=== PATIENT | male | born 1950 | race African-American/Black ===

== ENCOUNTER 2016-08-07 12:14 | Inpatient (IN) | payer MEDICARE, MEDICAID ==
[~2016-08-07] VITALS: Ht 177.8 cm; Wt 64.2 kg
[~2016-08-07 12:14] MED LIST: ACET-2321 PO; ACET-2723 PO; BENZ9.352 PO; BISA10SU61 RECTALLY; BISM262O25 PO; CALC-1124 PO; DICY10CA13 PO; DIPH25CA6 PO; EPIN0.3P3 IM; GUAI100S35 PO; LOPE2TAB24 PO; LORA1TAB3 PO; MAGN-49 PO; NA P133E23 RECTALLY; POLY119P21 PO; PSEU60TA21 PO; SENN-156 PO; TOLN133A TOP; [UNRECOGNIZED DRUG - CODE] PO
--- OUTSIDE RECORDS SUMMARY | 2016-08-07 12:18 | XMS REPORT | Continuity of Care Document ---
Author Author [facility] Organization [facility] Address Unknown Phone Unavailable Allergies Active Description Code Type Severity Reaction Onset Reported/Identified Relationship to Patient Clinical Status Yes No Known Drug Allergies Drug Allergy 05/12/2012 Yes NSAIDs NKMA N/A [id number] 05/30/2014 Medications Problems Date Dx Coded Attending Type Code Diagnosis Diagnosed By 05/12/2012 Norma Mera MD Final 345.90 EPILEPSY NOS W/O INTRACT 05/12/2012 Norma Mera MD Admitting 557.9 VASC INSUFF INTEST NOS 05/12/2012 Norma Mera MD Final 564.00 CONSTIPATION NOS 05/12/2012 Norma Mera MD Final 569.89 INTESTINAL DISORDER NEC 05/12/2012 Norma Mera MD Final 787.3 FLATUL/ERUCT GAS PAIN 05/12/2012 Norma Mera MD Admitting 564.00 CONSTIPATION NOS Procedures Code [place] [address] DIAGNOSTIC COLONOSCOPY Norma Mera MD 05/12/2012 Results Encounters ACCT No. Visit Date/Time Discharge Status Pt. Type Provider Facility Loc./Unit Complaint [id number] 05/12/2012 09:08:00 2012 23:59:59 CLS Outpatient Norma Mera MD [facility]
--- OUTSIDE RECORDS SUMMARY | 2016-08-07 12:18 | XMS REPORT | Continuity of Care Document ---
Author Author [facility] Organization [facility] Address Unknown Phone Unavailable Care Team Providers Care Engineer Fishing Vessel Name Role Phone OTHER Primary Care Physician [phone] Insurance Providers Guarantor Vadim Johnson Address [address] [place] [address] [address] [place] [address] Email DENIED TO PT PORTAL Payer [facility] Policy Number [id number] Subscriber's Name Vadim Johnson Relationship 18 Self Effective Date 16 Expiration Date 16 Payer Medicare Policy Number [id number] Subscriber's Name Vadim Johnson Relationship 18 Self Effective Date 88 Advance Directives Directive Response Recorded Date/Time Advanced Directives Type None 04/30/16 6:00pm Chief Complaint and Reason for Visit Chief Complaint Hypertension Reason for Visit [id number] Headache Problems Active Problems Medical Problem Onset Date Status Mental retardation Unknown Past Problems Medical Problem Onset Date HTN (hypertension) Unknown Headache Unknown Medications Current Home Medications Medication Dose Units Route Directions Days Qty Instructions Start Date Acetaminophen (Tylenol) 325 Mg Tablet 650 Mg Oral Every 4 Hours as needed for Pain/Fever 04/30/16 Acetaminophen (Tylenol Extra Strength) 500 Mg Tablet 500-1000 Mg Oral Every 6 Hours as needed for Pain/Fever 04/30/16 Benzocaine (Oral Pain Relief) 9.35 Gm Gel..gram. 1 Applic Oral As Needed 04/30/16 Bisacodyl (Dulcolax) 10 Mg Supp.rect 10 Mg Rectally Daily as needed for Constipation 04/30/16 Bismuth Subsalicylate (Bismatrol) 262 Mg/15 Ml Oral.susp 1 Dose Oral As Needed 04/30/16 Calcium Carb/Magnesium Hydrox (Rolaids Chewable Tablet) 1 Each Tab.chew 1-2 Tab Oral Every Hour as needed for Heartburn 04/30/16 Diazepam 5 Mg Tablet 5 Mg Oral Twice A Day as needed for Prn Orders 07/15/11 Dicyclomine Hcl 10 Mg Capsule 10 Mg Oral Four Times Daily as needed for Irritable Bowel Symptoms 04/30/16 Diphenhydramine Hcl 25 Mg Capsule 25 Mg Oral Three Times A Day as needed for Allery Symptoms 04/30/16 Epinephrine (Epipen 2-Umberto) 0.3 Mg/0.3 Ml Auto.injct 0.3 Mg Intramusc As Needed 04/30/16 Guaifenesin (Robafen) 100 Mg/5 Ml Liquid 100 Mg Oral Every 4 Hours as needed for Cough 04/30/16 Loperamide Hcl (Loperamide) 2 Mg Tablet 2 Mg Oral Four Times Daily as needed for Diarrhea 04/30/16 Lorazepam 1 Mg Tablet 1 Mg Oral Twice A Day as needed for Anxiety 04/30/16 Magnesium Hydroxide (Milk Of Magnesia) 400 Mg/5 Ml Oral.susp 30 Ml Oral Daily as needed for Constipation 07/15/11 Na Phos,M-B/Na Phos,Di-Ba (Fleet Enema) 133 Ml Enema 1 Enema Rectally Onetime as needed for Constipation 04/30/16 Polyethylene Glycol 3350 (Glycolax) 119 Gm Powder 17 Gm Oral Daily 04/30/16 Pseudoephedrine Hcl (Sudogest) 60 Mg Tablet 60 Mg Oral Every 4 Hours as needed for Congestion 04/30/16 Sennosides (Senna) 8.6 Mg Tablet 8.6 Mg Oral Twice A Day 04/30/16 Tolnaftate (Tinactin) 133 Gm Aero.powd 1 Applic Topically Twice A Day as needed for Prn Orders 04/30/16 Social History Social History Problem Response Recorded Date/Time Onset Date Status Hx Alcohol Use No 04/30/2016 6:16pm Not Applicable Not Applicable Query Response Start Date Stop Date Smoking Status Never smoker Hospital Discharge Instructions No hospital discharge instructions. Plan of Care Discharge Date 04/30/16 7:30pm Disposition 01 DISCHARGED HOME, SELF-CARE Condition at Discharge Improved Instructions/Education Provided Tension Headache Prescriptions See Medication Section Referrals ANDER NEGRETE MD Order Date: 3 Days Address: [address] [place] [address] [phone] Note: Additional Instructions/Education You have had a headache. Elevated blood pressure is a common finding with pain. Drink plenty of fluids and follow up with your doctor. Care Plan and Goals Physician Care Plan Problem: Tension [place] Goal: Follow up with primary care provider Instructions: Take medications and follow care plan as discussed/written Functional Status No functional status results. Allergies, Adverse Reactions, Alerts Allergen Type Severity Reaction Status Last Updated No Known Drug Allergies Allergy Unknown Active 04/30/16 Immunizations Query Response on File Recorded Date/Time Hx Tetanus, Diptheria, Pertussis Yes 12/14/11 10:21pm Hx Tetanus, Diptheria, Pertussis Yes 12/14/11 10:21pm Vital Signs Acute Vital Signs Vital Response Date/Time Temperature (Fahrenheit) 98.3 deg F (96.8 - 99.1) 04/30/2016 7:30pm Temperature (Calculated Celsius) 36.07241 degrees C (36.0 - 37.3) 04/30/2016 7:30pm Pulse Rate (adult) 85 bpm (60 - 100) 04/30/2016 7:30pm Respiratory Rate 18 breaths/min (10 - 20) 04/30/2016 7:30pm O2 Sat by Pulse Oximetry 97 % (90 - 100) 04/30/2016 7:30pm Blood Pressure 137/84 mm Hg 04/30/2016 7:30pm Blood Pressure 137/84 mm Hg 04/30/2016 7:30pm Height (Feet) 5 feet 04/30/2016 6:00pm Height (Inches) 10.00 inches 04/30/2016 6:00pm Weight (Kilograms) 68.900 kg 04/30/2016 6:00pm Body Mass Index (BMI) 21.0 04/30/2016 6:00pm Results Laboratory Results Test Name Result Units Flags Reference Collection Date/Time Result Date/ Time Comments White Blood Count 10.1 T/MM3 4.5-11.0 04/30/2016 6:40pm 04/30/2016 6: 56pm Red Blood Count 4.57 M/MM3 4.50-5.90 04/30/2016 6:40pm 04/30/2016 6: 56pm Hemoglobin 13.8 GM/DL 13.5-17.5 04/30/2016 6:40pm 04/30/2016 6:56pm Hematocrit 41.0 % 41-53 04/30/2016 6:40pm 04/30/2016 6:56pm Mean Corpuscular Volume 89.7 UM3 80-100 04/30/2016 6:40pm 04/30/2016 6: 56pm Mean Corpuscular Hemoglobin 30.2 UUG 26-34 04/30/2016 6:40pm 2016 6:56pm Mean Corpuscular Hemoglobin Concent 33.7 GM/DL 31-37 04/30/2016 6:40pm 04/30/2016 6:56pm RDW Standard Deviation 44.3 FL 36.9-50.2 04/30/2016 6:40pm 04/30/2016 6 :56pm Platelet Count 173 T/MM3 130-400 04/30/2016 6:40pm 04/30/2016 6:56pm Mean Platelet Volume 10.2 UM3 9.4-12.4 04/30/2016 6:40pm 04/30/2016 6: 56pm Neutrophils % (Manual) 94.0 % H 33-66 04/30/2016 6:40pm 04/30/2016 7: 00pm Band Neutrophils % 3.0 % 0-6 04/30/2016 6:40pm 04/30/2016 7:00pm Lymphocytes % (Manual) 1.0 % L 23-45 04/30/2016 6:40pm 04/30/2016 7: 00pm Monocytes % (Manual) 2.0 % 0-9.0 04/30/2016 6:40pm 04/30/2016 7:00pm Band Neutrophils # 0.3 T/MM3 04/30/2016 6:40pm 04/30/2016 7:00pm Absolute Neutrophils (Manual) 9.5 T/MM3 H 1.8-7.7 04/30/2016 6:40pm 06/2016 7:00pm Lymphocytes # (Manual) 0.1 T/MM3 L 1-4.8 04/30/2016 6:40pm 04/30/2016 7: 00pm Monocytes # (Manual) 0.2 T/MM3 0-0.8 04/30/2016 6:40pm 04/30/2016 7: 00pm Red Cell Morphology Comment NORMAL 04/30/2016 6:40pm 04/30/2016 7: 00pm Icterus Index < 2 0-7 04/30/2016 6:40pm 04/30/2016 6:54pm Chemistry Specimen Hemolysis < 15 0-25 04/30/2016 6:40pm 04/30/2016 6 :54pm 0-25: Specimen Exhibited No Hemolysis. Turbidity < 20 0-20 04/30/2016 6:40pm 04/30/2016 6:54pm Sodium Level 140 MEQ/L 134-144 04/30/2016 6:40pm 04/30/2016 6:54pm Potassium Level 4.0 MEQ/L 3.6-5 04/30/2016 6:40pm 04/30/2016 6:55pm Chloride Level 99 MEQ/L 98-107 04/30/2016 6:40pm 04/30/2016 6:55pm Carbon Dioxide Level 30 MEQ/L 22-30 04/30/2016 6:40pm 04/30/2016 6: 55pm Anion Gap 11 MEQ/L 5-15 04/30/2016 6:40pm 04/30/2016 6:55pm Blood Urea Nitrogen 15.0 MG/DL 9-20 04/30/2016 6:40pm 04/30/2016 6: 55pm Creatinine 1.0 MG/DL 0.8-1.5 04/30/2016 6:40pm 04/30/2016 6:55pm BUN/Creatinine Ratio 15 RATIO 6-26 04/30/2016 6:40pm 04/30/2016 6:55pm Glomerular Filtration Rate Calc 75 04/30/2016 6:40pm 04/30/2016 6: 55pm Glucose Level 136 MG/DL H 75-110 04/30/2016 6:40pm 04/30/2016 6:55pm Calculated Osmolality 272 MOSM/KG 261-280 04/30/2016 6:40pm 04/30/2016 6:55pm Calcium Level 9.8 MG/DL 8.4-10.2 04/30/2016 6:40pm 04/30/2016 6:55pm Procedures No known history of procedures. Encounters Encounter Location Arrival/Admit Date Discharge/Depart Date Attending Provider Departed Emergency Room [facility] 04/30/16 5:56pm 04/30/16 7: 30pm AUGUST, RENARD Manuel DO Recent Diagnosis
--- OUTSIDE RECORDS SUMMARY | 2016-08-07 12:19 | XMS REPORT | Referral Summary ---
Author Author [facility] Organization [facility] Address Unknown Phone Unavailable Care Team Providers Care Payroll Manager Name Role Phone Pee Machuca Primary Care Physician [phone] Encounter VC Date(s): 06/24/16 - 06/24/16 [facility] [place] [place] [address] Discharge Diagnosis: Constipation (disorder) Discharge Diagnosis: Profound mental retardation Discharge Diagnosis: Epileptic seizures Discharge Disposition: 01-Home or Self Care Attending Physician: Devyn Machuca MD Admitting Physician: Devyn Machuca MD Vital Signs Most recent to 1 oldest [Reference Range]: Temperature Tympanic 36.0 degC [36.6-38.1 degC] *LOW* (06/24/16 11:44 AM) Peripheral Pulse 96 bpm Rate [60-100 bpm] (06/24/16 11:44 AM) Respiratory Rate 16 br/min [14-20 br/min] (06/24/16 11:44 AM) Blood Pressure 154/104 mmHg [90-140/60-90 mmHg] *HI* (06/24/16 11:44 AM) Problem List Condition Effective Dates Status Health Status Informant Anemia(Confirmed) 2000 Active Bronchitis Resolved (disorder)(Confirmed ) Constipation Active (disorder)(Confirmed ) Diarrhea Resolved (finding)(Confirmed) Disorders of 1996 Active perceptional & expression(Confirmed ) Epitaxis (Petite 199805/30/14 Resolved Mal)(Confirmed) Pigmenta change to 2000 Active (L) of face(Confirmed) Cerumenosis(Confirme 2000 Active d) (L) tear duct 1997 Active clogged(Confirmed) Epileptic 1952 Active seizures(Confirmed) Clavicle 2001 - 05/30/14 Resolved fracture(Confirmed) Elevated 1988 - 05/30/14 Resolved CPK(Confirmed) Osteopenia - hip and 2001 Active low bone mineral(Confirmed) Profound mental Active retardation(Confirme d) Allergies, Adverse Reactions, Alerts Substance Reaction Severity Status NSAIDs Colon ulcer... Active Medications acetaminophen 325 mg oral tablet 1 tabs, Oral, q4hr, as needed Start Date: 05/30/14 Status: Ordered acetaminophen 500 mg oral tablet 1-2 tabs, Oral, q6hr, not to exceed 3000 mg/day as needed for pain,fever or discomfort, # 50 tabs, 0 Refill(s), 1-2 tabs Oral q6hr,Instr:not to exceed 3000 mg/day; as needed for pain,fever or discomfort Start Date: 01/13/14 Status: Ordered Ativan 1 mg oral tablet 1 tabs, Give [address]'s appt and can repeat x 1 if needed, 0 Refill(s) Start Date: 05/30/14 Status: Ordered Benadryl 25 mg oral capsule 2 caps, Oral, every 4-6 hours as needed Start Date: 05/30/14 Status: Ordered bisacodyl 10 mg rectal suppository 1 supp, Rectal, Daily, as needed for constipation, prn constipation or abd distension, # 12 supp, 1 Refill(s), Pharmacy: [facility], 1 supp Rectal Daily,PRN:as needed for constipation,Instr:prn constipation or abd distension Start Date: 01/13/14 Status: Ordered dicyclomine 10 mg oral capsule 1 caps, Oral, QID, as needed for irritable bowel Start Date: 05/30/14 Status: Ordered EpiPen 2-Umberto 0.3 mg injectable kit IntraMuscular, Once, as needed for anaphylaxis, 0 Refill(s) Start Date: 12/20/15 Status: Ordered Imodium A-D 2 mg oral tablet 2 tabs, Oral, after 1st loose stool and 1 tablet after each next bowel movement ; do not exceed 15 mg in 24hrs Start Date: 05/30/14 Status: Ordered Milk of Magnesia 30 mL, Oral, Daily, as needed, followed by a full glass (8 oz) of liquid Start Date: 05/30/14 Status: Ordered MiraLax oral powder for reconstitution See Instructions, 17GM WITH 8OZ OF H2O AND TAKE BY MOUTH ONCE DAILY FOR CONSTIPATION., # 527 g, 2 Refill(s), Pharmacy: [facility] Start Date: 01/26/16 Status: Ordered Pepto-Bismol 262 mg/15 mL oral suspension Start Date: 05/30/14 Status: Ordered Rolaids 550 mg-110 mg oral tablet, chewable Oral, q1hr, Take 1-2 tabs as needed for heartburn/upset stomach Start Date: 05/30/14 Status: Ordered Senokot 8.6 mg oral tablet See Instructions, TAKE 1 TABLET BY MOUTH TWO TIMES A DAY FOR CONSTIPATION., # 56 tabs, 1 Refill(s), Pharmacy: [facility], TAKE 1 TABLET BY MOUTH TWO TIMES A DAY FOR CONSTIPATION. Start Date: 03/13/16 Status: Ordered Sudafed 1 tabs, Oral, q4hr, as needed Start Date: 05/30/14 Status: Ordered Tinactin 1% topical spray BID, Kaleva on feet twice daily as needed for athletes foot Start Date: 05/30/14 Status: Ordered Valium 5 mg oral tablet See Instructions, 1 tabs at HS before appt day, may take 1 morning of appt Start Date: 05/30/14 Status: Ordered Results No data available for this section Immunizations Given and Recorded Vaccine Date Status Refusal Reason tetanus/diphth/pertuss (Tdap) adult/adol 05/23/06 Recorded influenza virus vaccine, inactivated 02/22/14 Recorded influenza virus vaccine, live 01/08/13 Given influenza virus vaccine, live 02/06/12 Given pneumococcal 13-valent conjugate vaccine 04/05/15 Given pneumococcal 23-polyvalent vaccine 12/19/09 Recorded Procedures Procedure Date Related Diagnosis Body Site Colonoscopy 05/12/12 Colonoscopy1 07/15/11 Several teeth removed 2004 Evaluation of both calfs 1997 1colon ulcers, no NSAIDS, ischemic colitis. F/u if ongoing probs for further eval. Social History Social History Type Response Smoking Status Never smoker Assessment and Plan Extracted from: Title: Office Visit Note Author: Devyn Machuca MD Date: 06/24/16 Assessment/Plan 1.Profound mental retardation Chronic and unchanged. Continue routine follow-up every 6 months. Ordered: Office Visit Level 3 Est 63700 2.Epileptic seizures No obvious history of seizure activity. No change in current treatment. Ordered: Office Visit Level 3 Est 97609 3.Constipation (disorder) When necessary meds are ordered as needed continue those without change. Ordered: Office Visit Level 3 Est 40716 Laboratory studies reviewed from June of last year. CBC and chemistry are unremarkable. I've recommended lab work every 2 years. She has further problems or concerns will glad to see him back at some chest can see him every 6 months.
[2016-08-07 12:25] VITALS: BP 180/89; PULSE 105; RESP 18; TEMP 96.5; O2SAT 95
--- NOTE | 2016-08-07 12:25 | NUR ---
Admit Patient admitted to room 142. Patient has MR and is mute other then a few words. Caregiver at side. Abd distended, complains of abd pain.
[2016-08-07 12:33] VITALS: Ht 177.8 cm; Wt 64.2 kg
[2016-08-07] MEDS: NORMAL SALINE 1,000 ML IV SCH (13:00)
[2016-08-07 13:05] VITALS: PULSE 105
[2016-08-07] MEDS: LORAZEPAM 2 MG/ML INJECTION IV PRN ×2 (13:27→20:27)
[2016-08-07] MEDS: MORPHINE SULFATE 2 MG SYRINGE IV PRN ×4 (13:27→21:44)
[2016-08-07] MEDS: ONDANSETRON 4mg/2ml INJECTION IV PRN (13:27)
[2016-08-07 13:37] LABS: HCT - HEMATOCRIT 47.5 % (41-53); HGB - HEMOGLOBIN 15.7 GM/DL (13.5-17.5); MEAN CORPUSCULAR HGB 29.3 UUG (26-34); MEAN CORPUSCULAR HGB CONC(MCHC 33.1 GM/DL (31-37); MEAN CORPUSCULAR VOLUME 88.8 UM3 (80-100); MEAN PLATELET VOLUME 11.3 UM3 (9.4-12.4); RED BLOOD COUNT 5.35 M/MM3 (4.50-5.90); WBC - WHITE BLOOD COUNT 16.7 T/MM3 (4.5-11.0)
[2016-08-07 13:51] LABS: ALBUMIN 4.2 G/DL (3.5-5.0); ALKALINE PHOSPHATASE 71 U/L (38-126); ALT (SGPT) 39 U/L (21-72); ANION GAP 19 MEQ/L (5-15); AST (SGOT) 72 U/L (17-59); BUN/CREATININE RATIO 28 RATIO (6-26); CALCIUM 9.7 MG/DL (8.4-10.2); CHLORIDE 99 MEQ/L (98-107); CO2 - CARBON DIOXIDE 19 MEQ/L (22-30); CREATININE 1.1 MG/DL (0.8-1.5); GLOMERULAR FILTRATION RATE 67; GLUCOSE 149 MG/DL (75-110); MAGNESIUM 3.6 MG/DL (1.6-2.3); POTASSIUM 4.5 MEQ/L (3.6-5); SODIUM 137 MEQ/L (134-144); TOTAL PROTEIN 8.6 G/DL (6.3-8.2)
[2016-08-07 13:53] LABS: BAND NEUTROPHILS # 2.5 T/MM3; LYMPHOCYTES # (MANUAL) 0.8 T/MM3 (1-4.8); MONOCYTES # (MANUAL) 0.3 T/MM3 (0-0.8); TOTAL CELLS COUNTED 100 %
[2016-08-07 14:24] LABS: LIPASE 69 U/L (23-300)
[2016-08-07] MEDS ORDERED: NORMAL SALINE 500 ML IV SCH (14:30)
--- NOTE | 2016-08-07 14:30 | NUR ---
Restraints Patient pulled out NG. Caregiver at side. Tried to re-orient patient several times and explain the importance of not pulling out NG. NG replaced and Liss notified. Restraints placed for tube pulling.
--- NOTE | 2016-08-07 14:41 | HPPDOC ---
KEENAN HILLMAN V CNC MILL OPERATOR 08/07/16 1412: HPI - Adult Date DATE: 08/07/16 TIME: 13:46 General Chief Complaint: Abdominal distension History of Present Illness Vadim is a 65 year old man who currently resides at [facility]. He presents today to his primary care provider at [facility], Selin Tay's office for evaluation of abdominal distention. Abdominal KUB X-ray was completed that demonstrated distention of the colon with multiple air fluid levels in both large and small bowel related to adynamic ileus. Due to his clinical and diagnostic findings the hospitalist team was notified for direct admission as an inpatient for further evaluation and treatment... Shouldn't on initial examination. He has severe MR and is not able to communicate very well. [facility] staff member reports that yesterday the patient' s stomach began to swell and that he vomited twice. Vadim also pointed to his stomach yesterday. He also had a low grade fever. [facility] staff reports that his last bowel movement was Friday. He is seen initially on exam laying in bed with a [facility] staff member at his bedside. He does appear to be in distress. His abdomen is very distended. Discussed with [facility] staff his baseline mentation is mostly non-verbal with some aggressive behaviors. [facility] staff reports that he occasionally will point to something that he wants, but otherwise he speaks minimally. 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 Clavicle fracture Surgical History Patient's Surgical History: Colonoscopy x 2 (2011, 2012) Current Medications Home Meds Reported Medications Benzocaine (Oral Pain Relief) 9.35 Gm Gel..gram., 1 APPLIC PO PRN 04/30/16 Acetaminophen (Tylenol) 325 Mg Tablet, 650 MG PO Q4HR Y for PAIN/FEVER 04/30/16 Pseudoephedrine HCl (Sudogest) 60 Mg Tablet, 60 MG PO Q4HR Y for CONGESTION 04/30/16 Guaifenesin (Robafen) 100 Mg/5 Ml Liquid, 100 MG PO Q4HR Y for COUGH 04/30/16 Calcium Carb/Magnesium Hydrox (Rolaids Chewable Tablet) 1 Each Tab.chew, 1-2 TAB PO Q1H Y for HEARTBURN 04/30/16 Bismuth Subsalicylate (Bismatrol) 262 Mg/15 Ml Oral.susp, 1 DOSE PO PRN 04/30/16 Tolnaftate (Tinactin) 133 Gm Aero.powd, 1 APPLIC TOP BID Y for PRN ORDERS 04/30/16 Diphenhydramine HCl (Diphenhydramine HCl) 25 Mg Capsule, 25 MG PO TID Y for ALLERY SYMPTOMS 04/30/16 Lorazepam (Lorazepam) 1 Mg Tablet, 1 MG PO BID Y for ANXIETY 04/30/16 Loperamide HCl (Loperamide) 2 Mg Tablet, 2 MG PO QID Y for DIARRHEA 04/30/16 Dicyclomine HCl (Dicyclomine HCl) 10 Mg Capsule, 10 MG PO QID Y for IRRITABLE BOWEL SYMPTOMS 04/30/16 Na Phos,M-B/Na Phos,Di-Ba (Fleet Enema) 133 Ml Enema, 1 ENEMA RECTALLY O Y for CONSTIPATION 04/30/16 Bisacodyl (Dulcolax) 10 Mg Supp.rect, 10 MG RECTALLY DAILY Y for CONSTIPATION 04/30/16 Acetaminophen (Tylenol Extra Strength) 500 Mg Tablet, 500-1000 MG PO Q6H Y for PAIN/FEVER 04/30/16 Epinephrine (Epipen 2-Umberto) 0.3 Mg/0.3 Ml Auto.injct, 0.3 MG IM PRN 04/30/16 Sennosides (Senna) 8.6 Mg Tablet, 8.6 MG PO BID 04/30/16 Polyethylene Glycol 3350 (Glycolax) 119 Gm Powder, 17 GM PO DAILY 04/30/16 Magnesium Hydroxide (Milk Of Magnesia) 400 Mg/5 Ml Oral.susp, 30 ML PO DAILY Y for CONSTIPATION 07/15/11 Diazepam (Diazepam) 5 Mg Tablet, 5 MG PO BID Y for PRN ORDERS 07/15/11 Allergies: Coded Allergies: NSAIDS (Non-Steroidal Anti-Inflamma (Verified Allergy, Unknown, 08/07/16) History of ulcers Family History Family History: Unable to obtain from patient given chronic mentation Social History Smoking Status: Never smoker Substance Use Type: does not use Alcohol Intake: none Advance Directives: Yes DPOA for Healthcare Only (Winnie guardian) Review of Systems Unable to Obtain ROS Due to: other Comments Unable to obtain review of systems due to chronic cognitive deficits and profound MR Physical Exam General General Nourishment: well nourished General Body Habitus: well groomed Vital Signs Vital Signs Date Time Temp Pulse Resp B/P Pulse Ox O2 Delivery O2 Flow Rate FiO2 08/07/16 13:05 105 08/07/16 12:25 96.5 18 180/89 95 Room Air Height (Feet): 5 Height (Inches): 10.00 Eyes Brief: FOUND: EOMI ENMT Brief: FOUND: mucosa moist Respiratory Brief: FOUND: clear all negron Cardiovascular (brief) Cardiac Brief: FOUND: regular rate, regular rhythm Abdomen (brief) Abdominal Brief: FOUND: distended, other (hypoactive BS), NOT FOUND: BS normo active x4 (hypoactive), soft Abdomen Auscultation: FOUND: hypoactive Integumentary (brief) Integumentary Brief: FOUND: dry, warm Neurologic (brief) Neurological Brief: FOUND: cranial 2-12 intact Neurologic RN Documented GCS Eye Opening: Verbal: Motor: Total: Psychiatric (brief) FOUND: alert, normal affect Laboratory Laboratory Tests Test 08/07/16 13:28 White Blood Count 16.7T/MM3 Red Blood Count 5.35M/MM3 Hemoglobin 15.7GM/DL Hematocrit 47.5% Mean Corpuscular Volume 88.8UM3 Mean Corpuscular Hemoglobin 29.3UUG Mean Corpuscular Hemoglobin Concent 33.1GM/DL RDW Standard Deviation 45.0FL Platelet Count 181T/MM3 Mean Platelet Volume 11.3UM3 Immature Granulocyte % (Auto) % Neutrophils (%) (Auto) % Lymphocytes (%) (Auto) % Monocytes (%) (Auto) % Eosinophils (%) (Auto) % Basophils (%) (Auto) % Absolute Immature Granulocyte (auto T/MM3 Absolute Neutrophils (auto) T/MM3 Absolute Lymphocytes (auto) T/MM3 Absolute Monocytes (auto) T/MM3 Absolute Eosinophils (auto) T/MM3 Absolute Basophils (auto) T/MM3 Turbidity < 20 Icterus Index < 2 Chemistry Specimen Hemolysis 125 Sepsis Diagnostic Criteria Sepsis Confirmed/Suspected Infection: Yes SIRS Criteria: Temp<=96.8 or >=100.4, Pulse >= 90 beats/min, WBC >=12,000 or <= 4,000, BS >120 in non-diabetic Severe Sepsis Lactate >=2.0 mg/dL Assessment & Plan Problems: (1) Severe sepsis Status: Acute Assessment & Plan: Manifestations of sepsis include the following- 1. Leukocytosis at 16.7 with left shift. Bandemia 15%. 2. Tachycardia at 105 3. Acute abdominal distention/pain 4. Evidence of organ dysfunction including elevated bilirubin 2.0 and hyperglycemia in the absence of diabetes 5. Elevated Lactate of 3.0. (2) Abdominal distention Status: Acute (3) Epileptic seizure Status: Chronic (4) Anemia Status: Chronic (5) Constipation Status: Chronic (6) Mental retardation Status: Chronic (7) Osteopenia Status: Chronic Plan/Intensity of Service Admit to inpatient under the care of Dr. Arvizu for abdominal distention. Severe sepsis as evidence by: Acute abdominal pain, Tachycardia at 105, Leukocytosis at 16.7 with left shift, Bilirubin at 2.0, hyperglycemia and Lactate of 3.0. Obtain blood cultures x 2 on admission NS bolus of 500ml wide open, then decrease to 100ml/hr. Zosyn IV every 6 hours for empiric antimicrobial coverage. We will repeat a Lactate at 1830, following sepsis protocol We will consult Dr. Ariza for abdominal distention. Place NG tube to low intermittent suction to help decompress the stomach When necessary behavioral restraints as patient has already pulled out one NG tube on admission. We will keep Vadim NPO for now. Zofran 4mg IV PRN for nausea. Morphine sulfate 2mg IV every 2 hours PRN abdominal pain. Vital signs are: T- 96.5, HR of 105, BP of 180/89, 18 R and 95% RA. Will ask nursing to repeat BP. For DVT prophylaxis we will order SCDs as to not conflict with any surgical intervention that could be needed. We will contact his DPOA for a code status. Recheck CBC and BMP tomorrow morning to follow blood counts, renal function and electrolytes. At time of discharge medical care will return to his primary care provider at [facility] DVT Prophylaxis: SCD'S Code Status Full Code, unverified Hospital Course Summary Disclaimer The hospital course summary below is not to be considered part of the above Progress Note. ARLETTE ARVIZU MD 08/07/16 2686: Past Medical History Current Medications Home Meds Reported Medications Benzocaine (Oral Pain Relief) 9.35 Gm Gel..gram., 1 APPLIC PO PRN 04/30/16 Acetaminophen (Tylenol) 325 Mg Tablet, 650 MG PO Q4HR Y for PAIN/FEVER 04/30/16 Pseudoephedrine HCl (Sudogest) 60 Mg Tablet, 60 MG PO Q4HR Y for CONGESTION 04/30/16 Guaifenesin (Robafen) 100 Mg/5 Ml Liquid, 100 MG PO Q4HR Y for COUGH 04/30/16 Calcium Carb/Magnesium Hydrox (Rolaids Chewable Tablet) 1 Each Tab.chew, 1-2 TAB PO Q1H Y for HEARTBURN 04/30/16 Bismuth Subsalicylate (Bismatrol) 262 Mg/15 Ml Oral.susp, 1 DOSE PO PRN 04/30/16 Tolnaftate (Tinactin) 133 Gm Aero.powd, 1 APPLIC TOP BID Y for PRN ORDERS 04/30/16 Diphenhydramine HCl (Diphenhydramine HCl) 25 Mg Capsule, 25 MG PO TID Y for ALLERY SYMPTOMS 04/30/16 Lorazepam (Lorazepam) 1 Mg Tablet, 1 MG PO BID Y for ANXIETY 04/30/16 Loperamide HCl (Loperamide) 2 Mg Tablet, 2 MG PO QID Y for DIARRHEA 04/30/16 Dicyclomine HCl (Dicyclomine HCl) 10 Mg Capsule, 10 MG PO QID Y for IRRITABLE BOWEL SYMPTOMS 04/30/16 Na Phos,M-B/Na Phos,Di-Ba (Fleet Enema) 133 Ml Enema, 1 ENEMA RECTALLY O Y for CONSTIPATION 04/30/16 Bisacodyl (Dulcolax) 10 Mg Supp.rect, 10 MG RECTALLY DAILY Y for CONSTIPATION 04/30/16 Acetaminophen (Tylenol Extra Strength) 500 Mg Tablet, 500-1000 MG PO Q6H Y for PAIN/FEVER 04/30/16 Epinephrine (Epipen 2-Umberto) 0.3 Mg/0.3 Ml Auto.injct, 0.3 MG IM PRN 04/30/16 Sennosides (Senna) 8.6 Mg Tablet, 8.6 MG PO BID 04/30/16 Polyethylene Glycol 3350 (Glycolax) 119 Gm Powder, 17 GM PO DAILY 04/30/16 Magnesium Hydroxide (Milk Of Magnesia) 400 Mg/5 Ml Oral.susp, 30 ML PO DAILY Y for CONSTIPATION 07/15/11 Diazepam (Diazepam) 5 Mg Tablet, 5 MG PO BID Y for PRN ORDERS 07/15/11 Allergies: Coded Allergies: NSAIDS (Non-Steroidal Anti-Inflamma (Verified Allergy, Unknown, 08/07/16) History of ulcers Assessment & Plan Problems: (1) Severe sepsis Status: Acute Assessment & Plan: Manifestations of sepsis include the following- 1. Leukocytosis at 16.7 with left shift. Bandemia 15%. 2. Tachycardia at 105 3. Acute abdominal distention/pain 4. Evidence of organ dysfunction including elevated bilirubin 2.0 and hyperglycemia in the absence of diabetes 5. Elevated Lactate of 3.0. (2) Abdominal distention Status: Acute (3) Bowel obstruction Status: Acute Qualifiers: Intestinal obstruction type: unspecified Qualified Codes: K56.60 - Unspecified intestinal obstruction (4) Epileptic seizure Status: Chronic (5) Anemia Status: Chronic (6) Constipation Status: Chronic (7) Mental retardation Status: Chronic (8) Osteopenia Status: Chronic Plan/Intensity of Service Have independently interviewed and examined pt. Chart reviewed. Cased discussed with Selin from clinic and my CNC MILL OPERATOR. Care plan developed with my supervision; agree with above. Presents to clinic today for evaluation of increasing abdominal distention and vomiting/dry heaves. Not eating or drinking well for 2 days. Last stool 2 days ago. BP elevated and pt more agitated (his typical response when he becomes ill) . In clinic ab significantly distended. Pt with severe MR and no verbal. History obtained from caregivers. Lungs: clear CV: tachy, regular AB: distended, firm. BS not present GEN: pt looks uncomfortable, grimaces Plan: Inpatient admission-anticipate greater than 2 midnights of care needed. Start Zosyn for antimicrobial coverage of GI pathogens. NG to LIS to help bowel decompression-will consult with Dr Ariza for evaluation. Pt does have Hx of adynamic colon with prior persistent dilation of large and small bowel. IVF for hydration and volume support. SCD for DVT prevention. Soft restrains as pt likely to remove feeding tube if no restraints. Monitor lab. KEENAN HILLMAN V CNC MILL OPERATOR Aug 07, 2016 14:12 ARLETTE ARVIZU MD Aug 07, 2016 15:48
--- NOTE | 2016-08-07 14:55 | DI ---
Indication: ITS.REASON: verify NG tube placement Procedure: KUB: Encounter: Initial Comparison: 10/06/2012 Technique: A single supine AP abdominal radiograph was obtained. Findings: Evaluation limited by suboptimal positioning with rightward patient rotation. There is marked gaseous distention of multiple bowel loops potentially representing predominantly stomach and colon. An enteric tube is in place which appears to course below the diaphragm with distal side port near the expected region of the GE junction and tip likely in the proximal stomach. Basilar atelectasis noted within the visualized lower lungs. No acute osseous abnormality identified. Impression: Enteric tube in place with tip likely in the proximal stomach and distal side port near the GE junction. .
[2016-08-07 14:56] LABS: THYROID STIM HORMONE-TSH 1.06 MIU/L (0.47-4.68)
[2016-08-07 15:23] VITALS: BP 160/102; PULSE 111; RESP 18; TEMP 96.8; O2SAT 94
--- NOTE | 2016-08-07 15:37 | NUR ---
Comfort BP continues to be elevated. Patient is unable to communicate much with how severe his abd pain is. Morphine given.
--- NOTE | 2016-08-07 16:33 | NUR ---
NG Patient pulled NG out. Replaced with an 18 gauge. Patient now has 1 on 1 sitter.
--- NOTE | 2016-08-07 16:46 | CONSPD ---
Consultation Info Date DATE: 08/07/16 TIME: 16:44 Date of Consultation: Aug 07, 2016 Reason for Consultation: Ileus vs SBO HPI - Adult Date DATE: 08/07/16 TIME: 16:44 General Chief Complaint: Abdominal distension History of Present Illness Per Dr. 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 Clavicle fracture Surgical History Patient's Surgical History: 06-16-2011 Colonoscopy = ischemic colitis, Mi[facility] Current Medications Home Meds Reported Medications Benzocaine (Oral Pain Relief) 9.35 Gm Gel..gram., 1 APPLIC PO PRN 04/30/16 Acetaminophen (Tylenol) 325 Mg Tablet, 650 MG PO Q4HR Y for PAIN/FEVER 04/30/16 Pseudoephedrine HCl (Sudogest) 60 Mg Tablet, 60 MG PO Q4HR Y for CONGESTION 04/30/16 Guaifenesin (Robafen) 100 Mg/5 Ml Liquid, 100 MG PO Q4HR Y for COUGH 04/30/16 Calcium Carb/Magnesium Hydrox (Rolaids Chewable Tablet) 1 Each Tab.chew, 1-2 TAB PO Q1H Y for HEARTBURN 04/30/16 Bismuth Subsalicylate (Bismatrol) 262 Mg/15 Ml Oral.susp, 1 DOSE PO PRN 04/30/16 Tolnaftate (Tinactin) 133 Gm Aero.powd, 1 APPLIC TOP BID Y for PRN ORDERS 04/30/16 Diphenhydramine HCl (Diphenhydramine HCl) 25 Mg Capsule, 25 MG PO TID Y for ALLERY SYMPTOMS 04/30/16 Lorazepam (Lorazepam) 1 Mg Tablet, 1 MG PO BID Y for ANXIETY 04/30/16 Loperamide HCl (Loperamide) 2 Mg Tablet, 2 MG PO QID Y for DIARRHEA 04/30/16 Dicyclomine HCl (Dicyclomine HCl) 10 Mg Capsule, 10 MG PO QID Y for IRRITABLE BOWEL SYMPTOMS 04/30/16 Na Phos,M-B/Na Phos,Di-Ba (Fleet Enema) 133 Ml Enema, 1 ENEMA RECTALLY O Y for CONSTIPATION 04/30/16 Bisacodyl (Dulcolax) 10 Mg Supp.rect, 10 MG RECTALLY DAILY Y for CONSTIPATION 04/30/16 Acetaminophen (Tylenol Extra Strength) 500 Mg Tablet, 500-1000 MG PO Q6H Y for PAIN/FEVER 04/30/16 Epinephrine (Epipen 2-Umberto) 0.3 Mg/0.3 Ml Auto.injct, 0.3 MG IM PRN 04/30/16 Sennosides (Senna) 8.6 Mg Tablet, 8.6 MG PO BID 04/30/16 Polyethylene Glycol 3350 (Glycolax) 119 Gm Powder, 17 GM PO DAILY 04/30/16 Magnesium Hydroxide (Milk Of Magnesia) 400 Mg/5 Ml Oral.susp, 30 ML PO DAILY Y for CONSTIPATION 07/15/11 Diazepam (Diazepam) 5 Mg Tablet, 5 MG PO BID Y for PRN ORDERS 07/15/11 Allergies: Coded Allergies: NSAIDS (Non-Steroidal Anti-Inflamma (Verified Allergy, Unknown, 08/07/16) History of ulcers Family History Family History: Unable to obtain from patient given chronic mentation Social History Smoking Status: Never smoker Substance Use Type: does not use Alcohol Intake: none Advance Directives: Yes DPOA for Healthcare Only (Winnie guardian) GS Review of Systems 10-point Review of Systems 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
[2016-08-07] MEDS: PIPERACILLIN/TAZOBACTAM 3.375 G in NORMAL SALINE 100 ML IV SCH ×2 (16:54→20:31)
[2016-08-07 17:33] LABS: BLOOD, URINE 2+ (NEGATIVE); COLOR,URINE YELLOW (YELLOW); LEUKOCYTE ESTERASE ,URINE NEGATIVE (NEGATIVE); NITRITE,URINE NEGATIVE (NEGATIVE); UROBILINOGEN,URINE 0.2 EU/DL (NORMAL)
--- NOTE | 2016-08-07 17:42 | NUR ---
Status Patient has 1 on 1 supervision due to pulling out NG multiple times. NG continues with blood tinged drainage. Patient is mute for the most part.
[2016-08-07 17:49] LABS: BACTERIA,URINE 1+ (NEGATIVE); MUCUS,URINE PRESENT; RBC,URINE 0-1 /HPF (0-3); WBC,URINE 0-1 /HPF (0-5)
[2016-08-07 17:50] LABS: SQUAMOUS EPITHELIAL CELL,UR 0-5
--- NOTE | 2016-08-07 18:21 | CONSF ---
DATE OF CONSULTATION 08/07/2016 FINDINGS Mr. Johnson is a 65-year-old mentally handicapped gentleman whom I was asked to see this evening as a result of a possible small bowel obstruction. Mr. Johnson resides in a nearby care facility as a result of his profound MR. Staff at the care facility noted that his "belly was beginning to swell up." Apparently Mr. Johnson also had several episodes of emesis. As a result of an increasing abdominal distention and emesis he was brought in to see his primary care physician. Apparently through the clinic earlier today he did undergo some radiographic evaluation which revealed multiple dilated loops of bowel suggestive of bowel obstruction. The patient has been subsequently admitted to the hospital for further evaluation. The patient is essentially nonverbal and it is difficult to obtain information from the patient himself. PAST MEDICAL HISTORY, PAST SURGICAL HISTORY, MEDICATIONS, ALLERGIES, SOCIAL HISTORY, FAMILY HISTORY, REVIEW OF SYSTEMS Will be performed by my nurse practitioner, Rachid Aeljo APRN, to the best of her abilities given his nonverbal state. PHYSICAL EXAM VITAL SIGNS: Temperature 96.8, pulse 111, respirations 18, blood pressure 160/102, SAO2 94% on room air. HEENT: Normocephalic. Pupils are equally round and react to light and accommodation. NECK: Supple without lymphadenopathy. CHEST: Auscultation of the chest does reveal some diminished breath sounds on the right when compared to the left. A few rales are noted. No rhonchi appreciated although the patient does have some audible wheezing. HEART: Regular rate and rhythm. Normal S1, S2. ABDOMEN: Visualization of the abdomen does reveal it to be markedly distended in nature. Palpation of the abdomen did not elicit any evidence for guarding or rebound. I did not appreciate evidence for hepatomegaly or other abnormal masses. Palpation within the inguinal regions did not reveal any evidence for inguinal hernia/mass. EXTREMITIES: Without clubbing, cyanosis, or edema. NEURO: Cranial nerves II-XII grossly intact. Patient is without focal motor or sensory deficits. LABORATORY/RADIOGRAPHIC EVALUATION The patient did have a CBC upon admission and did have a component of leukocytosis with a left shift. Did have a white count of 16.7. Did have a component of bandemia at 15%. Did have 78% neutrophils. CMP was obtained and found to be essentially within normal limits. BUN was elevated at 31.0. Total bilirubin was slightly elevated at 2.0. The patient was found to have an elevated plasma lactate at 3.0. Procalcitonin was normal at 0.22. Lipase is normal at 69. I did not review his films obtained earlier today through the clinic. I did review the plain film that was obtained here at the hospital after placement of his NG tube. The patient has markedly dilated-appearing colon noted upon his plain film. One can see the NG tube coursing to below the level of the diaphragm and it does appear to be within the stomach. There does appear to be some opacity within the right lung field although this was not mentioned upon radiographic report. It does appear that there is elevation of his hemidiaphragm as a result of the marked gaseous distention noted within his colon. I did go back and review a prior admission from October 05, 2012. The patient at that time was found to have marked colonic distention which appeared similar to the plain film obtained today with marked dilatation of his colon being present at that time. I also reviewed prior colonoscopy report from July 16, 2011. The patient was found to have endoscopic evidence at that time for possible ischemic colitis with some associated ulcerations. ASSESSMENT 65-year-old mentally handicapped gentleman who presents with increasing abdominal distention, nausea, vomiting and marked distention noted of his colon and small bowel upon radiographic evaluation. PLAN Given his increased leukocytosis and bandemia, I agree with current management of initiating empiric antibiotics. Patient has been begun on Zosyn. IV fluids have also been initiated. At this point in time I do not believe the patient has an acute surgical abdomen. He does not have reji peritoneal signs upon physical examination. Tomorrow will go ahead and repeat his radiographic evaluation by obtaining a KUB and upright. Will follow the patient with serial abdominal examinations. Depending upon his radiographic results and physical findings, tomorrow we may obtain Gastrografin small bowel follow-through to rule out small-bowel obstruction. Will proceed as stated above initially with plain films and repeat examination in a.m. MTDD
[2016-08-07 20:25] VITALS: PULSE 121
[2016-08-07 21:09] VITALS: PULSE 90; RESP 16; O2SAT 98
[2016-08-08] VITALS (14 sets, daily range): BP systolic 153–176; BP diastolic 96–111; PULSE 99–135; RESP 20–32; TEMP 96.2–97.6; O2SAT 79–100
[2016-08-08] MEDS: MORPHINE SULFATE 2 MG SYRINGE IV PRN ×9 (00:16→20:40)
[2016-08-08] MEDS: NORMAL SALINE 1,000 ML IV SCH ×2 (01:22→12:49)
[2016-08-08] MEDS: LORAZEPAM 2 MG/ML INJECTION IV PRN ×3 (01:23→14:51)
--- NOTE | 2016-08-08 03:00 | NUR ---
ZIMMERMAN CATHETER INSERTED, PT TOLERATED WELL, 300 MLS KJ URINE OUT. 16 SERBIAN
[2016-08-08] MEDS: PIPERACILLIN/TAZOBACTAM 3.375 G in NORMAL SALINE 100 ML IV SCH ×4 (03:13→21:02)
--- NOTE | 2016-08-08 05:29 | NUR ---
SUMMARY PT HAS NG TUBE ON INTERMITTENT SUCTION, DRAINING GREENISH/YELLOW WITH SOME BITS OF BLOOD. PT IS UTILIZING SOFT LIMB RESTRAINTS ON THE UPPER EXTREMITIES. PT IS ALMOST NON VERBAL, CAN SAY SIMPLE WORDS (YEAH, PEE, PAIN). PT HAS BEEN RESTLESS ATTEMPTING TO TURN OVER IN BED, PT HAS BEEN UP NUMEROUS TIMES TO THE BEDSIDE COMMODE, ATTEMPTING BUT STRUGGLING TO URINATE, PT ONLY HAD 100 MLS PHYSICIAN NOTIFIED, ORDERED ZIMMERMAN. IV LOCATED IN THE LEFT UPPER ARM RUNNING NS AT 100 MLS/HR. PT IS UNABLE TO VERBALIZE A PAIN RATING PAIN IS ASSESSED BY VISUAL CUES FROM PT.
[2016-08-08 05:34] LABS: EOSINOPHILS % (AUTO) 0.3 % (0-4); HCT - HEMATOCRIT 47.8 % (41-53); HGB - HEMOGLOBIN 16.2 GM/DL (13.5-17.5); IMMATURE GRANULOCYTE # (AUTO) 0.01 T/MM3 (0.00-0.03); IMMATURE GRANULOCYTE % (AUTO) 0.1 % (0.0-0.5); LYMPHOCYTES # (AUTO) 0.5 T/MM3 (1-4.8); LYMPHOCYTES % (AUTO) 5.7 % (23-45); MEAN CORPUSCULAR HGB 29.5 UUG (26-34); MEAN CORPUSCULAR HGB CONC(MCHC 33.9 GM/DL (31-37); MEAN CORPUSCULAR VOLUME 86.9 UM3 (80-100); MEAN PLATELET VOLUME 11.8 UM3 (9.4-12.4); MONOCYTES # (AUTO) 0.8 T/MM3 (0-0.8); MONOCYTES % (AUTO) 9.1 % (0-9.0); NEUTROPHILS #(AUTO)-ABSOLUTE 7.4 T/MM3 (1.8-7.7); NEUTROPHILS % (AUTO) 84.8 % (33-66); WBC - WHITE BLOOD COUNT 8.8 T/MM3 (4.5-11.0)
[2016-08-08 05:39] LABS: ALBUMIN 4.1 G/DL (3.5-5.0); ALBUMIN/GLOBULIN RATIO 1.1 RATIO (1.1-2.2); ALKALINE PHOSPHATASE 59 U/L (38-126); ALT (SGPT) 37 U/L (21-72); ANION GAP 14 MEQ/L (5-15); AST (SGOT) 72 U/L (17-59); BUN/CREATININE RATIO 27 RATIO (6-26); CALCIUM 8.9 MG/DL (8.4-10.2); CHLORIDE 103 MEQ/L (98-107); CO2 - CARBON DIOXIDE 24 MEQ/L (22-30); CREATININE 1.1 MG/DL (0.8-1.5); GLOMERULAR FILTRATION RATE 67; GLUCOSE 120 MG/DL (75-110); POTASSIUM 5.1 MEQ/L (3.6-5); SODIUM 141 MEQ/L (134-144)
--- NOTE | 2016-08-08 08:38 | DI ---
Indication: ITS.REASON: possible bowel obstruction PROCEDURE: KUB W/UPRIGHT: Encounter: Initial Comparison: June 07, 2011 Findings: Nasogastric tube in place with the tip and side port projecting over the expected region of the stomach. Markedly dilated gas-filled colon measuring up to 12.6 cm in the hepatic flexure area with loops of dilated small bowel present as well measuring up to 7 cm in the right lower abdomen. The overall appearance is slightly more dilated than the comparison study although there was significant small and large bowel distention seen on the comparison study also. Surgical clips in the central abdomen. Scattered air-fluid levels on the upright view. Impression: Markedly dilated small and large bowel could represent a chronic ileus or pseudoobstruction. Distal colonic obstruction cannot be entirely excluded. Small bowel series may be helpful for further evaluation. There is a preliminary report by virtual radiologic. .
[2016-08-08] MEDS ORDERED: DIATRIZOATE MEGLUMINE/SOD. (66%/10%) 120ml SOLN ONE (08:40)
[2016-08-08] MEDS ORDERED: METOPROLOL 5mg/5ml INJECTION IV ONE ×3 (08:45→17:15)
--- NOTE | 2016-08-08 08:48 | DI ---
Indication: ITS.REASON: F/U COLONIC DILATATION PROCEDURE: KUB W/UPRIGHT: Encounter: Initial Comparison: August 07, 2016 Findings: Nasogastric tube in stable position with marked colonic distention and elevation of the left hemidiaphragm. No gross free intraperitoneal air identified. There are some dilated small bowel loops in the right abdomen measuring up to 4.5 cm in diameter. Gas is seen distally to the level of the rectum. Impression: Diffusely dilated small and large bowel with disproportional colonic distention is most suggestive of a chronic process such as pseudoobstruction. Small bowel follow-through may be helpful to exclude any site of obstruction. .
[2016-08-08] MEDS: BISACODYL 10 MG SUPPOSITORY RECTALLY SCH ×2 (09:58→20:40)
--- NOTE | 2016-08-08 10:00 | NUR ---
RESTRAINTS DISCONTINUED SO FAR THIS MORNING PATIENT HAS ONLY REACHED FOR NG TUBE ONCE. OTHERWISE, PT APPEARS VERY CALM AND STILL. 1:1 SITTER PRESENT. WILL MONITOR. IF NEEDED, WILL OBTAIN NEW RESTRAINT ORDER.
--- NOTE | 2016-08-08 10:13 | NUR ---
CM CM VISITED PT. CM LEFT CONTACT AT BEDSIDE. PT DOES NOT COMMUNICATE OFTEN PER STEPHANIE THE GUARDIAN. STEPHANIE IS AWARE TO CONTACT CM IF NEEDS ARISE. JUANI SPOKE WITH SUZANNE REFRIGERATION OPERATOR FROM [facility] AND THEY WILL TRANSP[place] PT AT TIME OF [place] [facility] [place]. SUZANNE STATES THAT IF PT NEEDED HOME HEALTH THAT THEY WERE OKAY TO USE [facility] SUZANNE IS AWARE TO CONTACT CM IF NEEDS ARISE.
--- NOTE | 2016-08-08 10:42 | NUR ---
RESTRAINTS APPLIED PATIENT BEGAN TO PULL AT NG TUBE AGAIN, EVEN WITH 1:1 SUPERVISION UNABLE TO STOP PT.
[2016-08-08] MEDS ORDERED: NORMAL SALINE 500 ML IV ONE (10:45)
--- NOTE | 2016-08-08 10:45 | PNPDOC ---
KEENAN HILLMAN V FACILITY DESIGNER 08/08/16 1039: Subjective Date DATE: 08/08/16 TIME: 10:36 Subjective Vadim is seen this morning following a call from nurses regarding tachycardia and hypertension. Patient placed on cardiac telemetry and found to be sinus tachycardia. He is sleeping and does not appear to be in any acute distress. NG tube is in place to low intermittent suction. Blood pressure 176/106. Soft restraints in place. Given patient has pulled out his NG tube 5 times since admission. Sitter at the bedside. Objective Vital Signs Vital signs Vital Signs Date Time Temp Pulse Resp B/P Pulse Ox O2 Delivery O2 Flow Rate FiO2 08/08/16 10:25 112 173/111 08/08/16 09:32 22 08/08/16 07:54 97.6 93 Room Air Height (Feet): 5 Height (Inches): 10.00 Weight (Kilograms): 73.100 General General Appearance: Alert, Confused, Cooperative, No Acute Distress Eyes (Brief) Eyes: FOUND: EOMI ENMT (Brief) ENMT: FOUND: mucosa moist, normal dentition, NOT FOUND: pharnyx erythema Neck (Brief) Neck: FOUND: midline, NOT FOUND: adenopathy, carotid bruits, tracheal deviation Respiratory (Brief) Respiratory: FOUND: clear all negron, equal bilaterally, NOT FOUND: wheezes Cardiovascular (Brief) Cardiac: FOUND: regular rate, regular rhythm, NOT FOUND: murmur, pedal edema Capillary Refill: <2 sec Abdomen (Brief) Abdominal: FOUND: distended, NOT FOUND: BS normo active x4, tender Lymphatic (Brief) Lymphatic: NOT FOUND: adenopathy Musculoskeletal (Brief) Musculoskeletal: NOT FOUND: tenderness Integumentary (Brief) Integumentary: FOUND: dry, pink, warm Neurologic (Brief) Neurological: FOUND: cranial 2-12 intact Psychiatric (Brief) Psychiatric: FOUND: alert, attentive, normal affect, oriented Laboratory Laboratory Laboratory Tests 08/07/16 13:28 08/08/16 04:55 Laboratory Tests 08/07/16 13:28 08/08/16 04:55 Microbiology Microbiology Microbiology Date/Time Source Procedure Growth Status 08/07/16 16:52 Cath/Port/Line/Picc Blood Culture - Preliminary CULTURE INITIATED - RESULTS PENDING Resulted 08/07/16 14:55 Cath/Port/Line/Picc Blood Culture - Preliminary CULTURE INITIATED - RESULTS PENDING Resulted Sepsis Diagnostic Criteria Sepsis Confirmed/Suspected Infection: Yes SIRS Criteria: Temp<=96.8 or >=100.4, Pulse >= 90 beats/min, WBC >=12,000 or <= 4,000, BS >120 in non-diabetic Severe Sepsis Lactate >=2.0 mg/dL Assessment & Plan Problems: (1) Severe sepsis Status: Acute Assessment & Plan: Manifestations of sepsis include the following- 1. Leukocytosis at 16.7 with left shift. Bandemia 15%. 2. Tachycardia at 105 3. Acute abdominal distention/pain 4. Evidence of organ dysfunction including elevated bilirubin 2.0 and hyperglycemia in the absence of diabetes 5. Elevated Lactate of 3.0. (2) Abdominal distention Status: Acute (3) Bowel obstruction Status: Acute Qualifiers: Intestinal obstruction type: unspecified Qualified Codes: K56.60 - Unspecified intestinal obstruction (4) Epileptic seizure Status: Chronic (5) Anemia Status: Chronic (6) Constipation Status: Chronic (7) Mental retardation Status: Chronic (8) Osteopenia Status: Chronic Plan/Intensity of Service 08/08/16 Continue with NG for decompression to low intermittent suction. Initiate surgical consultation by Dr. Ariza Planning on small bowel series , place patient on cardiac telemetry. Noted to be sinus tachycardia. Will give a one-time dose of IV Lopressor 5 milligrams and continue to monitor. Did review home medications normally on any antihypertensives. Encourage nursing staff to monitor for evidence of pain and treat with when necessary medications. Leukocytosis resolved today down to 8.8. Potassium is found to be elevated at 5.1, however, this is likely secondary to specimen hemolysis. Continue with behavioral restraints for patient safety given that he has pulled his NG tube out 5 times since admission. Will discuss further with attending, Dr. Arvizu Code Status Full Code, unverified Hospital Course Summary Disclaimer The hospital course summary below is not to be considered part of the above Progress Note. Hospital Course Summary 08/08/16 Continue with NG for decompression to low intermittent suction. Initiate surgical consultation by Dr. Ariza Planning on small bowel series , place patient on cardiac telemetry. Noted to be sinus tachycardia. Will give a one-time dose of IV Lopressor 5 milligrams and continue to monitor. Did review home medications normally on any antihypertensives. Encourage nursing staff to monitor for evidence of pain and treat with when necessary medications. Leukocytosis resolved today down to 8.8. Potassium is found to be elevated at 5.1, however, this is likely secondary to specimen hemolysis. Continue with behavioral restraints for patient safety given that he has pulled his NG tube out 5 times since admission. Will discuss further with attending, Dr. Arvizu 08/08/16 Continue with NG for decompression to low intermittent suction. Initiate surgical consultation by Dr. Ariza Planning on small bowel series , place patient on cardiac telemetry. Noted to be sinus tachycardia. Will give a one-time dose of IV Lopressor 5 milligrams and continue to monitor. Did review home medications normally on any antihypertensives. Encourage nursing staff to monitor for evidence of pain and treat with when necessary medications. Leukocytosis resolved today down to 8.8. Potassium is found to be elevated at 5.1, however, this is likely secondary to specimen hemolysis. Continue with behavioral restraints for patient safety given that he has pulled his NG tube out 5 times since admission. Will discuss further with attending, ARLETTE Nguyen MD 08/08/161950: Assessment & Plan Plan/Intensity of Service Have independently interviewed and examined pt. Chart reviewed. Case discussed with nursing and my FACILITY DESIGNER. Care plan developed with my supervision; agree with above. Resting in bed this evening. SBFT results not back. IVF boluses and metoprolol given for HR. Little NG output. O2 needs increased - hypoventilating due to ab distention. Lungs: decreased, shallow. CV: tachy, regular AB: distended, tympanitic, BS not present Plan: Continue NG and bowel rest. Continue IVF for support. Continue Zosyn. Monitor lab. KEENAN HILLMAN APRN Aug 08, 2016 10:39 ARLETTE ARVIZU MD Aug 08, 2016 19:51
[2016-08-08] MEDS ORDERED: PNEUMOCOCCAL 23 VACCINE 0.5 ML INJECTION IM ONE (13:15)
[2016-08-08] MEDS ORDERED: PNEUMOCOCCAL VAC. ADMIN. CHARGE INJ ONE (14:00)
--- NOTE | 2016-08-08 14:39 | NUR ---
NG Pt pulled out NG. New NG placed, 12F, still clamped at this time.
[2016-08-08] MEDS ORDERED: NS 50ML IV ONE ×2 (15:30)
--- NOTE | 2016-08-08 18:06 | NUR ---
NG NG PULLED OUT FOR THE SECOND TIME TODAY. 12F NG TUBE REINSERTED. NG REMAINS CLAMPED DUE TO CONTINUING IMAGES NEED FOR SBFT.
--- NOTE | 2016-08-08 18:14 | NUR ---
SHIFT SUMMARY HR 100-110 AT THIS TIME AFTER IV LOPRESSOR GIVEN. PATIENT REMAINS TACHYPNEIC IN THE UPPER 20S-LOW 30S. PATIENT REMAINS ON 10L HFNC, O2 SATURATION UPPER 90S. PATIENT UNABLE TO VERBALIZE NEEDS WELL. MORPHINE AND ATIVAN GIVEN FOR COMFORT. ABDOMEN REMAINS VERY DISTENDED AND FIRM. NO BM AND NO FLATUS PASSED THAT STAFF HAS NOTICED. NG CONTINUES TO BE CLAMPED UNTIL FINAL IMAGE OF SBFT CAN BE OBTAINED. THEN NG WILL BE PUT BACK ON LIS. PATIENT REMAINS NPO. PATIENT CONTINUES TO REQUIRE SOFT WRIST RESTRAINTS AND 1:1 SITTER. PATIENT HAS BEEN UP OUT OF BED ONCE TODAY TO WALK AROUND IN ROOM. DUE TO POOR VITAL SIGNS AND STABILITY THIS AFTERNOON, PATIENT HAS REMAINED IN BED. FREQUENT TURNING AND REPOSITIONING WELL ORAL CARE PERFORMED. THREE DOSES OF IV LOPRESSOR TOTAL GIVEN THIS SHIFT, SEE EMAR. TWO SMALL NS FLUID BOLUSES GIVEN WELL FOR TACHYCARDIA, SEE EMAR. BED ALARM IN USE AND THREE BED RAILS UP.
--- NOTE | 2016-08-08 19:00 | NUR ---
NG RN FOUND CURRENT NG TUBE TO BE COILED IN BACK OF PT'S MOUTH. THIS NG TUBE WAS REMOVED AND UNABLE TO BE RE-INSERTED DUE TO CONTINUED COILING UPON INSERTION, PT UNABLE TO FOLLOW SWALLOWING COMMANDS WELL. 16F NG TUBE WAS THEN INSERTED BY ANOTHER RN. STOMACH CONTENTS WAS VISUALIZED IN TUBE UPON INSERTION. SBFT IMAGES DONE FOR THE DAY, NG HOOKED UP TO LIS NOW.
--- NOTE | 2016-08-08 20:45 | NUR ---
PRN PT WAS GIVEN PRN MORPHINE FOR GRIMACING AND MOANING. PT SAID HE WAS IN PAIN. IV MORPHINE WAS GIVEN PER THE ORDER. SITTER AT BEDSIDE. BILATERAL SOFT WRIST RESTRAINS IN PLACE. PT WAS REPOSITIONED BY [address] DRAINING GREEN BLOWN LIQUID. PT ABD DISTENDED. WILL CONTINUE TO MONITOR.
--- NOTE | 2016-08-08 23:04 | PNF ---
DATE 08/08/2016 FINDINGS Mr. Johnson was lying in bed this afternoon. Staff was present observing the patient so that he did not attempt to pull out his IV or NG. The patient did not appear to be in acute distress. As stated previously, the patient is nonverbal and is severely mentally handicapped. EXAM Vitals: Afebrile. The patient has had a component of some tachycardia. Current pulse is 99, previously was 125. Blood pressure 156/96, SAO2 93% on room air, respiratory rate 16. CHEST: Clear to auscultation bilaterally. HEART: Regular rate and rhythm. Normal S1 and S2 without gallops, murmurs or clicks. ABDOMEN: Visualization of the abdomen does reveal it to be quite distended in its overall appearance. Palpation of the abdomen does reveal it to be fairly taut as a result of this marked distention. Palpation of his abdomen did not appear to result in severe pain. Patient did not grimace upon palpation. He did have a slight component of some voluntary guarding. LABORATORY/RADIOGRAPHIC EVALUATION Plain films were obtained this morning and he was found to have continued marked distention of both the small bowel and colon. I did speak with the radiologist earlier today about his radiographic findings. As stated previously, I did go back and review some prior films from several years ago and he was found to have significant colonic distention at that time. From a laboratory standpoint, today CBC was obtained. His white count has gone from 16,000 down to 8.8. Yesterday he had a left shift with 15% bands and 78% neutrophils. There is no recorded bandemia today. CMP was obtained and found to be overall within normal limits. BUN remains elevated at 30.0. Potassium slightly elevated at 5.1. Total bilirubin was elevated at 1.7. ASSESSMENT 65-year-old mentally handicapped gentleman with marked small bowel distention and colonic distention noted on radiograph evaluation. Patient without acute surgical abdomen upon physical examination. Patient is severely mentally handicapped. PLAN To rule out that the patient does not have a small bowel obstruction pattern in conjunction with adynamic colon, it was my thought that we go ahead and attempt to do a Gastrografin small bowel follow-through. This perhaps could be both diagnostic and therapeutic. I am concerned in regards to his marked distention, radiographic appearance and the fact that he does have a component of some tachycardia. I am encouraged, however, that his white count has gone from 16,000 down to 8000. I am encouraged he does not have a surgical abdomen upon physical examination. Will continue to follow closely, await his small bowel series and proceed accordingly. JEFFERY
[2016-08-09] VITALS (48 sets, daily range): BP systolic 109–148; BP diastolic 64–99; PULSE 104–130; RESP 15–28; TEMP 97–98.4; O2SAT 90–100
[2016-08-09] MEDS: NORMAL SALINE 1,000 ML IV SCH (00:40)
[2016-08-09] MEDS: MORPHINE SULFATE 2 MG SYRINGE IV PRN ×5 (02:00→11:56)
[2016-08-09] MEDS: PIPERACILLIN/TAZOBACTAM 3.375 G in NORMAL SALINE 100 ML IV SCH ×4 (03:27→22:10)
[2016-08-09 05:08] LABS: BASOPHILS % (AUTO) 0.1 % (0-2); HGB - HEMOGLOBIN 15.6 GM/DL (13.5-17.5); IMMATURE GRANULOCYTE # (AUTO) 0.02 T/MM3 (0.00-0.03); IMMATURE GRANULOCYTE % (AUTO) 0.2 % (0.0-0.5); LYMPHOCYTES # (AUTO) 0.5 T/MM3 (1-4.8); LYMPHOCYTES % (AUTO) 6.1 % (23-45); MEAN CORPUSCULAR HGB 28.6 UUG (26-34); MEAN CORPUSCULAR HGB CONC(MCHC 32.5 GM/DL (31-37); MEAN CORPUSCULAR VOLUME 88.1 UM3 (80-100); MEAN PLATELET VOLUME 11.2 UM3 (9.4-12.4); MONOCYTES # (AUTO) 0.9 T/MM3 (0-0.8); MONOCYTES % (AUTO) 9.9 % (0-9.0); NEUTROPHILS #(AUTO)-ABSOLUTE 7.3 T/MM3 (1.8-7.7); NEUTROPHILS % (AUTO) 83.7 % (33-66); RED BLOOD COUNT 5.45 M/MM3 (4.50-5.90); WBC - WHITE BLOOD COUNT 8.7 T/MM3 (4.5-11.0)
[2016-08-09 05:21] LABS: ALBUMIN 3.7 G/DL (3.5-5.0); ALKALINE PHOSPHATASE 62 U/L (38-126); ALT (SGPT) 47 U/L (21-72); ANION GAP 17 MEQ/L (5-15); AST (SGOT) 70 U/L (17-59); BUN/CREATININE RATIO 27 RATIO (6-26); CALCIUM 9.1 MG/DL (8.4-10.2); CHLORIDE 108 MEQ/L (98-107); CO2 - CARBON DIOXIDE 24 MEQ/L (22-30); CREATININE 2.2 MG/DL (0.8-1.5); GLOMERULAR FILTRATION RATE 30; GLUCOSE 139 MG/DL (75-110); POTASSIUM 4.1 MEQ/L (3.6-5); SODIUM 149 MEQ/L (134-144); TOTAL PROTEIN 7.3 G/DL (6.3-8.2)
--- NOTE | 2016-08-09 06:07 | NUR ---
LABS PT BUN AND SODIUM NOTED TO BE ELEVATED THIS MORNING. URINE OUTPUT WITHIN RANGE. TELE HOSPITALIST WAS CALLED. HE SAID HE WILL PUT NEW ORDERS FOR FLUIDS AND LABS. PT SLEPT ON AND OFF. BILATERAL SOFT WRIST RESTRAINS IN PLACE EVIDENCE BY PULLING OF VITAL TUBES. SITTER AT BEDSIDE. NG ON WALL SUCTION WITH GREEN FLUID IN IT. PT WAS GIVEN PAIN MEDICATION TWICE THIS SHIFT. PT ONLY VOICES FEW SIMPLE WORDS. ON OXYGEN 10 L/NC. OXYGEN SATS RANGES FROM 92-100% ABDOMEN DISTENDED WITH TYMPANIC BOWEL SOUNDS. NO BM THIS SHIFT. SUPPOSITORY WAS GIVEN HS.
[2016-08-09] MEDS ORDERED: 1/2 NS 1,000 ML IV SCH (06:15)
--- NOTE | 2016-08-09 08:24 | DI ---
Indication: ITS.REASON: f/u SBFT PROCEDURE: KUB W/UPRIGHT: Encounter: Initial Comparison: KUB and small bowel follow-through dated August 08, 2016 Findings: Contrast remains within dilated loops of small bowel. There is no definite contrast within the gas-filled colon. The nasogastric tube is now coiled upon itself twice within the stomach without obvious area of kinking. Recommend clinical correlation for function. The degree of colonic and small bowel distention is not significantly changed. Small bowel loops are seen measuring up to 5 cm in diameter. Impression: No evidence of contrast progression into the colon consistent with a distal small bowel obstruction. .
--- NOTE | 2016-08-09 08:26 | DI ---
Indication: ITS.REASON: rule out SBO PROCEDURE: SMALL BOWEL SERIES: Encounter: Initial Comparison: KUB from the same date Findings: Water-soluble contrast was administered via the patient's nasogastric tube and followed with serial abdominal radiographs. There is slow progression of contrast through dilated small bowel loops centrally within the pelvis over the course of 9 1/2 hours without evidence of contrast traversing into the dilated colon. Diffuse small and large bowel distention is similar to the prior exams. Impression: No contrast seen within the colon after 9.5 hours consistent with a distal small bowel obstruction. .
--- NOTE | 2016-08-09 09:00 | NUR ---
Status Patient restless, moans. Continues in restraints and Sitter 1 on 1 due to pulling out tubes. NG on LIS, green drainage. Oxygen weaned, will leave on 2 l/nc due to being tachypneic. Morphine given for pain as needed.
[2016-08-09] MEDS: BISACODYL 10 MG SUPPOSITORY RECTALLY SCH (09:10)
--- NOTE | 2016-08-09 09:35 | DI ---
Indication: ITS.REASON: oxygen demand PROCEDURE: CHEST 1 VIEW: Encounter: Initial Comparison: June 07, 2011 Findings: Severely hypoinflated lungs with markedly elevated left hemidiaphragm. Severe colonic distention is again noted in the visualized upper abdomen. The nasogastric tube is coiled upon itself twice within the stomach. A portion of it may double back into the lower thoracic esophagus. Bibasilar atelectasis and probable small pleural effusions. No pneumothorax. Heart size is grossly stable. Pulmonary vascularity and mediastinal contours are not well evaluated given the hypoinflation. Impression: 1. Severe hypoinflation with basilar atelectasis. 2. Nasogastric tube is coiled twice. Recommend consideration of repositioning and correlation with function. .
[2016-08-09] MEDS ORDERED: DIATRIZOATE MEGLUMINE/SOD. (66%/10%) 120ml SOLN ONE (10:26)
[2016-08-09] MEDS: LORAZEPAM 2 MG/ML INJECTION IV PRN (10:39)
--- NOTE | 2016-08-09 10:39 | NUR ---
Comfort Patient moaning, tossing and turning in bed. Morphine given. Patient also given ativan to help relax for CT procedure.
--- NOTE | 2016-08-09 11:30 | DI ---
Indication: ITS.REASON: bowel/colonic obstruction PROCEDURE: CT ABD/PELVIS W/O CONTRAST: Encounter: Initial Comparison: Small bowel series from yesterday and KUB from today Technique: Axial CT images were performed through the abdomen and pelvis without intravenous contrast. Coronal and sagittal two-dimensional reformats. Rectal contrast was also administered. Automated Exposure Control and Iterative Reconstruction dose reducing techniques were utilized. Findings: The nasogastric tube is coiled back upon itself in the lower thoracic esophagus. Recommend repositioning or removal. Small left pleural effusion with bilateral lower lobe atelectasis. Patchy airspace infiltrates in the right lower lobe could be due to pneumonia or aspiration. No free intraperitoneal air identified. The unenhanced contours of the liver are grossly normal. The stomach is decompressed. The unenhanced spleen, pancreas and kidneys are grossly normal. Abdominal contents are distorted by the massively distended colon. There is some dilute contrast present within the cecum and right colon from yesterday's small bowel follow-through. Small bowel loops are distended up to 5 cm in diameter as seen on prior studies. There is no abrupt transition point or cut off seen in the small bowel however. There are multiple surgical clips in the retroperitoneum. Marked distention of the colon up to 11.3 cm in diameter at the splenic flexure. The bladder is decompressed with a Ruiz catheter. Moderate sized fluid containing right inguinal hernia. Rectal contrast was administered. This shows good distention of the rectum and distal sigmoid colon with an an abrupt cut off or "beaked" appearance seen on coronal images 30 through 34. Just superior to this is an additional area of high-grade colonic narrowing seen involving the distal transverse colon at the splenic flexure. This shows an abrupt caliber change to a 5 cm long narrowed gas-filled segment in this same area of mesenteric swirling best seen on the coronal plane images 29 through 35. The more proximal colon is markedly dilated. Bone windows show degenerative changes in the spine. Impression: 1. Acute high-grade or complete colonic obstruction in the area of the proximal sigmoid. There is a second area of high-grade obstruction involving the distal transverse colon also in this same area of mesenteric swirling. This could be due to internal hernia, atypical sigmoid volvulus or adhesions. 2. Bilateral lower lobe airspace disease with small pleural effusions raising concern for pneumonia or aspiration. 3. Coiled nasogastric tube coiling back into the lower thoracic esophagus. Recommend removal or repositioning. 4. No definite small bowel transition point or findings to confirm a small bowel obstruction. .
--- NOTE | 2016-08-09 12:00 | NUR ---
Consent Consent obtained from guardian Winnie Paige. Christel Trujillo RN and Michaela German RN obtained consent.
[2016-08-09 12:09] LABS: ALBUMIN 3.7 G/DL (3.5-5.0); ANION GAP 14 MEQ/L (5-15); BUN/CREATININE RATIO 32 RATIO (6-26); CALCIUM 8.7 MG/DL (8.4-10.2); CHLORIDE 109 MEQ/L (98-107); CO2 - CARBON DIOXIDE 26 MEQ/L (22-30); CREATININE 1.9 MG/DL (0.8-1.5); GLOMERULAR FILTRATION RATE 36; GLUCOSE 140 MG/DL (75-110); MAGNESIUM 3.9 MG/DL (1.6-2.3); PHOSPHORUS 4.6 MG/DL (2.5-4.5); POTASSIUM 4.1 MEQ/L (3.6-5); SODIUM 149 MEQ/L (134-144)
--- NOTE | 2016-08-09 12:19 | PNPDOC ---
KEENAN HILLMAN V MANAGER HEMATOLOGY 08/09/16 1210: Subjective Date DATE: 08/09/16 TIME: 12:07 Subjective Vadim is seen today laying in bed. Nursing is getting him ready for surgery. He appears to be in pain, he is non-communicative due to his severe mental handicap. He is currently in soft restraints due to him continuing to pull out his NG tube, nursing staff is also present at bedside. He remains tachycardic in the 120's. Objective Vital Signs Vital signs Vital Signs Date Time Temp Pulse Resp B/P Pulse Ox O2 Delivery O2 Flow Rate FiO2 08/09/16 11:24 123 20 132/91 93 Nasal Cannula 2.00 08/09/16 07:06 97.0 Telemetry Rhythm: Sinus Tachycardia Height (Feet): 5 Height (Inches): 10.00 Weight (Kilograms): 66.800 General General Appearance: Alert, Mild Distress Eyes (Brief) Eyes: FOUND: EOMI, PERRL Respiratory (Brief) Respiratory: FOUND: clear all negron, equal bilaterally Cardiovascular (Brief) Cardiac: FOUND: regular rhythm, NOT FOUND: regular rate (Tachycardia- 120's) Abdomen (Brief) Abdominal: FOUND: BS normo active x4, distended, tender, NOT FOUND: soft Integumentary (Brief) Integumentary: FOUND: dry, pink, warm Neurologic (Brief) Neurological: FOUND: cranial 2-12 intact Psychiatric (Brief) Psychiatric: FOUND: alert Laboratory Laboratory Laboratory Tests 08/07/16 13:28 08/08/16 04:55 08/09/16 04:17 Laboratory Tests 08/07/16 13:28 08/08/16 04:55 08/09/16 04:17 Microbiology Microbiology Microbiology Date/Time Source Procedure Growth Status 08/07/16 16:52 Cath/Port/Line/Picc Blood Culture - Preliminary NO GROWTH AFTER 24 HOURS Resulted 08/07/16 14:55 Cath/Port/Line/Picc Blood Culture - Preliminary NO GROWTH AFTER 24 HOURS Resulted Sepsis Diagnostic Criteria Sepsis Confirmed/Suspected Infection: Yes SIRS Criteria: Temp<=96.8 or >=100.4, Pulse >= 90 beats/min, WBC >=12,000 or <= 4,000, BS >120 in non-diabetic Severe Sepsis Lactate >=2.0 mg/dL Assessment & Plan Problems: (1) Severe sepsis Status: Acute Assessment & Plan: Manifestations of sepsis include the following- 1. Leukocytosis at 16.7 with left shift. Bandemia 15%. 2. Tachycardia at 105 3. Acute abdominal distention/pain 4. Evidence of organ dysfunction including elevated bilirubin 2.0 and hyperglycemia in the absence of diabetes 5. Elevated Lactate of 3.0. (2) Abdominal distention Status: Acute (3) Bowel obstruction Status: Acute Qualifiers: Intestinal obstruction type: unspecified Qualified Codes: K56.60 - Unspecified intestinal obstruction (4) Epileptic seizure Status: Chronic (5) Anemia Status: Chronic (6) Constipation Status: Chronic (7) Mental retardation Status: Chronic (8) Osteopenia Status: Chronic Plan/Intensity of Service 08/09/16 Continue with Zosyn for antimicrobial coverage. Ct abd is obtained this morning revealing high-grade or complete obstruction along with bilateral lower pleural effusions. He is scheduled for Exploratory Lap today at [address] Ariza. Normal saline at 125ml/hr for ongoing hydrations Oxygen needs increased overnight to 10 liters however he is currently down to 2 liters. Chest xray was obtained this morning for further cardiopulmonary eval. Creatine is elevated today, suspect could be due to dehydration or acute obstruction. Repeat BMP pending. Continue Morphine and Zofran for pain control and nausea. SCDs for DVT prophylaxis. Will recheck CBC and BMP to follow blood counts, renal function and electrolytes. Family notified by nursing staff of change in treatment plan Code Status Full Code, unverified Hospital Course Summary Disclaimer The hospital course summary below is not to be considered part of the above Progress Note. Hospital Course Summary 08/08/16 Continue with NG for decompression to low intermittent suction. Initiate surgical consultation by Dr. Ariza Planning on small bowel series , place patient on cardiac telemetry. Noted to be sinus tachycardia. Will give a one-time dose of IV Lopressor 5 milligrams and continue to monitor. Did review home medications normally on any antihypertensives. Encourage nursing staff to monitor for evidence of pain and treat with when necessary medications. Leukocytosis resolved today down to 8.8. Potassium is found to be elevated at 5.1, however, this is likely secondary to specimen hemolysis. Continue with behavioral restraints for patient safety given that he has pulled his NG tube out 5 times since admission. Will discuss further with attending, Dr. Arvizu 08/08/16 Continue with NG for decompression to low intermittent suction. Initiate surgical consultation by Dr. Ariza Planning on small bowel series , place patient on cardiac telemetry. Noted to be sinus tachycardia. Will give a one-time dose of IV Lopressor 5 milligrams and continue to monitor. Did review home medications normally on any antihypertensives. Encourage nursing staff to monitor for evidence of pain and treat with when necessary medications. Leukocytosis resolved today down to 8.8. Potassium is found to be elevated at 5.1, however, this is likely secondary to specimen hemolysis. Continue with behavioral restraints for patient safety given that he has pulled his NG tube out 5 times since admission. Will discuss further with attending, Dr. Arvizu 08/09/16 Continue with Zosyn for antimicrobial coverage. Ct abd is obtained this morning revealing high-grade or complete obstruction along with bilateral lower pleural effusions. He is scheduled for Exploratory Lap today at [address] Ariza. Normal saline at 125ml/hr for ongoing hydrations Oxygen needs increased overnight to 10 liters however he is currently down to 2 liters. Chest xray was obtained this morning for further cardiopulmonary eval. Creatine is elevated today, suspect could be due to dehydration or acute obstruction. Repeat BMP pending. Continue Morphine and Zofran for pain control and nausea. SCDs for DVT prophylaxis. Will recheck CBC and BMP to follow blood counts, renal function and electrolytes. Family notified by nursing staff of change in treatment plan ARLETTE ARVIZU MD 08/09/161921: Assessment & Plan Plan/Intensity of Service Have independently interviewed and examined pt. Chart reviewed. Case discussed with Dr Ariza and my MANAGER HEMATOLOGY. Care plan developed with my supervision; agree with above. Resting in bed this evening. Moves spontaneously, but not verbal. Dr Ariza did decompressive colonoscopy today - found sigmoid volvulus with area or colon looking necrotic - not bleeding with Bx. Taken for resection of necrotic colon. Tolerated well. Recovering in CCU. Lungs: decreased CV: tachy, regular AB: much less distended. BS not present Assessment as above with: Sigmoid volvulus with necrotic colon, Acute kidney injury. Plan: IVF for volume support - TPN started as anticipate need several days of NPO for bowel recovery. Continue Zosyn for antimicrobial coverage of GI pathogens. Continue NG for bowel decompression until bowel function returns. Ruiz to monitor urine output. Monitor lab. DVT Prophylaxis: SCD'S KEENAN HILLMAN APRN Aug 09, 2016 12:10 ARLETTE ARVIZU MD Aug 09, 2016 19:22
--- NOTE | 2016-08-09 12:24 | NUR ---
NG NG coiled. Per Rachid Grant, leave the NG as it is and they can fix in surgery if needed.
--- NOTE | 2016-08-09 12:46 | NUR ---
Surgery Patient transferred to surgery.
[2016-08-09] MEDS ORDERED: NORMAL SALINE 1,000 ML IV ONE ×2 (12:48→17:04)
--- NOTE | 2016-08-09 12:50 | NUR ---
STATUS PATIENT TO PREOP ROOM 5. NG RECONNECTED TO LOW INTERMITTENT SUCTION. O2 PLACED AT 3L/NC TO MAINTAIN SATS OF 91-93%. RESTRAINTS IN PLACE TO BILAT ARMS FROM FLOOR. PATIENT GRUNTS AND MOANS BUT IS OTHERWISE NONVERBAL. ZIMMERMAN CATHETER IN PLACE AND PATENT. WILL CONTINUE TO MONITOR.
--- NOTE | 2016-08-09 13:35 | ANESPREOP ---
Anesthesia Record Date and Time DATE: 08/09/16 TIME: 13:30 Pre-Op Diagnosis Acute abdomen Proposed Surgical Procedure colonoscopy; possible exploratory laparotomy Allergies: Coded Allergies: NSAIDS (Non-Steroidal Anti-Inflamma (Verified Allergy, Unknown, 08/07/16) History of ulcers Ht/Wt/BMI Height: 5 ' 10.00 " Weight: 66.800 kg BMI: 20.7 kg/m2 Vital Signs Date Time Temp Pulse Resp B/P Pulse Ox O2 Delivery O2 Flow Rate FiO2 08/09/16 12:53 98.3 126 16 134/88 91 Nasal Cannula 3.00 Medications Inpatient Medications Current Medications Medications (Trade) Dose Ordered Sig/Saurav Start Time Stop Time Status Last Admin Dose Admin Sodium Chloride (Normal Saline IV) 1,000 ml @ 100 mls/hr Q10H 08/07/16 12:30 08/09/16 06:15 DC 08/09/16 00:40 100 MLS/HR Ondansetron HCl (Zofran) 4 mg Q6H PRN 08/07/16 12:30 08/07/16 13:27 4 MG Lorazepam (Ativan) 0.5 mg Q4H PRN 08/07/16 13:30 08/09/16 10:39 0.5 MG Morphine Sulfate 2 mg 2 mg Q2H PRN 08/07/16 13:30 08/09/16 08:53 DC 08/09/16 08:05 2 MG Piperacillin Sod/ Tazobactam Sod 3.375 g/Sodium Chloride 100 ml @ 200 mls/hr Q6HR 08/07/16 15:00 08/09/16 08:27 200 MLS/HR Sodium Chloride (NS) 500 ml @ 0 mls/hr Q0M 08/07/16 14:30 08/07/16 15:14 500 MLS/HR Bisacodyl 10 mg 10 mg BID 08/08/16 09:00 08/09/16 09:10 10 MG Sodium Chloride (0.45% NS) 1,000 ml @ 100 mls/hr Q10H 08/09/16 06:15 08/09/16 06:19 100 MLS/HR Morphine Sulfate (Morphine) 2 mg Q1H PRN 08/09/16 09:00 08/09/16 11:56 2 MG Acetaminophen (Tylenol Extra Strength) 500 Mg Tablet, 500-1,000 MG PO Q6H PRN for PAIN/FEVER, (Reported) Last Taken: on 08/07/16 0800 Acetaminophen (Tylenol) 325 Mg Tablet, 650 MG PO Q4HR PRN for PAIN/FEVER, (Reported) Last Taken: on Unknown Date & Time Benzocaine (Oral Pain Relief) 9.35 Gm Gel..gram., 1 APPLIC PO PRN, (Reported) Last Taken: on Unknown Date & Time Bisacodyl (Dulcolax) 10 Mg Supp.rect, 10 MG RECTALLY DAILY PRN for CONSTIPATION, (Reported) Last Taken: on 08/06/16 2100 Bismuth Subsalicylate (Bismatrol) 262 Mg/15 Ml Oral.susp, 1 DOSE PO PRN, (Reported) Last Taken: on Unknown Date & Time Calcium Carb/Magnesium Hydrox (Rolaids Chewable Tablet) 1 Each Tab.chew, 1-2 TAB PO Q1H PRN for HEARTBURN, (Reported) Last Taken: on Unknown Date & Time Diazepam (Diazepam) 5 Mg Tablet, 5 MG PO BID PRN for PRN ORDERS, (Reported) Last Taken: on Unknown Date & Time Dicyclomine HCl (Dicyclomine HCl) 10 Mg Capsule, 10 MG PO QID PRN for IRRITABLE BOWEL SYMPTOMS, (Reported) Last Taken: on Unknown Date & Time Diphenhydramine HCl (Diphenhydramine HCl ) 25 Mg Capsule, 25 MG PO TID PRN for ALLERY SYMPTOMS, (Reported) Last Taken: on Unknown Date & Time Epinephrine (Epipen 2-Umberto) 0.3 Mg/0.3 Ml Auto.injct, 0.3 MG IM PRN, (Reported) Last Taken: on Unknown Date & Time Guaifenesin (Robafen) 100 Mg/5 Ml Liquid , 100 MG PO Q4HR PRN for COUGH, (Reported) Last Taken: on Unknown Date & Time Loperamide HCl (Loperamide) 2 Mg Tablet , 2 MG PO QID PRN for DIARRHEA, (Reported) Last Taken: on Unknown Date & Time Lorazepam (Lorazepam) 1 Mg Tablet, 1 MG PO BID PRN for ANXIETY, (Reported) Last Taken: on Unknown Date & Time Magnesium Hydroxide (Milk Of Magnesia) 400 Mg/5 Ml Oral.susp, 30 ML PO DAILY PRN for CONSTIPATION, (Reported) Last Taken: on 4/11/17 0800 Na Phos,M-B/Na Phos,Di-Ba (Fleet Enema) 133 Ml Enema, 1 ENEMA RECTALLY O PRN for CONSTIPATION, (Reported) Last Taken: on Unknown Date & Time Polyethylene Glycol 3350 (Glycolax) 119 Gm Powder, 17 GM PO DAILY, (Reported) Last Taken: on 08/07/16 0800 Pseudoephedrine HCl (Sudogest) 60 Mg Tablet, 60 MG PO Q4HR PRN for CONGESTION, (Reported) Last Taken: on Unknown Date & Time Sennosides (Senna) 8.6 Mg Tablet, 8.6 MG PO BID, (Reported) Last Taken: on 08/07/16 0800 Tolnaftate (Tinactin) 133 Gm Aero.powd, 1 APPLIC TOP BID PRN for PRN ORDERS, (Reported) Last Taken: on Unknown Date & Time Currently on Beta Jose: Yes Beta Jose Last Taken: IV LOPRESSOR GIVEN 08/08/16 AT 1719 Medical/Surgical History Unable to Obtain Due To: Clinical Condition, Other (severe MR) Anesthesia PMH: Reports: Bowel Obstruction (Possible acute bowel obstruction; NGT in place), Seizures (PAST-POSS SEIZURE 2010), Denies: *Hypertension, *NH, Asthma, CHF, COPD, CVA/Stroke/TIA, Cancer, Sleep Apnea Smoking Status: Never smoker Substance Use Type: does not use Past Surgical History Orthopedic Surgeries: No Abdominal Surgeries: Yes - staff not sure what type he has had Genitourinary Surgeries: No Cardiac Surgeries: No Endocrine Surgeries: No Reproductive Surgeries: No Neurological Surgeries: No Ear Surgeries: No Nose Surgeries: No Throat Surgeries: No Other Surgeries: Yes - TEETH EXTRACTION Pertinent Findings Laboratory Tests 08/09/16 04:17 08/09/16 11:44 EKG Rhythm: Sinus Tachycardia Physical Exam Respiratory: Bilat breath sounds equal Cardiovascular: FOUND Regular rate, rhythm Airway Assessment Overall Assessment Unable to evaluate airway due to pt condition ASA: 3, E Plan Anesthesia Plan: GETA Discussion Discussed risks/options/alternatives of anesthesia and questions answered. Patient consents. Nursing pain assessment noted. Attestation Statement Prior to the delivery of any anesthetic medication, I examined the patient, developed the plan, obtained the patient's consent and discussed the risk and benefits of the procedure with the patient/guardian. CHRISTIANO SHABAZZ CRNA Aug 09, 2016 13:33
[2016-08-09] MEDS ORDERED: FENTANYL 100mcg/2ml INJECTION ONE ×2 (13:43→14:20)
[2016-08-09] MEDS ORDERED: PROPOFOL 200mg 20 ML IV ONE (13:43)
[2016-08-09] MEDS ORDERED: LIDOCAINE (2%) 100 MG/5 ML PF SYRINGE IV ONE (13:46)
[2016-08-09] MEDS ORDERED: SALINE FLUSH 10ml SYRINGE ONE ×5 (13:49→15:45)
[2016-08-09] MEDS ORDERED: ESMOLOL 100mg/10ml INJECTION IV ONE (13:51)
[2016-08-09] MEDS ORDERED: PHENYLEPHRINE 10mg/ml INJECTION ONE (13:57)
--- NOTE | 2016-08-09 14:06 | PNF ---
DATE 08/09/2016 FINDINGS Staff was in with Mr. Johnson this morning observing him so he would not pull his NG out. Staff stated they did spring production supervisor the NG last evening and were able to get about 2000 ml out. The patient did not appear to be in acute distress. The patient is mentally handicapped and nonverbal as stated previously. VITALS: Patient has remained afebrile but does remain tachycardic with a pulse of 122, respiratory rate of 28, SaO2 95% on 2 liters per nasal cannula.. CHEST: Clear to auscultation bilaterally. HEART: Regular rate and rhythm. Normal S1 and S2 without gallops, murmurs or clicks. ABDOMEN: Visualization of the abdomen does reveal a well-healed surgical incision extending from the umbilicus down to the suprapubic region. His abdomen does perhaps appear slightly less distended today but is still quite distended and taut/firm on palpation. It is difficult to assess the patient given his mental status. He did not appear to be wincing in pain upon palpation. There did appear to be a component, however, of guarding. LABORATORY/RADIOGRAPH EVALUATION Small bowel series was obtained that did not reveal any contrast to progress into the colon. The majority of it continues to be within the pelvis. He continues, however, to have a significant amount of colonic distention in conjunction with this small bowel distention and failure of the contrast to progress. A CBC was obtained today and his white count remains stable at 8.7. Hemoglobin stable at 15.6. BMP was obtained today and his BUN is elevated at 59.0. Creatinine is now elevated at 2.2. ASSESSMENT 65-year-old gentleman with bowel obstructive pattern versus ileus. PLAN The radiographic picture does not "quite add up." If the patient was to have a complete small bowel obstruction one would not think that he would have significant dilatation of his colon. I am concerned, however, that this contrast has not progressed through his small bowel and into his colon as one would expect over the last 18 hours. Will go ahead today and place some contrast rectally and obtain an enema. Will use contrast that is compatible with CT scan. Pending his contrast study enema, will likely then proceed with CT scan of his abdomen and pelvis for further evaluation. Will try to determine whether or not there is a transition point noted within his small bowel were he has significantly dilated more proximal small bowel and normal-appearing distal small bowel. If the Gastrografin enema does not reveal any evidence for colonic mass or stricture, ultimately the patient may require surgical intervention/laparotomy. We will await these radiographic results and proceed accordingly later today. JEFFERY
[2016-08-09] MEDS ORDERED: ROCURONIUM 50mg/5ml INJECTION IV ONE (14:28)
[2016-08-09] MEDS ORDERED: VECURONIUM 10mg/10ml INJECTION IV ONE (14:29)
[2016-08-09] MEDS ORDERED: FENTANYL 250mcg/5ml INJECTION ONE (14:42)
[2016-08-09] MEDS ORDERED: NEOMYCIN/POLYM/BACITR OINT PACKET TOP ONE (16:56)
[2016-08-09] MEDS ORDERED: GLYCOPYRROLATE 0.4mg/2ml INJECTION ONE (16:57)
[2016-08-09] MEDS ORDERED: NEOSTIGMINE 10mg/10ml INJECTION ONE (16:57)
[2016-08-09] MEDS ORDERED: FUROSEMIDE 40 MG/4 ML INJECTION ONE (17:04)
--- NOTE | 2016-08-09 17:33 | GSPOSTPN ---
Procedure Procedure Date: Aug 09, 2016 Surgeon: To Assisting Surgeon: Rachid Alejo Anesthesia: GETA ASA: 3, E Procedure Decompression colonoscopy followed by exploratory laparotomy with low anterior resection and mobilization of splenic flexure GS Diagnosis Postop Diagnosis sigmoid volvulus with necrosis of colon Complications Complications Estimated Blood Loss See Anesthesia Record. Vital Signs See Anesthesia and PACU record. LAXMI ALEJO ROLL EXAMINER Aug 09, 2016 17:33
--- NOTE | 2016-08-09 17:52 | NUR ---
Recovery Dick Milan CRNA notified at this time. Verbal telephone order that recovery time may end at this time, alrete score not met. Pt is at baseline. Report given to Ron Dalton RN at this time.
[2016-08-09] MEDS: HYDROMORPHONE PCA 30 MG/30 ML VIAL IV PRN (17:53)
--- NOTE | 2016-08-09 18:00 | NUR ---
Transfer: report is accepted from recovery staff at 1800. He is sleeping post-op. VS are stable. See graphics. The vertical, midline abdominal dressing is dry and intact. MANAGER SOCIAL MEDIA dilaudid is started per orders. Settings are checked per Pilar CARTAGENA. The residential monitor shows ST with rate 100-116. BP >120 systolic.
--- NOTE | 2016-08-09 20:59 | ANESPO ---
Post-Op Note Date 08/09/16 Time: 20:58 Status Pt Participated in Evaluation: Other (Pt does not verbally communicate) Vital Signs Date Time Temp Pulse Resp B/P Pulse Ox O2 Delivery O2 Flow Rate FiO2 08/09/16 20:45 126 20 114/67 96 Nasal Cannula 1.00 08/09/16 20:00 97.2 Respiratory Function: Airway patent, Regular respirations Cardiovascular Function: Regular pulse Telemetry Pattern: ST Pain Level Intensity: 0 Hydration: IV infusing Complications during Recovery None apparent Follow-Up Instructions Instructions Per Surgeon CHRISTIANO SHABAZZ CRNA Aug 09, 2016 20:59
--- NOTE | 2016-08-09 21:34 | OPNOTEF ---
DATE OF SERVICE 08/09/2016 SURGEON Cristhian Ariza MD RAMP BOSS Rachid Alejo APRN PREOPERATIVE DIAGNOSIS Colonic obstruction. 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 PROCEDURE Decompressive colonoscopy, exploratory laparotomy, sigmoid resection/low anterior with mobilization of a splenic flexure and coloproctostomy. ANESTHESIA General endotracheal. ESTIMATED BLOOD LOSS Please see chart. BRIEF HISTORY/INDICATIONS Mr. Johnson is a 65-year-old mentally handicapped gentleman who I was asked to see recently as a result of his history for nausea, vomiting, and increasing abdominal distention. Patient is mentally handicapped and is nonverbal. It was therefore difficult to obtain a clinical history and did make the process of physical examination slightly more difficult. Patient did have a history in the past of having significant colonic distention. I did review some prior records when he was admitted in our facility back in 2012 with significant colonic distention and small bowel distention. At that time, a small bowel series was performed and did progress through his GI tract. He was subsequently discharged from our facility back to 2012. Patient upon admission did have a slight component of some leukocytosis. Empiric antibiotics were initiated. He did not have an acute surgical abdomen from an examination standpoint. The day following his admission, we did proceed with a Gastrografin small bowel followthrough, which did progress into the pelvis but did not progress into the colon. He continued to have significant colonic distention. Therefore, I elected today to proceed with a CT scan with rectal contrast. CT scan did reveal an abrupt high-grade or complete colonic obstruction involving the proximal sigmoid colon. As a result of this abnormal CT scan, the patient was brought to the operative suite after discussion was undertaken with his durable power of plugger man. It is my thought the patient had a sigmoid volvulus which hopefully would be able to be dealt with from an endoscopic standpoint. If upon endoscopy the volvulus was unable to be dealt with or if he was found to have an obstructing colonic lesion, it was my recommendation that at the same setting we then proceed with exploratory laparotomy. FINDINGS Upon endoscopy the patient was found to have endoscopic evidence for a sigmoid volvulus which was able to be reduced. There was no evidence for angiodysplastic lesions, diverticulum, or reji malignancies. At the site of the apparent volvulus, however, the mucosa appeared necrotic. We therefore proceeded with exploratory laparotomy. Upon laparotomy the patient was indeed found to have an area of necrosis involving the sigmoid colon. The small bowel was run from the ligament of Treitz to the terminal ileum without noted abnormalities with the exception of being significantly dilated. Colon was palpated throughout and was without palpable abnormalities with the exception of the area of necrosis. Liver edge was smooth without nodularities. A standard sigmoid/low anterior resection was performed with subsequent coloproctostomy being performed. DESCRIPTION OF PROCEDURE After informed consent was obtained, patient was brought to the endoscopy suite and placed on the table initially upon the left lateral decubitus position. A formal time-out was then completed. Next, a digital examination was performed. Normal sphincter tone. No rectal masses were appreciated. Olympus colonoscope was inserted through the anus and advanced to the lumen of the colon under direct visualization at all times. At about 40 to 50 cm from the anal verge one could see what appeared to be that of a volvulus. The colonic lumen became somewhat occluded but there was no mucosal-based neoplastic-appearing lesion. The mucosa at this area, however, did appear somewhat ashen connolly. Colonoscope was able to be advanced past this location and continued to be advanced under direct visualization until the ascending colon was ascertained. There was a fair amount of stool and visualization was somewhat limited. Colonoscope was then slowly withdrawn, and the colon was decompressed as the scope was being withdrawn. One could see that there was massive dilatation of the colon just beyond this apparent volvulus. Once the scope was withdrawn back to the area of apparent volvulus, I elected to go ahead and proceed with a few biopsies of this area that was somewhat "ashen connolly." Upon biopsying this area, there was no evidence for mucosal bleeding and it did appear that the mucosa was necrotic at this location. It was not frankly black or necrotic but did appear nonviable in nature. Colonoscope was then continued to be withdrawn until it was removed from the patient's anal verge. Given the endoscopic appearance of probable necrosis of the sigmoid colon, I elected at this time to proceed with laparotomy. The patient was placed in the supine/lithotomy position. Abdomen was then prepped and draped in a sterile fashion. A standard midline incision was then made from just above the pubic symphysis up to and into the epigastric region. Underlying subcutaneous tissues, fascia, and peritoneum was then opened to the extent of the incision. Abdominal cavity was explored. As stated above, the small bowel was found to be massively dilated. Small bowel contents were advanced back towards the stomach and the small bowel was decompressed. Small bowel was without visible or palpable abnormalities. Next, the colon was also found to be massively dilated. Involving the mid sigmoid colon region, there was an area of reji necrosis. One, in fact, could see a small perforation with some air escaping through the colonic lumen. This likely corresponded with the area that was biopsied previously. A suction tip catheter was then placed within this small perforation and the colon was actually suctioned and decompressed as well. [id number] suture was then placed at the small area of perforation resulting in closure of the colon. Liver which was visualized was smooth. Peritoneal surfaces were smooth as well with no evidence for peritoneal studding. Attention was then focused towards performing sigmoid colon. It did appear the patient had a prior surgery at this location and there was a fair amount of adhesions. The cecum was actually adherent to the sigmoid colon. Cecum was then dissected away from the sigmoid colon and retracted in a cephalad fashion. Bookwalter retractor was placed to provide adequate exposure. Next, the white line of Toldt was then incised along the left pericolic gutter and the sigmoid colon was then began to be reflected medially. Iliac vessels were identified and one could then see the left ureter as it coursed up and over the iliac vessels. Left ureter was kept under direct visualization during the process of resection and was preserved in its entirety. Next, the mesentery was then sequentially divided between right angle clamps to the sigmoid colon region. In the midportion of the sigmoid colon where there was a component of necrosis, the mesenteric vessels did appear to be thrombosed which resulted, of course, in a segment of the sigmoid colon being necrotic. The mesentery was then continued to be sequentially divided between right angle clamps to below the pelvic inlet. Dissection was carried down below the rectosigmoid junction and the peritoneum was incised anterior to the rectum and along the lateral aspect of the rectum and the rectum was carefully immobilized. Next, the remaining mesentery to the sigmoid colon and descending colon was then sequentially divided between right angle clamps and ligated with 0 Vicryl ties. Splenic flexure was also immobilized. Gastrocolic ligament was divided, and the splenorenal ligament was also a divided resulting in complete mobilization of the splenic flexure. Next a BETITO 75 stapler was placed across a segment of colon about 8 to 10 cm proximal to the area of necrosis and fired. I did try to resect slightly more colon than typical to get back to a point where the colon was not so significantly dilated and thinned out. Next, a contour stapler was then placed across the proximal rectum and fired. The upper portion of the rectum and the sigmoid colon as well as a portion of the remaining descending colon was then passed off the table as a surgical specimen. The left ureter was again identified and preserved. Prior vessels that were ligated were hemostatic in nature. Next, attention was directed towards performing anastomosis. The staple line where the proximal and descending colon had been divided was of a larger diameter than typical given the colonic dilatation. Therefore, I elected to proceed with an end-to-side anastomosis. A portion of the staple line upon the remaining descending colon was opened and a 29-mm stapler was brought forth in the operative field. The spiked portion was then attached to the anvil portion of the stapler. The anvil portion of the stapler was then placed through the colotomy and advanced proximally and the spiked portion was then allowed to exit along the antimesenteric portion of the colon proximal to the previous staple line. A pursestring suture was then placed around the exit site of the anvil portion of the stapler. Next, a BETITO 75 stapler was then reloaded and placed across the portion of the staple line that had been opened to facilitate placement of the anvil. BETITO 75 stapler was then once again fired resulting in complete closure of the colon. The remaining descending colon could easily be brought forth into the pelvis without undue tension. There was no evidence for vascular compromise. Next, I had my home based assistant then perform a [id number] finger anal dilatation. A 29-mm stapler was then placed through the anal verge, and the trocar portion of the stapler was then allowed to exit just anterior to the previous staple line upon the proximal rectum. Next, the anvil portion of the stapler was then attached to the trocar portion of the stapler that had been brought forth out through the rectum and fired. EEA stapler was then tightened to the appropriate tension and fired. A few single interrupted sutures were then placed along the edges of the staple line. EEA stapler was then loosened and withdrawn out through the anal verge. Next, I placed my hand proximal to the anastomosis and saline was then placed in the pelvis. I had my home based assistant then place a rigid proctoscope within the anus, and the rectum and the anastomosis was then inflated until fairly taut via the rigid proctoscope. At no point in time could one see any extravasation of bubbles coming forth through the staple line. The rigid proctoscope was then removed. A few additional Lembert sutures were placed overlying the staple line for reinforcement purposes. Anastomosis did not appear to be on any tension. There was no evidence for vascular compromise of the anastomosis. Attention was directed towards closure. The abdomen was irrigated and then lap sponge, needle count, and instrument count was performed and found to be correct. The abdomen was then reprepped and draped once again in a sterile fashion. New gowns, gloves, and instruments were then obtained. Attention was directed towards closure. The fascia was closed in a running fashion with #1 PDS. Skin was then closed with reji. Patient is in the process of awakening from his anesthetic and will be sent back to recovery room once deemed in stable condition. Additionally, it should be noted that Rachid Alejo APRN, was present throughout the entire case and played a pivotal role in providing assistance and exposure during the course of the procedure. JEFFERY
[2016-08-09] MEDS: MULTI TRACE ELEMENTS IV SCH ×3 (22:28)
[2016-08-09] MEDS: [UNRECOGNIZED DRUG - OTHER] IV SCH ×3 (22:28)
[2016-08-09] MEDS: MULTI VIT INF IV SCH ×3 (22:28)
[2016-08-09] MEDS ORDERED: NORMAL SALINE 500 ML IV ONE (23:15)
[2016-08-10] VITALS (84 sets, daily range): BP systolic 88–155; BP diastolic 59–88; PULSE 109–133; RESP 15–28; TEMP 97.2–98.8; O2SAT 86–100
--- NOTE | 2016-08-10 01:00 | NUR ---
Low Output 500 NS Bolus was give per protocol for low output. Output has improved and will continue to monitor closely.
[2016-08-10] MEDS ORDERED: NORMAL SALINE 500 ML IV ONE (01:30)
[2016-08-10] MEDS: PIPERACILLIN/TAZOBACTAM 3.375 G in NORMAL SALINE 100 ML IV SCH ×4 (03:02→21:45)
[2016-08-10 04:43] LABS: HCT - HEMATOCRIT 49.2 % (41-53); HGB - HEMOGLOBIN 16.3 GM/DL (13.5-17.5); MEAN CORPUSCULAR HGB 29.2 UUG (26-34); MEAN CORPUSCULAR HGB CONC(MCHC 33.1 GM/DL (31-37); MEAN CORPUSCULAR VOLUME 88.2 UM3 (80-100); MEAN PLATELET VOLUME 11.3 UM3 (9.4-12.4); RED BLOOD COUNT 5.58 M/MM3 (4.50-5.90); WBC - WHITE BLOOD COUNT 7.2 T/MM3 (4.5-11.0)
[2016-08-10 05:15] LABS: ANION GAP 11 MEQ/L (5-15); BUN/CREATININE RATIO 35 RATIO (6-26); CALCIUM 7.3 MG/DL (8.4-10.2); CHLORIDE 115 MEQ/L (98-107); CO2 - CARBON DIOXIDE 21 MEQ/L (22-30); GLOMERULAR FILTRATION RATE 34; GLUCOSE 188 MG/DL (75-110); POTASSIUM 4.6 MEQ/L (3.6-5); SODIUM 147 MEQ/L (134-144)
--- NOTE | 2016-08-10 05:27 | NUR ---
Shift Report Patient has slept well during the night. Patient does grimace at times, but doesn't answer yes to pain, nausea, or SOA. Morphine was given during the night to help with pain and comfort. BP has been in the 110s/60-70s, Resp 17-20, O2 97-99% on 1L NC. HR has been 120-130s sinus rhythm during the night. NG has had moderate brown/coffee ground output totaling 280mL. Urine output has improved greatly after 500 NS bolus. Stomach doesn't appear to be distended and is firm. Dressing is intact with no drainage noted. Bowel sounds are hypoactive.
[2016-08-10 05:45] LABS: BAND NEUTROPHILS # 0.9 T/MM3; NEUTROPHILS #(MANUAL)-ABSOLUTE 5.3 T/MM3 (1.8-7.7); TOTAL CELLS COUNTED 100 %
--- NOTE | 2016-08-10 06:35 | NUR ---
IJ removed IJ infiltrated with PPN being administered. Dr. Riddle was notified and ordered a PICC to be inserted. IJ was removed without incident. PPN will be administered through secondary Peripheral until PICC is inserted.
--- NOTE | 2016-08-10 07:34 | NUR ---
NG Pulled Patient was able to pull NG tube. Will page to see if another one needs to be inserted
--- NOTE | 2016-08-10 08:22 | NUR ---
NG inserted 16 Fr NG inserted in left lori. Placement was confirmed by auscultation. NG output was green.
[2016-08-10] MEDS: PANTOPRAZOLE 40mg INJECTION IV SCH (09:36)
[2016-08-10] MEDS: ENOXAPARIN 40 MG/0.4 ML INJECTION SQ SCH (09:37)
[2016-08-10] MEDS ORDERED: NORMAL SALINE 1,000 ML IV SCH (11:30)
--- NOTE | 2016-08-10 11:30 | NUR ---
RESP/ACTIVITY UNABLE TO MUSIC AUTOGRAPHER PATIENT IN COUGHING, TAKES A FEW DEEP BREATHES WITH MUCH COACHING. DANGLED AT SIDE OF BED WITH SPONTANEOUS LOOSE, NONPRODUCTIVE COUGH NOTED. STOOD AT BEDSIDE ABOUT 3 MIN, DELON HOFF.
--- NOTE | 2016-08-10 12:00 | NUR ---
FLUID BOLUS NS AT 250 CC PER HR X 1 L HUNG FOR ELEVATED BUN AND CREAT AND LOW URINES.
[2016-08-10] MEDS ORDERED: FLEET PHOSPHO-SODA 133 ML ENEMA RECTALLY ONE (15:00)
--- NOTE | 2016-08-10 15:49 | PNPDOC ---
Subjective Date DATE: 08/10/16 TIME: 15:18 Subjective Mr. Johnson mumbled a few responses that can't be made out. Caregiver from his facility is at the bedside indicating that he typically only speaks a few words at baseline. Nursing reports of heart rate has been elevated overnight and that PICC line was placed this morning after the IJ line infiltrated and had to be removed. Patient is on peripheral nutrition. Nursing also questioned lung expansion therapy as patient is not able to comprehend instructions to use the incentive spirometer. Objective Vital Signs Vital signs Vital Signs Date Time Temp Pulse Resp B/P Pulse Ox O2 Delivery O2 Flow Rate FiO2 08/10/16 14:45 113 15 129/75 100 Room Air 08/10/16 13:45 08/10/16 10:00 98.6 I/O 5792/2132 weight up 2.2 kg from yesterday EXAM General-resting without acute distress, diaphoretic facial skin. Patient moans intermittently. 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 Microbiology Microbiology Microbiology Date/Time Source Procedure Growth Status 08/07/16 16:52 Cath/Port/Line/Picc Blood Culture - Preliminary NO GROWTH AFTER 48 HOURS Resulted Second blood culture drawn 1455 on 08/07 negative after 48 hours Radiology X-ray yesterday prior to surgery with severe hyperinflation of lungs and elevated left hemidiaphragm Sepsis Diagnostic Criteria Sepsis Confirmed/Suspected Infection: Yes SIRS Criteria: Temp<=96.8 or >=100.4, Pulse >= 90 beats/min, WBC >=12,000 or <= 4,000, BS >120 in non-diabetic Severe Sepsis Lactate >=2.0 mg/dL Assessment & Plan Problems: (1) Sigmoid volvulus Status: Resolved Assessment & Plan: Low anterior sigmoid resection with mobilization of the splenic flexure and coloproctostomy 08/09/16 (2) Ischemic colitis Status: Acute Assessment & Plan: Due to volvulus/bowel obstruction (3) Severe sepsis Status: Acute Assessment & Plan: Manifestations of sepsis include the following- 1. Leukocytosis at 16.7 with left shift. Bandemia 15%. 2. Tachycardia at 105 3. Acute abdominal distention/pain 4. Evidence of organ dysfunction including elevated bilirubin 2.0 and hyperglycemia in the absence of diabetes 5. Elevated Lactate of 3.0. (4) Bowel obstruction Status: Acute Qualifiers: Intestinal obstruction type: unspecified Qualified Codes: K56.60 - Unspecified intestinal obstruction (5) Hypernatremia Status: Acute (6) Hyperglycemia Status: Acute (7) Acute kidney injury Status: Acute Assessment & Plan: Admission creatinine 1.1 increasing to 2.2 on 08/09 (8) Abdominal distention Status: Resolved (9) Mental retardation Status: Chronic (10) Epileptic seizure Status: Chronic (11) Constipation Status: Chronic (12) Osteopenia Status: Chronic Assessment Mr. Johnson underwent attempted decompressive colonoscopy and subsequent laparotomy with sigmoidectomy yesterday. Necrotic bowel was identified due to obstruction/volvulus. There has been persistent tachycardia overnight with need for supplemental oxygen. Creatinine remains elevated 2.0 with increasing BUN. His sister/legal guardian confirms full CODE STATUS. PICC line placed, peripheral nutrition to be changed to TPN. Additional fluids to be given today due to tachycardia and renal impairment. Continue Zosyn for abdominal coverage. CLIENT SERVICE AND CONSULTING MANAGER narcotics available in addition to nursing controlled doses morphine and Ativan. Chest x-ray to be obtained in the morning in addition to laboratory data. May require IPPB for lung expansion. Up in chair if possible without risking patient removal of NG. Monitor blood sugars every 6 hours, insulin added for hyperglycemia. Lovenox and IV Protonix for prophylaxis. Plan/Intensity of Service Critically ill. Time in 11O2, time out 1131; Time in 1519 time out 1547. Discussed with sister, nursing, Pharm.D. DVT Prophylaxis: Lovenox Code Status Full Code Hospital Course Summary Disclaimer The hospital course summary below is not to be considered part of the above Progress Note. Hospital Course Summary 08/08/16 Continue with NG for decompression to low intermittent suction. Initiate surgical consultation by Dr. Ariza Planning on small bowel series , place patient on cardiac telemetry. Noted to be sinus tachycardia. Will give a one-time dose of IV Lopressor 5 milligrams and continue to monitor. Did review home medications normally on any antihypertensives. Encourage nursing staff to monitor for evidence of pain and treat with when necessary medications. Leukocytosis resolved today down to 8.8. Potassium is found to be elevated at 5.1, however, this is likely secondary to specimen hemolysis. Continue with behavioral restraints for patient safety given that he has pulled his NG tube out 5 times since admission. Will discuss further with attending, Dr. Arvizu 08/08/16 Continue with NG for decompression to low intermittent suction. Initiate surgical consultation by Dr. Ariza Planning on small bowel series , place patient on cardiac telemetry. Noted to be sinus tachycardia. Will give a one-time dose of IV Lopressor 5 milligrams and continue to monitor. Did review home medications normally on any antihypertensives. Encourage nursing staff to monitor for evidence of pain and treat with when necessary medications. Leukocytosis resolved today down to 8.8. Potassium is found to be elevated at 5.1, however, this is likely secondary to specimen hemolysis. Continue with behavioral restraints for patient safety given that he has pulled his NG tube out 5 times since admission. Will discuss further with attending, Dr. Arvizu 08/09/16 Continue with Zosyn for antimicrobial coverage. Ct abd is obtained this morning revealing high-grade or complete obstruction along with bilateral lower pleural effusions. He is scheduled for Exploratory Lap today at [address] Ariza. Normal saline at 125ml/hr for ongoing hydrations Oxygen needs increased overnight to 10 liters however he is currently down to 2 liters. Chest xray was obtained this morning for further cardiopulmonary eval. Creatine is elevated today, suspect could be due to dehydration or acute obstruction. Repeat BMP pending. Continue Morphine and Zofran for pain control and nausea. SCDs for DVT prophylaxis. Will recheck CBC and BMP to follow blood counts, renal function and electrolytes. Family notified by nursing staff of change in treatment plan 08/10/16 Mr. Johnson underwent attempted decompressive colonoscopy and subsequent laparotomy with sigmoidectomy yesterday. Necrotic bowel was identified due to obstruction/volvulus. There has been persistent tachycardia overnight with need for supplemental oxygen. Creatinine remains elevated 2.0 with increasing BUN. His sister/legal guardian confirms full CODE STATUS. PICC line placed, peripheral nutrition to be changed to TPN. Additional fluids to be given today due to tachycardia and renal impairment. Continue Zosyn for abdominal coverage. CLIENT SERVICE AND CONSULTING MANAGER narcotics available in addition to nursing controlled doses morphine and Ativan. Chest x-ray to be obtained in the morning in addition to laboratory data. May require IPPB for lung expansion. Up in chair if possible without risking patient removal of NG. Lovenox and IV Protonix for prophylaxis. TREVOR NATION MD Aug 10, 2016 15:21
[2016-08-10] MEDS ORDERED: FAT EMULSION 20% 500 ML IV SCH (16:00)
[2016-08-10 16:22] LABS: ANION GAP 8 MEQ/L (5-15); BUN/CREATININE RATIO 38 RATIO (6-26); CALCIUM 7.3 MG/DL (8.4-10.2); CHLORIDE 119 MEQ/L (98-107); CO2 - CARBON DIOXIDE 23 MEQ/L (22-30); CREATININE 1.5 MG/DL (0.8-1.5); GLOMERULAR FILTRATION RATE 47; GLUCOSE 167 MG/DL (75-110); POTASSIUM 4.4 MEQ/L (3.6-5); SODIUM 150 MEQ/L (134-144)
--- NOTE | 2016-08-10 16:25 | PNF ---
DATE 08/10/2016 POSTOP DAY #1 HISTORY This patient is in the Intensive Care Unit at this time. The patient did pull out his nasogastric tube two times this morning and had it put back in two times this morning. The patient did have an IV at the neck which infiltrated and it was removed. The patient did have a PICC line placed today. INTAKE AND OUTPUT The urine output is good. The patient did have 587 mL of urine output during the last eight-hour shift. The patient has had 400 mL of nasogastric tube output during the last eight- hour shift. PHYSICAL EXAMINATION VITAL SIGNS: Pulse is 113. Respiratory rate is 15. Blood pressure is 129/75. Oxygen saturation is 100% on room air. ABDOMEN: There is still some abdominal distention. The abdomen is soft. Dressings are left in place over the abdominal incision. LABORATORY DATA White blood cell count is 7200 with 12 bands today. Hemoglobin is 16.3. Hematocrit is 49.2. Serum sodium is 147. Serum potassium is 4.6. Serum creatinine is 2. IMPRESSION Doing well overall following exploratory laparotomy, mobilization of splenic flexure, low anterior colon resection with primary coloproctostomy anastomosis on 08/09/2016. PLAN Continue current postoperative care in the Intensive Care Unit. JEFFERY
[2016-08-10] MEDS: 1/2 NS 1,000 ML IV SCH (16:57)
[2016-08-10] MEDS: MULTI TRACE ELEMENTS IV SCH ×3 (16:58)
[2016-08-10] MEDS: MULTI VIT INF IV SCH ×3 (16:58)
[2016-08-10] MEDS: [UNRECOGNIZED DRUG - OTHER] IV SCH ×3 (16:58)
--- NOTE | 2016-08-10 18:00 | NUR ---
STATUS AMB IN LEVIN 40 FEET, DELON WELL. NURSE UTILIZING BIOINFORMATICS RESEARCH TECHNICIAN. SIGNS OF DISCOMFORT NOTED.
--- NOTE | 2016-08-10 19:00 | NUR ---
ELIM FLEETS ENEMA GIVEN PRIOR TO AMB, NO RESULTS NOTED AT THIS TIME. ABD REMAINS FIRM, NO BOWEL SOUNDS NOTED, BUT MUCH LESS FIRM AND DISTENDED THAN PRIOR TO OR.
--- NOTE | 2016-08-10 19:00 | NUR ---
NG TUBE REMOVED BY PATIENT DESPITE BILAT WRIST RESTRAINTS IN PLACE.
[2016-08-10] MEDS: INSULIN ASPART 100 UNIT/ML SQ PRN (20:13)
--- NOTE | 2016-08-10 21:17 | DI ---
Indication: ITS.REASON: NG placement PROCEDURE: KUB: Encounter: Initial Comparison: KUB dated August 09, 2016 Findings: Nasogastric tube tip and side port projecting over the body of the stomach. There is partially contrast opacified dilated small bowel and significantly distended colon in the left upper abdomen. The transverse colon appears less distended than the comparison study. Right PICC line is noted projecting in appropriate position. Impression: Nasogastric tube appears appropriately positioned. There is a preliminary report by virtual radi[facility]. .
[2016-08-11] VITALS (41 sets, daily range): BP systolic 135–211; BP diastolic 75–112; PULSE 93–116; RESP 14–30; TEMP 98.2–99.6; O2SAT 92–100
[2016-08-11] MEDS: PIPERACILLIN/TAZOBACTAM 3.375 G in NORMAL SALINE 100 ML IV SCH ×4 (02:59→21:36)
[2016-08-11 04:27] LABS: BASOPHILS % (AUTO) 0.1 % (0-2); EOSINOPHILS # (AUTO) 0.1 T/MM3 (0-0.5); EOSINOPHILS % (AUTO) 1.2 % (0-4); HCT - HEMATOCRIT 38.3 % (41-53); HGB - HEMOGLOBIN 12.8 GM/DL (13.5-17.5); IMMATURE GRANULOCYTE # (AUTO) 0.08 T/MM3 (0.00-0.03); LYMPHOCYTES # (AUTO) 0.7 T/MM3 (1-4.8); LYMPHOCYTES % (AUTO) 8.5 % (23-45); MEAN CORPUSCULAR HGB 29.8 UUG (26-34); MEAN CORPUSCULAR HGB CONC(MCHC 33.4 GM/DL (31-37); MEAN CORPUSCULAR VOLUME 89.1 UM3 (80-100); MEAN PLATELET VOLUME 10.6 UM3 (9.4-12.4); MONOCYTES # (AUTO) 0.8 T/MM3 (0-0.8); MONOCYTES % (AUTO) 9.7 % (0-9.0); NEUTROPHILS #(AUTO)-ABSOLUTE 6.7 T/MM3 (1.8-7.7); NEUTROPHILS % (AUTO) 79.5 % (33-66); WBC - WHITE BLOOD COUNT 8.4 T/MM3 (4.5-11.0)
[2016-08-11] MEDS: 1/2 NS 1,000 ML IV SCH ×2 (04:48→20:39)
[2016-08-11 05:08] LABS: ANION GAP 10 MEQ/L (5-15); BUN/CREATININE RATIO 34 RATIO (6-26); CALCIUM 7.5 MG/DL (8.4-10.2); CHLORIDE 117 MEQ/L (98-107); CO2 - CARBON DIOXIDE 24 MEQ/L (22-30); CREATININE 1.2 MG/DL (0.8-1.5); GLOMERULAR FILTRATION RATE 61; GLUCOSE 132 MG/DL (75-110); MAGNESIUM 3.4 MG/DL (1.6-2.3); POTASSIUM 3.9 MEQ/L (3.6-5); SODIUM 151 MEQ/L (134-144)
--- NOTE | 2016-08-11 05:45 | NUR ---
Shift Summary Patient has rested well during the night, but did not sleep as much as previous night. Patient pain appeared to be controlled and patient didn't answer yes to pain, nausea, or difficulty breathing. HR has improved from previous night and has been 100-110s. BP has been trending up and is currently in the 150s/80s. O2 is 100% on RA with normal respiration rate. No high temp during the night. NG tube was left out after discussing with Dr. Riddle about patients low NG output and patient constantly pulling it out. Abdomen appears to be slightly more distended the previous night. Bowel sounds were heard during 0400 assessment. No BM during the night, even after fleet enema during the previous shift was given. Urine output has been excellent.
[2016-08-11 05:58] LABS: PHOSPHORUS 3.1 MG/DL (2.5-4.5)
[2016-08-11] MEDS: PANTOPRAZOLE 40mg INJECTION IV SCH (08:29)
[2016-08-11] MEDS: ENOXAPARIN 40 MG/0.4 ML INJECTION SQ SCH (08:30)
--- NOTE | 2016-08-11 08:54 | NUR ---
TPN CONSULT: Mr Johnson had a PICC line placed yesterday. We will switch from a PPN to a TPN formula. Today's Labs: NA 151 CL 117 BUN 41 K 3.9 CO2 24 CR 1.2 GLU 132 OSM 302, CA 7.5, PHOS 3.1, MAG 3.4 Will begin today a custom TPN formula that will contain no sodium, chloride or magnesium for now. Will continue to monitor electrolytes and adjust formula accordingly. Thank you.
--- NOTE | 2016-08-11 14:16 | PNF ---
DATE 08/11/16 POSTOP DAY #2 HISTORY The patient remains in the intensive care unit. The patient kept fulling his nasogastric tube out yesterday multiple times despite being in restraints. The nasogastric tube was therefore just left out. The patient did have a large formed bowel movement this morning. The nurses did remove the restraints and allow the patient to ambulate in the intensive care unit this morning and he did well with this. INTAKE AND OUTPUT The patient does have a good urine output. PHYSICAL EXAMINATION VITAL SIGNS: Pulse is 98. Respiratory rate is 15. Blood pressure is 162/89. Oxygen saturation is 100% on room air. ABDOMEN: The dressings are left in place at the abdominal incision. The abdomen is soft today. LABORATORY DATA White blood cell count is 8.400 with no bands. Hemoglobin is 12.8. Hematocrit is 38.3. Serum creatinine is improved at 1.2. Serum sodium is 151. Serum chloride is 117. Serum potassium is 3.90. IMPRESSION Doing well overall following exploratory laparotomy, mobilization of splenic flexure and, low anterior colon resection with primary coloproctostomy anastomosis on 08/09/16. PLAN Continue current postoperative care in the intensive care unit. JEFFERY
[2016-08-11] MEDS: POTASSIUM PHOSPHATE IV SCH ×7 (14:25)
[2016-08-11] MEDS: MULTI VIT INF IV SCH ×7 (14:25)
[2016-08-11] MEDS: CALCIUM GLUCONATE IV SCH ×7 (14:25)
[2016-08-11] MEDS: [UNRECOGNIZED DRUG - OTHER] IV SCH ×7 (14:25)
[2016-08-11] MEDS: FAT EMULSION 20% 100 ML IV SCH (14:32)
--- NOTE | 2016-08-11 16:52 | DI ---
Indication: ITS.REASON: hypoxia, postop PROCEDURE: CHEST 1 VIEW: Encounter: Initial Comparison: June 11, 2016 Findings: Prior nasogastric tube is been removed. New free intraperitoneal air beneath both hemidiaphragms presumably related to the recent surgery. Right PICC line is now present with the tip projecting over the expected cavoatrial junction. Lungs remain hypoinflated with an elevated left hemidiaphragm although better aerated than the prior study. Bibasilar atelectasis. No pneumothorax. Heart size and mediastinal contours are stable. Impression: 1. Slightly improved atelectasis of the lungs. No new focal pneumonia. 2. Presumably postoperative free intraperitoneal air. .
[2016-08-11] MEDS ORDERED: LABETALOL 100mg/20ml INJECTION IV ONE (18:15)
[2016-08-11] MEDS: INSULIN ASPART 100 UNIT/ML SQ PRN (18:39)
--- NOTE | 2016-08-11 19:00 | NUR ---
STATUS HAS BEEN AWAKE, AND ALERT. AT TIMES, INDICATES DISCOMFORT. STAFF IMPLEMENTATION OF CRYSTAL EVALUATOR. ABD REMAINS FIRM AND SOMEWHAT DISTENDED. INC. BMS X 2. ACTIVE BOWEL SOUNDS LEFT SIDE > RIGHT. SPO2 STABLE AT ROOM AIR. DIFFICULT TO GET PATIENT TO COUGH. COUGH IS LOOSE BUT NON PRODUCTIVE. SPO2 STABLE ON ROOM AIR. AMD IN LEVIN X 2, DELON WELL, UP TO CHAIR X 3. LABETALOL 10 MG IV FOR ELEVATED BP AND HR GIVEN AT 1838. BP NOW 160/94. HR 100.
[2016-08-11] MEDS ORDERED: METOPROLOL 5mg/5ml INJECTION IV PRN (19:45)
[2016-08-11] MEDS: METOPROLOL 5mg/5ml INJECTION IV SCH (19:49)
[2016-08-11] MEDS ORDERED: METOPROLOL 5mg/5ml INJECTION IV SCH (21:00)
[2016-08-11] MEDS ORDERED: FUROSEMIDE 20 MG/2 ML INJECTION IV ONE (21:00)
--- NOTE | 2016-08-11 21:04 | PNPDOC ---
Subjective Date DATE: 08/11/16 TIME: 20:50 Subjective Vadim was resting comfortably when seen this morning. Speech was mumbled but he denied lightheadedness or dyspnea. Nursing reported that he was able to ambulate in the unit earlier in the morning and has had loose stools twice today. Blood pressures have been elevated. Family was not present at the bedside today. Objective Vital Signs Vital signs Vital Signs Date Time Temp Pulse Resp B/P Pulse Ox O2 Delivery O2 Flow Rate FiO2 08/11/16 20:00 95 24 08/11/16 19:25 99.6 08/11/16 19:01 160/94 93 Room Air 08/10/16 13:45 I/O 5300/2827 EXAM General-resting comfortably, drowsy, mumbled speech HEENT-oropharynx clear, eyes closed tightly-sclera/conjunctiva not visualized today Lungs-respirations nonlabored, good airflow, breath sounds clear anteriorly/ laterally Cardiac-regular rhythm, S1-S2, low-grade tachycardia Abd-soft, nontender to light palpation, no bowel sounds appreciated; midline dressing clean and dry Ext-without edema Neuro-moving all extremities well Psych-confused/dull Telemetry Rhythm: Sinus Tachycardia Height (Feet): 5 Height (Inches): 10.00 Weight (Kilograms): 70.300 Laboratory Laboratory Laboratory Tests 08/10/16 04:04 08/10/16 16:03 08/11/16 04:09 Calcium 7.5, phosphorus 3.1, magnesium 3.4 Laboratory Tests 08/10/16 04:04 08/11/16 04:09 Accu-Cheks today [id number] Microbiology Microbiology Blood cultures 2 negative after 4 days Radiology Portable chest x-ray today reviewed by myself demonstrating free air under the diaphragms (postoperative), elevated left hemidiaphragm, no focal infiltrate, mild increased vascular markings Sepsis Diagnostic Criteria Sepsis Confirmed/Suspected Infection: Yes SIRS Criteria: Temp<=96.8 or >=100.4, Pulse >= 90 beats/min, WBC >=12,000 or <= 4,000, BS >120 in non-diabetic Severe Sepsis Lactate >=2.0 mg/dL Assessment & Plan Problems: (1) Sigmoid volvulus Status: Resolved Assessment & Plan: Low anterior sigmoid resection with mobilization of the splenic flexure and coloproctostomy 08/09/16 (2) Ischemic colitis Status: Acute Assessment & Plan: Due to volvulus/bowel obstruction (3) Severe sepsis Status: Acute Assessment & Plan: Manifestations of sepsis include the following- 1. Leukocytosis at 16.7 with left shift. Bandemia 15%. 2. Tachycardia at 105 3. Acute abdominal distention/pain 4. Evidence of organ dysfunction including elevated bilirubin 2.0 and hyperglycemia in the absence of diabetes 5. Elevated Lactate of 3.0. (4) Bowel obstruction Status: Resolved Qualifiers: Intestinal obstruction type: unspecified Qualified Codes: K56.60 - Unspecified intestinal obstruction (5) Hypernatremia Status: Acute (6) Hyperglycemia Status: Acute (7) Acute kidney injury Status: Acute Assessment & Plan: Admission creatinine 1.1 increasing to 2.2 on 08/09 (8) Abdominal distention Status: Resolved (9) Mental retardation Status: Chronic (10) Epileptic seizure Status: Chronic (11) Constipation Status: Chronic (12) Osteopenia Status: Chronic (13) Hypermagnesemia Status: Acute (14) Hypertension Status: Acute Assessment Mr. Johnson underwent attempted decompressive colonoscopy and subsequent laparotomy with sigmoidectomy 08/09 for ischemic bowel due to obstruction/ volvulus. Patient removed NG yesterday evening, no nausea or vomiting. Bowel movements 2 today. Check abdominal films in a.m. Patient is hemodynamically stable with elevated blood pressures up to approximately 200/110, scheduled IV metoprolol initiated this evening. Volume status positive, diuresis initiated. Persistent hypernatremia-discussed with pharmacy, no sodium chloride or magnesium in TPN. 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 Continue Zosyn for abdominal coverage. Blood sugars stable with TPN thus far. Corrective scale insulin available. Lovenox and IV Protonix for prophylaxis. Plan/Intensity of Service Chest x-ray reviewed, laboratory data reviewed, discussed with Dr. Riddle and nursing. Code Status Full Code Hospital Course Summary Disclaimer The hospital course summary below is not to be considered part of the above Progress Note. Hospital Course Summary 08/08/16 Continue with NG for decompression to low intermittent suction. Initiate surgical consultation by Dr. Ariza Planning on small bowel series , place patient on cardiac telemetry. Noted to be sinus tachycardia. Will give a one-time dose of IV Lopressor 5 milligrams and continue to monitor. Did review home medications normally on any antihypertensives. Encourage nursing staff to monitor for evidence of pain and treat with when necessary medications. Leukocytosis resolved today down to 8.8. Potassium is found to be elevated at 5.1, however, this is likely secondary to specimen hemolysis. Continue with behavioral restraints for patient safety given that he has pulled his NG tube out 5 times since admission. Will discuss further with attending, Dr. Arvizu 08/08/16 Continue with NG for decompression to low intermittent suction. Initiate surgical consultation by Dr. Ariza Planning on small bowel series , place patient on cardiac telemetry. Noted to be sinus tachycardia. Will give a one-time dose of IV Lopressor 5 milligrams and continue to monitor. Did review home medications normally on any antihypertensives. Encourage nursing staff to monitor for evidence of pain and treat with when necessary medications. Leukocytosis resolved today down to 8.8. Potassium is found to be elevated at 5.1, however, this is likely secondary to specimen hemolysis. Continue with behavioral restraints for patient safety given that he has pulled his NG tube out 5 times since admission. Will discuss further with attending, Dr. Arvizu 08/09/16 Continue with Zosyn for antimicrobial coverage. Ct abd is obtained this morning revealing high-grade or complete obstruction along with bilateral lower pleural effusions. He is scheduled for Exploratory Lap today at [address] Ariza. Normal saline at 125ml/hr for ongoing hydrations Oxygen needs increased overnight to 10 liters however he is currently down to 2 liters. Chest xray was obtained this morning for further cardiopulmonary eval. Creatine is elevated today, suspect could be due to dehydration or acute obstruction. Repeat BMP pending. Continue Morphine and Zofran for pain control and nausea. SCDs for DVT prophylaxis. Will recheck CBC and BMP to follow blood counts, renal function and electrolytes. Family notified by nursing staff of change in treatment plan 08/10/16 Mr. Johnson underwent attempted decompressive colonoscopy and subsequent laparotomy with sigmoidectomy yesterday. Necrotic bowel was identified due to obstruction/volvulus. There has been persistent tachycardia overnight with need for supplemental oxygen. Creatinine remains elevated 2.0 with increasing BUN. His sister/legal guardian confirms full CODE STATUS. PICC line placed, peripheral nutrition to be changed to TPN. Additional fluids to be given today due to tachycardia and renal impairment. Continue Zosyn for abdominal coverage. INSURANCE LICENSING SUPERVISOR narcotics available in addition to nursing controlled doses morphine and Ativan. Chest x-ray to be obtained in the morning in addition to laboratory data. May require IPPB for lung expansion. Up in chair if possible without risking patient removal of NG. Lovenox and IV Protonix for prophylaxis. 08/11/16 Mr. Johnson underwent attempted decompressive colonoscopy and subsequent laparotomy with sigmoidectomy 08/09 for ischemic bowel due to obstruction/ volvulus. Patient removed NG yesterday evening, no nausea or vomiting. Bowel movements 2 today. Check abdominal films in a.m. Patient is hemodynamically stable with elevated blood pressures up to approximately 200/110, scheduled IV metoprolol initiated this evening. Volume status positive, diuresis initiated. Persistent hypernatremia-discussed with pharmacy, no sodium chloride or magnesium in TPN. 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 Continue Zosyn for abdominal coverage. Blood sugars stable with TPN thus far. Corrective scale insulin available. Lovenox and IV Protonix for prophylaxis. TREVOR NATION MD Aug 11, 2016 20:54
[2016-08-11] MEDS: LORAZEPAM 2 MG/ML INJECTION IV PRN (21:30)
[2016-08-12] VITALS (53 sets, daily range): BP systolic 130–199; BP diastolic 81–112; PULSE 84–115; RESP 14–25; TEMP 97.2–98.8; O2SAT 93–99
--- NOTE | 2016-08-12 00:05 | NUR ---
SURGICAL RM 112 ARRIVED TO SURGICAL FLOOR. PT ASSISTED NURSING STAFF WITH TRANSFER TO BED FROM CCU TRANSPORT BED. Addendum: 08/13/16 at 0030 by MARLI MOLINA RN ERROR WITH TIME OF TRANSFER. CORRECT DATE AND TIME SHOULD READ 08/12/16 @ 2004
[2016-08-12] MEDS: INSULIN ASPART 100 UNIT/ML SQ PRN ×2 (00:27→05:31)
[2016-08-12] MEDS: LORAZEPAM 2 MG/ML INJECTION IV PRN (02:08)
[2016-08-12] MEDS: PIPERACILLIN/TAZOBACTAM 3.375 G in NORMAL SALINE 100 ML IV SCH ×4 (03:13→21:57)
[2016-08-12] MEDS: METOPROLOL 5mg/5ml INJECTION IV SCH ×4 (03:14→21:57)
[2016-08-12 04:38] LABS: BASOPHILS % (AUTO) 0.2 % (0-2); EOSINOPHILS # (AUTO) 0.4 T/MM3 (0-0.5); EOSINOPHILS % (AUTO) 4.4 % (0-4); HCT - HEMATOCRIT 38.6 % (41-53); HGB - HEMOGLOBIN 12.9 GM/DL (13.5-17.5); IMMATURE GRANULOCYTE # (AUTO) 0.03 T/MM3 (0.00-0.03); IMMATURE GRANULOCYTE % (AUTO) 0.3 % (0.0-0.5); LYMPHOCYTES # (AUTO) 0.6 T/MM3 (1-4.8); MEAN CORPUSCULAR HGB 29.1 UUG (26-34); MEAN CORPUSCULAR HGB CONC(MCHC 33.4 GM/DL (31-37); MEAN CORPUSCULAR VOLUME 87.1 UM3 (80-100); MEAN PLATELET VOLUME 10.2 UM3 (9.4-12.4); MONOCYTES % (AUTO) 11.7 % (0-9.0); NEUTROPHILS #(AUTO)-ABSOLUTE 6.6 T/MM3 (1.8-7.7); NEUTROPHILS % (AUTO) 76.4 % (33-66); RED BLOOD COUNT 4.43 M/MM3 (4.50-5.90); WBC - WHITE BLOOD COUNT 8.6 T/MM3 (4.5-11.0)
[2016-08-12 04:49] LABS: ALBUMIN 2.5 G/DL (3.5-5.0); MAGNESIUM 2.5 MG/DL (1.6-2.3); PHOSPHORUS 3.6 MG/DL (2.5-4.5)
[2016-08-12 04:50] LABS: ANION GAP 9 MEQ/L (5-15); BUN/CREATININE RATIO 24 RATIO (6-26); CALCIUM 8.2 MG/DL (8.4-10.2); CHLORIDE 111 MEQ/L (98-107); CO2 - CARBON DIOXIDE 28 MEQ/L (22-30); CREATININE 1.1 MG/DL (0.8-1.5); GLOMERULAR FILTRATION RATE 67; GLUCOSE 159 MG/DL (75-110); POTASSIUM 3.8 MEQ/L (3.6-5); SODIUM 148 MEQ/L (134-144)
--- NOTE | 2016-08-12 06:28 | NUR ---
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
--- NOTE | 2016-08-12 07:57 | DI ---
EXAM: KUB W/UPRIGHT DICTATION LOCATION: [facility] INDICATION: ITS.REASON: postop, volvulus COMPARISON STUDY: Compared to August 09, 2016 FINDINGS: Abdomen: Several gas-distended small bowel loops are again noted measuring upwards of 5.6 cm. There is no free intraperitoneal air demonstrated. Oral contrast overlies the lower abdomen and pelvic region. Several surgical clips overlie the mid to lower abdomen and surgical reji are demonstrated on the midline. Skeletal Structures: The visualized skeletal structures are within normal limits for the patient's age. IMPRESSION: 1. Several moderately distended gas containing small bowel loops throughout the abdomen though appears slightly less distended than the prior study dated three days earlier. At least a partial small bowel obstruction remains the leading consideration and continued follow-up is recommended. No obvious free intraperitoneal air. .
[2016-08-12] MEDS: PANTOPRAZOLE 40mg INJECTION IV SCH (09:17)
[2016-08-12] MEDS: ENOXAPARIN 40 MG/0.4 ML INJECTION SQ SCH (09:18)
--- NOTE | 2016-08-12 10:46 | PNPDOC ---
Subjective Date DATE: 08/12/16 TIME: 10:32 Subjective F/U: Sigmoid volvulus with colonic necrosis Resting in bed, responds to verbal stimuli. Pain controlled-not pushing FOLDING MACHINE FEEDER often (does have basal rate). Not reporting nausea. Pt has been passing lose stool. NG out; Dr Ariza advancing to clear liquids. Breathing well. Has been ambulating in room with nursing. Objective Vital Signs Vital signs Vital Signs Date Time Temp Pulse Resp B/P Pulse Ox O2 Delivery O2 Flow Rate FiO2 08/12/16 10:00 18 08/12/16 08:00 105 08/12/16 06:00 152/89 08/12/16 05:30 95 Room Air 08/12/16 03:31 97.2 08/10/16 13:45 Telemetry Rhythm: Sinus Tachycardia Height (Feet): 5 Height (Inches): 10.00 Weight (Kilograms): 63.600 General General Appearance: Alert, Well Nourished, Well Developed, Looks Stated Age Eyes (Brief) Eyes: FOUND: EOMI, PERRL, NOT FOUND: scleral icterus ENMT (Brief) ENMT: FOUND: hearing intact, mucosa moist Neck (Brief) Neck: FOUND: midline, NOT FOUND: nuchal rigidity, spasm Respiratory (Brief) Respiratory: FOUND: clear all negron, equal bilaterally, other (No distress on RA ), NOT FOUND: rales, wheezes Cardiovascular (Brief) Cardiac: FOUND: regular rate, regular rhythm, NOT FOUND: pedal edema Abdomen (Brief) Abdominal: FOUND: BS normo active x4, distended Extremities (Brief) Extremity : Side: Bilateral Extremity: leg Extremity Finding: NOT FOUND: edema Musculoskeletal (Brief) Musculoskeletal: FOUND: extremities move equally, NOT FOUND: deformity, spasm Integumentary (Brief) Integumentary: FOUND: dry, other (Abdominal incision without bleeding or drainage-reji intact. ), warm Neurologic (Brief) Neurological: FOUND: cranial 2-12 intact, motor (Intact ) Psychiatric (Brief) Psychiatric: FOUND: alert, normal affect Laboratory Laboratory Laboratory Tests 08/10/16 16:03 08/11/16 04:09 08/12/16 04:23 Laboratory Tests 08/11/16 04:09 08/12/16 04:23 Sepsis Diagnostic Criteria Sepsis Confirmed/Suspected Infection: Yes SIRS Criteria: Temp<=96.8 or >=100.4, Pulse >= 90 beats/min, WBC >=12,000 or <= 4,000, BS >120 in non-diabetic Severe Sepsis Lactate >=2.0 mg/dL Assessment & Plan Problems: (1) Sigmoid volvulus Status: Resolved Assessment & Plan: Low anterior sigmoid resection with mobilization of the splenic flexure and coloproctostomy 08/09/16 (2) Ischemic colitis Status: Acute Assessment & Plan: Due to volvulus/bowel obstruction (3) Severe sepsis Status: Resolved Assessment & Plan: Manifestations of sepsis include the following- 1. Leukocytosis at 16.7 with left shift. Bandemia 15%. 2. Tachycardia at 105 3. Acute abdominal distention/pain 4. Evidence of organ dysfunction including elevated bilirubin 2.0 and hyperglycemia in the absence of diabetes 5. Elevated Lactate of 3.0. (4) Bowel obstruction Status: Resolved Qualifiers: Intestinal obstruction type: unspecified Qualified Codes: K56.60 - Unspecified intestinal obstruction (5) Hypernatremia Status: Acute (6) Hyperglycemia Status: Acute (7) Acute kidney injury Status: Acute Assessment & Plan: Admission creatinine 1.1 increasing to 2.2 on 08/09 (8) Abdominal distention Status: Resolved (9) Mental retardation Status: Chronic (10) Epileptic seizure Status: Chronic (11) Constipation Status: Chronic (12) Osteopenia Status: Chronic (13) Hypermagnesemia Status: Acute (14) Hypertension Status: Acute Plan/Intensity of Service Continue TPN for nutrition due to decreased oral intake post op. Diet advanced to clear liquids - monitor intake. Will start home Miralax and senna to help bowel motivation. Encourage activities and deep breathing. Continue Zosyn for abdominal coverage. Continue CCU care for close monitoring and support - possible transfer to floor in near future. Monitor lab. Case discussed with nursing. DVT Prophylaxis: SCD'S, Lovenox Code Status Full Code Hospital Course Summary Disclaimer The hospital course summary below is not to be considered part of the above Progress Note. Hospital Course Summary 08/07 Admit to inpatient under the care of Dr. Arvizu for abdominal distention. Severe sepsis as evidence by: Acute abdominal pain, Tachycardia at 105, Leukocytosis at 16.7 with left shift, Bilirubin at 2.0, hyperglycemia and Lactate of 3.0. Obtain blood cultures x 2 on admission NS bolus of 500ml wide open, then decrease to 100ml/hr. Zosyn IV every 6 hours for empiric antimicrobial coverage. We will repeat a Lactate at 1830, following sepsis protocol We will consult Dr. Ariza for abdominal distention. Place NG tube to low intermittent suction to help decompress the stomach When necessary behavioral restraints as patient has already pulled out one NG tube on admission. We will keep Vadim NPO for now. Zofran 4mg IV PRN for nausea. Morphine sulfate 2mg IV every 2 hours PRN abdominal pain. Vital signs are: T- 96.5, HR of 105, BP of 180/89, 18 R and 95% RA. Will ask nursing to repeat BP. For DVT prophylaxis we will order SCDs as to not conflict with any surgical intervention that could be needed. We will contact his DPOA for a code status. Recheck CBC and BMP tomorrow morning to follow blood counts, renal function and electrolytes. At time of discharge medical care will return to his primary care provider at [facility] 08/08/16 Continue with NG for decompression to low intermittent suction. Initiate surgical consultation by Dr. Ariza Planning on small bowel series , place patient on cardiac telemetry. Noted to be sinus tachycardia. Will give a one-time dose of IV Lopressor 5 milligrams and continue to monitor. Did review home medications normally on any antihypertensives. Encourage nursing staff to monitor for evidence of pain and treat with when necessary medications. Leukocytosis resolved today down to 8.8. Potassium is found to be elevated at 5.1, however, this is likely secondary to specimen hemolysis. Continue with behavioral restraints for patient safety given that he has pulled his NG tube out 5 times since admission. Will discuss further with attending, Dr. Arvizu 08/09/16 Continue with Zosyn for antimicrobial coverage. Ct abd is obtained this morning revealing high-grade or complete obstruction along with bilateral lower pleural effusions. He is scheduled for Exploratory Lap today at [address] Ariza. Normal saline at 125ml/hr for ongoing hydrations Oxygen needs increased overnight to 10 liters however he is currently down to 2 liters. Chest xray was obtained this morning for further cardiopulmonary eval. Creatine is elevated today, suspect could be due to dehydration or acute obstruction. Repeat BMP pending. Continue Morphine and Zofran for pain control and nausea. SCDs for DVT prophylaxis. Will recheck CBC and BMP to follow blood counts, renal function and electrolytes. Family notified by nursing staff of change in treatment plan 08/10/16 Mr. Johnson underwent attempted decompressive colonoscopy and subsequent laparotomy with sigmoidectomy yesterday. Necrotic bowel was identified due to obstruction/volvulus. There has been persistent tachycardia overnight with need for supplemental oxygen. Creatinine remains elevated 2.0 with increasing BUN. His sister/legal guardian confirms full CODE STATUS. PICC line placed, peripheral nutrition to be changed to TPN. Additional fluids to be given today due to tachycardia and renal impairment. Continue Zosyn for abdominal coverage. FOLDING MACHINE FEEDER narcotics available in addition to nursing controlled doses morphine and Ativan. Chest x-ray to be obtained in the morning in addition to laboratory data. May require IPPB for lung expansion. Up in chair if possible without risking patient removal of NG. Lovenox and IV Protonix for prophylaxis. 08/11/16 Mr. Johnson underwent attempted decompressive colonoscopy and subsequent laparotomy with sigmoidectomy 08/09 for ischemic bowel due to obstruction/ volvulus. Patient removed NG yesterday evening, no nausea or vomiting. Bowel movements 2 today. Check abdominal films in a.m. Patient is hemodynamically stable with elevated blood pressures up to approximately 200/110, scheduled IV metoprolol initiated this evening. Volume status positive, diuresis initiated. Persistent hypernatremia-discussed with pharmacy, no sodium chloride or magnesium in TPN. 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 Continue Zosyn for abdominal coverage. Blood sugars stable with TPN thus far. Corrective scale insulin available. Lovenox and IV Protonix for prophylaxis. 08/12 Resting in bed, responds to verbal stimuli. Pain controlled-not pushing FOLDING MACHINE FEEDER often (does have basal rate). Not reporting nausea. Pt has been passing lose stool. NG out; Dr Ariza advancing to clear liquids. Breathing well. Has been ambulating in room with nursing. Continue TPN for nutrition due to decreased oral intake post op. Diet advanced to clear liquids - monitor intake. Will start home Miralax and senna to help bowel motivation. Encourage activities and deep breathing. Continue Zosyn for abdominal coverage. Continue CCU care for close monitoring and support - possible transfer to floor in near future. Monitor lab. ARLETTE ARVIZU MD Aug 12, 2016 10:35
--- NOTE | 2016-08-12 11:14 | PNF ---
DATE 08/12/2016 FINDINGS Mr. Johnson was more responsive today. He did answer appropriately when questioned in one-word replies. OBJECTIVE VITALS: Afebrile. Normotensive. Last recorded vitals include temperature 97.2, pulse 105, respirations 18, blood pressure 152/89 SAO2 95% on room air. CHEST: Clear to auscultation bilaterally. HEART: Regular rate and rhythm. Normal S1, S2, without gallops, murmurs or clicks. ABDOMEN: Palpation of the abdomen reveals it to be significantly less distended than noted preoperatively. Palpation of his abdomen did not seem to elicit much in the way of discomfort to the patient. LABORATORY/RADIOGRAPHIC EVALUATION KUB was obtained this morning. There was some small bowel dilatation noted. It appears that he still has some colonic distention as well. From a laboratory standpoint, the patient's white count is 8.6. Hemoglobin stable at 12.9. BMP obtained and his sodium is elevated at 148. Chloride is elevated at 111. BUN is 26.0. Creatinine 1.1. 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 Patient doing well. PLAN The patient is requesting some liquids. Will go ahead and give the patient some clear liquids today despite having a slight component of some distention of his small bowel. Will continue to follow the patient closely. Will review current IV fluids given his hypernatremia, hyperchloremia. MTDD
[2016-08-12] MEDS: POTASSIUM PHOSPHATE IV SCH ×7 (14:23)
[2016-08-12] MEDS: MULTI VIT INF IV SCH ×7 (14:23)
[2016-08-12] MEDS: [UNRECOGNIZED DRUG - OTHER] IV SCH ×7 (14:23)
[2016-08-12] MEDS: CALCIUM GLUCONATE IV SCH ×7 (14:23)
--- NOTE | 2016-08-12 16:40 | NUR ---
High Risk Screen R/T to NPO or clear liquid >3 days and poor appetite > 3 days Diet: Clear Liquid Diet Clear liquid diet has been initiated. Patient is receiving TPN @ 100ml/hr + fat emulsions RD available @ 1406 Addendum: 08/12/16 at [address] Student charting reviewed by Licensed Weigher.
[2016-08-12] MEDS: FAT EMULSION 20% 100 ML IV SCH (16:45)
--- NOTE | 2016-08-12 17:27 | NUR ---
TPN CONSULT: 65 year old Male post-op bowel resection. Receiving Custom TPN @100 ml/hr Today's Labs: 148-111-26/ 159 3.8-28-1.1\ Osm= 292 ; Ca= 8.2, PO4= 3.6, Mg= 2.5 Current TPN formula contains no Sodium, Chloride or Magnesium. Sodium, Chloride, Magnesium and Osmolality are all high out of normal range but are trending down. Will continue current formula and rate. Pharmacy will continue to monitor and adjust. TPN- Custom formula Amino Acid 8.5% 1000 ml Dextrose 50% 1000 ml Potassium phosphate 40 meq Calcium gluconate 9.3 meq Multi-vit 10 ml multi-trace 1 ml potassium acetate 100 meq sterile water for inj 250 ml
--- NOTE | 2016-08-12 18:22 | NUR ---
SHIFT PT HAS BEEN PLEASANTLY CONFUSED ALL SHIFT. PT SHIFTS SELF IN BED, RESTRAINTS IN PLACE DUE TO LINE PULLING. PT IS MR. PT DENIES PAIN EXCEPT ONE TIME THIS SHIFT. DILAUDID DIRECTOR SHOPPER MARKETING BUTTON PUSHED. PT DID TAKE IN SOME CLEAR LIQUIDS THIS SHIFT, JELLO AND JUICE. PT SHOWS NO S/S OF SOA, N/V AND PT IS ON ROOM AIR. INCISION TO ANTERIOR ABDOMEN HAS CHUYITA, CLEAN, DRY AND INTACT. PT HAS BEEN [id number] AND HAS HAD BREAKS FROM RESTRAINTS WITH ROM. PT HAS RESTED IN BED MOST OF SHIFT. NO OTHER CHANGES SINCE PREVIOUS SHIFT. ALARMS IN USE AND CALL LIGHT WITH IN REACH.
[2016-08-12] MEDS: ONDANSETRON 4mg/2ml INJECTION IV PRN (19:48)
--- NOTE | 2016-08-12 20:00 | NUR ---
Status Patient is complaining of nausea and pain, point to his stomach. Zofran was given and FORKLIFT TECHNICIAN was pushed multiple times to help. Stomach does appear to be distended and firm with hyperactive bowel sounds. Patient is having liquid bowel movements. BP was in the 170s prior to transfer and PRN Lopressor was given at 1730. HR is 100s, sinus rhythm. Urine output is adequate. Patient is much more alert than this weekend and able to answer questions with yes and no fairly well.
--- NOTE | 2016-08-12 20:05 | NUR ---
Transfer to Patient was transferred to room 112 at this time. Report was given to Edwardo Avendano RN prior to arrival. Patient was transferred from bed to bed without incident.
[2016-08-12] MEDS: 1/2 NS 1,000 ML IV SCH (21:59)
[2016-08-13] VITALS (15 sets, daily range): BP systolic 146–170; BP diastolic 93–110; PULSE 102–117; RESP 16–20; TEMP 97.4–99; O2SAT 94–98
[2016-08-13] MEDS: INSULIN ASPART 100 UNIT/ML SQ PRN ×2 (00:03→05:46)
[2016-08-13] MEDS: METOPROLOL 5mg/5ml INJECTION IV SCH ×2 (03:28→09:55)
[2016-08-13] MEDS: PIPERACILLIN/TAZOBACTAM 3.375 G in NORMAL SALINE 100 ML IV SCH (03:35)
[2016-08-13 05:12] LABS: BASOPHILS % (AUTO) 0.3 % (0-2); EOSINOPHILS # (AUTO) 0.6 T/MM3 (0-0.5); EOSINOPHILS % (AUTO) 7.8 % (0-4); HCT - HEMATOCRIT 38.8 % (41-53); IMMATURE GRANULOCYTE # (AUTO) 0.04 T/MM3 (0.00-0.03); IMMATURE GRANULOCYTE % (AUTO) 0.5 % (0.0-0.5); LYMPHOCYTES # (AUTO) 0.8 T/MM3 (1-4.8); LYMPHOCYTES % (AUTO) 9.9 % (23-45); MEAN CORPUSCULAR HGB 29.5 UUG (26-34); MEAN CORPUSCULAR HGB CONC(MCHC 33.5 GM/DL (31-37); MEAN CORPUSCULAR VOLUME 88.2 UM3 (80-100); MEAN PLATELET VOLUME 10.9 UM3 (9.4-12.4); MONOCYTES # (AUTO) 0.7 T/MM3 (0-0.8); MONOCYTES % (AUTO) 8.8 % (0-9.0); NEUTROPHILS #(AUTO)-ABSOLUTE 5.8 T/MM3 (1.8-7.7); NEUTROPHILS % (AUTO) 72.7 % (33-66)
[2016-08-13 05:25] LABS: ALBUMIN 2.5 G/DL (3.5-5.0); ALBUMIN/GLOBULIN RATIO 0.9 RATIO (1.1-2.2); ALKALINE PHOSPHATASE 71 U/L (38-126); ALT (SGPT) 65 U/L (21-72); ANION GAP 10 MEQ/L (5-15); AST (SGOT) 77 U/L (17-59); BUN/CREATININE RATIO 20 RATIO (6-26); CALCIUM 8.3 MG/DL (8.4-10.2); CHLORIDE 108 MEQ/L (98-107); CO2 - CARBON DIOXIDE 26 MEQ/L (22-30); CREATININE 1.1 MG/DL (0.8-1.5); GLOMERULAR FILTRATION RATE 67; GLUCOSE 153 MG/DL (75-110); MAGNESIUM 2.1 MG/DL (1.6-2.3); PHOSPHORUS 3.2 MG/DL (2.5-4.5); POTASSIUM 4.1 MEQ/L (3.6-5); SODIUM 144 MEQ/L (134-144); TOTAL PROTEIN 5.4 G/DL (6.3-8.2)
--- NOTE | 2016-08-13 06:00 | NUR ---
GI COLLECTED AND SENT STOOL SPECIMEN TO LAB PER STAFF INITIATED ORDER AFTER FREQUENT LOOSE BM'S
[2016-08-13 06:59] LABS: C. DIFFICILE TOXIN B POSITIVE (NEGATIVE)
--- NOTE | 2016-08-13 08:00 | NUR ---
RECEIVED REPORT PATIENT IS ALERT. CONTINUES TO BE OFF RESTRAINTS SINCE 0300HRS THIS MORNING. PATIENT IS NOW ON CONTACT FOR FOR C.DIFF PRECAUTION. INDWELLING ZIMMERMAN CATHETER TO DD BAG. THE PATIENT IS ON TPN PER RIGHT UPPER ARM DOUBLE LUMEN. PATIENT ONLY ANSWERS TO YES NO QUESTIONS.
--- NOTE | 2016-08-13 08:16 | PNSURG ---
Subjective DATE: 08/13/16 TIME: 07:53 Interval History Having copious stools, C-diff came back positive, talked with Karen in pharmacy and referred to [facility], agreed to start Vanco 500 PO Q6h and Flagyl 500 IV Q6h. Will continue to monitor and consider Vanco enema if no improvement. Pharmacy adjusting TPN based on lytes. He walked in the room, will encourage ambulation. Objective Vital Signs Date Time Temp Pulse Resp B/P Pulse Ox O2 Delivery O2 Flow Rate FiO2 08/13/16 05:58 18 08/13/16 03:28 97.4 114 170/110 94 Room Air 08/10/16 13:45 Height (Feet): 5 Height (Inches): 10.00 Weight (Kilograms): 63.600 BMI 20.7 General Appearance: Alert (awake and pleasant and cooperative this am) Respiratory: FOUND: clear bilaterally Cardiac: FOUND: regular rate, regular rhythm Abdominal Brief: FOUND: BS normo active x4 (hyperactive) Incision: FOUND: reji present Wound Drainage: FOUND: serosanguinous (quarter size on gown reported by weight shifter, none currently even with attempt to coax drainage from area of reported drainage.) Laboratory Item Value Date Time Stool C. difficile Toxin B Gene PCR Positive *A 08/13/16 0600 Laboratory Tests 08/10/16 16:03 08/11/16 04:09 08/12/16 04:23 08/13/16 04:06 Laboratory Tests 08/11/16 04:09 08/12/16 04:23 08/13/16 04:06 Procedure Procedure Date: Aug 09, 2016 Surgeon: To Procedure Decompression colonoscopy followed by exploratory laparotomy with low anterior resection and mobilization of splenic flexure GS Assessment & Plan Assessment Having copious stools, C-diff came back positive, talked with Karen in pharmacy and referred to [facility], agreed to start Vanco 500 PO Q6h and Flagyl 500 IV Q6h. Will continue to monitor and consider Vanco enema if no improvement. Stop Zosyn. Pharmacy adjusting TPN based on lytes. Continue clear liquids. Start PT/OT He walked in the room, will encourage ambulation. DVT Prophylaxis: SCD'S, Lovenox GI Prophylaxis: Protonix Code Status Full Code Hospital Course Summary Disclaimer The visit summary below is not to be considered part of the above Progress Note. Hospital Course Summary 08/07 Admit to inpatient under the care of Dr. Arvizu for abdominal distention. Severe sepsis as evidence by: Acute abdominal pain, Tachycardia at 105, Leukocytosis at 16.7 with left shift, Bilirubin at 2.0, hyperglycemia and Lactate of 3.0. Obtain blood cultures x 2 on admission NS bolus of 500ml wide open, then decrease to 100ml/hr. Zosyn IV every 6 hours for empiric antimicrobial coverage. We will repeat a Lactate at 1830, following sepsis protocol We will consult Dr. Ariza for abdominal distention. Place NG tube to low intermittent suction to help decompress the stomach When necessary behavioral restraints as patient has already pulled out one NG tube on admission. We will keep Vadim NPO for now. Zofran 4mg IV PRN for nausea. Morphine sulfate 2mg IV every 2 hours PRN abdominal pain. Vital signs are: T- 96.5, HR of 105, BP of 180/89, 18 R and 95% RA. Will ask nursing to repeat BP. For DVT prophylaxis we will order SCDs as to not conflict with any surgical intervention that could be needed. We will contact his DPOA for a code status. Recheck CBC and BMP tomorrow morning to follow blood counts, renal function and electrolytes. At time of discharge medical care will return to his primary care provider at [facility] 08/08/16 Continue with NG for decompression to low intermittent suction. Initiate surgical consultation by Dr. Ariza Planning on small bowel series , place patient on cardiac telemetry. Noted to be sinus tachycardia. Will give a one-time dose of IV Lopressor 5 milligrams and continue to monitor. Did review home medications normally on any antihypertensives. Encourage nursing staff to monitor for evidence of pain and treat with when necessary medications. Leukocytosis resolved today down to 8.8. Potassium is found to be elevated at 5.1, however, this is likely secondary to specimen hemolysis. Continue with behavioral restraints for patient safety given that he has pulled his NG tube out 5 times since admission. Will discuss further with attending, Dr. Arvizu 08/09/16 Continue with Zosyn for antimicrobial coverage. Ct abd is obtained this morning revealing high-grade or complete obstruction along with bilateral lower pleural effusions. He is scheduled for Exploratory Lap today at [address] Ariza. Normal saline at 125ml/hr for ongoing hydrations Oxygen needs increased overnight to 10 liters however he is currently down to 2 liters. Chest xray was obtained this morning for further cardiopulmonary eval. Creatine is elevated today, suspect could be due to dehydration or acute obstruction. Repeat BMP pending. Continue Morphine and Zofran for pain control and nausea. SCDs for DVT prophylaxis. Will recheck CBC and BMP to follow blood counts, renal function and electrolytes. Family notified by nursing staff of change in treatment plan 08/10/16 Mr. Johnson underwent attempted decompressive colonoscopy and subsequent laparotomy with sigmoidectomy yesterday. Necrotic bowel was identified due to obstruction/volvulus. There has been persistent tachycardia overnight with need for supplemental oxygen. Creatinine remains elevated 2.0 with increasing BUN. His sister/legal guardian confirms full CODE STATUS. PICC line placed, peripheral nutrition to be changed to TPN. Additional fluids to be given today due to tachycardia and renal impairment. Continue Zosyn for abdominal coverage. FERMENTING CELLARS RECEIVER narcotics available in addition to nursing controlled doses morphine and Ativan. Chest x-ray to be obtained in the morning in addition to laboratory data. May require IPPB for lung expansion. Up in chair if possible without risking patient removal of NG. Lovenox and IV Protonix for prophylaxis. 08/11/16 Mr. Johnson underwent attempted decompressive colonoscopy and subsequent laparotomy with sigmoidectomy 08/09 for ischemic bowel due to obstruction/ volvulus. Patient removed NG yesterday evening, no nausea or vomiting. Bowel movements 2 today. Check abdominal films in a.m. Patient is hemodynamically stable with elevated blood pressures up to approximately 200/110, scheduled IV metoprolol initiated this evening. Volume status positive, diuresis initiated. Persistent hypernatremia-discussed with pharmacy, no sodium chloride or magnesium in TPN. FERMENTING CELLARS RECEIVER for pain, Ativan for anxiety as needed. Continue Zosyn for abdominal coverage. Blood sugars stable with TPN thus far. Corrective scale insulin available. Lovenox and IV Protonix for prophylaxis. 08/12 Resting in bed, responds to verbal stimuli. Pain controlled-not pushing FERMENTING CELLARS RECEIVER often (does have basal rate). Not reporting nausea. Pt has been passing lose stool. NG out; Dr Ariza advancing to clear liquids. Breathing well. Has been ambulating in room with nursing. Continue TPN for nutrition due to decreased oral intake post op. Diet advanced to clear liquids - monitor intake. Will start home Miralax and senna to help bowel motivation. Encourage activities and deep breathing. Continue Zosyn for abdominal coverage. Continue CCU care for close monitoring and support - possible transfer to floor in near future. Monitor lab. 4-18 Having copious stools, C-diff came back positive, talked with Karen in pharmacy and referred to [facility], agreed to start Vanco 500 PO Q6h and Flagyl 500 IV Q6h. Will continue to monitor and consider Vanco enema if no improvement. Stop Zosyn. Pharmacy adjusting TPN based on lytes. Continue clear liquids. Start PT/OT He walked in the room, will encourage ambulation. LAXMI GUEVARA APRN Aug 13, 2016 07:58
[2016-08-13] MEDS: METRONIDAZOLE IVPB 500 MG in NORMAL SALINE 100 ML IV SCH ×3 (08:26→19:59)
[2016-08-13] MEDS: ENOXAPARIN 40 MG/0.4 ML INJECTION SQ SCH (09:51)
[2016-08-13] MEDS: PANTOPRAZOLE 40mg INJECTION IV SCH (09:54)
--- NOTE | 2016-08-13 13:29 | NUR ---
TPN CONSULT: 65 year old Male receiving Custom TPN @100 ml/hr Today's Labs: 144-108-22/ 153 4.1-26-1.1\ Osm= 283 ; Ca= 8.3, PO4= 3.2, Mg= 2.1 Current TPN formula contains no Sodium or Chloride. Magnesium Sulfate 8 meq added to formula. Pharmacy will continue to monitor and adjust. Thank you, Karen Orourke, [facility] TPN- Custom formula Amino Acid 8.5% 1000 ml Dextrose 50% 1000 ml potassium acetate 100 meq Potassium phosphate 40 meq Calcium gluconate 9.3 meq Mag. Sulfate 8 meq Multi-vit 10 ml multi-trace 1 ml sterile water for inj 250 ml
--- NOTE | 2016-08-13 14:10 | PNF ---
DATE 08/13/2016 FINDINGS Mr. Johnson this morning apparently has had several loose stools. Apparently he is refusing oral intake. VITALS: Afebrile. Normotensive. The patient remains slightly tachycardic. Current vitals include temperature 98.3, pulse 102, respirations 16, blood pressure 165/96, SaO2 97% on room air. ABDOMEN: Soft. No guarding present. LABORATORY/RADIOGRAPH EVALUATION Given his increased stool frequency, C diff toxin was obtained and found be positive this morning. A CBC was obtained. His white count remains stable at 8.0. Hemoglobin is stable at 13.0. CMP was obtained and his sodium has improved. Chloride is still minimally elevated at 108. Creatinine stable at 1.1. Blood sugar is stable. ASSESSMENT 65-year-old gentleman status post exploratory laparotomy with sigmoid resection/low anterior resection with mobilization of splenic flexure secondary to a sigmoid volvulus with associated necrosis. Patient with development of postoperative C diff. PLAN Broad-spectrum antibiotics/Zosyn has been discontinued at this time. Patient was placed on vancomycin accordingly as a result of his positive C diff. I am concerned with this development of C diff postoperatively. This could be a "major setback." Will continue with the above order changes and continue with hyperalimentation at this time. Yesterday, radiographically, he did have a component of ileus pattern and I am not surprised that he is having some difficulty with oral intake. Will continue to follow along closely. JEFFERY
--- NOTE | 2016-08-13 14:25 | PNPDOC ---
Subjective Date DATE: 08/13/16 TIME: 14:15 Subjective F/U: Sigmoid volvulus with colonic necrosis Resting in bed. Oral drive decreased-not taking much by mouth. Increased loose stools - C diff positive; Zosyn stopped and stared on Oral Vanco and IV metronidazole. Verbal responses limited. Does report discomfort-hard to tell if it is abdominal in nature or just generalized diffuse pain. Objective Vital Signs Vital signs Vital Signs Date Time Temp Pulse Resp B/P Pulse Ox O2 Delivery O2 Flow Rate FiO2 08/13/16 12:20 16 08/13/16 12:17 98.3 102 165/96 97 Room Air 08/10/16 13:45 Telemetry Rhythm: Sinus Tachycardia Height (Feet): 5 Height (Inches): 10.00 Weight (Kilograms): 63.600 General General Appearance: Alert, Well Nourished, Well Developed, Mild Distress, Looks Stated Age Eyes (Brief) Eyes: FOUND: EOMI, PERRL, NOT FOUND: scleral icterus ENMT (Brief) ENMT: FOUND: hearing intact, mucosa moist Neck (Brief) Neck: FOUND: midline, NOT FOUND: nuchal rigidity, spasm Respiratory (Brief) Respiratory: FOUND: clear all negron, equal bilaterally, wheezes, NOT FOUND: rales Cardiovascular (Brief) Cardiac: FOUND: regular rhythm, NOT FOUND: regular rate (Tachy ) Abdomen (Brief) Abdominal: FOUND: distended, soft, NOT FOUND: BS normo active x4 (Decreased ), tender Extremities (Brief) Extremity : Side: Bilateral Extremity: leg Extremity Finding: FOUND: edema (Trace) Musculoskeletal (Brief) Musculoskeletal: NOT FOUND: deformity, spasm Integumentary (Brief) Integumentary: FOUND: dry, warm Neurologic (Brief) Neurological: FOUND: cranial 2-12 intact, motor (Intact ) Psychiatric (Brief) Psychiatric: FOUND: alert Laboratory Laboratory Laboratory Tests 08/12/16 04:23 08/13/16 04:06 Laboratory Tests 08/12/16 04:23 08/13/16 04:06 Sepsis Diagnostic Criteria Sepsis Confirmed/Suspected Infection: Yes SIRS Criteria: Temp<=96.8 or >=100.4, Pulse >= 90 beats/min, WBC >=12,000 or <= 4,000, BS >120 in non-diabetic Severe Sepsis Lactate >=2.0 mg/dL Assessment & Plan Problems: (1) Sigmoid volvulus Status: Resolved Assessment & Plan: Low anterior sigmoid resection with mobilization of the splenic flexure and coloproctostomy 08/09/16 (2) Ischemic colitis Status: Acute Assessment & Plan: Due to volvulus/bowel obstruction (3) C. difficile colitis Status: Acute Assessment & Plan: Not POA (4) Severe sepsis Status: Resolved Assessment & Plan: Manifestations of sepsis include the following- 1. Leukocytosis at 16.7 with left shift. Bandemia 15%. 2. Tachycardia at 105 3. Acute abdominal distention/pain 4. Evidence of organ dysfunction including elevated bilirubin 2.0 and hyperglycemia in the absence of diabetes 5. Elevated Lactate of 3.0. (5) Bowel obstruction Status: Resolved Qualifiers: Intestinal obstruction type: unspecified Qualified Codes: K56.60 - Unspecified intestinal obstruction (6) Hypernatremia Status: Acute Assessment & Plan: Not POA (7) Hyperglycemia Status: Acute (8) Acute kidney injury Status: Resolved Assessment & Plan: Admission creatinine 1.1 increasing to 2.2 on 08/09 (9) Abdominal distention Status: Resolved (10) Mental retardation Status: Chronic (11) Epileptic seizure Status: Chronic (12) Constipation Status: Chronic (13) Osteopenia Status: Chronic (14) Hypermagnesemia Status: Acute (15) Hypertension Status: Acute Qualifiers: Hypertension type: essential hypertension Qualified Codes: I10 - Essential (primary) hypertension Plan/Intensity of Service Continue TPN for nutrition due to decreased oral intake post op. Start Norvasc for BP control. Will change IV metoprolol to Toprol XL 25mg daily. Speech to check swallow function. PT/OT consulted to help increase functional status. Monitor lab. Case discussed with nursing and CM. DVT Prophylaxis: SCD'S, Lovenox Code Status Full Code Hospital Course Summary Disclaimer The hospital course summary below is not to be considered part of the above Progress Note. Hospital Course Summary 08/07 Admit to inpatient under the care of Dr. Arvizu for abdominal distention. Severe sepsis as evidence by: Acute abdominal pain, Tachycardia at 105, Leukocytosis at 16.7 with left shift, Bilirubin at 2.0, hyperglycemia and Lactate of 3.0. Obtain blood cultures x 2 on admission NS bolus of 500ml wide open, then decrease to 100ml/hr. Zosyn IV every 6 hours for empiric antimicrobial coverage. We will repeat a Lactate at 1830, following sepsis protocol We will consult Dr. Ariza for abdominal distention. Place NG tube to low intermittent suction to help decompress the stomach When necessary behavioral restraints as patient has already pulled out one NG tube on admission. We will keep Vadim NPO for now. Zofran 4mg IV PRN for nausea. Morphine sulfate 2mg IV every 2 hours PRN abdominal pain. Vital signs are: T- 96.5, HR of 105, BP of 180/89, 18 R and 95% RA. Will ask nursing to repeat BP. For DVT prophylaxis we will order SCDs as to not conflict with any surgical intervention that could be needed. We will contact his DPOA for a code status. Recheck CBC and BMP tomorrow morning to follow blood counts, renal function and electrolytes. At time of discharge medical care will return to his primary care provider at [facility] 08/08/16 Continue with NG for decompression to low intermittent suction. Initiate surgical consultation by Dr. Ariza Planning on small bowel series , place patient on cardiac telemetry. Noted to be sinus tachycardia. Will give a one-time dose of IV Lopressor 5 milligrams and continue to monitor. Did review home medications normally on any antihypertensives. Encourage nursing staff to monitor for evidence of pain and treat with when necessary medications. Leukocytosis resolved today down to 8.8. Potassium is found to be elevated at 5.1, however, this is likely secondary to specimen hemolysis. Continue with behavioral restraints for patient safety given that he has pulled his NG tube out 5 times since admission. Will discuss further with attending, Dr. Arvizu 08/09/16 Continue with Zosyn for antimicrobial coverage. Ct abd is obtained this morning revealing high-grade or complete obstruction along with bilateral lower pleural effusions. He is scheduled for Exploratory Lap today at [address] Ariza. Normal saline at 125ml/hr for ongoing hydrations Oxygen needs increased overnight to 10 liters however he is currently down to 2 liters. Chest xray was obtained this morning for further cardiopulmonary eval. Creatine is elevated today, suspect could be due to dehydration or acute obstruction. Repeat BMP pending. Continue Morphine and Zofran for pain control and nausea. SCDs for DVT prophylaxis. Will recheck CBC and BMP to follow blood counts, renal function and electrolytes. Family notified by nursing staff of change in treatment plan 08/10/16 Mr. Johnson underwent attempted decompressive colonoscopy and subsequent laparotomy with sigmoidectomy yesterday. Necrotic bowel was identified due to obstruction/volvulus. There has been persistent tachycardia overnight with need for supplemental oxygen. Creatinine remains elevated 2.0 with increasing BUN. His sister/legal guardian confirms full CODE STATUS. PICC line placed, peripheral nutrition to be changed to TPN. Additional fluids to be given today due to tachycardia and renal impairment. Continue Zosyn for abdominal coverage. BLASTING CLAY MINER narcotics available in addition to nursing controlled doses morphine and Ativan. Chest x-ray to be obtained in the morning in addition to laboratory data. May require IPPB for lung expansion. Up in chair if possible without risking patient removal of NG. Lovenox and IV Protonix for prophylaxis. 08/11/16 Mr. Johnson underwent attempted decompressive colonoscopy and subsequent laparotomy with sigmoidectomy 08/09 for ischemic bowel due to obstruction/ volvulus. Patient removed NG yesterday evening, no nausea or vomiting. Bowel movements 2 today. Check abdominal films in a.m. Patient is hemodynamically stable with elevated blood pressures up to approximately 200/110, scheduled IV metoprolol initiated this evening. Volume status positive, diuresis initiated. Persistent hypernatremia-discussed with pharmacy, no sodium chloride or magnesium in TPN. BLASTING CLAY MINER for pain, Ativan for anxiety as needed. Continue Zosyn for abdominal coverage. Blood sugars stable with TPN thus far. Corrective scale insulin available. Lovenox and IV Protonix for prophylaxis. 08/12 Resting in bed, responds to verbal stimuli. Pain controlled-not pushing BLASTING CLAY MINER often (does have basal rate). Not reporting nausea. Pt has been passing lose stool. NG out; Dr Ariza advancing to clear liquids. Breathing well. Has been ambulating in room with nursing. Continue TPN for nutrition due to decreased oral intake post op. Diet advanced to clear liquids - monitor intake. Will start home Miralax and senna to help bowel motivation. Encourage activities and deep breathing. Continue Zosyn for abdominal coverage. Continue CCU care for close monitoring and support - possible transfer to floor in near future. Monitor lab. Transfer to Sx floor this evening for continuation of care. 4-[address] Oral drive decreased-not taking much by mouth. Increased loose stools - C diff positive; Zosyn stopped and stared on Oral Vanco and IV metronidazole. Verbal responses limited. Does report discomfort-hard to tell if it is abdominal in nature or just generalized diffuse pain. Continue TPN for nutrition due to decreased oral intake post op. Start Norvasc for BP control. Will change IV metoprolol to Toprol XL 25mg daily. Speech to check swallow function. PT/OT consulted to help increase functional status. Monitor lab. Sx: Having copious stools, C-diff came back positive, talked with Karen in pharmacy and referred to [facility], agreed to start Vanco 500 PO Q6h and Flagyl 500 IV Q6h. Will continue to monitor and consider Vanco enema if no improvement. Stop Zosyn. Pharmacy adjusting TPN based on lytes. Continue clear liquids. Start PT/OT He walked in the room, will encourage ambulation. ARLETTE ARVIZU MD Aug 13, 2016 14:19
[2016-08-13] MEDS: POTASSIUM PHOSPHATE IV SCH ×8 (14:38)
[2016-08-13] MEDS: POTASSIUM ACETATE IV SCH ×8 (14:38)
[2016-08-13] MEDS: [UNRECOGNIZED DRUG - OTHER] IV SCH ×8 (14:38)
[2016-08-13] MEDS: CALCIUM GLUCONATE IV SCH ×8 (14:38)
[2016-08-13] MEDS: AMLODIPINE 5 MG TABLET PO SCH (14:40)
--- NOTE | 2016-08-13 15:55 | NUR ---
PICC OUT STAFF WALKS IN ROOM AND NOTICES A PICC SITTING ON PATIENTS LAP. PATIENT HAS BEEN RESTING QUIETLY WITH IV LINES DIVERTED TO HIS BACK. THERE WAS NO SIGN OF THE PATIENT ATTEMPTING TO REACH ON TO THE LINE. COBAN WAS APPLIED TO THE PICC DRESSING AREA FOR MORE LINE SECUREMENT THIS MORNING BUT THIS DID NOT HELP. PATIENT HAS DENIED PAIN ALL DAY. PATIENT HAS NOT ATTEMPTED TO EAT ALL DAY BUT SWALLOWS HHIS MEDICATION WITHOUT ANY TROUBLE. NO DISTRESS NOTED ALL DAY. DR. CASON AND GUARDIAN, STEPHANIE BECKMAN ARE NOTIFIED OF PICC LINE DISLODGEMENT. NEW PICC LINE INSERTION ORDER IS OBTAINED AND CONSENT IS OBTAINED FROM GUARDIAN.
--- NOTE | 2016-08-13 16:17 | STEVAL ---
Eval Subjective and History Date/Time of Eval DATE: 08/13/16 TIME: 15:56 Medical Diagnosis SMALL BOWEL OBSTRUCTION, SIGMOID VOLVULUS, ISCHEMIC COLITIS, C-DIFF. Treatment Order: Assessment, Dev./Imp. tx plan Orientations: Alert, Cooperative Primary Complaint: R/O DYSPHAGIA Pain: No (NOT EXPRESSED) Date of Onset of Primary Com: 08/07/16 Prior History of This Problem: Yes (ABDOMINAL OBSTRUCTION ) Patient's Goals: NOT EXPRESSED Significant Past Medical Hx: PT ADMITTED 08/07/16 WITH SESPIS, SMALL BOWL OBSTRUCTION. PMH: ABDOMINAL OBSTRUCTION, ANEMIA, CONSTIPATION, OSTEOPENIA, EPILIPETIC SEIZURES, GASTRIC ULCER, MECHANICAL INJURY@, SEVERE MR, CLAVICLE FX. Medical History Form Reviewed: Yes Residence Type: retirement ([place]) Lives With: Caregiver Status: Yes Prior Functional Status: PREVIOUS DIET UNKNOWN Current Functional Status: CLEAR LIQUIDS Education Subject: Diet, Swallowing Strategies Person(s) Educated: Patient Instruction Understanding Demo: Education unsuccessful Education Comment PT DID NOT DEMONSTRATE UNDERSTANDING OF EDUCATION ON DIET, SWALLOW STRATEGIES. Subjective and History Comment: PT WAS ALERT AND COOPERATIVE WITH REPOSITIONING. HE ANSWERED YES/NO QUESTIONS INCONSISTENTLY AND WAS UNABLE TO IMITATE ORAL MOTOR EX. Dysphagia Evaluation Evaluation Location: Bed Evaluation Angle: 80 Oral Peripheral Exam-facial: Facial Symmetry: No Impairment (WFL) Tongue Extension Midline: No Impairment (WFL) Labial Approximation: No Impairment (WFL) Larynx Elevation During Swallo: Mild Impairment Saliva Control: No Impairment (WFL) Oral Peripheral Exam Comment: NO FACIAL DROOP NOTED. LABIAL CLOSURE WAS INTACT. PT COULD SIP LIQUIDS FROM A CUP AND SPOON. UNABLE TO IMITATE ORAL MOTOR MOVEMENTS. Lip Seal: Adequate-liquid Lingual Manipulation: Adequate-liquid Oral cavity clear post swallow: Adequate-liquid Swallow initiated w/o delay: Inadequate-liquid (MINIMAL) Multiple swallows not needed: Adequate-liquid No cough/throat clear: Adequate-liquid Assessment/Plan of Care Speech Therapy Impressions: PT WAS NOT ABLE TO IMITATE ORAL MOTOR MOVEMENTS. LIP CLOSURE WAS INTACT. PT TOOK THIN LIQUIDS FROM SPOON AND STRAW. NECTAR THICK LIQUIDS TOLERATED WELL. PT TOOK ONE BITE OF JELLO AND SPIT IT OUT. AT END OF THERAPEUTIC SNACK PT POINTED TO INDICATE WHAT HE WANTED MORE OF AND WHAT HE WAS DONE WITH. VERBALIZATIONS LIMITED TO YES/NO. PT CURRENTLY ON CLEAR LIQUID DIET DUE TO SMALL BOWEL OBSTRUCTION/POST SURGERY. DIET WILL BE UPGRADED TO PUREED WHEN APPROVED BY PHYSICIAN. Consumer Safety Officer Goal: Pt will maintain nutrition and hydration of the least restrictive diet while demonstrating no s/s of aspiration for 3 consecutive trials. Short Term Goal: Pt will consume a pureed diet with thin liquids without outward signs of aspiration at bedside in 3/3 trials. Pt will produce swallow within 6 seconds on thin, honey and pudding consistencies. Pt will implement compensatory feeding strategies: small bites and slow rate in 3/3 feeding trials/meals with moderate cueing. ST Treatment Plan: Swallow Retraining ST Treatment Plan Frequency: three times per week Treatment Plan Duration: one week Plan of Care Comment SWALLOW RETRAINING Recommended Diet: CLEAR LIQUID DIET (REGULAR LIQUIDS) TO BE UPGRADED TO PUREED WITH PHYSICIAN APPROVAL. Date of Visit 08/13/16 Time Visit Began: 15:15 Time Visit Ended: 15:40 ST Assess/Plan of Care: ST Treatment Charge: Swallow Eval Minutes of Individual Therapy: 25 ELAN MITCHELL MS CCC-CHECKER PRODUCT DESIGN Aug 13, 2016 15:59
[2016-08-13] MEDS ORDERED: NEOMYCIN/POLYM/BACITR OINT PACKET TOP ONE (16:30)
--- NOTE | 2016-08-13 17:42 | NUR ---
PICC LINE PLACEMENT IS IN PROGRESS.
--- NOTE | 2016-08-13 17:52 | NUR ---
PICC replacement Double lumen picc to R basilic vein with sl difficulty. Advised RN that pt has no other obvious sites available to future picc placement should this one get pulled out.
--- NOTE | 2016-08-13 18:20 | NUR ---
RESTRAINTS PICC LINE IS PLACED. RESTRAINTS ARE RESTARTED AT THIS TIME. TPN AND CLERICAL SPECIALIST ARE RECONNECTED.
[2016-08-13] MEDS: FAT EMULSION 20% 100 ML IV SCH (18:32)
[2016-08-13] MEDS: LACTOBACILLUS (15B cfu) CAPSULE PO SCH (18:35)
[2016-08-13] MEDS: METOPROLOL XL 25 MG TABLET PO SCH (18:35)
[2016-08-13] MEDS: 1/2 NS 1,000 ML IV SCH (21:52)
[2016-08-14] VITALS (9 sets, daily range): BP systolic 143–160; BP diastolic 95–104; PULSE 62–114; RESP 18–22; TEMP 97.2–99.1; O2SAT 95–98
--- NOTE | 2016-08-14 00:18 | NUR ---
Shift Note Pt. continue in restraints to protect PICC line from accidental removal. Pt. forgetful. Pt. has picked off abd incision dressing twice this evening; dressing replaced. No drainage noted at abd. incision. Incont of stool; carla-care given. C-diff precautions continue.
--- NOTE | 2016-08-14 01:51 | NUR ---
Chart Check 24 hour chart check completed
[2016-08-14] MEDS: METRONIDAZOLE IVPB 500 MG in NORMAL SALINE 100 ML IV SCH ×4 (02:33→21:09)
[2016-08-14 05:27] LABS: HCT - HEMATOCRIT 39.6 % (41-53); HGB - HEMOGLOBIN 13.3 GM/DL (13.5-17.5); MEAN CORPUSCULAR HGB CONC(MCHC 33.6 GM/DL (31-37); MEAN CORPUSCULAR VOLUME 86.5 UM3 (80-100); MEAN PLATELET VOLUME 11.4 UM3 (9.4-12.4); RED BLOOD COUNT 4.58 M/MM3 (4.50-5.90); WBC - WHITE BLOOD COUNT 10.7 T/MM3 (4.5-11.0)
[2016-08-14 05:48] LABS: ANION GAP 9 MEQ/L (5-15); BUN/CREATININE RATIO 23 RATIO (6-26); CALCIUM 8.6 MG/DL (8.4-10.2); CHLORIDE 105 MEQ/L (98-107); CO2 - CARBON DIOXIDE 24 MEQ/L (22-30); CREATININE 0.9 MG/DL (0.8-1.5); GLOMERULAR FILTRATION RATE 84; GLUCOSE 160 MG/DL (75-110); POTASSIUM 4.1 MEQ/L (3.6-5); SODIUM 138 MEQ/L (134-144)
[2016-08-14] MEDS: INSULIN ASPART 100 UNIT/ML SQ PRN ×2 (06:11→11:53)
--- NOTE | 2016-08-14 06:17 | NUR ---
Shift Note Liquid stools slowed overnight. Pt. without stool upon turning at this time. Abd remains swollen and tight. Dilaudid ASSISTANT CONSTRUCTION SUPERINTENDENT continues for pain control. AM BGM 174; 2 units Novolog given.
[2016-08-14 06:35] LABS: BAND NEUTROPHILS # 0.2 T/MM3; EOSINOPHILS # (MANUAL) 0.4 T/MM3 (0-0.5); MONOCYTES # (MANUAL) 1.3 T/MM3 (0-0.8); NEUTROPHILS #(MANUAL)-ABSOLUTE 7.8 T/MM3 (1.8-7.7); TOTAL CELLS COUNTED 100 %
--- NOTE | 2016-08-14 07:50 | PNSURG ---
Subjective DATE: 08/14/16 TIME: 07:44 Interval History Stool frequency and volume has slowed down since starting PO Vanco and IV Flagyl for C-Diff. He is awake and alert this morning. I am unsure of his response when questioned about pain, but he does not seem to wince or have any indication of pain with abd palpation. He did point to his cup and took a sip of water when offered. He then pointed to the door, I asked if wanted to get up and walk and he seemed to nod his head yes. Objective Vital Signs Date Time Temp Pulse Resp B/P Pulse Ox O2 Delivery O2 Flow Rate FiO2 08/14/16 07:25 108 08/14/16 07:23 97.2 20 160/102 97 Room Air 08/10/16 13:45 Height (Feet): 5 Height (Inches): 10.00 Weight (Kilograms): 68.700 BMI 20.7 General Appearance: Alert, Awake Comments nonlabored Abdominal Brief: FOUND: BS normo active x4, soft, NOT FOUND: distended, tender Incision: FOUND: Clean, Dry, Intact, open to air, reji present, NOT FOUND: erythema Laboratory Laboratory Tests 08/12/16 04:23 08/13/16 04:06 08/14/16 04:27 Laboratory Tests 08/12/16 04:23 08/13/16 04:06 08/14/16 04:27 Procedure Procedure Date: Aug 09, 2016 Surgeon: To Collado Decompression colonoscopy followed by exploratory laparotomy with low anterior resection and mobilization of splenic flexure GS Assessment & Plan Assessment Stool frequency and volume has decreased since starting Vanco and Flagyl for c- diff. Pharmacy adjusting TPN based on lytes. Continue clear liquids. Start PT/OT He walked in the room, will encourage ambulation. DVT Prophylaxis: SCD'S, Lovenox GI Prophylaxis: Protonix Code Status Full Code Hospital Course Summary Disclaimer The visit summary below is not to be considered part of the above Progress Note. Hospital Course Summary 08/07 Admit to inpatient under the care of Dr. Arvizu for abdominal distention. Severe sepsis as evidence by: Acute abdominal pain, Tachycardia at 105, Leukocytosis at 16.7 with left shift, Bilirubin at 2.0, hyperglycemia and Lactate of 3.0. Obtain blood cultures x 2 on admission NS bolus of 500ml wide open, then decrease to 100ml/hr. Zosyn IV every 6 hours for empiric antimicrobial coverage. We will repeat a Lactate at 1830, following sepsis protocol We will consult Dr. Ariza for abdominal distention. Place NG tube to low intermittent suction to help decompress the stomach When necessary behavioral restraints as patient has already pulled out one NG tube on admission. We will keep Vadim NPO for now. Zofran 4mg IV PRN for nausea. Morphine sulfate 2mg IV every 2 hours PRN abdominal pain. Vital signs are: T- 96.5, HR of 105, BP of 180/89, 18 R and 95% RA. Will ask nursing to repeat BP. For DVT prophylaxis we will order SCDs as to not conflict with any surgical intervention that could be needed. We will contact his DPOA for a code status. Recheck CBC and BMP tomorrow morning to follow blood counts, renal function and electrolytes. At time of discharge medical care will return to his primary care provider at [facility] 08/08/16 Continue with NG for decompression to low intermittent suction. Initiate surgical consultation by Dr. Ariza Planning on small bowel series , place patient on cardiac telemetry. Noted to be sinus tachycardia. Will give a one-time dose of IV Lopressor 5 milligrams and continue to monitor. Did review home medications normally on any antihypertensives. Encourage nursing staff to monitor for evidence of pain and treat with when necessary medications. Leukocytosis resolved today down to 8.8. Potassium is found to be elevated at 5.1, however, this is likely secondary to specimen hemolysis. Continue with behavioral restraints for patient safety given that he has pulled his NG tube out 5 times since admission. Will discuss further with attending, Dr. Arvizu 08/09/16 Continue with Zosyn for antimicrobial coverage. Ct abd is obtained this morning revealing high-grade or complete obstruction along with bilateral lower pleural effusions. He is scheduled for Exploratory Lap today at [address] Ariza. Normal saline at 125ml/hr for ongoing hydrations Oxygen needs increased overnight to 10 liters however he is currently down to 2 liters. Chest xray was obtained this morning for further cardiopulmonary eval. Creatine is elevated today, suspect could be due to dehydration or acute obstruction. Repeat BMP pending. Continue Morphine and Zofran for pain control and nausea. SCDs for DVT prophylaxis. Will recheck CBC and BMP to follow blood counts, renal function and electrolytes. Family notified by nursing staff of change in treatment plan 08/10/16 Mr. Johnson underwent attempted decompressive colonoscopy and subsequent laparotomy with sigmoidectomy yesterday. Necrotic bowel was identified due to obstruction/volvulus. There has been persistent tachycardia overnight with need for supplemental oxygen. Creatinine remains elevated 2.0 with increasing BUN. His sister/legal guardian confirms full CODE STATUS. PICC line placed, peripheral nutrition to be changed to TPN. Additional fluids to be given today due to tachycardia and renal impairment. Continue Zosyn for abdominal coverage. FOOD SERVICE SUPERVISOR narcotics available in addition to nursing controlled doses morphine and Ativan. Chest x-ray to be obtained in the morning in addition to laboratory data. May require IPPB for lung expansion. Up in chair if possible without risking patient removal of NG. Lovenox and IV Protonix for prophylaxis. 08/11/16 Mr. Johnson underwent attempted decompressive colonoscopy and subsequent laparotomy with sigmoidectomy 08/09 for ischemic bowel due to obstruction/ volvulus. Patient removed NG yesterday evening, no nausea or vomiting. Bowel movements 2 today. Check abdominal films in a.m. Patient is hemodynamically stable with elevated blood pressures up to approximately 200/110, scheduled IV metoprolol initiated this evening. Volume status positive, diuresis initiated. Persistent hypernatremia-discussed with pharmacy, no sodium chloride or magnesium in TPN. FOOD SERVICE SUPERVISOR for pain, Ativan for anxiety as needed. Continue Zosyn for abdominal coverage. Blood sugars stable with TPN thus far. Corrective scale insulin available. Lovenox and IV Protonix for prophylaxis. 08/12 Resting in bed, responds to verbal stimuli. Pain controlled-not pushing FOOD SERVICE SUPERVISOR often (does have basal rate). Not reporting nausea. Pt has been passing lose stool. NG out; Dr Ariza advancing to clear liquids. Breathing well. Has been ambulating in room with nursing. Continue TPN for nutrition due to decreased oral intake post op. Diet advanced to clear liquids - monitor intake. Will start home Miralax and senna to help bowel motivation. Encourage activities and deep breathing. Continue Zosyn for abdominal coverage. Continue CCU care for close monitoring and support - possible transfer to floor in near future. Monitor lab. Transfer to Sx floor this evening for continuation of care. 4-[address] Oral drive decreased-not taking much by mouth. Increased loose stools - C diff positive; Zosyn stopped and stared on Oral Vanco and IV metronidazole. Verbal responses limited. Does report discomfort-hard to tell if it is abdominal in nature or just generalized diffuse pain. Continue TPN for nutrition due to decreased oral intake post op. Start Norvasc for BP control. Will change IV metoprolol to Toprol XL 25mg daily. Speech to check swallow function. PT/OT consulted to help increase functional status. Monitor lab. Sx: Having copious stools, C-diff came back positive, talked with Karen in pharmacy and referred to [facility], agreed to start Vanco 500 PO Q6h and Flagyl 500 IV Q6h. Will continue to monitor and consider Vanco enema if no improvement. Stop Zosyn. Pharmacy adjusting TPN based on lytes. Continue clear liquids. Start PT/OT He walked in the room, will encourage ambulation. LAXMI GUEVARA APRN Aug 14, 2016 07:48
[2016-08-14] MEDS: LACTOBACILLUS (15B cfu) CAPSULE PO SCH ×2 (08:52→11:30)
[2016-08-14] MEDS: METOPROLOL XL 25 MG TABLET PO SCH (08:52)
[2016-08-14] MEDS: ENOXAPARIN 40 MG/0.4 ML INJECTION SQ SCH (08:53)
[2016-08-14] MEDS: AMLODIPINE 5 MG TABLET PO SCH (08:53)
[2016-08-14] MEDS: PANTOPRAZOLE 40mg INJECTION IV SCH (08:55)
--- NOTE | 2016-08-14 09:04 | STDAILYN ---
ST Daily Note Date/Time DATE: 08/14/16 TIME: 08:54 Subjective Comment Pt alert and cooperative. Combination of vocalizing and pointing used to communicate needs. Chief Complaint: small bowel obstruction, dysphagia (R13.19) *Speech Therapy Impressions Pt was repositioned in bed for breakfast. He was in restraints this morning. Clear liquid diet provided for breakfast. Pt tooks sips of Breeze and apple juice then declined additional intake. Abdomen was distended. Pt indicated that he needed to use the bathroom. Nursing changed pt and he was repositioned. Swallow intake for sips of thin liquid. Continue clear diet with sips throughout the day. ST Treatment Plan: Swallow Retraining ST Treatment Plan Frequency: three times per week Treatment Plan Duration: one week Plan of Care Comment: Continue POC Start Treatment 1: 08:20 Stop Treatment 1: 08:45 Treatment Duration : ST Treatment Charge: Swallow Treatment Minutes of Individual Therapy: 45 ELAN MITCHELL MS CCC-SHOE CLEANER Aug 14, 2016 09:04
--- NOTE | 2016-08-14 10:10 | NUR ---
JUANI GLORIA SPOKE WITH SUZANNE BARRER AND TACKER FROM [facility] AND GAVE UPDATE ON PT STATUS. SUZANNE WILL FIND OUT PLAN IF PT D/C OVER THE WEEKEND AND CALL JUANI.
[2016-08-14] MEDS: CALCIUM GLUCONATE IV SCH ×16 (11:09→11:30)
[2016-08-14] MEDS: POTASSIUM PHOSPHATE IV SCH ×16 (11:09→11:30)
[2016-08-14] MEDS: [UNRECOGNIZED DRUG - OTHER] IV SCH ×16 (11:09→11:30)
[2016-08-14] MEDS: POTASSIUM ACETATE IV SCH ×16 (11:09→11:30)
[2016-08-14] MEDS ORDERED: MINERAL OIL 133 ML ENEMA RECTALLY ONE (11:45)
--- NOTE | 2016-08-14 13:15 | PNF ---
DATE 08/14/2016 FINDINGS Mr. Johnson today was awake and alert. He did answer at times with one-word replies such as "yes" or "no". OBJECTIVE VITALS: Temperature 97.2, slightly tachycardic this morning with pulse 108, respirations 20, blood pressure 160/102, SaO2 97% on room air. ABDOMEN: Visualization of the abdomen does reveal it to be somewhat distended although not nearly as distended as it was preoperatively. His incision is clean, dry and intact. Palpation of the abdomen did not elicit any tenderness. The patient denied abdominal tenderness upon questioning. LABORATORY/RADIOGRAPHIC EVALUATION The patient had a CBC and his white count was 10.7. Hemoglobin is stable at 13.3. He did have a slight left shift with 73% neutrophils and 2% bands. BMP obtained and found to be essentially within normal limits. 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 Patient with development of postoperative Clostridium difficile colitis. PLAN Will continue with oral vancomycin. Continue to follow the patient closely. Will continue with hyperalimentation. I do believe the patient likely has a component of ongoing ileus from surgery and his Clostridium difficile. His diarrhea has improved. Will continue to follow closely. JEFFERY
[2016-08-14] MEDS: FAT EMULSION 20% 100 ML IV SCH (16:04)
--- NOTE | 2016-08-14 16:56 | PNPDOC ---
KEENAN HILLMAN V DOWELER 08/14/16 1649: Subjective Date DATE: 08/14/16 TIME: 16:35 Subjective Vadim is seen this afternoon while resting in bed. Nursing staff reports that abdomen is more distended and he is not interested in drinking and will push away juice. He only drink 25% of breakfast liquids and refused lunch. He continues to require behavior restraints to avoid pulling on tubes/lines. Decreased stool output today. Fasting BGM this morning 160. Objective Vital Signs Vital signs Vital Signs Date Time Temp Pulse Resp B/P Pulse Ox O2 Delivery O2 Flow Rate FiO2 08/14/16 16:21 18 08/14/16 07:25 108 08/14/16 07:23 97.2 160/102 97 Room Air 08/10/16 13:45 Telemetry Rhythm: Sinus Tachycardia Height (Feet): 5 Height (Inches): 10.00 Weight (Kilograms): 68.700 General General Appearance: Alert Respiratory (Brief) Respiratory: FOUND: clear all negron, equal bilaterally Cardiovascular (Brief) Cardiac: FOUND: regular rate, regular rhythm (tachycardic) Abdomen (Brief) Abdominal: FOUND: distended, NOT FOUND: BS normo active x4 (hypoactive) Integumentary (Brief) Integumentary: FOUND: dry, pink, warm Neurologic (Brief) Neurological: FOUND: cranial 2-12 intact Psychiatric (Brief) Psychiatric: FOUND: alert Laboratory Laboratory Laboratory Tests 08/13/16 04:06 08/14/16 04:27 Laboratory Tests 08/13/16 04:06 08/14/16 04:27 Sepsis Diagnostic Criteria Sepsis Confirmed/Suspected Infection: Yes SIRS Criteria: Temp<=96.8 or >=100.4, Pulse >= 90 beats/min, WBC >=12,000 or <= 4,000, BS >120 in non-diabetic Severe Sepsis Lactate >=2.0 mg/dL Assessment & Plan Problems: (1) Sigmoid volvulus Status: Resolved Assessment & Plan: Low anterior sigmoid resection with mobilization of the splenic flexure and coloproctostomy 08/09/16 (2) Ischemic colitis Status: Acute Assessment & Plan: Due to volvulus/bowel obstruction (3) C. difficile colitis Status: Acute Assessment & Plan: Not POA (4) Severe sepsis Status: Resolved Assessment & Plan: Manifestations of sepsis include the following- 1. Leukocytosis at 16.7 with left shift. Bandemia 15%. 2. Tachycardia at 105 3. Acute abdominal distention/pain 4. Evidence of organ dysfunction including elevated bilirubin 2.0 and hyperglycemia in the absence of diabetes 5. Elevated Lactate of 3.0. (5) Bowel obstruction Status: Resolved Qualifiers: Intestinal obstruction type: unspecified Qualified Codes: K56.60 - Unspecified intestinal obstruction (6) Hypernatremia Status: Acute Assessment & Plan: Not POA (7) Hyperglycemia Status: Acute (8) Acute kidney injury Status: Resolved Assessment & Plan: Admission creatinine 1.1 increasing to 2.2 on 08/09 (9) Abdominal distention Status: Resolved (10) Mental retardation Status: Chronic (11) Epileptic seizure Status: Chronic (12) Constipation Status: Chronic (13) Osteopenia Status: Chronic (14) Hypermagnesemia Status: Acute (15) Hypertension Status: Acute Qualifiers: Hypertension type: essential hypertension Qualified Codes: I10 - Essential (primary) hypertension Plan/Intensity of Service 08/14/16 Continue TPN for nutrition due to decreased oral intake post op. Increased abdominal distention concerning for possible post-op ileus. Will add scheduled Reglan 10 mg IV every 6 hours May need to consider placing NG tube. Monitor blood pressure and tachycardia. Continues to be tachy at 110. Continue to monitor blood sugars PT/OT consulted to help increase functional status. Will discuss further with Dr Arvizu Code Status Full Code Hospital Course Summary Disclaimer The hospital course summary below is not to be considered part of the above Progress Note. Hospital Course Summary 08/07 Admit to inpatient under the care of Dr. Arvizu for abdominal distention. Severe sepsis as evidence by: Acute abdominal pain, Tachycardia at 105, Leukocytosis at 16.7 with left shift, Bilirubin at 2.0, hyperglycemia and Lactate of 3.0. Obtain blood cultures x 2 on admission NS bolus of 500ml wide open, then decrease to 100ml/hr. Zosyn IV every 6 hours for empiric antimicrobial coverage. We will repeat a Lactate at 1830, following sepsis protocol We will consult Dr. Ariza for abdominal distention. Place NG tube to low intermittent suction to help decompress the stomach When necessary behavioral restraints as patient has already pulled out one NG tube on admission. We will keep Vadim NPO for now. Zofran 4mg IV PRN for nausea. Morphine sulfate 2mg IV every 2 hours PRN abdominal pain. Vital signs are: T- 96.5, HR of 105, BP of 180/89, 18 R and 95% RA. Will ask nursing to repeat BP. For DVT prophylaxis we will order SCDs as to not conflict with any surgical intervention that could be needed. We will contact his DPOA for a code status. Recheck CBC and BMP tomorrow morning to follow blood counts, renal function and electrolytes. At time of discharge medical care will return to his primary care provider at [facility] 08/08/16 Continue with NG for decompression to low intermittent suction. Initiate surgical consultation by Dr. Ariza Planning on small bowel series , place patient on cardiac telemetry. Noted to be sinus tachycardia. Will give a one-time dose of IV Lopressor 5 milligrams and continue to monitor. Did review home medications normally on any antihypertensives. Encourage nursing staff to monitor for evidence of pain and treat with when necessary medications. Leukocytosis resolved today down to 8.8. Potassium is found to be elevated at 5.1, however, this is likely secondary to specimen hemolysis. Continue with behavioral restraints for patient safety given that he has pulled his NG tube out 5 times since admission. Will discuss further with attending, Dr. Arvizu 08/09/16 Continue with Zosyn for antimicrobial coverage. Ct abd is obtained this morning revealing high-grade or complete obstruction along with bilateral lower pleural effusions. He is scheduled for Exploratory Lap today at [address] Ariza. Normal saline at 125ml/hr for ongoing hydrations Oxygen needs increased overnight to 10 liters however he is currently down to 2 liters. Chest xray was obtained this morning for further cardiopulmonary eval. Creatine is elevated today, suspect could be due to dehydration or acute obstruction. Repeat BMP pending. Continue Morphine and Zofran for pain control and nausea. SCDs for DVT prophylaxis. Will recheck CBC and BMP to follow blood counts, renal function and electrolytes. Family notified by nursing staff of change in treatment plan 08/10/16 Mr. Johnson underwent attempted decompressive colonoscopy and subsequent laparotomy with sigmoidectomy yesterday. Necrotic bowel was identified due to obstruction/volvulus. There has been persistent tachycardia overnight with need for supplemental oxygen. Creatinine remains elevated 2.0 with increasing BUN. His sister/legal guardian confirms full CODE STATUS. PICC line placed, peripheral nutrition to be changed to TPN. Additional fluids to be given today due to tachycardia and renal impairment. Continue Zosyn for abdominal coverage. ACCOUNTING ADMINISTRATIVE ASSISTANT narcotics available in addition to nursing controlled doses morphine and Ativan. Chest x-ray to be obtained in the morning in addition to laboratory data. May require IPPB for lung expansion. Up in chair if possible without risking patient removal of NG. Lovenox and IV Protonix for prophylaxis. 08/11/16 Mr. Johnson underwent attempted decompressive colonoscopy and subsequent laparotomy with sigmoidectomy 08/09 for ischemic bowel due to obstruction/ volvulus. Patient removed NG yesterday evening, no nausea or vomiting. Bowel movements 2 today. Check abdominal films in a.m. Patient is hemodynamically stable with elevated blood pressures up to approximately 200/110, scheduled IV metoprolol initiated this evening. Volume status positive, diuresis initiated. Persistent hypernatremia-discussed with pharmacy, no sodium chloride or magnesium in TPN. ACCOUNTING ADMINISTRATIVE ASSISTANT for pain, Ativan for anxiety as needed. Continue Zosyn for abdominal coverage. Blood sugars stable with TPN thus far. Corrective scale insulin available. Lovenox and IV Protonix for prophylaxis. 08/12 Resting in bed, responds to verbal stimuli. Pain controlled-not pushing ACCOUNTING ADMINISTRATIVE ASSISTANT often (does have basal rate). Not reporting nausea. Pt has been passing lose stool. NG out; Dr Ariza advancing to clear liquids. Breathing well. Has been ambulating in room with nursing. Continue TPN for nutrition due to decreased oral intake post op. Diet advanced to clear liquids - monitor intake. Will start home Miralax and senna to help bowel motivation. Encourage activities and deep breathing. Continue Zosyn for abdominal coverage. Continue CCU care for close monitoring and support - possible transfer to floor in near future. Monitor lab. Transfer to Sx floor this evening for continuation of care. -18 Resting in bed. Oral drive decreased-not taking much by mouth. Increased loose stools - C diff positive; Zosyn stopped and stared on Oral Vanco and IV metronidazole. Verbal responses limited. Does report discomfort-hard to tell if it is abdominal in nature or just generalized diffuse pain. Continue TPN for nutrition due to decreased oral intake post op. Start Norvasc for BP control. Will change IV metoprolol to Toprol XL 25mg daily. Speech to check swallow function. PT/OT consulted to help increase functional status. Monitor lab. Sx: Having copious stools, C-diff came back positive, talked with Karen in pharmacy and referred to [facility], agreed to start Vanco 500 PO Q6h and Flagyl 500 IV Q6h. Will continue to monitor and consider Vanco enema if no improvement. Stop Zosyn. Pharmacy adjusting TPN based on lytes. Continue clear liquids. Start PT/OT He walked in the room, will encourage ambulation. 08/14/16 Continue TPN for nutrition due to decreased oral intake post op. Increased abdominal distention concerning for possible post-op ileus. Will add scheduled Reglan 10 mg IV every 6 hours May need to consider placing NG tube. Monitor blood pressure and tachycardia. Continues to be tachy at 110. Continue to monitor blood sugars PT/OT consulted to help increase functional status. Will discuss further with ARLETTE Mendez MD 08/14/16 1950: Assessment & Plan Plan/Intensity of Service Have independently interviewed and examined pt. Chart reviewed. Case discussed with my DOWELER. Care plan developed with my supervision; agree with above. Resting in bed this evening. Oral drive . Ab with distention. Some pain to abdomen. Lungs: clear CV: regular AB: distended, mild tenderness. BS decreased MSE: awake alert, non verbal Plan: Start Reglan to help bowel stimulation. Did ask nursing to try fleets to see if this would stimulate colonic function. Will restart Miralax. Worry about colonic dysmotility. Continue metronidazole and oral vanco for c diff coverage. Continue TPN for nutritional support as oral intake so diminished. Monitor lab. KEENAN HILLMAN APRN Aug 14, 2016 16:49 ARLETTE ARVIZU MD Aug 14, 2016 19:50
[2016-08-14] MEDS: METOCLOPRAMIDE 10mg/2ml INJECTION IV SCH ×2 (17:18→21:04)
--- NOTE | 2016-08-14 18:18 | NUR ---
END OF SHIFT REPORT PATIENT A/O TO SELF AND PLACE. PT CANNOT ANSWER QUESTIONS/UNDERSTAND TOPICS. PT IS ABLE TO SAY YES/NO. ROOM AIR. VITAL SIGNS STABLE. PT HAS BEEN TACHY SINCE ADMISSION. PT UP WITH ASSIST X2 TO [facility] [place]. INCONTINENT OF STOOL. LIQUID STOOLS DURING THE SHIFT. ZIMMERMAN HAS HAD ADEQUATE OUTPUT. RESTRAINTS STILL IN EFFECT DUE TO PATIENT TAKING OFF TELE PATCHES AND D/C OWN PICC AT 1800. XAVIER BYERS, RN CURRENTLY ATTEMPTING ANOTHER PICC INSERTION. PT HAS REFUSED TO EAT/DRINK FOR THIS RN DURING THE DAY. PT MOVES HEAD WHEN DRINKS COME TO HIS MOUTH OR TRIES TO PUSH THEM AWAY. TURNS Q2H. CONTINUOUS INFUSION OF FILER AND SANDER PUMP. NO PRNS GIVEN. ABDOMEN TAUT/LARGE. WILL CONTINUE TO MONITOR.
--- NOTE | 2016-08-14 18:30 | NUR ---
PICC PICC EXCHANGE PERFORMED WITH 5F CATHETER. SHERLOCK 3CG CONFIRMED APPROPRIATELY PLACEMENT.
[2016-08-14] MEDS: HYDROMORPHONE PCA 30 MG/30 ML VIAL IV PRN (18:51)
[2016-08-15] VITALS (13 sets, daily range): BP systolic 125–140; BP diastolic 86–91; PULSE 98–115; RESP 16–20; TEMP 96.7–99.1; O2SAT 96–98
[2016-08-15] MEDS: 1/2 NS 1,000 ML IV SCH ×2 (00:36→22:05)
[2016-08-15] MEDS: INSULIN ASPART 100 UNIT/ML SQ PRN ×4 (00:57→18:11)
[2016-08-15] MEDS: METRONIDAZOLE IVPB 500 MG in NORMAL SALINE 100 ML IV SCH ×4 (03:01→20:19)
[2016-08-15] MEDS: METOCLOPRAMIDE 10mg/2ml INJECTION IV SCH ×4 (04:09→20:18)
[2016-08-15 05:03] LABS: HCT - HEMATOCRIT 39.3 % (41-53); HGB - HEMOGLOBIN 13.5 GM/DL (13.5-17.5); MEAN CORPUSCULAR HGB 29.3 UUG (26-34); MEAN CORPUSCULAR HGB CONC(MCHC 34.4 GM/DL (31-37); MEAN CORPUSCULAR VOLUME 85.4 UM3 (80-100); MEAN PLATELET VOLUME 12.1 UM3 (9.4-12.4); WBC - WHITE BLOOD COUNT 12.8 T/MM3 (4.5-11.0)
[2016-08-15 05:28] LABS: ALBUMIN 2.6 G/DL (3.5-5.0); ALBUMIN/GLOBULIN RATIO 0.8 RATIO (1.1-2.2); ALKALINE PHOSPHATASE 68 U/L (38-126); ALT (SGPT) 78 U/L (21-72); ANION GAP 9 MEQ/L (5-15); AST (SGOT) 105 U/L (17-59); BUN/CREATININE RATIO 23 RATIO (6-26); CALCIUM 8.5 MG/DL (8.4-10.2); CHLORIDE 104 MEQ/L (98-107); CO2 - CARBON DIOXIDE 23 MEQ/L (22-30); CREATININE 0.9 MG/DL (0.8-1.5); GLOMERULAR FILTRATION RATE 84; GLUCOSE 146 MG/DL (75-110); MAGNESIUM 2.1 MG/DL (1.6-2.3); PHOSPHORUS 3.5 MG/DL (2.5-4.5); POTASSIUM 4.7 MEQ/L (3.6-5); SODIUM 136 MEQ/L (134-144); TOTAL PROTEIN 5.8 G/DL (6.3-8.2)
--- NOTE | 2016-08-15 05:48 | NUR ---
SHIFT SUMMARY PATIENT IS ALERT, BUT DOES NOT ANSWER ORIENTATION QUESTIONS. VITAL SIGNS HAVE BEEN STABLE THIS SHIFT. PATIENT CONTINUES TO BE IN RESTRAINTS DUE TO PULLING AT LINES THIS SHIFT. PATIENT AMBULATES WELL WITH X2 ASSIST AND WALKED TO MAIN STREET AND BACK THIS SHIFT. C-DIFF PRECAUTIONS HAVE BEEN USED THIS SHIFT. URINE OUTPUT HAS BEEN ADEQUATE THIS SHIFT, BUT PATIENT CONTINUES TO REFUSE TO EAT OR DRINK. PATIENT HAD ONE INCONTINENT STOOL AND ONE STOOL ON THE BEDSIDE COMMODE. BOTH STOOLS WERE STILL RUNNY. PATIENT IS RESTING QUIETLY AT THIS TIME. WILL CONTINUE TO MONITOR.
[2016-08-15 05:49] LABS: BAND NEUTROPHILS # 0.4 T/MM3; EOSINOPHILS # (MANUAL) 0.3 T/MM3 (0-0.5); LYMPHOCYTES # (MANUAL) 1.2 T/MM3 (1-4.8); MONOCYTES # (MANUAL) 0.5 T/MM3 (0-0.8); NEUTROPHILS #(MANUAL)-ABSOLUTE 10.5 T/MM3 (1.8-7.7); TOTAL CELLS COUNTED 100 %
[2016-08-15] MEDS: METOPROLOL XL 25 MG TABLET PO SCH (08:25)
[2016-08-15] MEDS: AMLODIPINE 5 MG TABLET PO SCH (08:25)
[2016-08-15] MEDS: ENOXAPARIN 40 MG/0.4 ML INJECTION SQ SCH (08:32)
[2016-08-15] MEDS: PANTOPRAZOLE 40mg INJECTION IV SCH (08:33)
[2016-08-15] MEDS: POLYETHYL.GLYCOL 3350 PACKET 17gm PO SCH (08:34)
--- NOTE | 2016-08-15 09:11 | PNSURG ---
Subjective DATE: 08/15/16 TIME: 09:05 Interval History He is in bed, alert, points to the door and chair, seems to indicate he wants to get up. When asked if he wants to sit in the chair,he nods yes. Palpation does not elicit any indication of pain. Abd is still soft. He had 4-5 measurable liquid BMs yesterday and one so far this morning. Ambulating with staff in the halls, staff reports he tends to try to wander into other patient rooms and has to be redirected to stay with the staff escort. Objective Vital Signs Date Time Temp Pulse Resp B/P Pulse Ox O2 Delivery O2 Flow Rate FiO2 08/15/16 08:13 111 17 08/15/16 07:12 97.8 130/86 96 Room Air Height (Feet): 5 Height (Inches): 10.00 Weight (Kilograms): 69.900 BMI 20.7 General Appearance: Alert, Awake Respiratory: FOUND: clear bilaterally Cardiac: FOUND: regular rate, regular rhythm Abdominal Brief: FOUND: BS normo active x4, soft, NOT FOUND: distended Incision: FOUND: Clean, Dry, Intact, open to air, reji present, NOT FOUND: erythema Laboratory Laboratory Tests 08/13/16 04:06 08/14/16 04:27 08/15/16 04:20 Laboratory Tests 08/13/16 04:06 08/14/16 04:27 08/15/16 04:20 Procedure Procedure Date: Aug 09, 2016 Surgeon: To [facility] Decompression colonoscopy followed by exploratory laparotomy with low anterior resection and mobilization of splenic flexure GS Assessment & Plan Assessment Stool frequency and volume has decreased since starting Vanco and Flagyl for c- diff. Pharmacy adjusting TPN based on lytes. He is not eating much even clears, continue TPN. He walked in the room and down the luther on custodian manager. DVT Prophylaxis: SCD'S, Lovenox GI Prophylaxis: Protonix Code Status Full Code Hospital Course Summary Disclaimer The visit summary below is not to be considered part of the above Progress Note. Hospital Course Summary 08/07 Admit to inpatient under the care of Dr. Arvizu for abdominal distention. Severe sepsis as evidence by: Acute abdominal pain, Tachycardia at 105, Leukocytosis at 16.7 with left shift, Bilirubin at 2.0, hyperglycemia and Lactate of 3.0. Obtain blood cultures x 2 on admission NS bolus of 500ml wide open, then decrease to 100ml/hr. Zosyn IV every 6 hours for empiric antimicrobial coverage. We will repeat a Lactate at 1830, following sepsis protocol We will consult Dr. Ariza for abdominal distention. Place NG tube to low intermittent suction to help decompress the stomach When necessary behavioral restraints as patient has already pulled out one NG tube on admission. We will keep Vadim NPO for now. Zofran 4mg IV PRN for nausea. Morphine sulfate 2mg IV every 2 hours PRN abdominal pain. Vital signs are: T- 96.5, HR of 105, BP of 180/89, 18 R and 95% RA. Will ask nursing to repeat BP. For DVT prophylaxis we will order SCDs as to not conflict with any surgical intervention that could be needed. We will contact his DPOA for a code status. Recheck CBC and BMP tomorrow morning to follow blood counts, renal function and electrolytes. At time of discharge medical care will return to his primary care provider at [facility] 08/08/16 Continue with NG for decompression to low intermittent suction. Initiate surgical consultation by Dr. Ariza Planning on small bowel series , place patient on cardiac telemetry. Noted to be sinus tachycardia. Will give a one-time dose of IV Lopressor 5 milligrams and continue to monitor. Did review home medications normally on any antihypertensives. Encourage nursing staff to monitor for evidence of pain and treat with when necessary medications. Leukocytosis resolved today down to 8.8. Potassium is found to be elevated at 5.1, however, this is likely secondary to specimen hemolysis. Continue with behavioral restraints for patient safety given that he has pulled his NG tube out 5 times since admission. Will discuss further with attending, Dr. Arvizu 08/09/16 Continue with Zosyn for antimicrobial coverage. Ct abd is obtained this morning revealing high-grade or complete obstruction along with bilateral lower pleural effusions. He is scheduled for Exploratory Lap today at [address] Ariza. Normal saline at 125ml/hr for ongoing hydrations Oxygen needs increased overnight to 10 liters however he is currently down to 2 liters. Chest xray was obtained this morning for further cardiopulmonary eval. Creatine is elevated today, suspect could be due to dehydration or acute obstruction. Repeat BMP pending. Continue Morphine and Zofran for pain control and nausea. SCDs for DVT prophylaxis. Will recheck CBC and BMP to follow blood counts, renal function and electrolytes. Family notified by nursing staff of change in treatment plan 08/10/16 Mr. Johnson underwent attempted decompressive colonoscopy and subsequent laparotomy with sigmoidectomy yesterday. Necrotic bowel was identified due to obstruction/volvulus. There has been persistent tachycardia overnight with need for supplemental oxygen. Creatinine remains elevated 2.0 with increasing BUN. His sister/legal guardian confirms full CODE STATUS. PICC line placed, peripheral nutrition to be changed to TPN. Additional fluids to be given today due to tachycardia and renal impairment. Continue Zosyn for abdominal coverage. GRINDING WHEEL FACER narcotics available in addition to nursing controlled doses morphine and Ativan. Chest x-ray to be obtained in the morning in addition to laboratory data. May require IPPB for lung expansion. Up in chair if possible without risking patient removal of NG. Lovenox and IV Protonix for prophylaxis. 08/11/16 Mr. Johnson underwent attempted decompressive colonoscopy and subsequent laparotomy with sigmoidectomy 08/09 for ischemic bowel due to obstruction/ volvulus. Patient removed NG yesterday evening, no nausea or vomiting. Bowel movements 2 today. Check abdominal films in a.m. Patient is hemodynamically stable with elevated blood pressures up to approximately 200/110, scheduled IV metoprolol initiated this evening. Volume status positive, diuresis initiated. Persistent hypernatremia-discussed with pharmacy, no sodium chloride or magnesium in TPN. GRINDING WHEEL FACER for pain, Ativan for anxiety as needed. Continue Zosyn for abdominal coverage. Blood sugars stable with TPN thus far. Corrective scale insulin available. Lovenox and IV Protonix for prophylaxis. 08/12 Resting in bed, responds to verbal stimuli. Pain controlled-not pushing GRINDING WHEEL FACER often (does have basal rate). Not reporting nausea. Pt has been passing lose stool. NG out; Dr Ariza advancing to clear liquids. Breathing well. Has been ambulating in room with nursing. Continue TPN for nutrition due to decreased oral intake post op. Diet advanced to clear liquids - monitor intake. Will start home Miralax and senna to help bowel motivation. Encourage activities and deep breathing. Continue Zosyn for abdominal coverage. Continue CCU care for close monitoring and support - possible transfer to floor in near future. Monitor lab. Transfer to Sx floor this evening for continuation of care. 4-[address] in bed. Oral drive decreased-not taking much by mouth. Increased loose stools - C diff positive; Zosyn stopped and stared on Oral Vanco and IV metronidazole. Verbal responses limited. Does report discomfort-hard to tell if it is abdominal in nature or just generalized diffuse pain. Continue TPN for nutrition due to decreased oral intake post op. Start Norvasc for BP control. Will change IV metoprolol to Toprol XL 25mg daily. Speech to check swallow function. PT/OT consulted to help increase functional status. Monitor lab. Sx: Having copious stools, C-diff came back positive, talked with Karen in pharmacy and referred to [facility], agreed to start Vanco 500 PO Q6h and Flagyl 500 IV Q6h. Will continue to monitor and consider Vanco enema if no improvement. Stop Zosyn. Pharmacy adjusting TPN based on lytes. Continue clear liquids. Start PT/OT He walked in the room, will encourage ambulation. 08/14/16 Continue TPN for nutrition due to decreased oral intake post op. Increased abdominal distention concerning for possible post-op ileus. Will add scheduled Reglan 10 mg IV every 6 hours May need to consider placing NG tube. Monitor blood pressure and tachycardia. Continues to be tachy at 110. Continue to monitor blood sugars PT/OT consulted to help increase functional status. Will discuss further with LAXMI Pepper APRN Aug 15, 2016 09:08
[2016-08-15] MEDS: [UNRECOGNIZED DRUG - OTHER] IV SCH ×8 (10:15)
[2016-08-15] MEDS: POTASSIUM ACETATE IV SCH ×16 (10:15→10:24)
[2016-08-15] MEDS: POTASSIUM PHOSPHATE IV SCH ×16 (10:15→10:24)
[2016-08-15] MEDS: CALCIUM GLUCONATE IV SCH ×16 (10:15→10:24)
[2016-08-15] MEDS: [UNRECOGNIZED DRUG - OTHER] IV SCH ×8 (10:24)
[2016-08-15] MEDS: NORMAL SALINE 500 ML IV ONE ×2 (11:13→11:18)
--- NOTE | 2016-08-15 15:44 | PNPDOC ---
KEENAN HILLMAN V SITE LEADER 08/15/16 1544: Subjective Date DATE: 08/15/16 TIME: 15:29 Subjective Vadim is seen this morning while resting in bed. He is alert and does answer yes/no questions today during examination. Overall, his abdomen appears to be a little less firm and distended. When asked if he is in pain. He states "no". Her port he has been up and ambulating. He did have a moderate bowel movement this morning. Nursing does report decreased oral intake. He is noted to be tachycardic in the 110-120s. Objective Vital Signs Vital signs Vital Signs Date Time Temp Pulse Resp B/P Pulse Ox O2 Delivery O2 Flow Rate FiO2 08/15/16 12:52 109 18 08/15/16 11:22 97.4 125/86 96 Room Air Telemetry Rhythm: Sinus Tachycardia Height (Feet): 5 Height (Inches): 10.00 Weight (Kilograms): 69.900 General General Appearance: Alert, Orientated x 2, Cooperative, No Acute Distress Eyes (Brief) Eyes: FOUND: EOMI ENMT (Brief) ENMT: FOUND: mucosa moist, normal dentition, NOT FOUND: pharnyx erythema Neck (Brief) Neck: FOUND: midline, NOT FOUND: adenopathy, carotid bruits, tracheal deviation Respiratory (Brief) Respiratory: FOUND: clear all negron, equal bilaterally, NOT FOUND: wheezes Cardiovascular (Brief) Cardiac: FOUND: regular rate, regular rhythm, NOT FOUND: murmur, pedal edema Capillary Refill: <2 sec Abdomen (Brief) Abdominal: FOUND: distended, soft, NOT FOUND: BS normo active x4 (hypoactive), tender Lymphatic (Brief) Lymphatic: NOT FOUND: adenopathy Musculoskeletal (Brief) Musculoskeletal: NOT FOUND: tenderness Integumentary (Brief) Integumentary: FOUND: dry, pink, warm Neurologic (Brief) Neurological: FOUND: cranial 2-12 intact Psychiatric (Brief) Psychiatric: FOUND: alert, attentive, normal affect, oriented Laboratory Laboratory Laboratory Tests 08/14/16 04:27 08/15/16 04:20 Laboratory Tests 08/14/16 04:27 08/15/16 04:20 Sepsis Diagnostic Criteria Sepsis Confirmed/Suspected Infection: Yes SIRS Criteria: Temp<=96.8 or >=100.4, Pulse >= 90 beats/min, WBC >=12,000 or <= 4,000, BS >120 in non-diabetic Severe Sepsis Lactate >=2.0 mg/dL Assessment & Plan Problems: (1) Sigmoid volvulus Status: Resolved Assessment & Plan: Low anterior sigmoid resection with mobilization of the splenic flexure and coloproctostomy 08/09/16 (2) Ischemic colitis Status: Acute Assessment & Plan: Due to volvulus/bowel obstruction (3) C. difficile colitis Status: Acute Assessment & Plan: Not POA (4) Severe sepsis Status: Resolved Assessment & Plan: Manifestations of sepsis include the following- 1. Leukocytosis at 16.7 with left shift. Bandemia 15%. 2. Tachycardia at 105 3. Acute abdominal distention/pain 4. Evidence of organ dysfunction including elevated bilirubin 2.0 and hyperglycemia in the absence of diabetes 5. Elevated Lactate of 3.0. (5) Bowel obstruction Status: Resolved Qualifiers: Intestinal obstruction type: unspecified Qualified Codes: K56.60 - Unspecified intestinal obstruction (6) Hypernatremia Status: Acute Assessment & Plan: Not POA (7) Hyperglycemia Status: Acute (8) Acute kidney injury Status: Resolved Assessment & Plan: Admission creatinine 1.1 increasing to 2.2 on 08/09 (9) Abdominal distention Status: Resolved (10) Mental retardation Status: Chronic (11) Epileptic seizure Status: Chronic (12) Constipation Status: Chronic (13) Osteopenia Status: Chronic (14) Hypermagnesemia Status: Acute (15) Hypertension Status: Acute Qualifiers: Hypertension type: essential hypertension Qualified Codes: I10 - Essential (primary) hypertension Plan/Intensity of Service 08/15/16 Will given a 500 ML IV fluid bolus of NS due to decreased oral drive. Heart rate this afternoon continues consistanely over 100. Will increase Toprol XL to 50 milligrams daily Continue with scheduled Reglan gastric emptying. Continue Miralax for bowel motivation Continue with TPN for nutrition, monitor electrolytes and blood sugars carefully Continue with vancomycin and Flagyl for treatment of C. difficile Lovenox subcutaneous daily for DVT prophylaxis Check CBC and BMP tomorrow morning to follow blood counts, renal function and electrolytes Code Status Full Code Hospital Course Summary Disclaimer The hospital course summary below is not to be considered part of the above Progress Note. Hospital Course Summary 08/07 Admit to inpatient under the care of Dr. Arvizu for abdominal distention. Severe sepsis as evidence by: Acute abdominal pain, Tachycardia at 105, Leukocytosis at 16.7 with left shift, Bilirubin at 2.0, hyperglycemia and Lactate of 3.0. Obtain blood cultures x 2 on admission NS bolus of 500ml wide open, then decrease to 100ml/hr. Zosyn IV every 6 hours for empiric antimicrobial coverage. We will repeat a Lactate at 1830, following sepsis protocol We will consult Dr. Ariza for abdominal distention. Place NG tube to low intermittent suction to help decompress the stomach When necessary behavioral restraints as patient has already pulled out one NG tube on admission. We will keep Vadim NPO for now. Zofran 4mg IV PRN for nausea. Morphine sulfate 2mg IV every 2 hours PRN abdominal pain. Vital signs are: T- 96.5, HR of 105, BP of 180/89, 18 R and 95% RA. Will ask nursing to repeat BP. For DVT prophylaxis we will order SCDs as to not conflict with any surgical intervention that could be needed. We will contact his DPOA for a code status. Recheck CBC and BMP tomorrow morning to follow blood counts, renal function and electrolytes. At time of discharge medical care will return to his primary care provider at [facility] 08/08/16 Continue with NG for decompression to low intermittent suction. Initiate surgical consultation by Dr. Ariza Planning on small bowel series , place patient on cardiac telemetry. Noted to be sinus tachycardia. Will give a one-time dose of IV Lopressor 5 milligrams and continue to monitor. Did review home medications normally on any antihypertensives. Encourage nursing staff to monitor for evidence of pain and treat with when necessary medications. Leukocytosis resolved today down to 8.8. Potassium is found to be elevated at 5.1, however, this is likely secondary to specimen hemolysis. Continue with behavioral restraints for patient safety given that he has pulled his NG tube out 5 times since admission. Will discuss further with attending, Dr. Arvizu 08/09/16 Continue with Zosyn for antimicrobial coverage. Ct abd is obtained this morning revealing high-grade or complete obstruction along with bilateral lower pleural effusions. He is scheduled for Exploratory Lap today at [address] Ariza. Normal saline at 125ml/hr for ongoing hydrations Oxygen needs increased overnight to 10 liters however he is currently down to 2 liters. Chest xray was obtained this morning for further cardiopulmonary eval. Creatine is elevated today, suspect could be due to dehydration or acute obstruction. Repeat BMP pending. Continue Morphine and Zofran for pain control and nausea. SCDs for DVT prophylaxis. Will recheck CBC and BMP to follow blood counts, renal function and electrolytes. Family notified by nursing staff of change in treatment plan 08/10/16 Mr. Johnson underwent attempted decompressive colonoscopy and subsequent laparotomy with sigmoidectomy yesterday. Necrotic bowel was identified due to obstruction/volvulus. There has been persistent tachycardia overnight with need for supplemental oxygen. Creatinine remains elevated 2.0 with increasing BUN. His sister/legal guardian confirms full CODE STATUS. PICC line placed, peripheral nutrition to be changed to TPN. Additional fluids to be given today due to tachycardia and renal impairment. Continue Zosyn for abdominal coverage. PROTECTIVE SIGNAL OPERATOR narcotics available in addition to nursing controlled doses morphine and Ativan. Chest x-ray to be obtained in the morning in addition to laboratory data. May require IPPB for lung expansion. Up in chair if possible without risking patient removal of NG. Lovenox and IV Protonix for prophylaxis. 08/11/16 Mr. Johnson underwent attempted decompressive colonoscopy and subsequent laparotomy with sigmoidectomy 08/09 for ischemic bowel due to obstruction/ volvulus. Patient removed NG yesterday evening, no nausea or vomiting. Bowel movements 2 today. Check abdominal films in a.m. Patient is hemodynamically stable with elevated blood pressures up to approximately 200/110, scheduled IV metoprolol initiated this evening. Volume status positive, diuresis initiated. Persistent hypernatremia-discussed with pharmacy, no sodium chloride or magnesium in TPN. PROTECTIVE SIGNAL OPERATOR for pain, Ativan for anxiety as needed. Continue Zosyn for abdominal coverage. Blood sugars stable with TPN thus far. Corrective scale insulin available. Lovenox and IV Protonix for prophylaxis. 08/12 Resting in bed, responds to verbal stimuli. Pain controlled-not pushing PROTECTIVE SIGNAL OPERATOR often (does have basal rate). Not reporting nausea. Pt has been passing lose stool. NG out; Dr Ariza advancing to clear liquids. Breathing well. Has been ambulating in room with nursing. Continue TPN for nutrition due to decreased oral intake post op. Diet advanced to clear liquids - monitor intake. Will start home Miralax and senna to help bowel motivation. Encourage activities and deep breathing. Continue Zosyn for abdominal coverage. Continue CCU care for close monitoring and support - possible transfer to floor in near future. Monitor lab. Transfer to Sx floor this evening for continuation of care. 4-[address] Oral drive decreased-not taking much by mouth. Increased loose stools - C diff positive; Zosyn stopped and stared on Oral Vanco and IV metronidazole. Verbal responses limited. Does report discomfort-hard to tell if it is abdominal in nature or just generalized diffuse pain. Continue TPN for nutrition due to decreased oral intake post op. Start Norvasc for BP control. Will change IV metoprolol to Toprol XL 25mg daily. Speech to check swallow function. PT/OT consulted to help increase functional status. Monitor lab. Sx: Having copious stools, C-diff came back positive, talked with Karen in pharmacy and referred to [facility], agreed to start Vanco 500 PO Q6h and Flagyl 500 IV Q6h. Will continue to monitor and consider Vanco enema if no improvement. Stop Zosyn. Pharmacy adjusting TPN based on lytes. Continue clear liquids. Start PT/OT He walked in the room, will encourage ambulation. 08/14/16 Continue TPN for nutrition due to decreased oral intake post op. Increased abdominal distention concerning for possible post-op ileus. Will add scheduled Reglan 10 mg IV every 6 hours May need to consider placing NG tube. Monitor blood pressure and tachycardia. Continues to be tachy at 110. Continue to monitor blood sugars PT/OT consulted to help increase functional status. Will discuss further with Dr Arvizu 08/15/16 Will given a 500 ML IV fluid bolus of NS due to decreased oral drive. Heart rate this afternoon continues consistanely over 100. Will increase Toprol XL to 50 milligrams daily Continue with scheduled Reglan gastric emptying. Continue Miralax for bowel motivation Continue with TPN for nutrition, monitor electrolytes and blood sugars carefully Continue with vancomycin and Flagyl for treatment of C. difficile Lovenox subcutaneous daily for DVT prophylaxis Check CBC and BMP tomorrow morning to follow blood counts, renal function and electrolytes ARLETTE ARVIZU MD 08/15/16 6500: Assessment & Plan Plan/Intensity of Service Have independently interviewed and examined pt. Chart reviewed. Case discussed with my SITE LEADER. Care plan developed with my supervision; agree with above. Resting in bed. Easily awakened. Non-verbal. Lungs: clear, no distress CV: regular AB; soft, distended, BS decreased. EXT: no edema, SCD in place. Plan: Continue TPN-oral drive very diminished. Continue Vanco and metronidazole. Reglan to help bowel motility. Additional IVF bolus given due to tachycardia. Monitor lab. KEENAN HILLMAN APRN Aug 15, 2016 15:44 ARLETTE ARVIZU MD Aug 15, 2016 16:54
--- NOTE | 2016-08-15 15:47 | NUR ---
SPEECH NOTE: PT WAS NOT SEEN FOR THERAPEUTIC FEEDING TODAY. NURSING REPORTED HE WAS SPITTING OUT ATTEMPTS AT FEEDING.
[2016-08-15] MEDS: FAT EMULSION 20% 100 ML IV SCH (15:50)
[2016-08-15] MEDS: NORMAL SALINE IV SCH ×2 (15:55→22:04)
[2016-08-15] MEDS: ERYTHROMYCIN IV SCH ×2 (15:55→22:04)
--- NOTE | 2016-08-15 16:18 | NUR ---
PT NOTE: Pt seen today but unable to stay awake for more than ankle pumps. Pt roused several times and able to verbalize, but unable to perform ther ex or transfer d/t fatigue. Will cont per POC. Call [phone] with questions.
--- NOTE | 2016-08-15 16:38 | PNF ---
DATE OF SERVICE 08/15/2016 FINDINGS Mr. Johnson denied pain upon questioning. Nurse states that he has been up walking today. Nurse also states that he has not been eating well but has not had any element nausea or vomiting. EXAM VITAL SIGNS: Afebrile, normotensive. Current vitals include temperature 97.4. The patient remains tachycardic with pulse 109, respirations 18, blood pressure 125/86, SAO2 96% on room air. ABDOMEN: Visualization of the abdomen still reveals it to be somewhat distended. Palpation of the abdomen reveals it to be soft without any evidence for guarding or rebound. No evidence for erythema. LABORATORY/RADIOGRAPHIC EVALUATION The patient had a CBC today and his white count is 12.8 - increased left shift with 82% neutrophils. CMP obtained and found to be essentially within normal limits. Blood sugars have been stable. ASSESSMENT 65-year-old gentleman status post exploratory laparotomy, low anterior resection with mobilization of splenic flexure and coloproctostomy secondary to probable sigmoid volvulus with resultant development of vascular compromise and necrosis to sigmoid colon. The patient with development of C. diff postoperatively. PLAN Will continue with ongoing treatment for his Clostridium difficile colitis. Continue with hyperalimentation. Will ahead and repeat some radiographic films tomorrow. One may wish to begin some IV erythromycin from a motility standpoint if indeed he is found to have evidence for ongoing ileus. Overall, the patient remains stable but is not progressing as quickly as I had hoped. JEFFERY
--- NOTE | 2016-08-15 18:15 | NUR ---
Summary VS stable on RA. Pt has been up in the recliner for meals. Pt has refused meals today, encouraged by myself and nursing staff to eat and drink, Pt did however cooperate and take PO Vancomycin. Pt has denied nausea and pain. ANIMAL CARE SUPERVISOR pump in place. PICC line to the right upper arm flushes and aspirates well. Pt ambulated in the hallway with therapy this afternoon and tolerated well. Ruiz catheter in place with adequate output. Midline incision of the abdomen has reji intact with no drainage noted. Contact precautions being implemented. Call light w/in reach at this time.
--- NOTE | 2016-08-15 23:42 | NUR ---
Chart Check 24 hour chart check completed
[2016-08-16] VITALS (20 sets, daily range): BP systolic 119–133; BP diastolic 70–86; PULSE 104–115; RESP 16–24; TEMP 97–99.9; O2SAT 91–99
[2016-08-16] MEDS: INSULIN ASPART 100 UNIT/ML SQ PRN ×4 (00:29→18:19)
[2016-08-16] MEDS: METRONIDAZOLE IVPB 500 MG in NORMAL SALINE 100 ML IV SCH ×4 (02:04→21:32)
[2016-08-16] MEDS: METOCLOPRAMIDE 10mg/2ml INJECTION IV SCH ×4 (02:05→21:33)
[2016-08-16] MEDS: ERYTHROMYCIN IV SCH ×4 (03:22→21:30)
[2016-08-16] MEDS: NORMAL SALINE IV SCH ×4 (03:22→21:30)
[2016-08-16] MEDS: [UNRECOGNIZED DRUG - OTHER] IV SCH ×16 (04:47→07:54)
[2016-08-16] MEDS: POTASSIUM ACETATE IV SCH ×16 (04:47→07:54)
[2016-08-16] MEDS: CALCIUM GLUCONATE IV SCH ×16 (04:47→07:54)
[2016-08-16] MEDS: POTASSIUM PHOSPHATE IV SCH ×16 (04:47→07:54)
--- NOTE | 2016-08-16 05:09 | NUR ---
shift summary Pt has slept minimally during the night. vss, on ra. pt encouraged to eat and drink, but refuses. Although pt will take oral vancomycin. denies n/v/soa. dilaudid civil preparedness coordinator in use. Picc line to right upper arm flushes and aspirates. glass catheter with adequate output. no bm this shift. midline incision potato inspector with reji intact, no drainage. contact precautions in use due to pt being positive for c-diff. pt has removed continuous oximetry probe on finger a few times. clear liquid diet. pt does answer yes and no questions. bed locked and low, bed alarm on. call light within reach. will continue to monitor.
[2016-08-16] MEDS: ENOXAPARIN 40 MG/0.4 ML INJECTION SQ SCH (07:52)
[2016-08-16] MEDS: PANTOPRAZOLE 40mg INJECTION IV SCH (07:53)
[2016-08-16] MEDS: AMLODIPINE 5 MG TABLET PO SCH (07:54)
[2016-08-16] MEDS: POLYETHYL.GLYCOL 3350 PACKET 17gm PO SCH (07:54)
[2016-08-16 08:02] LABS: HCT - HEMATOCRIT 39.3 % (41-53); MEAN CORPUSCULAR HGB 28.9 UUG (26-34); MEAN CORPUSCULAR HGB CONC(MCHC 33.1 GM/DL (31-37); MEAN CORPUSCULAR VOLUME 87.3 UM3 (80-100); MEAN PLATELET VOLUME 11.7 UM3 (9.4-12.4)
[2016-08-16 08:13] LABS: ANION GAP 9 MEQ/L (5-15); BUN/CREATININE RATIO 22 RATIO (6-26); CALCIUM 8.3 MG/DL (8.4-10.2); CHLORIDE 105 MEQ/L (98-107); CO2 - CARBON DIOXIDE 22 MEQ/L (22-30); CREATININE 0.9 MG/DL (0.8-1.5); GLOMERULAR FILTRATION RATE 84; GLUCOSE 115 MG/DL (75-110); POTASSIUM 4.9 MEQ/L (3.6-5); SODIUM 136 MEQ/L (134-144)
[2016-08-16 08:19] LABS: BAND NEUTROPHILS # 0.3 T/MM3; EOSINOPHILS # (MANUAL) 0.8 T/MM3 (0-0.5); MONOCYTES # (MANUAL) 1.1 T/MM3 (0-0.8); NEUTROPHILS #(MANUAL)-ABSOLUTE 10.8 T/MM3 (1.8-7.7); TOTAL CELLS COUNTED 100 %
--- NOTE | 2016-08-16 08:28 | DI ---
Indication: ITS.REASON: ileus PROCEDURE: KUB W/UPRIGHT: Encounter: Initial Comparison: August 12, 2016 Findings: Right PICC line in place. Hypoinflated lungs. Free intraperitoneal air remains with Rigler's sign present. Significant colonic distention remains but is improved from the patient's older exams. Small bowel dilatation has improved. Surgical staple line projecting over the central abdomen. Impression: Decreasing small bowel distention consistent with improving ileus. Residual free intraperitoneal air. .
--- NOTE | 2016-08-16 09:04 | NUR ---
TPN CONSULT: Today's Labs: NA 136 CL 105 BUN 20 K 4.9 CO2 22 CR 0.9 GLU 115 OSM 266, CA 8.3 POTASSIUM TRENDING UP, REST OF LYTES OK WILL DECREASE POTASSIUM IN FORMULA BY 40MEQ, CURRENT RATE OF TPN IS 100 MLS/HR Thank you.
[2016-08-16] MEDS: METOPROLOL XL 50 MG TABLET PO SCH (09:06)
--- NOTE | 2016-08-16 10:49 | NUR ---
JUANI GLORIA VISITED WITH DR CASON REGARDING PT STATUS. ANTICIPATES PT WILL BE AT [facility] [place] THROUGH THE WEEKEND. JUANI SPOKE WITH SUZANNE GLORIA FOR [facility] AND SHE IS AWARE OF PT STATUS AND WILL F/U WITH JUANI NEXT WEEK.
--- NOTE | 2016-08-16 11:08 | STDAILYN ---
ST Daily Note Date/Time DATE: 08/16/16 TIME: 10:56 Subjective Comment Pt was sitting up in the chair watching TV. When it was offered, he willingly took trials of water. P.o. trials during this tx session were limited because the pt declined (waved/pushed away) any other food/liquid that ST attempted to present. Only clear liquids trialed due to medical status and physician orders. Orientations: Alert Chief Complaint: small bowel obstruction s/p exploratory laparotomy Was Patient Education Provided: Yes Person(s) Educated: Patient Education Subject: Diet, Treatment Plan Instruction Understanding Demo: Education unsuccessful (unable to determine pt' s comprehension) *Speech Therapy Impressions Pt took single and consecutive swallows of thin liquids by straw. Hyolaryngeal movement was noted with each swallow. There were no clinical s/s aspiration with single or consecutive swallows. ST attempted to present juice, but the pt pushed away the container and declined to try it. Additional trials of thin water were presented with a similar result as stated previously. Based on this tx session, the following recommendations are made: 1. continue clear liquid diet per medical team order 2. advance to pureed diet once medical team determines it is appropriate 3. fully upright for all intake 4. ST will continue to follow per plan of care. ST Treatment Plan: Swallow Retraining ST Treatment Plan Frequency: three times per week Treatment Plan Duration: one week Plan of Care Comment: ST will continue to follow per plan of care. Start Treatment 1: 10:20 Stop Treatment 1: 10:28 Treatment Duration : ST Treatment Charge: Swallow Treatment Minutes of Individual Therapy: 8 EDUARDO HUNTLEY MS CCC-SUPERVISOR ADVERTISING DISPATCH CLERKS Aug 16, 2016 10:59
--- NOTE | 2016-08-16 15:07 | PNPDOC ---
Subjective Date DATE: 08/16/16 TIME: 15:00 Subjective F/U: Sigmoid volvulus with colonic necrosis, c diff Resting in bed. Nursing report he was up in chair and ambulated earlier. Oral drive decreased-will take about one bite, and then refuse further intake. Say no when asked if short of air. Not reporting ab pain. Objective Vital Signs Vital signs Vital Signs Date Time Temp Pulse Resp B/P Pulse Ox O2 Delivery O2 Flow Rate FiO2 08/16/16 14:54 18 08/16/16 12:31 98.3 106 119/77 91 Room Air Telemetry Rhythm: Sinus Tachycardia Height (Feet): 5 Height (Inches): 10.00 Weight (Kilograms): 68.200 General General Appearance: Alert, Well Nourished, Malnourished, Looks Stated Age Eyes (Brief) Eyes: FOUND: EOMI, PERRL, NOT FOUND: scleral icterus ENMT (Brief) ENMT: FOUND: hearing intact, mucosa moist Neck (Brief) Neck: FOUND: midline, NOT FOUND: nuchal rigidity, spasm Respiratory (Brief) Respiratory: FOUND: clear all negron, equal bilaterally, NOT FOUND: rales, wheezes Cardiovascular (Brief) Cardiac: FOUND: regular rate, regular rhythm, NOT FOUND: pedal edema Abdomen (Brief) Abdominal: FOUND: distended, soft, NOT FOUND: BS normo active x4 (Decreased, high pitched notes ) (Brief) Male: FOUND: other (Ruiz ) Extremities (Brief) Extremity : Side: Bilateral Extremity: leg Extremity Finding: NOT FOUND: edema Musculoskeletal (Brief) Musculoskeletal: FOUND: extremities move equally, NOT FOUND: deformity, spasm Integumentary (Brief) Integumentary: FOUND: dry, warm Neurologic (Brief) Neurological: FOUND: cranial 2-12 intact, motor (Intact ) Psychiatric (Brief) Psychiatric: FOUND: alert Laboratory Laboratory Laboratory Tests 08/15/16 04:20 08/16/16 07:52 Laboratory Tests 08/15/16 04:20 08/16/16 07:52 Sepsis Diagnostic Criteria Sepsis Confirmed/Suspected Infection: Yes SIRS Criteria: Temp<=96.8 or >=100.4, Pulse >= 90 beats/min, WBC >=12,000 or <= 4,000, BS >120 in non-diabetic Severe Sepsis Lactate >=2.0 mg/dL Assessment & Plan Problems: (1) Sigmoid volvulus Status: Resolved Assessment & Plan: Low anterior sigmoid resection with mobilization of the splenic flexure and coloproctostomy 08/09/16 (2) Ischemic colitis Status: Acute Assessment & Plan: Due to volvulus/bowel obstruction (3) C. difficile colitis Status: Acute Assessment & Plan: Not POA (4) Severe sepsis Status: Resolved Assessment & Plan: Manifestations of sepsis include the following- 1. Leukocytosis at 16.7 with left shift. Bandemia 15%. 2. Tachycardia at 105 3. Acute abdominal distention/pain 4. Evidence of organ dysfunction including elevated bilirubin 2.0 and hyperglycemia in the absence of diabetes 5. Elevated Lactate of 3.0. (5) Bowel obstruction Status: Resolved Qualifiers: Intestinal obstruction type: unspecified Qualified Codes: K56.60 - Unspecified intestinal obstruction (6) Hypernatremia Status: Resolved Assessment & Plan: Not POA (7) Hyperglycemia Status: Acute (8) Acute kidney injury Status: Resolved Assessment & Plan: Admission creatinine 1.1 increasing to 2.2 on 08/09 (9) Abdominal distention Status: Resolved (10) Mental retardation Status: Chronic (11) Epileptic seizure Status: Chronic (12) Constipation Status: Chronic (13) Osteopenia Status: Chronic (14) Hypermagnesemia Status: Acute (15) Hypertension Status: Acute Qualifiers: Hypertension type: essential hypertension Qualified Codes: I10 - Essential (primary) hypertension Plan/Intensity of Service Continue TPN for nutritional support as oral drive very diminished. Continue Vanco and metronidazole. Reglan to help bowel motility. Encourage ambulation to help strength and promote bowel function. Recheck BMP in am due to TPN. Recheck CBC in am due to c diff and leukocytosis. DVT Prophylaxis: SCD'S, Lovenox Code Status Full Code Hospital Course Summary Disclaimer The hospital course summary below is not to be considered part of the above Progress Note. Hospital Course Summary 08/07 Admit to inpatient under the care of Dr. Arvizu for abdominal distention. Severe sepsis as evidence by: Acute abdominal pain, Tachycardia at 105, Leukocytosis at 16.7 with left shift, Bilirubin at 2.0, hyperglycemia and Lactate of 3.0. Obtain blood cultures x 2 on admission NS bolus of 500ml wide open, then decrease to 100ml/hr. Zosyn IV every 6 hours for empiric antimicrobial coverage. We will repeat a Lactate at 1830, following sepsis protocol We will consult Dr. Ariza for abdominal distention. Place NG tube to low intermittent suction to help decompress the stomach When necessary behavioral restraints as patient has already pulled out one NG tube on admission. We will keep Vaidm NPO for now. Zofran 4mg IV PRN for nausea. Morphine sulfate 2mg IV every 2 hours PRN abdominal pain. Vital signs are: T- 96.5, HR of 105, BP of 180/89, 18 R and 95% RA. Will ask nursing to repeat BP. For DVT prophylaxis we will order SCDs as to not conflict with any surgical intervention that could be needed. We will contact his DPOA for a code status. Recheck CBC and BMP tomorrow morning to follow blood counts, renal function and electrolytes. At time of discharge medical care will return to his primary care provider at [facility] 08/08/16 Continue with NG for decompression to low intermittent suction. Initiate surgical consultation by Dr. Ariza Planning on small bowel series , place patient on cardiac telemetry. Noted to be sinus tachycardia. Will give a one-time dose of IV Lopressor 5 milligrams and continue to monitor. Did review home medications normally on any antihypertensives. Encourage nursing staff to monitor for evidence of pain and treat with when necessary medications. Leukocytosis resolved today down to 8.8. Potassium is found to be elevated at 5.1, however, this is likely secondary to specimen hemolysis. Continue with behavioral restraints for patient safety given that he has pulled his NG tube out 5 times since admission. Will discuss further with attending, Dr. Arvizu 08/09/16 Continue with Zosyn for antimicrobial coverage. Ct abd is obtained this morning revealing high-grade or complete obstruction along with bilateral lower pleural effusions. He is scheduled for Exploratory Lap today at [address] Ariza. Normal saline at 125ml/hr for ongoing hydrations Oxygen needs increased overnight to 10 liters however he is currently down to 2 liters. Chest xray was obtained this morning for further cardiopulmonary eval. Creatine is elevated today, suspect could be due to dehydration or acute obstruction. Repeat BMP pending. Continue Morphine and Zofran for pain control and nausea. SCDs for DVT prophylaxis. Will recheck CBC and BMP to follow blood counts, renal function and electrolytes. Family notified by nursing staff of change in treatment plan 08/10/16 Mr. Johnson underwent attempted decompressive colonoscopy and subsequent laparotomy with sigmoidectomy yesterday. Necrotic bowel was identified due to obstruction/volvulus. There has been persistent tachycardia overnight with need for supplemental oxygen. Creatinine remains elevated 2.0 with increasing BUN. His sister/legal guardian confirms full CODE STATUS. PICC line placed, peripheral nutrition to be changed to TPN. Additional fluids to be given today due to tachycardia and renal impairment. Continue Zosyn for abdominal coverage. MANGA ARTIST narcotics available in addition to nursing controlled doses morphine and Ativan. Chest x-ray to be obtained in the morning in addition to laboratory data. May require IPPB for lung expansion. Up in chair if possible without risking patient removal of NG. Lovenox and IV Protonix for prophylaxis. 08/11/16 Mr. Johnson underwent attempted decompressive colonoscopy and subsequent laparotomy with sigmoidectomy 08/09 for ischemic bowel due to obstruction/ volvulus. Patient removed NG yesterday evening, no nausea or vomiting. Bowel movements 2 today. Check abdominal films in a.m. Patient is hemodynamically stable with elevated blood pressures up to approximately 200/110, scheduled IV metoprolol initiated this evening. Volume status positive, diuresis initiated. Persistent hypernatremia-discussed with pharmacy, no sodium chloride or magnesium in TPN. MANGA ARTIST for pain, Ativan for anxiety as needed. Continue Zosyn for abdominal coverage. Blood sugars stable with TPN thus far. Corrective scale insulin available. Lovenox and IV Protonix for prophylaxis. 08/12 Resting in bed, responds to verbal stimuli. Pain controlled-not pushing MANGA ARTIST often (does have basal rate). Not reporting nausea. Pt has been passing lose stool. NG out; Dr Ariza advancing to clear liquids. Breathing well. Has been ambulating in room with nursing. Continue TPN for nutrition due to decreased oral intake post op. Diet advanced to clear liquids - monitor intake. Will start home Miralax and senna to help bowel motivation. Encourage activities and deep breathing. Continue Zosyn for abdominal coverage. Continue CCU care for close monitoring and support - possible transfer to floor in near future. Monitor lab. Transfer to Sx floor this evening for continuation of care. 4-[address] Oral drive decreased-not taking much by mouth. Increased loose stools - C diff positive; Zosyn stopped and stared on Oral Vanco and IV metronidazole. Verbal responses limited. Does report discomfort-hard to tell if it is abdominal in nature or just generalized diffuse pain. Continue TPN for nutrition due to decreased oral intake post op. Start Norvasc for BP control. Will change IV metoprolol to Toprol XL 25mg daily. Speech to check swallow function. PT/OT consulted to help increase functional status. Monitor lab. Sx: Having copious stools, C-diff came back positive, talked with Karen in pharmacy and referred to [facility], agreed to start Vanco 500 PO Q6h and Flagyl 500 IV Q6h. Will continue to monitor and consider Vanco enema if no improvement. Stop Zosyn. Pharmacy adjusting TPN based on lytes. Continue clear liquids. Start PT/OT He walked in the room, will encourage ambulation. 08/14/16 Continue TPN for nutrition due to decreased oral intake post op. Increased abdominal distention concerning for possible post-op ileus. Will add scheduled Reglan 10 mg IV every 6 hours May need to consider placing NG tube. Monitor blood pressure and tachycardia. Continues to be tachy at 110. Continue to monitor blood sugars PT/OT consulted to help increase functional status. Will discuss further with Dr Arivzu 08/15/16 Will given a 500 ML IV fluid bolus of NS due to decreased oral drive. Heart rate this afternoon continues consistanely over 100. Will increase Toprol XL to 50 milligrams daily Continue with scheduled Reglan gastric emptying. Continue Miralax for bowel motivation Continue with TPN for nutrition, monitor electrolytes and blood sugars carefully Continue with vancomycin and Flagyl for treatment of C. difficile Lovenox subcutaneous daily for DVT prophylaxis Check CBC and BMP tomorrow morning to follow blood counts, renal function and electrolytes 08/16 Resting in bed. Nursing report he was up in chair and ambulated earlier. Oral drive decreased-will take about one bite, and then refuse further intake. Say no when asked if short of air. Not reporting ab pain. Continue TPN for nutritional support as oral drive very diminished. Continue Vancomycin and metronidazole. Reglan to help bowel motility. Encourage ambulation to help strength and promote bowel function. Recheck BMP in am due to TPN. Recheck CBC in am due to C diff and leukocytosis. ARLETTE ARVIZU MD Aug 16, 2016 15:03
[2016-08-16] MEDS: FAT EMULSION 20% 100 ML IV SCH (15:59)
--- NOTE | 2016-08-16 18:36 | PNF ---
DATE OF SERVICE 08/16/2016 FINDINGS Mr. Johnson was lying in bed upon entering the room. Nurse informs me that he has eaten very little today. Nurse states that he did have one bowel movement earlier today. EXAM VITAL SIGNS: Afebrile, normotensive. The patient remains tachycardic with a pulse of 109. Please refer to EMR. ABDOMEN: Visualization of abdomen still reveals it to be slightly distended. His incision is clean, dry and intact. Palpation of the abdomen does not seem to elicit any discomfort to the patient. LABORATORY/RADIOGRAPHIC EVALUATION The patient's white count continues on an upward trend and today was 14.0. Still is without significant bandemia. BMP was obtained and found to be essentially within normal limits. ASSESSMENT 65-year-old gentleman status post sigmoid resection/low anterior resection with coloproctostomy secondary to probable sigmoid volvulus with associated necrosis. Patient with development of postoperative Clostridium difficile colitis. Patient with ongoing prolonged ileus pattern. PLAN I did obtain some plain films earlier today. I did review the x-rays and he continues to have significant colonic distention but is improved from the patient's prior examinations. Small bowel does appear slightly less distended. There is still some small residual free air. Overall, the patient is making very slow progress. He does not appear to be developing any signs of pelvic sepsis to suggest anastomotic leak. I am concerned, however, with his increasing leukocytosis and the fact that radiographically today he was found have a small amount of intraperitoneal air. From a physical examination standpoint, however, the patient's abdomen is completely soft and nontender and he does not have any peritoneal signs or guarding. Will continue to follow the patient closely at this time. JEFFERY
--- NOTE | 2016-08-16 18:51 | NUR ---
END OF SHIFT REPORT PATIENT A/O TO PERSON AND PLACE. VITAL SIGNS STABLE. PT TACHYCARDIC AT 110. THIS IS NOT NEW FOR THE PATIENT. AFEBRILE. ROOM AIR. PT UP WITH ASSIST X2. PT AMBULATED IN HALLS TODAY. DENIES N/V, CHEST PAIN, AND SOA. PT COMMUNICATES BY SAYING YES/NO. PT NOT TOLERATING CLEAR LIQUIDS WELL. PT WILL TAKE ONE SIP OF LIQUID AND THEN MOVE THIS RN'S HAND WHEN SHE TRIES TO GIVE HIM MORE. ZIMMERMAN IN PLACE WITH ADEQUATE OUTPUT. ONE LIQUID BM DURING THE SHIFT. WILL CONTINUE TO MONITOR.
[2016-08-16] MEDS: 1/2 NS 1,000 ML IV SCH (21:32)
[2016-08-17] VITALS (14 sets, daily range): BP systolic 119–133; BP diastolic 68–82; PULSE 102–114; RESP 16–22; TEMP 97.3–100.2; O2SAT 93–98
[2016-08-17] MEDS: INSULIN ASPART 100 UNIT/ML SQ PRN ×3 (00:02→18:37)
[2016-08-17] MEDS: METRONIDAZOLE IVPB 500 MG in NORMAL SALINE 100 ML IV SCH ×4 (02:01→20:41)
[2016-08-17] MEDS: ERYTHROMYCIN IV SCH ×4 (04:00→23:11)
[2016-08-17] MEDS: NORMAL SALINE IV SCH ×4 (04:00→23:11)
[2016-08-17] MEDS: [UNRECOGNIZED DRUG - OTHER] IV SCH ×8 (04:01)
[2016-08-17] MEDS: POTASSIUM ACETATE IV SCH ×8 (04:01)
[2016-08-17] MEDS: CALCIUM GLUCONATE IV SCH ×8 (04:01)
[2016-08-17] MEDS: POTASSIUM PHOSPHATE IV SCH ×8 (04:01)
[2016-08-17] MEDS: METOCLOPRAMIDE 10mg/2ml INJECTION IV SCH ×4 (04:12→20:45)
--- NOTE | 2016-08-17 07:44 | NUR ---
PT did well overnight. He pulled his o2 monitor off frequently. RN changed to his toe after asking him if he wanted another on his hand or his foot. HR is ST, other VSS. PT abdomen is distended
[2016-08-17] MEDS: POLYETHYL.GLYCOL 3350 PACKET 17gm PO SCH ×2 (09:00→09:56)
[2016-08-17] MEDS: METOPROLOL XL 50 MG TABLET PO SCH (09:57)
[2016-08-17] MEDS: AMLODIPINE 5 MG TABLET PO SCH (09:57)
[2016-08-17] MEDS: PANTOPRAZOLE 40mg INJECTION IV SCH (09:58)
[2016-08-17] MEDS: ENOXAPARIN 40 MG/0.4 ML INJECTION SQ SCH (09:58)
--- NOTE | 2016-08-17 14:29 | PNPDOC ---
KEENAN HILLMAN V WIRE COATING MACHINE OPERATOR 08/17/16 1418: Subjective Date DATE: 08/17/16 TIME: 14:12 Subjective Vadim is seen this afternoon while resting in bed watching TV. He is alert during exam and does not appear to be in any acute distress. Abdomen is soft and does not appear to be tender on examinations. He continue to be mildly distended and nursing reports small bowel movement today. Blood sugars overall seem to be well controlled. Continues on TPN for nutrition. Tachycardia has been better controlled in the low 100's. Objective Vital Signs Vital signs Vital Signs Date Time Temp Pulse Resp B/P Pulse Ox O2 Delivery O2 Flow Rate FiO2 08/17/16 13:11 18 08/17/16 11:58 97.3 105 133/79 93 Room Air Telemetry Rhythm: Sinus Tachycardia Height (Feet): 5 Height (Inches): 10.00 Weight (Kilograms): 68.400 General General Appearance: Alert, Orientated x 2, Cooperative, No Acute Distress Eyes (Brief) Eyes: FOUND: EOMI ENMT (Brief) ENMT: FOUND: mucosa moist, normal dentition, NOT FOUND: pharnyx erythema Neck (Brief) Neck: FOUND: midline, NOT FOUND: adenopathy, carotid bruits, tracheal deviation Respiratory (Brief) Respiratory: FOUND: clear all negron, equal bilaterally, NOT FOUND: wheezes Cardiovascular (Brief) Cardiac: FOUND: regular rate, regular rhythm, NOT FOUND: murmur, pedal edema Capillary Refill: <2 sec Abdomen (Brief) Abdominal: FOUND: distended, soft, NOT FOUND: BS normo active x4 (hypoactive), tender Lymphatic (Brief) Lymphatic: NOT FOUND: adenopathy Musculoskeletal (Brief) Musculoskeletal: NOT FOUND: tenderness Integumentary (Brief) Integumentary: FOUND: dry, pink, warm Neurologic (Brief) Neurological: FOUND: cranial 2-12 intact Psychiatric (Brief) Psychiatric: FOUND: alert, attentive, normal affect Laboratory Laboratory Laboratory Tests 08/16/16 07:52 Laboratory Tests 08/16/16 07:52 Sepsis Diagnostic Criteria Sepsis Confirmed/Suspected Infection: Yes SIRS Criteria: Temp<=96.8 or >=100.4, Pulse >= 90 beats/min, WBC >=12,000 or <= 4,000, BS >120 in non-diabetic Severe Sepsis Lactate >=2.0 mg/dL Assessment & Plan Problems: (1) Sigmoid volvulus Status: Resolved Assessment & Plan: Low anterior sigmoid resection with mobilization of the splenic flexure and coloproctostomy 08/09/16 (2) Ischemic colitis Status: Acute Assessment & Plan: Due to volvulus/bowel obstruction (3) C. difficile colitis Status: Acute Assessment & Plan: Not POA (4) Severe sepsis Status: Resolved Assessment & Plan: Manifestations of sepsis include the following- 1. Leukocytosis at 16.7 with left shift. Bandemia 15%. 2. Tachycardia at 105 3. Acute abdominal distention/pain 4. Evidence of organ dysfunction including elevated bilirubin 2.0 and hyperglycemia in the absence of diabetes 5. Elevated Lactate of 3.0. (5) Bowel obstruction Status: Resolved Qualifiers: Intestinal obstruction type: unspecified Qualified Codes: K56.60 - Unspecified intestinal obstruction (6) Hypernatremia Status: Resolved Assessment & Plan: Not POA (7) Hyperglycemia Status: Acute (8) Acute kidney injury Status: Resolved Assessment & Plan: Admission creatinine 1.1 increasing to 2.2 on 08/09 (9) Abdominal distention Status: Resolved (10) Mental retardation Status: Chronic (11) Epileptic seizure Status: Chronic (12) Constipation Status: Chronic (13) Osteopenia Status: Chronic (14) Hypermagnesemia Status: Acute (15) Hypertension Status: Acute Qualifiers: Hypertension type: essential hypertension Qualified Codes: I10 - Essential (primary) hypertension Plan/Intensity of Service 08/17/16 Abdominal distension continues slow to improve. Abdomen is soft and appears to be non tender. Continue with Vanco and Flagyl for treatment of C-Diff Continue TPN for nutritional support as oral drive very diminished. Scheduled Reglan to assist with GI motility. Norvasc daily for blood pressure control. Overall, tachycardia has improved. Continue to monitor. Lopressor IV available as needed. Lovenox subcutaneous daily for DVT prophylaxis Patient ongoing recommendations by Dr. Ariza Code Status Full Code Hospital Course Summary Disclaimer The hospital course summary below is not to be considered part of the above Progress Note. Hospital Course Summary 08/07 Admit to inpatient under the care of Dr. Arvizu for abdominal distention. Severe sepsis as evidence by: Acute abdominal pain, Tachycardia at 105, Leukocytosis at 16.7 with left shift, Bilirubin at 2.0, hyperglycemia and Lactate of 3.0. Obtain blood cultures x 2 on admission NS bolus of 500ml wide open, then decrease to 100ml/hr. Zosyn IV every 6 hours for empiric antimicrobial coverage. We will repeat a Lactate at 1830, following sepsis protocol We will consult Dr. Ariza for abdominal distention. Place NG tube to low intermittent suction to help decompress the stomach When necessary behavioral restraints as patient has already pulled out one NG tube on admission. We will keep Vadim NPO for now. Zofran 4mg IV PRN for nausea. Morphine sulfate 2mg IV every 2 hours PRN abdominal pain. Vital signs are: T- 96.5, HR of 105, BP of 180/89, 18 R and 95% RA. Will ask nursing to repeat BP. For DVT prophylaxis we will order SCDs as to not conflict with any surgical intervention that could be needed. We will contact his DPOA for a code status. Recheck CBC and BMP tomorrow morning to follow blood counts, renal function and electrolytes. At time of discharge medical care will return to his primary care provider at [facility] 08/08/16 Continue with NG for decompression to low intermittent suction. Initiate surgical consultation by Dr. Ariza Planning on small bowel series , place patient on cardiac telemetry. Noted to be sinus tachycardia. Will give a one-time dose of IV Lopressor 5 milligrams and continue to monitor. Did review home medications normally on any antihypertensives. Encourage nursing staff to monitor for evidence of pain and treat with when necessary medications. Leukocytosis resolved today down to 8.8. Potassium is found to be elevated at 5.1, however, this is likely secondary to specimen hemolysis. Continue with behavioral restraints for patient safety given that he has pulled his NG tube out 5 times since admission. Will discuss further with attending, Dr. Arvizu 08/09/16 Continue with Zosyn for antimicrobial coverage. Ct abd is obtained this morning revealing high-grade or complete obstruction along with bilateral lower pleural effusions. He is scheduled for Exploratory Lap today at [address] Ariza. Normal saline at 125ml/hr for ongoing hydrations Oxygen needs increased overnight to 10 liters however he is currently down to 2 liters. Chest xray was obtained this morning for further cardiopulmonary eval. Creatine is elevated today, suspect could be due to dehydration or acute obstruction. Repeat BMP pending. Continue Morphine and Zofran for pain control and nausea. SCDs for DVT prophylaxis. Will recheck CBC and BMP to follow blood counts, renal function and electrolytes. Family notified by nursing staff of change in treatment plan 08/10/16 Mr. Johnson underwent attempted decompressive colonoscopy and subsequent laparotomy with sigmoidectomy yesterday. Necrotic bowel was identified due to obstruction/volvulus. There has been persistent tachycardia overnight with need for supplemental oxygen. Creatinine remains elevated 2.0 with increasing BUN. His sister/legal guardian confirms full CODE STATUS. PICC line placed, peripheral nutrition to be changed to TPN. Additional fluids to be given today due to tachycardia and renal impairment. Continue Zosyn for abdominal coverage. SHOW OPERATIONS SUPERVISOR narcotics available in addition to nursing controlled doses morphine and Ativan. Chest x-ray to be obtained in the morning in addition to laboratory data. May require IPPB for lung expansion. Up in chair if possible without risking patient removal of NG. Lovenox and IV Protonix for prophylaxis. 08/11/16 Mr. Johnson underwent attempted decompressive colonoscopy and subsequent laparotomy with sigmoidectomy 08/09 for ischemic bowel due to obstruction/ volvulus. Patient removed NG yesterday evening, no nausea or vomiting. Bowel movements 2 today. Check abdominal films in a.m. Patient is hemodynamically stable with elevated blood pressures up to approximately 200/110, scheduled IV metoprolol initiated this evening. Volume status positive, diuresis initiated. Persistent hypernatremia-discussed with pharmacy, no sodium chloride or magnesium in TPN. SHOW OPERATIONS SUPERVISOR for pain, Ativan for anxiety as needed. Continue Zosyn for abdominal coverage. Blood sugars stable with TPN thus far. Corrective scale insulin available. Lovenox and IV Protonix for prophylaxis. 08/12 Resting in bed, responds to verbal stimuli. Pain controlled-not pushing SHOW OPERATIONS SUPERVISOR often (does have basal rate). Not reporting nausea. Pt has been passing lose stool. NG out; Dr Ariza advancing to clear liquids. Breathing well. Has been ambulating in room with nursing. Continue TPN for nutrition due to decreased oral intake post op. Diet advanced to clear liquids - monitor intake. Will start home Miralax and senna to help bowel motivation. Encourage activities and deep breathing. Continue Zosyn for abdominal coverage. Continue CCU care for close monitoring and support - possible transfer to floor in near future. Monitor lab. Transfer to Sx floor this evening for continuation of care. 4-[address] in [address]. Oral drive decreased-not taking much by mouth. Increased loose stools - C diff positive; Zosyn stopped and stared on Oral Vanco and IV metronidazole. Verbal responses limited. Does report discomfort-hard to tell if it is abdominal in nature or just generalized diffuse pain. Continue TPN for nutrition due to decreased oral intake post op. Start Norvasc for BP control. Will change IV metoprolol to Toprol XL 25mg daily. Speech to check swallow function. PT/OT consulted to help increase functional status. Monitor lab. Sx: Having copious stools, C-diff came back positive, talked with Karen in pharmacy and referred to [facility], agreed to start Vanco 500 PO Q6h and Flagyl 500 IV Q6h. Will continue to monitor and consider Vanco enema if no improvement. Stop Zosyn. Pharmacy adjusting TPN based on lytes. Continue clear liquids. Start PT/OT He walked in the room, will encourage ambulation. 08/14/16 Continue TPN for nutrition due to decreased oral intake post op. Increased abdominal distention concerning for possible post-op ileus. Will add scheduled Reglan 10 mg IV every 6 hours May need to consider placing NG tube. Monitor blood pressure and tachycardia. Continues to be tachy at 110. Continue to monitor blood sugars PT/OT consulted to help increase functional status. Will discuss further with Dr Arvizu 08/15/16 Will given a 500 ML IV fluid bolus of NS due to decreased oral drive. Heart rate this afternoon continues consistanely over 100. Will increase Toprol XL to 50 milligrams daily Continue with scheduled Reglan gastric emptying. Continue Miralax for bowel motivation Continue with TPN for nutrition, monitor electrolytes and blood sugars carefully Continue with vancomycin and Flagyl for treatment of C. difficile Lovenox subcutaneous daily for DVT prophylaxis Check CBC and BMP tomorrow morning to follow blood counts, renal function and electrolytes 08/16 Resting in bed. Nursing report he was up in chair and ambulated earlier. Oral drive decreased-will take about one bite, and then refuse further intake. Say no when asked if short of air. Not reporting ab pain. Continue TPN for nutritional support as oral drive very diminished. Continue Vancomycin and metronidazole. Reglan to help bowel motility. Encourage ambulation to help strength and promote bowel function. Recheck BMP in am due to TPN. Recheck CBC in am due to C diff and leukocytosis. 08/17/16 Abdominal distension continues slow to improve. Abdomen is soft and appears to be non tender. Continue with Vanco and Flagyl for treatment of C-Diff Continue TPN for nutritional support as oral drive very diminished. Scheduled Reglan to assist with GI motility. Norvasc daily for blood pressure control. Overall, tachycardia has improved. Continue to monitor. Lopressor IV available as needed. Lovenox subcutaneous daily for DVT prophylaxis Patient ongoing recommendations by ARLETTE Coon MD 08/17/16 1523: Assessment & Plan Plan/Intensity of Service Have independently interviewed and examined pt. Chart reviewed. Case discussed with my WIRE COATING MACHINE OPERATOR. Care plan developed with my supervision; agree with above. Resting in bed. Denies ab pain or SOA. Not taking much oral intake. Lungs: clear, no crackles/wheezed/distress CV: regular AB: soft, distended; BS no present MSE; awake alert Plan: Will give Fleets enema for bowel stimulation. Continue TPN for nutritional support. Encourage activities as able. Continue supportive care. KEENAN HILLMAN APRN Aug 17, 2016 14:18 ARLETTE ARVIZU MD Aug 17, 2016 15:23
[2016-08-17] MEDS ORDERED: MINERAL OIL 133 ML ENEMA RECTALLY ONE (15:30)
[2016-08-17] MEDS: FAT EMULSION 20% 100 ML IV SCH (16:29)
--- NOTE | 2016-08-17 18:16 | NUR ---
PROGRESS NOTE PT ALERT AND ORIENTED TO PERSON. THE PT'S VITAL SIGNS HAVE BEEN STABLE, ON RA. PT HAS TPN RUNNING INTO THE RED PORT AT 100CC/HR AND .45 NS RUNNING INTO THE PROXIMAL PORT AT 10CC/HR; BOTH PORTS FLUSH AND ASPIRATE WELL. THE PT HAS A ZIMMERMAN CATHETER IN PLACE THAT IS PATENT AND DRAINING WITH ADEQUATE URINE OUTPUT. THE PT HAS HAD SEVERAL SMEAR STOOLS AND WAS GIVEN A FLEET ENEMA THIS SHIFT. THE PT HAS BEEN ON ONE WALK THIS SHIFT BUT WAS UNSTEADY AND TIRED EASILY. PT WAS UP TO THE RECLINER PRIOR TO LUNCH AND WAS FOUND STANDING NEAR THE RECLINER TRYING TO GET BACK INTO BED.PT WAS ASSISTED BACK TO BED AND HAS BEEN CHECKED AND CHANGED Q2H. PT TAKES PILLS WHOLE AND TOLERATES THE PO VANCOMYCIN WELL. PT IS RESTING IN BED AT THIS TIME, BED ALARM ACTIVATED, SCDS IN PLACE. NO OTHER CONCERNS NOTED. WILL CONTINUE TO MONITOR.
--- NOTE | 2016-08-17 21:30 | NUR ---
STATUS PATIENT PULLED PICC OUT. TIP INTACT.TOTAL 40 CM OUT. GAUZE PRESSURE ON SITE. NOTIFIED DR FUENTES VIA TIGER TEXT.
--- NOTE | 2016-08-17 23:00 | NUR ---
STATUS OK TO HOLD TPN AND RESTART WHEN PICC IS RESTARTED TOMORROW PER DR FUENTES ORDER. RESTART TWO IV SITES 22G AND 20 G NEEDLE ON RT ARM. RESTART INSTANT POTATO PROCESSOR AND ANTIBIOTIC THROUGH IV SITE WELL.
[2016-08-17] MEDS: NORMAL SALINE 500 ML IV PRN (23:11)
[2016-08-18] VITALS (10 sets, daily range): BP systolic 109–124; BP diastolic 63–80; PULSE 104–114; RESP 16–20; TEMP 96.3–100.1; O2SAT 90–97
--- NOTE | 2016-08-18 01:30 | NUR ---
STATUS PATIENT PULLED 2IV LOCKS OUT. PATIENT TOOK TELE AND SCD OFF . NOTIFIED DR FUENTES VIA TIGER TEXT. RESTRAINT ORDER AT THIS TIME. RESTARTED #18 G IVL AT [facility]. COBAN APPLIED AT SITE. RESTART MEDIA PLANNER AT [facility] IV SITE. PRN ATIVAN WAS ADMINISTRATED .CONTINUE TO MONITOR.
[2016-08-18] MEDS: LORAZEPAM 2 MG/ML INJECTION IV PRN ×2 (01:40→05:48)
[2016-08-18] MEDS: POTASSIUM ACETATE IV SCH ×16 (01:44→12:38)
[2016-08-18] MEDS: POTASSIUM PHOSPHATE IV SCH ×16 (01:44→12:38)
[2016-08-18] MEDS: CALCIUM GLUCONATE IV SCH ×16 (01:44→12:38)
[2016-08-18] MEDS: [UNRECOGNIZED DRUG - OTHER] IV SCH ×16 (01:44→12:38)
[2016-08-18] MEDS: METRONIDAZOLE IVPB 500 MG in NORMAL SALINE 100 ML IV SCH ×4 (02:12→23:27)
[2016-08-18] MEDS: METOCLOPRAMIDE 10mg/2ml INJECTION IV SCH ×4 (02:16→21:41)
[2016-08-18] MEDS: ERYTHROMYCIN IV SCH ×4 (05:09→21:41)
[2016-08-18] MEDS: NORMAL SALINE IV SCH ×4 (05:09→21:41)
--- NOTE | 2016-08-18 05:09 | NUR ---
Chart Check 24 hour chart check completed
[2016-08-18 05:37] LABS: HCT - HEMATOCRIT 37.9 % (41-53); HGB - HEMOGLOBIN 12.6 GM/DL (13.5-17.5); MEAN CORPUSCULAR HGB 28.9 UUG (26-34); MEAN CORPUSCULAR HGB CONC(MCHC 33.2 GM/DL (31-37); MEAN CORPUSCULAR VOLUME 86.9 UM3 (80-100); MEAN PLATELET VOLUME 11.5 UM3 (9.4-12.4); RED BLOOD COUNT 4.36 M/MM3 (4.50-5.90); WBC - WHITE BLOOD COUNT 12.7 T/MM3 (4.5-11.0)
[2016-08-18 05:46] LABS: ALBUMIN 2.7 G/DL (3.5-5.0); ALBUMIN/GLOBULIN RATIO 0.8 RATIO (1.1-2.2); ALKALINE PHOSPHATASE 77 U/L (38-126); ALT (SGPT) 82 U/L (21-72); ANION GAP 10 MEQ/L (5-15); AST (SGOT) 68 U/L (17-59); BUN/CREATININE RATIO 18 RATIO (6-26); CALCIUM 8.3 MG/DL (8.4-10.2); CHLORIDE 107 MEQ/L (98-107); CO2 - CARBON DIOXIDE 20 MEQ/L (22-30); CREATININE 1.1 MG/DL (0.8-1.5); GLOMERULAR FILTRATION RATE 67; GLUCOSE 97 MG/DL (75-110); POTASSIUM 5.1 MEQ/L (3.6-5); SODIUM 137 MEQ/L (134-144); TOTAL PROTEIN 6.3 G/DL (6.3-8.2)
[2016-08-18 06:20] LABS: BAND NEUTROPHILS # 0.3 T/MM3; EOSINOPHILS # (MANUAL) 0.1 T/MM3 (0-0.5); LYMPHOCYTES # (MANUAL) 0.9 T/MM3 (1-4.8); MONOCYTES # (MANUAL) 0.8 T/MM3 (0-0.8); NEUTROPHILS #(MANUAL)-ABSOLUTE 10.7 T/MM3 (1.8-7.7); TOTAL CELLS COUNTED 100 %
[2016-08-18] MEDS: POLYETHYL.GLYCOL 3350 PACKET 17gm PO SCH ×2 (09:00→10:10)
[2016-08-18] MEDS ORDERED: D5-1/2 NS 1,000 ML IV SCH (09:45)
[2016-08-18] MEDS: PANTOPRAZOLE 40mg INJECTION IV SCH (10:09)
[2016-08-18] MEDS: ENOXAPARIN 40 MG/0.4 ML INJECTION SQ SCH (10:09)
[2016-08-18] MEDS: METOPROLOL XL 50 MG TABLET PO SCH (10:10)
[2016-08-18] MEDS: AMLODIPINE 5 MG TABLET PO SCH (10:20)
--- NOTE | 2016-08-18 11:56 | PNPDOC ---
[place] REGULATORY LAW SPECIALIST 08/18/16 1145: Subjective Date DATE: 08/18/16 TIME: 11:42 Subjective Vadim is seen today in follow up. He is awake, restless. Hx of chronic developmental delay, so unclear on his baseline. Pulled out PICC last night around 2300 and no additional fluids given until this morning. I have asked that PICC be replaced so we can get TPN going again. He is not taking much in regards to any liquids or PO intake at this time. Chart reviewed for collateral information. Objective Vital Signs Vital signs Vital Signs Date Time Temp Pulse Resp B/P Pulse Ox O2 Delivery O2 Flow Rate FiO2 08/18/16 08:54 96.6 111 18 124/80 95 Room Air Telemetry Rhythm: Sinus Tachycardia Height (Feet): 5 Height (Inches): 10.00 Weight (Kilograms): 65.400 General General Appearance: Alert, Confused, Uncooperative, Mild Distress Eyes (Brief) Eyes: FOUND: EOMI, PERRL, NOT FOUND: scleral icterus Neck (Brief) Neck: FOUND: midline, NOT FOUND: JVD, nuchal rigidity, spasm Respiratory (Brief) Respiratory: FOUND: clear all negron, equal bilaterally, NOT FOUND: rales, wheezes Comments Diminished in bases. Cardiovascular (Brief) Cardiac: FOUND: regular rate, regular rhythm, NOT FOUND: murmur, pedal edema Abdomen (Brief) Abdominal: FOUND: distended (Very tympanic, distended. Hypoactive BS x 4 quadrants. Not severely tender. ), soft, tender (Brief) Comments Ruiz- clear yellow. Extremities (Brief) Extremity : Side: Bilateral Extremity Finding: NOT FOUND: edema Musculoskeletal (Brief) Musculoskeletal: NOT FOUND: deformity, loss of motion, tenderness Integumentary (Brief) Integumentary: FOUND: dry, warm Psychiatric (Brief) Psychiatric: FOUND: alert, NOT FOUND: attentive, oriented Laboratory Laboratory Laboratory Tests 08/18/16 03:59 Laboratory Tests 08/18/16 03:59 Radiology Reviewed. Sepsis Diagnostic Criteria Sepsis Confirmed/Suspected Infection: Yes SIRS Criteria: Temp<=96.8 or >=100.4, Pulse >= 90 beats/min, WBC >=12,000 or <= 4,000, BS >120 in non-diabetic Severe Sepsis Lactate >=2.0 mg/dL Assessment & Plan Problems: (1) Sigmoid volvulus Status: Resolved Assessment & Plan: Low anterior sigmoid resection with mobilization of the splenic flexure and coloproctostomy 08/09/16 (2) Ischemic colitis Status: Acute Assessment & Plan: Due to volvulus/bowel obstruction (3) C. difficile colitis Status: Acute Assessment & Plan: Not POA (4) Severe sepsis Status: Resolved Assessment & Plan: Manifestations of sepsis include the following- 1. Leukocytosis at 16.7 with left shift. Bandemia 15%. 2. Tachycardia at 105 3. Acute abdominal distention/pain 4. Evidence of organ dysfunction including elevated bilirubin 2.0 and hyperglycemia in the absence of diabetes 5. Elevated Lactate of 3.0. (5) Bowel obstruction Status: Resolved Qualifiers: Intestinal obstruction type: unspecified Qualified Codes: K56.60 - Unspecified intestinal obstruction (6) Hypernatremia Status: Resolved Assessment & Plan: Not POA (7) Hyperglycemia Status: Acute (8) Acute kidney injury Status: Resolved Assessment & Plan: Admission creatinine 1.1 increasing to 2.2 on 08/09 (9) Abdominal distention Status: Acute (10) Mental retardation Status: Chronic (11) Epileptic seizure Status: Chronic (12) Constipation Status: Chronic (13) Osteopenia Status: Chronic (14) Hypermagnesemia Status: Acute (15) Hypertension Status: Acute Qualifiers: Hypertension type: essential hypertension Qualified Codes: I10 - Essential (primary) hypertension Plan/Intensity of Service 08/18/16- *Patient remains somewhat distended. Surgery following. Continues on Reglan, IV E-mycin for motility. Documented daily BM for now despite known CDiff. *Continues to have low grade fever- suspect tachycardia is due to being off IVF over the last 12 hours or so. Resume IVF until we can get TPN back onboard. Continue beta-blockers. Continue PO Vanco and IV Flagyl for treatment of CDiff. Repeat KUB in AM. *Need to continue TPN for now- may want to place DHT for supplement of PO intake. Hx of MR may make TF tolerance difficult. *Continue Ruiz for urinary retention. Plan back to LTCF when stable. Consult Systems Operator to help with adequate intake. Consult PT/OT. DVT Prophylaxis: Lovenox Code Status Full Code Hospital Course Summary Disclaimer The hospital course summary below is not to be considered part of the above Progress Note. Hospital Course Summary 08/07 Admit to inpatient under the care of Dr. Arvizu for abdominal distention. Severe sepsis as evidence by: Acute abdominal pain, Tachycardia at 105, Leukocytosis at 16.7 with left shift, Bilirubin at 2.0, hyperglycemia and Lactate of 3.0. Obtain blood cultures x 2 on admission NS bolus of 500ml wide open, then decrease to 100ml/hr. Zosyn IV every 6 hours for empiric antimicrobial coverage. We will repeat a Lactate at 1830, following sepsis protocol We will consult Dr. Ariza for abdominal distention. Place NG tube to low intermittent suction to help decompress the stomach When necessary behavioral restraints as patient has already pulled out one NG tube on admission. We will keep Vadim NPO for now. Zofran 4mg IV PRN for nausea. Morphine sulfate 2mg IV every 2 hours PRN abdominal pain. Vital signs are: T- 96.5, HR of 105, BP of 180/89, 18 R and 95% RA. Will ask nursing to repeat BP. For DVT prophylaxis we will order SCDs as to not conflict with any surgical intervention that could be needed. We will contact his DPOA for a code status. Recheck CBC and BMP tomorrow morning to follow blood counts, renal function and electrolytes. At time of discharge medical care will return to his primary care provider at [facility] 08/08/16 Continue with NG for decompression to low intermittent suction. Initiate surgical consultation by Dr. Ariza Planning on small bowel series , place patient on cardiac telemetry. Noted to be sinus tachycardia. Will give a one-time dose of IV Lopressor 5 milligrams and continue to monitor. Did review home medications normally on any antihypertensives. Encourage nursing staff to monitor for evidence of pain and treat with when necessary medications. Leukocytosis resolved today down to 8.8. Potassium is found to be elevated at 5.1, however, this is likely secondary to specimen hemolysis. Continue with behavioral restraints for patient safety given that he has pulled his NG tube out 5 times since admission. Will discuss further with attending, Dr. Arvizu 08/09/16 Continue with Zosyn for antimicrobial coverage. Ct abd is obtained this morning revealing high-grade or complete obstruction along with bilateral lower pleural effusions. He is scheduled for Exploratory Lap today at [address] Ariza. Normal saline at 125ml/hr for ongoing hydrations Oxygen needs increased overnight to 10 liters however he is currently down to 2 liters. Chest xray was obtained this morning for further cardiopulmonary eval. Creatine is elevated today, suspect could be due to dehydration or acute obstruction. Repeat BMP pending. Continue Morphine and Zofran for pain control and nausea. SCDs for DVT prophylaxis. Will recheck CBC and BMP to follow blood counts, renal function and electrolytes. Family notified by nursing staff of change in treatment plan 08/10/16 Mr. Johnson underwent attempted decompressive colonoscopy and subsequent laparotomy with sigmoidectomy yesterday. Necrotic bowel was identified due to obstruction/volvulus. There has been persistent tachycardia overnight with need for supplemental oxygen. Creatinine remains elevated 2.0 with increasing BUN. His sister/legal guardian confirms full CODE STATUS. PICC line placed, peripheral nutrition to be changed to TPN. Additional fluids to be given today due to tachycardia and renal impairment. Continue Zosyn for abdominal coverage. IN HOME SALES REPRESENTATIVE narcotics available in addition to nursing controlled doses morphine and Ativan. Chest x-ray to be obtained in the morning in addition to laboratory data. May require IPPB for lung expansion. Up in chair if possible without risking patient removal of NG. Lovenox and IV Protonix for prophylaxis. 08/11/16 Mr. Johnson underwent attempted decompressive colonoscopy and subsequent laparotomy with sigmoidectomy 08/09 for ischemic bowel due to obstruction/ volvulus. Patient removed NG yesterday evening, no nausea or vomiting. Bowel movements 2 today. Check abdominal films in a.m. Patient is hemodynamically stable with elevated blood pressures up to approximately 200/110, scheduled IV metoprolol initiated this evening. Volume status positive, diuresis initiated. Persistent hypernatremia-discussed with pharmacy, no sodium chloride or magnesium in TPN. IN HOME SALES REPRESENTATIVE for pain, Ativan for anxiety as needed. Continue Zosyn for abdominal coverage. Blood sugars stable with TPN thus far. Corrective scale insulin available. Lovenox and IV Protonix for prophylaxis. 08/12 Resting in bed, responds to verbal stimuli. Pain controlled-not pushing IN HOME SALES REPRESENTATIVE often (does have basal rate). Not reporting nausea. Pt has been passing lose stool. NG out; Dr Ariza advancing to clear liquids. Breathing well. Has been ambulating in room with nursing. Continue TPN for nutrition due to decreased oral intake post op. Diet advanced to clear liquids - monitor intake. Will start home Miralax and senna to help bowel motivation. Encourage activities and deep breathing. Continue Zosyn for abdominal coverage. Continue CCU care for close monitoring and support - possible transfer to floor in near future. Monitor lab. Transfer to Sx floor this evening for continuation of care. 4-[address] Oral drive decreased-not taking much by mouth. Increased loose stools - C diff positive; Zosyn stopped and stared on Oral Vanco and IV metronidazole. Verbal responses limited. Does report discomfort-hard to tell if it is abdominal in nature or just generalized diffuse pain. Continue TPN for nutrition due to decreased oral intake post op. Start Norvasc for BP control. Will change IV metoprolol to Toprol XL 25mg daily. Speech to check swallow function. PT/OT consulted to help increase functional status. Monitor lab. Sx: Having copious stools, C-diff came back positive, talked with Karen in pharmacy and referred to [facility], agreed to start Vanco 500 PO Q6h and Flagyl 500 IV Q6h. Will continue to monitor and consider Vanco enema if no improvement. Stop Zosyn. Pharmacy adjusting TPN based on lytes. Continue clear liquids. Start PT/OT He walked in the room, will encourage ambulation. 08/14/16 Continue TPN for nutrition due to decreased oral intake post op. Increased abdominal distention concerning for possible post-op ileus. Will add scheduled Reglan 10 mg IV every 6 hours May need to consider placing NG tube. Monitor blood pressure and tachycardia. Continues to be tachy at 110. Continue to monitor blood sugars PT/OT consulted to help increase functional status. Will discuss further with Dr Arvizu 08/15/16 Will given a 500 ML IV fluid bolus of NS due to decreased oral drive. Heart rate this afternoon continues consistanely over 100. Will increase Toprol XL to 50 milligrams daily Continue with scheduled Reglan gastric emptying. Continue Miralax for bowel motivation Continue with TPN for nutrition, monitor electrolytes and blood sugars carefully Continue with vancomycin and Flagyl for treatment of C. difficile Lovenox subcutaneous daily for DVT prophylaxis Check CBC and BMP tomorrow morning to follow blood counts, renal function and electrolytes 08/16 Resting in bed. Nursing report he was up in chair and ambulated earlier. Oral drive decreased-will take about one bite, and then refuse further intake. Say no when asked if short of air. Not reporting ab pain. Continue TPN for nutritional support as oral drive very diminished. Continue Vancomycin and metronidazole. Reglan to help bowel motility. Encourage ambulation to help strength and promote bowel function. Recheck BMP in am due to TPN. Recheck CBC in am due to C diff and leukocytosis. 08/17/16 Abdominal distension continues slow to improve. Abdomen is soft and appears to be non tender. Continue with Vanco and Flagyl for treatment of C-Diff Continue TPN for nutritional support as oral drive very diminished. Scheduled Reglan to assist with GI motility. Norvasc daily for blood pressure control. Overall, tachycardia has improved. Continue to monitor. Lopressor IV available as needed. Lovenox subcutaneous daily for DVT prophylaxis Patient ongoing recommendations by Dr. Ariza 08/18/16- *Patient remains somewhat distended. Surgery following. Continues on Reglan, IV E-mycin for motility. Documented daily BM for now despite known CDiff. *Continues to have low grade fever- suspect tachycardia is due to being off IVF over the last 12 hours or so. Resume IVF until we can get TPN back onboard. Continue beta-blockers. Continue PO Vanco and IV Flagyl for treatment of CDiff. Repeat KUB in AM. *Need to continue TPN for now- may want to place DHT for supplement of PO intake. Hx of MR may make TF tolerance difficult. *Continue Ruiz for urinary retention. Plan back to LTCF when stable. ARLETTE ARVIZU MD 08/18/16 5506: Assessment & Plan Plan/Intensity of Service Have independently interviewed and examined pt. Chart reviewed. Case discussed with my REGULATORY LAW SPECIALIST. Care plan developed with my supervision; agree with above. Resting in bed. Say no when asked if having abdominal pain. Also says no when asked if he has any appetite. Breathing stable. Lungs: clear CV: regular AB: soft, distended. BS decreased MSE: awake appropriate Plan: Continue with TPN for nutritional support - with ileus and colonic dysmotility, do not feel DH feeding would be feasible. Encourage activities. Continue Reglan and Miralax to help bowel stimulation. Diet advanced to full liquids in hope that something other than clear would be appealing to patient. Monitor lab. [place] [employer] SPECIALIST Aug 18, 2016 11:45 ARLETTE ARVIZU MD Aug 18, 2016 15:56
--- NOTE | 2016-08-18 12:00 | NUR ---
BEHAVIOR PT HAS NOT NEEDED RESTRAINTS ON SO FAR THIS SHIFT. WE HAVE HAD NT SITTING OUTSIDE DOOR TAXATION AGENT IN ROOM FOR CARES. ONLY HOSTILE OR DEFENSIVE BEHAVIORS COME WHEN ASKED TO REPOSITION AND/OR TO TAKE A DRINK OR BITE OF JELLO.
--- NOTE | 2016-08-18 13:57 | NUR ---
TPN CONSULT: Today's Labs: NA = 137, CL = 107, BUN = 20 K = 5.1, HC03 = 20, CR = 1.1, GLUCOSE = 97 OSMOLALITY = 267, CALCIUM = 8.3 We will remove potassium acetate from TPN formula. Continue same TPN rate. Thanks
[2016-08-18] MEDS: NORMAL SALINE 500 ML IV PRN (15:25)
[2016-08-18] MEDS ORDERED: [UNRECOGNIZED DRUG - OTHER] IV SCH ×7 (16:01)
[2016-08-18] MEDS ORDERED: CALCIUM GLUCONATE IV SCH ×7 (16:01)
[2016-08-18] MEDS ORDERED: MAGNESIUM SULFATE IV SCH ×7 (16:01)
[2016-08-18] MEDS ORDERED: POTASSIUM PHOSPHATE IV SCH ×7 (16:01)
--- NOTE | 2016-08-18 16:05 | PNF ---
DATE 08/18/16 FINDINGS Mr. Johnson did not appear to be in acute distress this day. He was looking around while lying in bed. Nurses state that he has not experienced much in way of abdominal pain. Nurse states that they have been able to push his abdomen without eliciting discomfort. PHYSICAL EXAMINATION VITAL SIGNS: The patient did have a low grade temperature of 100.2. He remains tachycardic with pulse in the low 100s. This is not a new finding although his pulse has slightly "creeped upward." He remains normotensive. ABDOMEN: I did not "gown up" today to go into the room today to evaluate the patient. As stated above nursing states that his abdomen was not exquisitely tender today. LABORATORY/RADIOGRAPHIC EVALUATION The patient had a CBC today and his white count overall remains stable at 12.7. CMP was obtained found to be within normal limits. ASSESSMENT 65-year-old mentally handicapped gentleman status post exploratory laparotomy, low anterior resection/sigmoid resection secondary to necrosis of sigmoid colon most likely as a result of volvulus. Patient with misfortune developing C diff colitis postoperatively. PLAN The patient continues to make slow progress as not unexpected given the fact he was found to have C diff colitis. Will go ahead and give the patient some full liquids. Will go ahead and repeat radiographic evaluation tomorrow. If the patient's overall condition would begin to deteriorate and he develops increasing tachycardia or leukocytosis will proceed with repeat CT scan with rectal contrast to rule out a potential anastomotic leak. I do not feel however this time we are dealing with an anastomotic leak. Will continue follow the patient closely. JEFFERY
[2016-08-18] MEDS: FAT EMULSION 20% 100 ML IV SCH (16:18)
--- NOTE | 2016-08-18 18:08 | NUR ---
SUMMARY PT HAS REFUSED TO EAT, REFUSED TO GET OUT OF BED, AT TIMES REFUSED TURNING. CONTINUES TO BE UNRESTRAINED AT THIS TIME WITH NO ATTEMPT TO PULL AT LINES. PT HAS CONTINUED TO DENY PAIN AFTER LEGAL DOCUMENT SPECIALIST REMOVED.
--- NOTE | 2016-08-18 19:12 | NUR ---
ONE ON ONE PT IS CURRENTLY A ONE ON ONE HE WAS PULLING AT HIS LINE AND REMOVING HIS CLOTHES. OSIEL MURILLO AT BEDSIDE. WILL CONTINUE TO MONITOR.
[2016-08-18 21:38] LABS: C. DIFFICILE TOXIN B POSITIVE (NEGATIVE)
--- NOTE | 2016-08-18 22:08 | NUR ---
PICC LINE RN MONITORING WAS ABLE TO SIT OUTSIDE THE ROOM AND MONITOR PATIENT PT WAS SLEEPING. RN SPOKE WITH PT TURNED AND LOOKED AT COMPUTER THEN LOOKED BACK TO FIND THE PT HAD REMOVED THE PICC LINE. VISUALIZATION WAS LOST FOR LESS THAN A MINUTE. PRIOR PT HAD BEEN SLEEPING WITH NO BEHAVIORS.
--- NOTE | 2016-08-18 22:20 | NUR ---
PROVIDER NOTIFIED DR LICONA NOTIFIED THAT PT HAD REMOVED HIS PICC LINE WITH AN RN ONE TO ONE STATIONED OUTSIDE OF HIS ROOM. DR ADVISED THIS RN TO UTILIZE THE PERIPHERAL SITE AT THIS TIME AND INFUSE D5NS@100ML/HR UNTIL MEDICAL TEAM ON DAY SHIFT COULD EVALUATE HOW TO PROCEED. WILL CONTINUE TO MONITOR.
[2016-08-18] MEDS: D5NS 1,000 ML IV SCH (22:51)
[2016-08-19] VITALS (9 sets, daily range): BP systolic 109–125; BP diastolic 65–75; PULSE 101–110; RESP 16–24; TEMP 97.3–99.7; O2SAT 95–97
--- NOTE | 2016-08-19 00:25 | NUR ---
TELEMETRY PT CONTINUES TO REFUSE TO WEAR TELEMETRY PATCHES.
[2016-08-19] MEDS: ERYTHROMYCIN IV SCH ×4 (03:00→21:32)
[2016-08-19] MEDS: NORMAL SALINE IV SCH ×4 (03:00→21:32)
[2016-08-19] MEDS: MORPHINE SULFATE 4 MG SYRINGE IV PRN ×2 (03:14→22:48)
[2016-08-19] MEDS: METOCLOPRAMIDE 10mg/2ml INJECTION IV SCH ×4 (03:17→21:32)
[2016-08-19] MEDS: METRONIDAZOLE IVPB 500 MG in NORMAL SALINE 100 ML IV SCH ×4 (04:37→23:56)
[2016-08-19 05:19] LABS: HCT - HEMATOCRIT 37.3 % (41-53); HGB - HEMOGLOBIN 12.5 GM/DL (13.5-17.5); MEAN CORPUSCULAR HGB 29.3 UUG (26-34); MEAN CORPUSCULAR HGB CONC(MCHC 33.5 GM/DL (31-37); MEAN CORPUSCULAR VOLUME 87.4 UM3 (80-100); MEAN PLATELET VOLUME 10.9 UM3 (9.4-12.4); RED BLOOD COUNT 4.27 M/MM3 (4.50-5.90); WBC - WHITE BLOOD COUNT 12.8 T/MM3 (4.5-11.0)
[2016-08-19 05:27] LABS: ANION GAP 10 MEQ/L (5-15); BUN/CREATININE RATIO 17 RATIO (6-26); CALCIUM 8.3 MG/DL (8.4-10.2); CHLORIDE 107 MEQ/L (98-107); CO2 - CARBON DIOXIDE 19 MEQ/L (22-30); CREATININE 1.1 MG/DL (0.8-1.5); GLOMERULAR FILTRATION RATE 67; GLUCOSE 125 MG/DL (75-110); POTASSIUM 4.6 MEQ/L (3.6-5); SODIUM 136 MEQ/L (134-144)
--- NOTE | 2016-08-19 05:33 | NUR ---
SHIFT SUMMARY PT ALERT AND ORIENTED TO SELF AND LOCATION. VITAL SIGNS HAVE BEEN STABLE ON ROOM AIR. PT HAS NEEDED ONE DOSE OF PRN IV PAIN MEDICATION ON THIS SHIFT, PT STATED YES WHEN ASKED IF HE HAD PAIN AND IF HE WOULD LIKE MEDICINE FOR THE PAIN. FLACC SCALE UTILIZED TO DETERMINE A NUMBER. PT HAS HAD 2 LOOSE STOOLS ON THIS SHIFT, A REPEAT C-DIFF SCREEN WAS DONE AND PT REMAINS POSITIVE FOR C-DIFF. PRECAUTIONS REMAIN IN PLACE. RESTRAINTS HAVE NO BEEN NEEDED ON THIS SHIFT. CONSTANT MONITORING AND OCCASIONALLY A ONE ON ONE. WILL CONTINUE TO MONITOR.
[2016-08-19 05:44] LABS: ALBUMIN 2.6 G/DL (3.5-5.0); ANION GAP 10 MEQ/L (5-15); BUN/CREATININE RATIO 17 RATIO (6-26); CALCIUM 8.2 MG/DL (8.4-10.2); CHLORIDE 107 MEQ/L (98-107); CO2 - CARBON DIOXIDE 19 MEQ/L (22-30); CREATININE 1.1 MG/DL (0.8-1.5); GLOMERULAR FILTRATION RATE 67; GLUCOSE 116 MG/DL (75-110); PHOSPHORUS 3.1 MG/DL (2.5-4.5); POTASSIUM 4.9 MEQ/L (3.6-5); SODIUM 136 MEQ/L (134-144)
[2016-08-19 06:23] LABS: BAND NEUTROPHILS # 0.3 T/MM3; LYMPHOCYTES # (MANUAL) 0.4 T/MM3 (1-4.8); MONOCYTES # (MANUAL) 0.3 T/MM3 (0-0.8); NEUTROPHILS #(MANUAL)-ABSOLUTE 11.9 T/MM3 (1.8-7.7); TOTAL CELLS COUNTED 100 %
[2016-08-19] MEDS: PANTOPRAZOLE 40mg INJECTION IV SCH (09:04)
[2016-08-19] MEDS: METOPROLOL XL 50 MG TABLET PO SCH (09:05)
[2016-08-19] MEDS: AMLODIPINE 5 MG TABLET PO SCH (09:05)
[2016-08-19] MEDS: POLYETHYL.GLYCOL 3350 PACKET 17gm PO SCH (09:06)
[2016-08-19] MEDS: ENOXAPARIN 40 MG/0.4 ML INJECTION SQ SCH (09:07)
--- NOTE | 2016-08-19 12:57 | DI ---
Indication: ITS.REASON: ileus PROCEDURE: KUB W/UPRIGHT: Encounter: Initial Comparison: 08/16/2016 Findings: There is moderate colonic gas in the abdomen without evidence of obstruction or free air. No soft tissue mass or abnormal calcification. There is mild elevation of left diaphragm. Impression: Moderate primarily colonic gas which suggests ileus, with some improvement from prior study. .
--- NOTE | 2016-08-19 14:22 | NUR ---
Nutrition risk r/t poor PO intake Diet: full liquid; intake: none and/or refused. RN stated that pt took few sips of Breeze, refused pudding, juice, [place] ice, jello. Pt was eating meals before illness, per sister. RD will continue to monitor. x 1406.
--- NOTE | 2016-08-19 14:27 | PNPDOC ---
SHAWN PERSON SECURITY COMPLIANCE ENGINEER 08/19/16 1413: Subjective Date DATE: 08/19/16 TIME: 14:10 Subjective Vadim was in bed, watching television. He has been A&O to self and location. The only question he answered was to indicate that his abdomen hurt. He offered no further verbal communication. He did not seem to like abdominal examination, and pulled up the sheets quickly. He has been loose stools. He requires constant monitoring and occasionally one-on-one care. Objective Vital Signs Vital signs Vital Signs Date Time Temp Pulse Resp B/P Pulse Ox O2 Delivery O2 Flow Rate FiO2 08/19/16 10:13 99.1 08/19/16 08:45 110 16 08/19/16 07:25 113/68 95 Room Air Telemetry Rhythm: Sinus Tachycardia Height (Feet): 5 Height (Inches): 10.00 Weight (Kilograms): 64.800 General General Appearance: Alert, Well Nourished, Well Developed, No Acute Distress Eyes (Brief) Eyes: FOUND: PERRL, NOT FOUND: scleral icterus ENMT (Brief) ENMT: FOUND: mucosa moist, NOT FOUND: pharnyx erythema Respiratory (Brief) Respiratory: FOUND: clear all negron, equal bilaterally Cardiovascular (Brief) Cardiac: FOUND: regular rate, regular rhythm Abdomen (Brief) Abdominal: FOUND: BS normo active x4 (hypoactive), distended, soft, NOT FOUND: tender Extremities (Brief) Extremity : Extremity Finding: NOT FOUND: edema Musculoskeletal (Brief) Musculoskeletal: NOT FOUND: deformity Integumentary (Brief) Integumentary: FOUND: dry, warm Psychiatric (Brief) Psychiatric: FOUND: alert Laboratory Laboratory Laboratory Tests 08/18/16 03:59 08/19/16 04:18 Laboratory Tests 08/18/16 03:59 08/19/16 04:18 Microbiology Microbiology Microbiology Date/Time Source Procedure Growth Status 08/18/16 12:45 Cath/Port/Line/Picc Blood Culture - Preliminary NO GROWTH AFTER 24 HOURS Resulted 08/18/16 12:44 Cath/Port/Line/Picc Blood Culture - Preliminary NO GROWTH AFTER 24 HOURS Resulted Sepsis Diagnostic Criteria Sepsis Confirmed/Suspected Infection: Yes SIRS Criteria: Temp<=96.8 or >=100.4, Pulse >= 90 beats/min, WBC >=12,000 or <= 4,000, BS >120 in non-diabetic Severe Sepsis Lactate >=2.0 mg/dL Assessment & Plan Problems: (1) Sigmoid volvulus Status: Resolved Assessment & Plan: Low anterior sigmoid resection with mobilization of the splenic flexure and coloproctostomy 08/09/16 (2) Ischemic colitis Status: Acute Assessment & Plan: Due to volvulus/bowel obstruction (3) C. difficile colitis Status: Acute Assessment & Plan: Not POA (4) Severe sepsis Status: Resolved Assessment & Plan: Manifestations of sepsis include the following- 1. Leukocytosis at 16.7 with left shift. Bandemia 15%. 2. Tachycardia at 105 3. Acute abdominal distention/pain 4. Evidence of organ dysfunction including elevated bilirubin 2.0 and hyperglycemia in the absence of diabetes 5. Elevated Lactate of 3.0. (5) Bowel obstruction Status: Resolved Qualifiers: Intestinal obstruction type: unspecified Qualified Codes: K56.60 - Unspecified intestinal obstruction (6) Hypernatremia Status: Resolved Assessment & Plan: Not POA (7) Hyperglycemia Status: Acute (8) Acute kidney injury Status: Resolved Assessment & Plan: Admission creatinine 1.1 increasing to 2.2 on 08/09 (9) Abdominal distention Status: Acute (10) Mental retardation Status: Chronic (11) Epileptic seizure Status: Chronic (12) Constipation Status: Chronic (13) Osteopenia Status: Chronic (14) Hypermagnesemia Status: Acute (15) Hypertension Status: Acute Qualifiers: Hypertension type: essential hypertension Qualified Codes: I10 - Essential (primary) hypertension Plan/Intensity of Service Leukocytosis - persistent at 12.8. Dr. Ariza considering repeat imaging but clinical exam was not worrisome. Tachycardia - continue Toprol and IVF (IVF started until TPN can be resumed) PICC line was pulled out again today - he's not taking in much orally so will need to continue TPN. C diff - continue oral vanco. SBO - continue e-mycin and reglan. KUB repeated today - moderate colonic gas ( suggests ileus), with some improvement. Code Status Full Code Hospital Course Summary Disclaimer The hospital course summary below is not to be considered part of the above Progress Note. Hospital Course Summary 08/07 Admit to inpatient under the care of Dr. Arvizu for abdominal distention. Severe sepsis as evidence by: Acute abdominal pain, Tachycardia at 105, Leukocytosis at 16.7 with left shift, Bilirubin at 2.0, hyperglycemia and Lactate of 3.0. Obtain blood cultures x 2 on admission NS bolus of 500ml wide open, then decrease to 100ml/hr. Zosyn IV every 6 hours for empiric antimicrobial coverage. We will repeat a Lactate at 1830, following sepsis protocol We will consult Dr. Ariza for abdominal distention. Place NG tube to low intermittent suction to help decompress the stomach When necessary behavioral restraints as patient has already pulled out one NG tube on admission. We will keep Vadim NPO for now. Zofran 4mg IV PRN for nausea. Morphine sulfate 2mg IV every 2 hours PRN abdominal pain. Vital signs are: T- 96.5, HR of 105, BP of 180/89, 18 R and 95% RA. Will ask nursing to repeat BP. For DVT prophylaxis we will order SCDs as to not conflict with any surgical intervention that could be needed. We will contact his DPOA for a code status. Recheck CBC and BMP tomorrow morning to follow blood counts, renal function and electrolytes. At time of discharge medical care will return to his primary care provider at [facility] 08/08/16 Continue with NG for decompression to low intermittent suction. Initiate surgical consultation by Dr. Ariza Planning on small bowel series , place patient on cardiac telemetry. Noted to be sinus tachycardia. Will give a one-time dose of IV Lopressor 5 milligrams and continue to monitor. Did review home medications normally on any antihypertensives. Encourage nursing staff to monitor for evidence of pain and treat with when necessary medications. Leukocytosis resolved today down to 8.8. Potassium is found to be elevated at 5.1, however, this is likely secondary to specimen hemolysis. Continue with behavioral restraints for patient safety given that he has pulled his NG tube out 5 times since admission. Will discuss further with attending, Dr. Arvizu 08/09/16 Continue with Zosyn for antimicrobial coverage. Ct abd is obtained this morning revealing high-grade or complete obstruction along with bilateral lower pleural effusions. He is scheduled for Exploratory Lap today at [address] Ariza. Normal saline at 125ml/hr for ongoing hydrations Oxygen needs increased overnight to 10 liters however he is currently down to 2 liters. Chest xray was obtained this morning for further cardiopulmonary eval. Creatine is elevated today, suspect could be due to dehydration or acute obstruction. Repeat BMP pending. Continue Morphine and Zofran for pain control and nausea. SCDs for DVT prophylaxis. Will recheck CBC and BMP to follow blood counts, renal function and electrolytes. Family notified by nursing staff of change in treatment plan 08/10/16 Mr. Johnson underwent attempted decompressive colonoscopy and subsequent laparotomy with sigmoidectomy yesterday. Necrotic bowel was identified due to obstruction/volvulus. There has been persistent tachycardia overnight with need for supplemental oxygen. Creatinine remains elevated 2.0 with increasing BUN. His sister/legal guardian confirms full CODE STATUS. PICC line placed, peripheral nutrition to be changed to TPN. Additional fluids to be given today due to tachycardia and renal impairment. Continue Zosyn for abdominal coverage. HEAD RIGGER narcotics available in addition to nursing controlled doses morphine and Ativan. Chest x-ray to be obtained in the morning in addition to laboratory data. May require IPPB for lung expansion. Up in chair if possible without risking patient removal of NG. Lovenox and IV Protonix for prophylaxis. 08/11/16 Mr. Johnson underwent attempted decompressive colonoscopy and subsequent laparotomy with sigmoidectomy 08/09 for ischemic bowel due to obstruction/ volvulus. Patient removed NG yesterday evening, no nausea or vomiting. Bowel movements 2 today. Check abdominal films in a.m. Patient is hemodynamically stable with elevated blood pressures up to approximately 200/110, scheduled IV metoprolol initiated this evening. Volume status positive, diuresis initiated. Persistent hypernatremia-discussed with pharmacy, no sodium chloride or magnesium in TPN. HEAD RIGGER for pain, Ativan for anxiety as needed. Continue Zosyn for abdominal coverage. Blood sugars stable with TPN thus far. Corrective scale insulin available. Lovenox and IV Protonix for prophylaxis. 08/12 Resting in bed, responds to verbal stimuli. Pain controlled-not pushing HEAD RIGGER often (does have basal rate). Not reporting nausea. Pt has been passing lose stool. NG out; Dr Ariza advancing to clear liquids. Breathing well. Has been ambulating in room with nursing. Continue TPN for nutrition due to decreased oral intake post op. Diet advanced to clear liquids - monitor intake. Will start home Miralax and senna to help bowel motivation. Encourage activities and deep breathing. Continue Zosyn for abdominal coverage. Continue CCU care for close monitoring and support - possible transfer to floor in near future. Monitor lab. Transfer to Sx floor this evening for continuation of care. - Resting in bed. Oral drive decreased-not taking much by mouth. Increased loose stools - C diff positive; Zosyn stopped and stared on Oral Vanco and IV metronidazole. Verbal responses limited. Does report discomfort-hard to tell if it is abdominal in nature or just generalized diffuse pain. Continue TPN for nutrition due to decreased oral intake post op. Start Norvasc for BP control. Will change IV metoprolol to Toprol XL 25mg daily. Speech to check swallow function. Sx: Having copious stools, C-diff came back positive, talked with Karen in pharmacy and referred to [facility], agreed to start Vanco 500 PO Q6h and Flagyl 500 IV Q6h. Will continue to monitor and consider Vanco enema if no improvement. Stop Zosyn. Pharmacy adjusting TPN based on lytes. Continue clear liquids. He walked in the room, will encourage ambulation. 08/14/16 Continue TPN for nutrition due to decreased oral intake post op. Increased abdominal distention concerning for possible post-op ileus. Will add scheduled Reglan 10 mg IV every 6 hours May need to consider placing NG tube. Monitor blood pressure and tachycardia. Continues to be tachy at 110. 08/15/16 Will given a 500 ML IV fluid bolus of NS due to decreased oral drive. Heart rate this afternoon continues consistanely over 100. Will increase Toprol XL to 50 milligrams daily Continue with scheduled Reglan gastric emptying. Continue Miralax for bowel motivation Continue with TPN for nutrition, monitor electrolytes and blood sugars carefully Continue with vancomycin and Flagyl for treatment of C. difficile 08/16 Resting in bed. Nursing report he was up in chair and ambulated earlier. Oral drive decreased-will take about one bite, and then refuse further intake. Say no when asked if short of air. Not reporting ab pain. Continue TPN for nutritional support as oral drive very diminished. Continue Vancomycin and metronidazole. Reglan to help bowel motility. Encourage ambulation to help strength and promote bowel function. 08/17/16 Abdominal distension continues slow to improve. Abdomen is soft and appears to be non tender. Continue with Vanco and Flagyl for treatment of C-Diff Continue TPN for nutritional support as oral drive very diminished. Scheduled Reglan to assist with GI motility. Norvasc daily for blood pressure control. Overall, tachycardia has improved. Continue to monitor. Lopressor IV available as needed. 08/18/16- *Patient remains somewhat distended. Surgery following. Continues on Reglan, IV E-mycin for motility. Documented daily BM for now despite known CDiff. *Continues to have low grade fever- suspect tachycardia is due to being off IVF over the last 12 hours or so. Resume IVF until we can get TPN back onboard. Continue beta-blockers. Continue PO Vanco and IV Flagyl for treatment of CDiff. Repeat KUB in AM. *Need to continue TPN for now- may want to place DHT for supplement of PO intake. Hx of MR may make TF tolerance difficult. *Continue Ruiz for urinary retention. Plan back to LTCF when stable. 08/19/16 Leukocytosis - persistent at 12.8. Dr. Ariza considering repeat imaging but clinical exam was not worrisome. Tachycardia - continue Toprol and IVF (IVF started until TPN can be resumed) PICC line was pulled out again today - he's not taking in much orally so will need to continue TPN. C diff - continue oral vanco. SBO - continue e-mycin and reglan. KUB repeated today - moderate colonic gas ( suggests ileus), with some improvement. ARLETTE ARVIZU MD 08/19/16 1525: Assessment & Plan Plan/Intensity of Service Have independently interviewed and examined pt. Chart reviewed. Case discussed with nursing and my SECURITY COMPLIANCE ENGINEER. Care plan developed with my supervision; agree with above. Resting in bed. Easily awakened, but appears tired. Oral drive decreased, but with encouragement is taking in some water-not much puddings or foods. Says no when asked if mouth sore, feels thirsty, or having ab pain. Lungs: clear bilaterally CV: regular AB: more soft today than yesterday. Not tender. BS not present EXT: no edema Plan: Will start routine Dulcolax suppository BID to try to help stimulate bowel. Oral intake as pt able - with ileus and c diff, not surprising that oral intake decreased. On Reglan and Erythromycin IV to stimulate bowel function - hope to stop Erythromycin in near future. Continue treatment for C diff. PICC line replace. Monitor lab. Encourage ambulation. DVT Prophylaxis: SHAWN Carr APRN Aug 19, 2016 14:13 ARLETTE ARVIZU MD Aug 19, 2016 15:25
[2016-08-19] MEDS: D5NS 1,000 ML IV SCH (15:14)
--- NOTE | 2016-08-19 16:03 | NUR ---
JUANI THIS WORKER SPOKE TO JUANI PALACIOS FOR [facility]. PROVIDED UPDATE ON THIS DATE. SUZANNE REPORTED THAT STAFF FROM [facility] MAY PLAN TO COME AND VISIT THE PT AT THE HOSPITAL. CASE MANAGEMENT WILL CONTINUE TO FOLLOW AND ASSIST IN DISCHARGE PLANNING NEEDED.
--- NOTE | 2016-08-19 16:16 | STDAILYN ---
ST Daily Note Date/Time DATE: 08/19/16 TIME: 16:10 Subjective Comment Pt was alert became agitated when offered juice. Orientations: Alert, Not Cooperative Chief Complaint: small bowel obstruction Pain: No (pt unable to verbalize pain) *Speech Therapy Impressions Pt was positioned upright in bed. OPTICAL STORE MANAGER offered orange juice. Pt took 2 sips with functional swallow, then spilled a small amount on his gown. He declined water and pudding, pointed to objects and gesturing away. Pt appeared to have functional swallow for thin liquids. Recommend small meals of thin liquids with pudding consistency as tolerated. Please contact OPTICAL STORE MANAGER if diet is upgraded and pt has difficulty. ST Treatment Plan: N/A ST Treatment Plan Frequency: N/A Treatment Plan Duration: discontinue therapy Plan of Care Comment: Pt demonstrated functional swallow for thin and pudding consistencies. He declines most attemps at feeding. DC skilled speech therapy at this time. Start Treatment 1: 15:55 Stop Treatment 1: 16:10 Treatment Duration : ST Treatment Charge: Swallow Treatment Minutes of Individual Therapy: 15 ELAN MITCHELL MS CCC-OPTICAL STORE MANAGER Aug 19, 2016 16:14
--- NOTE | 2016-08-19 16:17 | STDAILYN ---
Discharge Note Date/Time DATE: 08/19/16 TIME: 16:16 Discharge From: Inpatient ST Other Reasons for Discharge: swallow plan in place Barriers to Achieving Outcomes: Pt's Medical Condition, Patient's Cognitive Level Discharge Summary: Small meals/snacks of thin liquids and pudding consistency as tolerated. Recommended Follow-up: Contact Dept. prn/as ELAN Pittman MS CCC-NURSE CARE MANAGER Aug 19, 2016 16:17
[2016-08-19] MEDS: MULTI TRACE ELEMENTS IV SCH ×7 (18:21)
[2016-08-19] MEDS: SODIUM CHLORIDE IV SCH ×7 (18:21)
[2016-08-19] MEDS: [UNRECOGNIZED DRUG - OTHER] IV SCH ×7 (18:21)
[2016-08-19] MEDS: MULTI VIT INF IV SCH ×7 (18:21)
[2016-08-19] MEDS: BISACODYL 10 MG SUPPOSITORY RECTALLY SCH (18:22)
[2016-08-19] MEDS: FAT EMULSION 20% 100 ML IV SCH (18:22)
[2016-08-19] MEDS: LORAZEPAM 2 MG/ML INJECTION IV PRN (18:59)
[2016-08-19] MEDS: HALOPERIDOL 5 MG/ML INJECTION IV PRN (19:10)
--- NOTE | 2016-08-19 19:37 | NUR ---
AGITATION UPON ENTERING ROOM TO ENTER SUPPOSITORY, PT WAS INCONT OF BOWEL AND NEEDED COMPLETE BED CHANGE. PT ASSISTED TO COMMODE COOPERATIVELY. AFTER PT WAS FINISHED USING COMMODE, PT WAS ASKED TO SIT IN CHAIR WHILE STAFF MADE BED. PT ASSISTED TO STAND AND WIPE BOTTOM. WHEN FINISHED WIPING, PT BECAME AGGRESSIVE AND BEGAN MAKING A FIST AND SWINGING ARM AT STAFF WHILE RAISING VOICE. STAFF ATTEMPTED TO ASSIST PT TO CHAIR BUT PT REFUSED TO SIT AND CONTINUED TO BE AGGRESSIVE. AT THIS TIME PT WAS STANDING IN THE MIDDLE OF THE ROOM, THEN ATTEMPTED TO CRAWL INTO BED WITHOUT SHEETS. STAFF ASKED PT TO STAND AT SIDE OF BED WHILE BED WAS MADE. AT THIS TIME PT WAS COOPERATIVE BUT AGITATED. PT WAS ASSISTED INTO BED. PT CONTINUED TO BE AGGRESSIVE WITH STAFF WHILE ATTEMPTED TO CLEAN UP ANOTHER INCONT STOOL. PRN ATIVAN 0.5 MG IV GIVEN BY ZEESHAN CARTAGENA, H. DR CASON WAS NOTIFIED OF PT'S BEHAVIOR AT 1858. VERBAL ORDERS FOR HALDOL 0.5-1 MG IV PRN Q4H AND NON-BEHAVIORAL RESTRAINTS FOR LINE PULLING. HALDOL 1 MG IV WAS GIVEN BY ZEESHAN CARTAGENA, H. STAFF IN ROOM AT THIS TIME. PT RESTING IN BED WITH ALARM. PT CONTINUES TO HAVE INCONT STOOL REQUIRING CHANGING AND PT HAS BEEN COOPERATIVE AT THIS TIME WITH STAFF. WILL CONTINUE TO MONITOR.
[2016-08-19] MEDS: INSULIN ASPART 100 UNIT/ML SQ PRN (23:56)
[2016-08-20] VITALS (7 sets, daily range): BP systolic 107–144; BP diastolic 62–83; PULSE 98–104; RESP 16–18; TEMP 97.1–99.4; O2SAT 96–98
--- NOTE | 2016-08-20 02:02 | NUR ---
Chart Check 24 hour chart check completed
[2016-08-20] MEDS: METOCLOPRAMIDE 10mg/2ml INJECTION IV SCH ×4 (02:48→22:30)
[2016-08-20] MEDS: NORMAL SALINE IV SCH ×4 (02:54→22:31)
[2016-08-20] MEDS: ERYTHROMYCIN IV SCH ×4 (02:54→22:31)
[2016-08-20] MEDS: NORMAL SALINE 500 ML IV PRN (02:55)
[2016-08-20] MEDS: MORPHINE SULFATE 4 MG SYRINGE IV PRN (03:19)
[2016-08-20 05:17] LABS: ALBUMIN 2.5 G/DL (3.5-5.0); ALBUMIN/GLOBULIN RATIO 0.7 RATIO (1.1-2.2); ALKALINE PHOSPHATASE 62 U/L (38-126); ALT (SGPT) 59 U/L (21-72); ANION GAP 10 MEQ/L (5-15); AST (SGOT) 43 U/L (17-59); BUN/CREATININE RATIO 15 RATIO (6-26); CALCIUM 7.7 MG/DL (8.4-10.2); CHLORIDE 108 MEQ/L (98-107); CO2 - CARBON DIOXIDE 18 MEQ/L (22-30); GLOMERULAR FILTRATION RATE 75; GLUCOSE 158 MG/DL (75-110); POTASSIUM 4.1 MEQ/L (3.6-5); SODIUM 136 MEQ/L (134-144)
--- NOTE | 2016-08-20 05:26 | NUR ---
SHIFT SUMMARY PT HAS SLEPT SOUNDLY THROUGHOUT THE NIGHT. PT GIVEN MORPHINE SULFATE FOR PAIN, SEE EMAR FOR TIMES. PT REPLIED YES WHEN ASKING IF HE WAS IN PAIN AND NEEDED PAIN MEDICINE. FULL LIQUID DIET, ENCOURAGING ORAL INTAKE FREQUENTLY. ZIMMERMAN CATHETER WITH ADEQUATE OUTPUT. TPN RUNNING @ 100ML/HR IN PURPLE PORT OF DUAL LUMEN PICC. RED PORT IVL. PERIPHERAL IV IN RIGHT UPPER ARM FLUSHES WELL. CONTACT PRECAUTIONS IN USE. ONE ON ONE SUPERVISION UTILIZED. PT HAS NOT ATTEMPTED TO PULL OUT TUBING DURING THIS SHIFT, INCONTINENT OF BOWEL A FEW TIMES DURING THE NIGHT. BED LOCKED AND LOW, BED ALARM ON. CALL LIGHT WITHIN REACH. WILL CONTINUE TO MONITOR.
[2016-08-20 05:46] LABS: HCT - HEMATOCRIT 33.2 % (41-53); HGB - HEMOGLOBIN 11.3 GM/DL (13.5-17.5); MEAN CORPUSCULAR HGB 29.7 UUG (26-34); MEAN CORPUSCULAR VOLUME 87.4 UM3 (80-100); MEAN PLATELET VOLUME 10.9 UM3 (9.4-12.4); WBC - WHITE BLOOD COUNT 9.4 T/MM3 (4.5-11.0)
[2016-08-20] MEDS: INSULIN ASPART 100 UNIT/ML SQ PRN (05:55)
[2016-08-20] MEDS: METRONIDAZOLE IVPB 500 MG in NORMAL SALINE 100 ML IV SCH ×3 (05:55→17:58)
[2016-08-20 05:56] LABS: BAND NEUTROPHILS # 0.1 T/MM3; EOSINOPHILS # (MANUAL) 0.1 T/MM3 (0-0.5); MONOCYTES # (MANUAL) 0.8 T/MM3 (0-0.8); NEUTROPHILS #(MANUAL)-ABSOLUTE 7.3 T/MM3 (1.8-7.7); TOTAL CELLS COUNTED 100 %
--- NOTE | 2016-08-20 08:40 | NUR ---
TPN CONSULT: Today's Labs: NA = 136, CL =108, BUN = 15 K = 4.1, HC03 = 18, CR = 1.0, GLUCOSE = 158 OSMOLALITY = 266, CA = 7.7, PROTEIN = 6.0, ALBUMIN 2.5 We will change NaCl 40meq to Na acetate 40meq with next bag. Also we will add 20mEq potassium acetate. Triglycerides are 21 so no issues with continuing 100mL of 20% fat emulsion daily. Continue same rate.
--- NOTE | 2016-08-20 08:42 | PNSURG ---
Subjective DATE: 08/20/16 TIME: 08:38 Interval History He pulled out PICC yesterday, new one has been placed, remains on TPN. Refusing food and most fluids PO. He did not answer questions for me today. Did not grimace or give any sign of pain with abd palpation. Continues with 2 copious stools yesterday and some moderate and small ones so far this morning. C-diff precautions in place. Objective Vital Signs Date Time Temp Pulse Resp B/P Pulse Ox O2 Delivery O2 Flow Rate FiO2 08/20/16 08:20 104 16 08/20/16 07:20 97.5 114/64 96 Room Air Height (Feet): 5 Height (Inches): 10.00 Weight (Kilograms): 64.200 BMI 20.7 General Appearance: Alert, Awake Cardiac: FOUND: regular rate, regular rhythm Abdominal Brief: FOUND: BS normo active x4, soft, NOT FOUND: tender Incision: FOUND: open to air, reji present, NOT FOUND: erythema Laboratory Item Value Date Time Stool C. difficile Toxin B Gene PCR Positive *A 08/18/16 1941 Stool C. difficile Toxin B Gene PCR Positive *A 08/13/16 0600 Laboratory Tests 08/18/16 03:59 08/19/16 04:18 08/20/16 04:09 Laboratory Tests 08/18/16 03:59 08/19/16 04:18 08/20/16 04:09 Procedure Procedure Date: Aug 09, 2016 Surgeon: To Collado Decompression colonoscopy followed by exploratory laparotomy with low anterior resection and mobilization of splenic flexure GS Assessment & Plan Assessment Stool frequency and volume has decreased but still significant since starting Vanco and Flagyl for c-diff. Pharmacy adjusting TPN based on lytes. He is not eating much even clears, continue TPN. DVT Prophylaxis: SCD'S, Lovenox GI Prophylaxis: Protonix Code Status Full Code Hospital Course Summary Disclaimer The visit summary below is not to be considered part of the above Progress Note. Hospital Course Summary 08/07 Admit to inpatient under the care of Dr. Arvizu for abdominal distention. Severe sepsis as evidence by: Acute abdominal pain, Tachycardia at 105, Leukocytosis at 16.7 with left shift, Bilirubin at 2.0, hyperglycemia and Lactate of 3.0. Obtain blood cultures x 2 on admission NS bolus of 500ml wide open, then decrease to 100ml/hr. Zosyn IV every 6 hours for empiric antimicrobial coverage. We will repeat a Lactate at 1830, following sepsis protocol We will consult Dr. Ariza for abdominal distention. Place NG tube to low intermittent suction to help decompress the stomach When necessary behavioral restraints as patient has already pulled out one NG tube on admission. We will keep Vadim NPO for now. Zofran 4mg IV PRN for nausea. Morphine sulfate 2mg IV every 2 hours PRN abdominal pain. Vital signs are: T- 96.5, HR of 105, BP of 180/89, 18 R and 95% RA. Will ask nursing to repeat BP. For DVT prophylaxis we will order SCDs as to not conflict with any surgical intervention that could be needed. We will contact his DPOA for a code status. Recheck CBC and BMP tomorrow morning to follow blood counts, renal function and electrolytes. At time of discharge medical care will return to his primary care provider at [facility] 08/08/16 Continue with NG for decompression to low intermittent suction. Initiate surgical consultation by Dr. Ariza Planning on small bowel series , place patient on cardiac telemetry. Noted to be sinus tachycardia. Will give a one-time dose of IV Lopressor 5 milligrams and continue to monitor. Did review home medications normally on any antihypertensives. Encourage nursing staff to monitor for evidence of pain and treat with when necessary medications. Leukocytosis resolved today down to 8.8. Potassium is found to be elevated at 5.1, however, this is likely secondary to specimen hemolysis. Continue with behavioral restraints for patient safety given that he has pulled his NG tube out 5 times since admission. Will discuss further with attending, Dr. Arvizu 08/09/16 Continue with Zosyn for antimicrobial coverage. Ct abd is obtained this morning revealing high-grade or complete obstruction along with bilateral lower pleural effusions. He is scheduled for Exploratory Lap today at [address] Ariza. Normal saline at 125ml/hr for ongoing hydrations Oxygen needs increased overnight to 10 liters however he is currently down to 2 liters. Chest xray was obtained this morning for further cardiopulmonary eval. Creatine is elevated today, suspect could be due to dehydration or acute obstruction. Repeat BMP pending. Continue Morphine and Zofran for pain control and nausea. SCDs for DVT prophylaxis. Will recheck CBC and BMP to follow blood counts, renal function and electrolytes. Family notified by nursing staff of change in treatment plan 08/10/16 Mr. Johnson underwent attempted decompressive colonoscopy and subsequent laparotomy with sigmoidectomy yesterday. Necrotic bowel was identified due to obstruction/volvulus. There has been persistent tachycardia overnight with need for supplemental oxygen. Creatinine remains elevated 2.0 with increasing BUN. His sister/legal guardian confirms full CODE STATUS. PICC line placed, peripheral nutrition to be changed to TPN. Additional fluids to be given today due to tachycardia and renal impairment. Continue Zosyn for abdominal coverage. HYDRAMATIC MECHANIC narcotics available in addition to nursing controlled doses morphine and Ativan. Chest x-ray to be obtained in the morning in addition to laboratory data. May require IPPB for lung expansion. Up in chair if possible without risking patient removal of NG. Lovenox and IV Protonix for prophylaxis. 08/11/16 Mr. Johnson underwent attempted decompressive colonoscopy and subsequent laparotomy with sigmoidectomy 08/09 for ischemic bowel due to obstruction/ volvulus. Patient removed NG yesterday evening, no nausea or vomiting. Bowel movements 2 today. Check abdominal films in a.m. Patient is hemodynamically stable with elevated blood pressures up to approximately 200/110, scheduled IV metoprolol initiated this evening. Volume status positive, diuresis initiated. Persistent hypernatremia-discussed with pharmacy, no sodium chloride or magnesium in TPN. HYDRAMATIC MECHANIC for pain, Ativan for anxiety as needed. Continue Zosyn for abdominal coverage. Blood sugars stable with TPN thus far. Corrective scale insulin available. Lovenox and IV Protonix for prophylaxis. 08/12 Resting in bed, responds to verbal stimuli. Pain controlled-not pushing HYDRAMATIC MECHANIC often (does have basal rate). Not reporting nausea. Pt has been passing lose stool. NG out; Dr Ariza advancing to clear liquids. Breathing well. Has been ambulating in room with nursing. Continue TPN for nutrition due to decreased oral intake post op. Diet advanced to clear liquids - monitor intake. Will start home Miralax and senna to help bowel motivation. Encourage activities and deep breathing. Continue Zosyn for abdominal coverage. Continue CCU care for close monitoring and support - possible transfer to floor in near future. Monitor lab. Transfer to Sx floor this evening for continuation of care. -18 Resting in bed. Oral drive decreased-not taking much by mouth. Increased loose stools - C diff positive; Zosyn stopped and stared on Oral Vanco and IV metronidazole. Verbal responses limited. Does report discomfort-hard to tell if it is abdominal in nature or just generalized diffuse pain. Continue TPN for nutrition due to decreased oral intake post op. Start Norvasc for BP control. Will change IV metoprolol to Toprol XL 25mg daily. Speech to check swallow function. Sx: Having copious stools, C-diff came back positive, talked with Karen in pharmacy and referred to [facility], agreed to start Vanco 500 PO Q6h and Flagyl 500 IV Q6h. Will continue to monitor and consider Vanco enema if no improvement. Stop Zosyn. Pharmacy adjusting TPN based on lytes. Continue clear liquids. He walked in the room, will encourage ambulation. 08/14/16 Continue TPN for nutrition due to decreased oral intake post op. Increased abdominal distention concerning for possible post-op ileus. Will add scheduled Reglan 10 mg IV every 6 hours May need to consider placing NG tube. Monitor blood pressure and tachycardia. Continues to be tachy at 110. 08/15/16 Will given a 500 ML IV fluid bolus of NS due to decreased oral drive. Heart rate this afternoon continues consistanely over 100. Will increase Toprol XL to 50 milligrams daily Continue with scheduled Reglan gastric emptying. Continue Miralax for bowel motivation Continue with TPN for nutrition, monitor electrolytes and blood sugars carefully Continue with vancomycin and Flagyl for treatment of C. difficile 08/16 Resting in bed. Nursing report he was up in chair and ambulated earlier. Oral drive decreased-will take about one bite, and then refuse further intake. Say no when asked if short of air. Not reporting ab pain. Continue TPN for nutritional support as oral drive very diminished. Continue Vancomycin and metronidazole. Reglan to help bowel motility. Encourage ambulation to help strength and promote bowel function. 08/17/16 Abdominal distension continues slow to improve. Abdomen is soft and appears to be non tender. Continue with Vanco and Flagyl for treatment of C-Diff Continue TPN for nutritional support as oral drive very diminished. Scheduled Reglan to assist with GI motility. Norvasc daily for blood pressure control. Overall, tachycardia has improved. Continue to monitor. Lopressor IV available as needed. 08/18/16- *Patient remains somewhat distended. Surgery following. Continues on Reglan, IV E-mycin for motility. Documented daily BM for now despite known CDiff. *Continues to have low grade fever- suspect tachycardia is due to being off IVF over the last 12 hours or so. Resume IVF until we can get TPN back onboard. Continue beta-blockers. Continue PO Vanco and IV Flagyl for treatment of CDiff. Repeat KUB in AM. *Need to continue TPN for now- may want to place DHT for supplement of PO intake. Hx of MR may make TF tolerance difficult. *Continue Ruiz for urinary retention. Plan back to LTCF when stable. 08/19/16 Leukocytosis - persistent at 12.8. Dr. Ariza considering repeat imaging but clinical exam was not worrisome. Tachycardia - continue Toprol and IVF (IVF started until TPN can be resumed) PICC line was pulled out again today - he's not taking in much orally so will need to continue TPN. C diff - continue oral vanco. SBO - continue e-mycin and reglan. KUB repeated today - moderate colonic gas ( suggests ileus), with some improvement. LAXMI GUEVARA [employer] Aug 20, 2016 08:42
[2016-08-20] MEDS: POLYETHYL.GLYCOL 3350 PACKET 17gm PO SCH (08:56)
[2016-08-20] MEDS: PANTOPRAZOLE 40mg INJECTION IV SCH (08:56)
[2016-08-20] MEDS: BISACODYL 10 MG SUPPOSITORY RECTALLY SCH ×2 (08:57→17:58)
[2016-08-20] MEDS: METOPROLOL XL 50 MG TABLET PO SCH (08:57)
[2016-08-20] MEDS: AMLODIPINE 5 MG TABLET PO SCH (08:57)
[2016-08-20] MEDS: ENOXAPARIN 40 MG/0.4 ML INJECTION SQ SCH (08:57)
--- NOTE | 2016-08-20 11:32 | NUR ---
JUANI THIS WORKER SPOKE TO SUZANNE AT THIS TIME FROM [facility]. STAFF FROM [facility] PLANNING TO COME AND VISIT PT IN THE HOSPITAL ON THIS DATE AT 1300. STAFF FROM [facility] IS PLANNING TO TRY AND COORDINATED TIME WITH PHYSICAL THERAPY SO THAT THEY CAN BE PRESENT AT THAT TIME.
--- NOTE | 2016-08-20 11:36 | PNPDOC ---
Subjective Date DATE: 08/20/16 TIME: 11:27 Subjective The patient was seen in his room today accompanied by his nurse aid. She stated he had not been complaining of any pain. She said he was not eating well or drinking much. He had a couple of incontinent stools today. He has not had any vomiting. He has been calm and she hasn't seen signs of distress. The patient is not very verbal but says he is okay. I also spoke with the patient's nurse and she has no other concerns other than those mentioned above by the nurse's aide. Objective Vital Signs Vital signs Vital Signs Date Time Temp Pulse Resp B/P Pulse Ox O2 Delivery O2 Flow Rate FiO2 08/20/16 08:20 104 16 08/20/16 07:20 97.5 114/64 96 Room Air GEN-alert, no acute distress, appears calm, patient appears thin HEENT-sclera anicteric, patient has temporal muscle wasting NECK-supple CV-borderline tachycardic rate with irregular rhythm CHEST-to auscultation bilaterally ABD-soft, moderately distended, normal bowel sounds, mildly tender, no rebound or guarding -Ruiz in place with normal appearing urine EXT-no edema, SCDs are on NEURO-moves all 4 extremities SKIN-warm and dry and without rashes Telemetry Rhythm: Sinus Tachycardia Height (Feet): 5 Height (Inches): 10.00 Weight (Kilograms): 64.200 Laboratory Laboratory Laboratory Tests 08/19/16 04:18 08/20/16 04:09 Laboratory Tests 08/19/16 04:18 08/20/16 04:09 Microbiology Microbiology Microbiology Date/Time Source Procedure Growth Status 08/18/16 12:45 Cath/Port/Line/Picc Blood Culture - Preliminary NO GROWTH AFTER 24 HOURS Resulted 08/18/16 12:44 Cath/Port/Line/Picc Blood Culture - Preliminary NO GROWTH AFTER 24 HOURS Resulted Radiology KUB yesterday Comparison: 08/16/2016 Findings: There is moderate colonic gas in the abdomen without evidence of obstruction or free air. No soft tissue mass or abnormal calcification. There is mild elevation of left diaphragm. Impression: Moderate primarily colonic gas which suggests ileus, with some improvement from prior study. Sepsis Diagnostic Criteria Sepsis Confirmed/Suspected Infection: Yes SIRS Criteria: Temp<=96.8 or >=100.4, Pulse >= 90 beats/min, WBC >=12,000 or <= 4,000, BS >120 in non-diabetic Severe Sepsis Lactate >=2.0 mg/dL Assessment & Plan Problems: (1) Sigmoid volvulus Status: Resolved Assessment & Plan: Low anterior sigmoid resection with mobilization of the splenic flexure and coloproctostomy 08/09/16 (2) Ischemic colitis Status: Resolved Assessment & Plan: Due to volvulus/bowel obstruction (3) C. difficile colitis Status: Acute Assessment & Plan: Not POA (4) Severe sepsis Status: Resolved Assessment & Plan: Manifestations of sepsis include the following- 1. Leukocytosis at 16.7 with left shift. Bandemia 15%. 2. Tachycardia at 105 3. Acute abdominal distention/pain 4. Evidence of organ dysfunction including elevated bilirubin 2.0 and hyperglycemia in the absence of diabetes 5. Elevated Lactate of 3.0. (5) Bowel obstruction Status: Resolved Qualifiers: Intestinal obstruction type: unspecified Qualified Codes: K56.60 - Unspecified intestinal obstruction (6) Hypernatremia Status: Resolved Assessment & Plan: Not POA (7) Hyperglycemia Status: Acute (8) Acute kidney injury Status: Resolved Assessment & Plan: Admission creatinine 1.1 increasing to 2.2 on 08/09 (9) Abdominal distention Status: Acute (10) Mental retardation Status: Chronic (11) Epileptic seizure Status: Chronic (12) Constipation Status: Chronic (13) Osteopenia Status: Chronic (14) Hypermagnesemia Status: Acute (15) Hypertension Status: Acute Qualifiers: Hypertension type: essential hypertension Qualified Codes: I10 - Essential (primary) hypertension Assessment Impression Status post low anterior sigmoid resection for 2016 for sigmoid volvulus with ischemia Prolonged ileus C. difficile colitis Malnutrition-on TPN Mental retardation/developmental delay Acute kidney injury-resolved Epilepsy history-no seizures this hospitalization History of gastric ulcer Hypertension-not diagnosed prior to this admission but started on Norvasc and metoprolol during this hospitalization Tachycardia-improved with metoprolol. The patient is not significantly anemic. TSH was normal. Leukocytosis-improved today Mild anemia-continue to monitor Hyperglycemia secondary to NPT-[id number] Plan Continue oral Vanco and IV metronidazole for C. difficile colitis Continue Reglan for ileus. Electrolytes are okay. Consult PT and OT and increase activity as tolerated. Tinea to monitor renal function and electrolytes closely. Continue Protonix for history of gastric ulcer Continue Lovenox for DVT prophylaxis Continue metoprolol, Norvasc for hypertension Discussed with the patient's nurse, case management, nurses aide, and pharmacist. DVT Prophylaxis: Lovenox Code Status Full Code Hospital Course Summary Disclaimer The hospital course summary below is not to be considered part of the above Progress Note. Hospital Course Summary 08/07 Admit to inpatient under the care of Dr. Arvizu for abdominal distention. Severe sepsis as evidence by: Acute abdominal pain, Tachycardia at 105, Leukocytosis at 16.7 with left shift, Bilirubin at 2.0, hyperglycemia and Lactate of 3.0. Obtain blood cultures x 2 on admission NS bolus of 500ml wide open, then decrease to 100ml/hr. Zosyn IV every 6 hours for empiric antimicrobial coverage. We will repeat a Lactate at 1830, following sepsis protocol We will consult Dr. Ariza for abdominal distention. Place NG tube to low intermittent suction to help decompress the stomach When necessary behavioral restraints as patient has already pulled out one NG tube on admission. We will keep Vadim NPO for now. Zofran 4mg IV PRN for nausea. Morphine sulfate 2mg IV every 2 hours PRN abdominal pain. Vital signs are: T- 96.5, HR of 105, BP of 180/89, 18 R and 95% RA. Will ask nursing to repeat BP. For DVT prophylaxis we will order SCDs as to not conflict with any surgical intervention that could be needed. We will contact his DPOA for a code status. Recheck CBC and BMP tomorrow morning to follow blood counts, renal function and electrolytes. At time of discharge medical care will return to his primary care provider at [facility] 08/08/16 Continue with NG for decompression to low intermittent suction. Initiate surgical consultation by Dr. Ariza Planning on small bowel series , place patient on cardiac telemetry. Noted to be sinus tachycardia. Will give a one-time dose of IV Lopressor 5 milligrams and continue to monitor. Did review home medications normally on any antihypertensives. Encourage nursing staff to monitor for evidence of pain and treat with when necessary medications. Leukocytosis resolved today down to 8.8. Potassium is found to be elevated at 5.1, however, this is likely secondary to specimen hemolysis. Continue with behavioral restraints for patient safety given that he has pulled his NG tube out 5 times since admission. Will discuss further with attending, Dr. Arvizu 08/09/16 Continue with Zosyn for antimicrobial coverage. Ct abd is obtained this morning revealing high-grade or complete obstruction along with bilateral lower pleural effusions. He is scheduled for Exploratory Lap today at [address] Ariza. Normal saline at 125ml/hr for ongoing hydrations Oxygen needs increased overnight to 10 liters however he is currently down to 2 liters. Chest xray was obtained this morning for further cardiopulmonary eval. Creatine is elevated today, suspect could be due to dehydration or acute obstruction. Repeat BMP pending. Continue Morphine and Zofran for pain control and nausea. SCDs for DVT prophylaxis. Will recheck CBC and BMP to follow blood counts, renal function and electrolytes. Family notified by nursing staff of change in treatment plan 08/10/16 Mr. Johnson underwent attempted decompressive colonoscopy and subsequent laparotomy with sigmoidectomy yesterday. Necrotic bowel was identified due to obstruction/volvulus. There has been persistent tachycardia overnight with need for supplemental oxygen. Creatinine remains elevated 2.0 with increasing BUN. His sister/legal guardian confirms full CODE STATUS. PICC line placed, peripheral nutrition to be changed to TPN. Additional fluids to be given today due to tachycardia and renal impairment. Continue Zosyn for abdominal coverage. FUR TAILOR narcotics available in addition to nursing controlled doses morphine and Ativan. Chest x-ray to be obtained in the morning in addition to laboratory data. May require IPPB for lung expansion. Up in chair if possible without risking patient removal of NG. Lovenox and IV Protonix for prophylaxis. 08/11/16 Mr. Johnson underwent attempted decompressive colonoscopy and subsequent laparotomy with sigmoidectomy 08/09 for ischemic bowel due to obstruction/ volvulus. Patient removed NG yesterday evening, no nausea or vomiting. Bowel movements 2 today. Check abdominal films in a.m. Patient is hemodynamically stable with elevated blood pressures up to approximately 200/110, scheduled IV metoprolol initiated this evening. Volume status positive, diuresis initiated. Persistent hypernatremia-discussed with pharmacy, no sodium chloride or magnesium in TPN. FUR TAILOR for pain, Ativan for anxiety as needed. Continue Zosyn for abdominal coverage. Blood sugars stable with TPN thus far. Corrective scale insulin available. Lovenox and IV Protonix for prophylaxis. 08/12 Resting in bed, responds to verbal stimuli. Pain controlled-not pushing FUR TAILOR often (does have basal rate). Not reporting nausea. Pt has been passing lose stool. NG out; Dr Ariza advancing to clear liquids. Breathing well. Has been ambulating in room with nursing. Continue TPN for nutrition due to decreased oral intake post op. Diet advanced to clear liquids - monitor intake. Will start home Miralax and senna to help bowel motivation. Encourage activities and deep breathing. Continue Zosyn for abdominal coverage. Continue CCU care for close monitoring and support - possible transfer to floor in near future. Monitor lab. Transfer to Sx floor this evening for continuation of care. 08-[address] Oral drive decreased-not taking much by mouth. Increased loose stools - C diff positive; Zosyn stopped and stared on Oral Vanco and IV metronidazole. Verbal responses limited. Does report discomfort-hard to tell if it is abdominal in nature or just generalized diffuse pain. Continue TPN for nutrition due to decreased oral intake post op. Start Norvasc for BP control. Will change IV metoprolol to Toprol XL 25mg daily. Speech to check swallow function. Sx: Having copious stools, C-diff came back positive, talked with Karen in pharmacy and referred to [facility], agreed to start Vanco 500 PO Q6h and Flagyl 500 IV Q6h. Will continue to monitor and consider Vanco enema if no improvement. Stop Zosyn. Pharmacy adjusting TPN based on lytes. Continue clear liquids. He walked in the room, will encourage ambulation. 08/14/16 Continue TPN for nutrition due to decreased oral intake post op. Increased abdominal distention concerning for possible post-op ileus. Will add scheduled Reglan 10 mg IV every 6 hours May need to consider placing NG tube. Monitor blood pressure and tachycardia. Continues to be tachy at 110. 08/15/16 Will given a 500 ML IV fluid bolus of NS due to decreased oral drive. Heart rate this afternoon continues consistanely over 100. Will increase Toprol XL to 50 milligrams daily Continue with scheduled Reglan gastric emptying. Continue Miralax for bowel motivation Continue with TPN for nutrition, monitor electrolytes and blood sugars carefully Continue with vancomycin and Flagyl for treatment of C. difficile 08/16 Resting in bed. Nursing report he was up in chair and ambulated earlier. Oral drive decreased-will take about one bite, and then refuse further intake. Say no when asked if short of air. Not reporting ab pain. Continue TPN for nutritional support as oral drive very diminished. Continue Vancomycin and metronidazole. Reglan to help bowel motility. Encourage ambulation to help strength and promote bowel function. 08/17/16 Abdominal distension continues slow to improve. Abdomen is soft and appears to be non tender. Continue with Vanco and Flagyl for treatment of C-Diff Continue TPN for nutritional support as oral drive very diminished. Scheduled Reglan to assist with GI motility. Norvasc daily for blood pressure control. Overall, tachycardia has improved. Continue to monitor. Lopressor IV available as needed. 08/18/16- *Patient remains somewhat distended. Surgery following. Continues on Reglan, IV E-mycin for motility. Documented daily BM for now despite known CDiff. *Continues to have low grade fever- suspect tachycardia is due to being off IVF over the last 12 hours or so. Resume IVF until we can get TPN back onboard. Continue beta-blockers. Continue PO Vanco and IV Flagyl for treatment of CDiff. Repeat KUB in AM. *Need to continue TPN for now- may want to place DHT for supplement of PO intake. Hx of MR may make TF tolerance difficult. *Continue Ruiz for urinary retention. Plan back to LTCF when stable. 08/19/16 Leukocytosis - persistent at 12.8. Dr. Ariza considering repeat imaging but clinical exam was not worrisome. Tachycardia - continue Toprol and IVF (IVF started until TPN can be resumed) PICC line was pulled out again today - he's not taking in much orally so will need to continue TPN. C diff - continue oral vanco. SBO - continue e-mycin and reglan. KUB repeated today - moderate colonic gas ( suggests ileus), with some improvement. BENJIE HILL MD Aug 20, 2016 11:30
[2016-08-20] MEDS: MULTI TRACE ELEMENTS IV SCH ×15 (14:32→16:36)
[2016-08-20] MEDS: [UNRECOGNIZED DRUG - OTHER] IV SCH ×7 (14:32)
[2016-08-20] MEDS: SODIUM CHLORIDE IV SCH ×7 (14:32)
[2016-08-20] MEDS: MULTI VIT INF IV SCH ×15 (14:32→16:36)
[2016-08-20] MEDS: POTASSIUM PHOSPHATE IV SCH ×8 (16:36)
[2016-08-20] MEDS: [UNRECOGNIZED DRUG - OTHER] IV SCH ×8 (16:36)
[2016-08-20] MEDS: FAT EMULSION 20% 100 ML IV SCH (16:37)
--- NOTE | 2016-08-20 17:35 | NUR ---
Summary VS stable on RA. Pt has been up to the recliner X2 meals today. Pt ate 100% of lunch today, at this time visitors from [facility] were in to see Pt and encouraged Pt to eat lunch at that time Pt cooperated and fed and drank himself. [facility] verbalized they were going to try to have someone from the facility come tomorrow and encourage Pt to eat again. Pt has denied pain and nausea this shift. Utilized 1:1 sitter throughout shift, Pt reached for PICC line at one time but did not attempt to pull any lines out for the rest of the shift. Ruiz catheter in place with adequate output. Double lumen PICC in the left upper arm flushes and aspirates well. Peripheral in right upper arm flushes well. Pt was up to recliner for dinner, at that time Pt stood up and requested to go back to bed. Pt back to bed at this time. Bed alarm on, side rails up X2.
--- NOTE | 2016-08-20 19:58 | PNF ---
DATE OF SERVICE 08/20/2016 FINDINGS Mr. Johnson has reportedly eaten a lot better today. Apparently some of his normal staff members were present today and he did eat all of his lunch. EXAM VITAL SIGNS: Afebrile, normotensive. Please refer to EMR. ABDOMEN: Soft. Still remains slightly distended. No evidence for guarding or rebound. LABORATORY/RADIOGRAPHIC EVALUATION The patient's white count is on a downward trend at 9.4. Hemoglobin overall stable at 11.3. CMP obtained and reviewed. ASSESSMENT 65-year-old mentally handicapped gentleman status post exploratory laparotomy with sigmoid resection/low anterior resection with coloproctostomy secondary to necrosis of sigmoid colon most likely secondary to volvulus. Patient with development of C. diff colitis postoperatively. Patient beginning to show improvement. PLAN Will DC his Ruiz. Will continue otherwise with current care. I am hopeful the patient will begin to make some progress and be able to be discharged before the weak is out. MTDD
[2016-08-21] VITALS (7 sets, daily range): BP systolic 102–134; BP diastolic 72–82; PULSE 89–107; RESP 16–20; TEMP 96.8–97.8; O2SAT 98–99
[2016-08-21] MEDS: METRONIDAZOLE IVPB 500 MG in NORMAL SALINE 100 ML IV SCH ×4 (00:30→17:42)
[2016-08-21] MEDS: INSULIN ASPART 100 UNIT/ML SQ PRN ×2 (00:31→06:58)
[2016-08-21] MEDS: METOCLOPRAMIDE 10mg/2ml INJECTION IV SCH ×4 (02:24→21:32)
[2016-08-21] MEDS: ERYTHROMYCIN IV SCH (02:24)
[2016-08-21] MEDS: NORMAL SALINE IV SCH (02:24)
--- NOTE | 2016-08-21 03:03 | NUR ---
PROVIDER COMMUNICATION Requested from Dr Quiroz via [facility] to repeat Cdiff. Dr Quiroz okayed this. Orders will be entered.
--- NOTE | 2016-08-21 05:17 | NUR ---
SHIFT SUMMARY I HAVE BEEN UNABLE TO DETERMINE PATIENT ORIENTATION THIS SHIFT. VITAL SIGNS HAVE BEEN STABLE ON ROOM AIR. PATIENT HAD ONE INCONTINENT BM THIS SHIFT. STOOL WAS LESS LIQUID, SO A NEW SAMPLE WAS SENT FOR CDIFF TESTING. DURING CHANGE DISCOVERED AN OPEN AREA ON THE SACRUM; BARRIER CREAM WAS APPLIED. PATIENT HAS DENIED PAIN THIS SHIFT AND APPEARS COMFORTABLE. PATIENT CONTINUES TO REFUSE ORAL INTAKE, BUT HAS TAKEN A FEW SIPS OF WATER. WILL CONTINUE TO MONITOR.
[2016-08-21 06:03] LABS: HCT - HEMATOCRIT 34.9 % (41-53); HGB - HEMOGLOBIN 11.4 GM/DL (13.5-17.5); MEAN CORPUSCULAR HGB 28.5 UUG (26-34); MEAN CORPUSCULAR HGB CONC(MCHC 32.7 GM/DL (31-37); MEAN CORPUSCULAR VOLUME 87.3 UM3 (80-100); MEAN PLATELET VOLUME 10.4 UM3 (9.4-12.4); WBC - WHITE BLOOD COUNT 10.5 T/MM3 (4.5-11.0)
[2016-08-21 06:07] LABS: C. DIFFICILE TOXIN B NEGATIVE (NEGATIVE)
[2016-08-21] MEDS: NORMAL SALINE 500 ML IV PRN ×2 (06:11→12:09)
[2016-08-21 06:12] LABS: ALBUMIN 2.7 G/DL (3.5-5.0); ANION GAP 9 MEQ/L (5-15); BUN/CREATININE RATIO 13 RATIO (6-26); CALCIUM 8.3 MG/DL (8.4-10.2); CHLORIDE 108 MEQ/L (98-107); CO2 - CARBON DIOXIDE 20 MEQ/L (22-30); GLOMERULAR FILTRATION RATE 75; GLUCOSE 129 MG/DL (75-110); PHOSPHORUS 3.1 MG/DL (2.5-4.5); POTASSIUM 4.4 MEQ/L (3.6-5); SODIUM 137 MEQ/L (134-144)
[2016-08-21 06:18] LABS: BAND NEUTROPHILS # 0.1 T/MM3; EOSINOPHILS # (MANUAL) 0.2 T/MM3 (0-0.5); LYMPHOCYTES # (MANUAL) 0.3 T/MM3 (1-4.8); MONOCYTES # (MANUAL) 0.6 T/MM3 (0-0.8); NEUTROPHILS #(MANUAL)-ABSOLUTE 9.2 T/MM3 (1.8-7.7); TOTAL CELLS COUNTED 100 %
[2016-08-21] MEDS: POLYETHYL.GLYCOL 3350 PACKET 17gm PO SCH (08:33)
[2016-08-21] MEDS: AMLODIPINE 5 MG TABLET PO SCH (08:34)
[2016-08-21] MEDS: METOPROLOL XL 50 MG TABLET PO SCH (08:34)
[2016-08-21] MEDS: ENOXAPARIN 40 MG/0.4 ML INJECTION SQ SCH (08:35)
[2016-08-21] MEDS: PANTOPRAZOLE 40mg INJECTION IV SCH (08:50)
[2016-08-21] MEDS: BISACODYL 10 MG SUPPOSITORY RECTALLY SCH ×2 (09:00→17:00)
[2016-08-21] MEDS: LORAZEPAM 2 MG/ML INJECTION IV PRN ×3 (09:26→22:23)
--- NOTE | 2016-08-21 09:27 | PNSURG ---
Subjective DATE: 08/21/16 TIME: 09:20 Interval History He is in the recliner, just got back from a walk. He does not answer questions. Staff said she got the spoon thrown at her when attempting to encourage breakfast. Reports are that he ate 100% of lunch when his care facility staff was present, but is refusing food from hospital staff. C-diff returned negative this am. Plans are to transfer him across the [facility] to a "clean" room, and decontaminate is current room now that the C-diff is neg. Plan on DC the reji on Friday. Objective Vital Signs Date Time Temp Pulse Resp B/P Pulse Ox O2 Delivery O2 Flow Rate FiO2 08/21/16 07:36 97.7 106 18 134/82 99 Room Air Height (Feet): 5 Height (Inches): 10.00 Weight (Kilograms): 65.800 BMI 20.7 General Appearance: Awake Respiratory: FOUND: clear bilaterally Cardiac: FOUND: regular rate, regular rhythm Abdominal Brief: NOT FOUND: tender Incision: FOUND: Clean, Dry, Intact, open to air, reji present, NOT FOUND: erythema Laboratory Item Value Date Time Stool C. difficile Toxin B Gene PCR Negative 08/21/16 0327 Stool C. difficile Toxin B Gene PCR Positive *A 08/18/16 1941 Stool C. difficile Toxin B Gene PCR Positive *A 08/13/16 0600 Laboratory Tests 08/19/16 04:18 08/20/16 04:09 08/21/16 05:09 Laboratory Tests 08/19/16 04:18 08/20/16 04:09 08/21/16 05:09 Procedure Procedure Date: Aug 09, 2016 Surgeon: To Procedure Decompression colonoscopy followed by exploratory laparotomy with low anterior resection and mobilization of splenic flexure GS Assessment & Plan Problems: (1) C. difficile colitis Status: Resolved (2) Sigmoid volvulus Status: Resolved (3) Mental retardation Status: Chronic Assessment He is in the recliner, just got back from a walk. He does not answer questions. Staff said she got the spoon thrown at her when attempting to encourage breakfast. Reports are that he ate 100% of lunch when his care facility staff was present, but is refusing food from hospital staff. C-diff returned negative this am. Plans are to transfer him across the l[place] to a "clean" room, and decontaminate is current room now that the C-diff is neg. Plan on DC the reji on Friday. Erythromycin IV DC'd Pharmacy adjusting TPN based on lytes. He is not eating much even clears, continue TPN. DVT Prophylaxis: SCD'S, Lovenox GI Prophylaxis: Protonix Code Status Full Code Hospital Course Summary Disclaimer The visit summary below is not to be considered part of the above Progress Note. Hospital Course Summary 08/07 Admit to inpatient under the care of Dr. Arvizu for abdominal distention. Severe sepsis as evidence by: Acute abdominal pain, Tachycardia at 105, Leukocytosis at 16.7 with left shift, Bilirubin at 2.0, hyperglycemia and Lactate of 3.0. Obtain blood cultures x 2 on admission NS bolus of 500ml wide open, then decrease to 100ml/hr. Zosyn IV every 6 hours for empiric antimicrobial coverage. We will repeat a Lactate at 1830, following sepsis protocol We will consult Dr. Ariza for abdominal distention. Place NG tube to low intermittent suction to help decompress the stomach When necessary behavioral restraints as patient has already pulled out one NG tube on admission. We will keep Vadim NPO for now. Zofran 4mg IV PRN for nausea. Morphine sulfate 2mg IV every 2 hours PRN abdominal pain. Vital signs are: T- 96.5, HR of 105, BP of 180/89, 18 R and 95% RA. Will ask nursing to repeat BP. For DVT prophylaxis we will order SCDs as to not conflict with any surgical intervention that could be needed. We will contact his DPOA for a code status. Recheck CBC and BMP tomorrow morning to follow blood counts, renal function and electrolytes. At time of discharge medical care will return to his primary care provider at [facility] 08/08/16 Continue with NG for decompression to low intermittent suction. Initiate surgical consultation by Dr. Ariza Planning on small bowel series , place patient on cardiac telemetry. Noted to be sinus tachycardia. Will give a one-time dose of IV Lopressor 5 milligrams and continue to monitor. Did review home medications normally on any antihypertensives. Encourage nursing staff to monitor for evidence of pain and treat with when necessary medications. Leukocytosis resolved today down to 8.8. Potassium is found to be elevated at 5.1, however, this is likely secondary to specimen hemolysis. Continue with behavioral restraints for patient safety given that he has pulled his NG tube out 5 times since admission. Will discuss further with attending, Dr. Arvizu 08/09/16 Continue with Zosyn for antimicrobial coverage. Ct abd is obtained this morning revealing high-grade or complete obstruction along with bilateral lower pleural effusions. He is scheduled for Exploratory Lap today at [address] Ariza. Normal saline at 125ml/hr for ongoing hydrations Oxygen needs increased overnight to 10 liters however he is currently down to 2 liters. Chest xray was obtained this morning for further cardiopulmonary eval. Creatine is elevated today, suspect could be due to dehydration or acute obstruction. Repeat BMP pending. Continue Morphine and Zofran for pain control and nausea. SCDs for DVT prophylaxis. Will recheck CBC and BMP to follow blood counts, renal function and electrolytes. Family notified by nursing staff of change in treatment plan 08/10/16 Mr. Johnson underwent attempted decompressive colonoscopy and subsequent laparotomy with sigmoidectomy yesterday. Necrotic bowel was identified due to obstruction/volvulus. There has been persistent tachycardia overnight with need for supplemental oxygen. Creatinine remains elevated 2.0 with increasing BUN. His sister/legal guardian confirms full CODE STATUS. PICC line placed, peripheral nutrition to be changed to TPN. Additional fluids to be given today due to tachycardia and renal impairment. Continue Zosyn for abdominal coverage. SOLAR TECH narcotics available in addition to nursing controlled doses morphine and Ativan. Chest x-ray to be obtained in the morning in addition to laboratory data. May require IPPB for lung expansion. Up in chair if possible without risking patient removal of NG. Lovenox and IV Protonix for prophylaxis. 08/11/16 Mr. Johnson underwent attempted decompressive colonoscopy and subsequent laparotomy with sigmoidectomy 08/09 for ischemic bowel due to obstruction/ volvulus. Patient removed NG yesterday evening, no nausea or vomiting. Bowel movements 2 today. Check abdominal films in a.m. Patient is hemodynamically stable with elevated blood pressures up to approximately 200/110, scheduled IV metoprolol initiated this evening. Volume status positive, diuresis initiated. Persistent hypernatremia-discussed with pharmacy, no sodium chloride or magnesium in TPN. SOLAR TECH for pain, Ativan for anxiety as needed. Continue Zosyn for abdominal coverage. Blood sugars stable with TPN thus far. Corrective scale insulin available. Lovenox and IV Protonix for prophylaxis. 08/12 Resting in bed, responds to verbal stimuli. Pain controlled-not pushing SOLAR TECH often (does have basal rate). Not reporting nausea. Pt has been passing lose stool. NG out; Dr Ariza advancing to clear liquids. Breathing well. Has been ambulating in room with nursing. Continue TPN for nutrition due to decreased oral intake post op. Diet advanced to clear liquids - monitor intake. Will start home Miralax and senna to help bowel motivation. Encourage activities and deep breathing. Continue Zosyn for abdominal coverage. Continue CCU care for close monitoring and support - possible transfer to floor in near future. Monitor lab. Transfer to Sx floor this evening for continuation of care. 08-[address]. Oral drive decreased-not taking much by mouth. Increased loose stools - C diff positive; Zosyn stopped and stared on Oral Vanco and IV metronidazole. Verbal responses limited. Does report discomfort-hard to tell if it is abdominal in nature or just generalized diffuse pain. Continue TPN for nutrition due to decreased oral intake post op. Start Norvasc for BP control. Will change IV metoprolol to Toprol XL 25mg daily. Speech to check swallow function. Sx: Having copious stools, C-diff came back positive, talked with Karen in pharmacy and referred to [facility], agreed to start Vanco 500 PO Q6h and Flagyl 500 IV Q6h. Will continue to monitor and consider Vanco enema if no improvement. Stop Zosyn. Pharmacy adjusting TPN based on lytes. Continue clear liquids. He walked in the room, will encourage ambulation. 08/14/16 Continue TPN for nutrition due to decreased oral intake post op. Increased abdominal distention concerning for possible post-op ileus. Will add scheduled Reglan 10 mg IV every 6 hours May need to consider placing NG tube. Monitor blood pressure and tachycardia. Continues to be tachy at 110. 08/15/16 Will given a 500 ML IV fluid bolus of NS due to decreased oral drive. Heart rate this afternoon continues consistanely over 100. Will increase Toprol XL to 50 milligrams daily Continue with scheduled Reglan gastric emptying. Continue Miralax for bowel motivation Continue with TPN for nutrition, monitor electrolytes and blood sugars carefully Continue with vancomycin and Flagyl for treatment of C. difficile 08/16 Resting in bed. Nursing report he was up in chair and ambulated earlier. Oral drive decreased-will take about one bite, and then refuse further intake. Say no when asked if short of air. Not reporting ab pain. Continue TPN for nutritional support as oral drive very diminished. Continue Vancomycin and metronidazole. Reglan to help bowel motility. Encourage ambulation to help strength and promote bowel function. 08/17/16 Abdominal distension continues slow to improve. Abdomen is soft and appears to be non tender. Continue with Vanco and Flagyl for treatment of C-Diff Continue TPN for nutritional support as oral drive very diminished. Scheduled Reglan to assist with GI motility. Norvasc daily for blood pressure control. Overall, tachycardia has improved. Continue to monitor. Lopressor IV available as needed. 08/18/16- *Patient remains somewhat distended. Surgery following. Continues on Reglan, IV E-mycin for motility. Documented daily BM for now despite known CDiff. *Continues to have low grade fever- suspect tachycardia is due to being off IVF over the last 12 hours or so. Resume IVF until we can get TPN back onboard. Continue beta-blockers. Continue PO Vanco and IV Flagyl for treatment of CDiff. Repeat KUB in AM. *Need to continue TPN for now- may want to place DHT for supplement of PO intake. Hx of MR may make TF tolerance difficult. *Continue Ruiz for urinary retention. Plan back to LTCF when stable. 08/19/16 Leukocytosis - persistent at 12.8. Dr. Ariza considering repeat imaging but clinical exam was not worrisome. Tachycardia - continue Toprol and IVF (IVF started until TPN can be resumed) PICC line was pulled out again today - he's not taking in much orally so will need to continue TPN. C diff - continue oral vanco. SBO - continue e-mycin and reglan. KUB repeated today - moderate colonic gas ( suggests ileus), with some improvement. 08-21 Surgical: Reports are that he ate 100% of lunch when his care facility staff was present, but is refusing food from hospital staff. C-diff returned negative this am. Plans are to transfer him across the [place] to a "clean" room, and decontaminate is current room now that the C-diff is neg. Plan to DC the reji on Friday. Erythromycin IV DC'd Pharmacy adjusting TPN based on salo. LAXMI GUEVARA STUDIO MODEL Aug 21, 2016 09:23
--- NOTE | 2016-08-21 10:26 | NUR ---
CM THIS WORKER RETURNED CALL TO SUZANNE, VEHICLE OPERATOR AT [facility]. UPDATE PROVIDED ON ORAL INTAKE. SUZANNE PLANNING TO SEND A STAFF MEMBER TO THE HOSPITAL AT 1230 ON THIS DATE TO HELP ENCOURAGE PT TO EAT. THIS WORKER ADVISED ONE ON ONE POTATO CHIP FRIER OF THIS. CASE MANAGEMENT WILL CONTINUE TO FOLLOW AND ASSIST IN DISCHARGE PLANNING.
[2016-08-21] MEDS: MULTI TRACE ELEMENTS IV SCH ×8 (12:02)
[2016-08-21] MEDS: [UNRECOGNIZED DRUG - OTHER] IV SCH ×8 (12:02)
[2016-08-21] MEDS: MULTI VIT INF IV SCH ×8 (12:02)
[2016-08-21] MEDS: POTASSIUM PHOSPHATE IV SCH ×8 (12:02)
--- NOTE | 2016-08-21 12:15 | NUR ---
ROOM CHANGE PT MOVED TO ROOM 129 R/T C-DIFF PRECAUTIONS LIFTED AND ROOM 112 NEEDING TO BE CLEANED/UV LIGHT FOR DISINFECTION.
--- NOTE | 2016-08-21 13:30 | NUR ---
CHRISTA VARGAS SUGGESTIONS STAFF MEMBER FROM [facility] HERE TO FEED PT LUNCH. PT WILLING TO HAVE 100%. STAFF SUGGESTED OFFERING PT CHEESEBURGER AND TAMAZIGHT FRIES WELL SCRAMBLED EGGS AND DIFFERENT COLD CEREALS.
--- NOTE | 2016-08-21 14:32 | NUR ---
JUANI THIS WORKER SPOKE WITH SUZANNE FROM [facility] ON THIS DATE. SUZANNE REPORTED THAT STAFF WAS ABLE TO GET PT TO EAT FOR THE LUNCH TIME MEAL. [facility] STAFF WILLING TO COME ON 08/22/16 FOR ALL THREE MEALS. THIS WORKER NOTIFIED PRIMARY NURSE OF THIS PLAN FOR 08/22/16.
--- NOTE | 2016-08-21 14:50 | PNSURG ---
Subjective DATE: 08/21/16 TIME: 14:42 Interval History Staff reported that Vadim ate 100% of his noon meal with care facility staff present. Care facility staff indicate he likes mac and cheese and cheeseburgers. Will change him to regular diet. And possible start weaning down TPN tomorrow. Objective Vital Signs Date Time Temp Pulse Resp B/P Pulse Ox O2 Delivery O2 Flow Rate FiO2 08/21/16 12:10 97.8 103 20 114/72 98 Room Air Height (Feet): 5 Height (Inches): 10.00 Weight (Kilograms): 65.800 BMI 20.7 Laboratory Laboratory Tests 08/19/16 04:18 08/20/16 04:09 08/21/16 05:09 Laboratory Tests 08/19/16 04:18 08/20/16 04:09 08/21/16 05:09 Procedure Procedure Date: Aug 09, 2016 Surgeon: To Collado Decompression colonoscopy followed by exploratory laparotomy with low anterior resection and mobilization of splenic flexure GS Assessment & Plan Problems: (1) C. difficile colitis Status: Resolved (2) Sigmoid volvulus Status: Resolved (3) Mental retardation Status: Chronic Assessment He is in the recliner, just got back from a walk. He does not answer questions. Staff said she got the spoon thrown at her when attempting to encourage breakfast. Reports are that he ate 100% of lunch when his care facility staff was present, but is refusing food from hospital staff. C-diff returned negative this am. Plans are to transfer him across the luther to a "clean" room, and decontaminate is current room now that the C-diff is neg. Plan on DC the reji on Friday. Erythromycin IV DC'd Pharmacy adjusting TPN based on lytes. He is not eating much even clears, continue TPN. DVT Prophylaxis: SCD'S, Lovenox GI Prophylaxis: Protonix Code Status Full Code Hospital Course Summary Disclaimer The visit summary below is not to be considered part of the above Progress Note. Hospital Course Summary 08/07 Admit to inpatient under the care of Dr. Arvizu for abdominal distention. Severe sepsis as evidence by: Acute abdominal pain, Tachycardia at 105, Leukocytosis at 16.7 with left shift, Bilirubin at 2.0, hyperglycemia and Lactate of 3.0. Obtain blood cultures x 2 on admission NS bolus of 500ml wide open, then decrease to 100ml/hr. Zosyn IV every 6 hours for empiric antimicrobial coverage. We will repeat a Lactate at 1830, following sepsis protocol We will consult Dr. Ariza for abdominal distention. Place NG tube to low intermittent suction to help decompress the stomach When necessary behavioral restraints as patient has already pulled out one NG tube on admission. We will keep Vadim NPO for now. Zofran 4mg IV PRN for nausea. Morphine sulfate 2mg IV every 2 hours PRN abdominal pain. Vital signs are: T- 96.5, HR of 105, BP of 180/89, 18 R and 95% RA. Will ask nursing to repeat BP. For DVT prophylaxis we will order SCDs as to not conflict with any surgical intervention that could be needed. We will contact his DPOA for a code status. Recheck CBC and BMP tomorrow morning to follow blood counts, renal function and electrolytes. At time of discharge medical care will return to his primary care provider at [facility] 08/08/16 Continue with NG for decompression to low intermittent suction. Initiate surgical consultation by Dr. Ariza Planning on small bowel series , place patient on cardiac telemetry. Noted to be sinus tachycardia. Will give a one-time dose of IV Lopressor 5 milligrams and continue to monitor. Did review home medications normally on any antihypertensives. Encourage nursing staff to monitor for evidence of pain and treat with when necessary medications. Leukocytosis resolved today down to 8.8. Potassium is found to be elevated at 5.1, however, this is likely secondary to specimen hemolysis. Continue with behavioral restraints for patient safety given that he has pulled his NG tube out 5 times since admission. Will discuss further with attending, Dr. Arvizu 08/09/16 Continue with Zosyn for antimicrobial coverage. Ct abd is obtained this morning revealing high-grade or complete obstruction along with bilateral lower pleural effusions. He is scheduled for Exploratory Lap today at [address] Ariza. Normal saline at 125ml/hr for ongoing hydrations Oxygen needs increased overnight to 10 liters however he is currently down to 2 liters. Chest xray was obtained this morning for further cardiopulmonary eval. Creatine is elevated today, suspect could be due to dehydration or acute obstruction. Repeat BMP pending. Continue Morphine and Zofran for pain control and nausea. SCDs for DVT prophylaxis. Will recheck CBC and BMP to follow blood counts, renal function and electrolytes. Family notified by nursing staff of change in treatment plan 08/10/16 Mr. Johnson underwent attempted decompressive colonoscopy and subsequent laparotomy with sigmoidectomy yesterday. Necrotic bowel was identified due to obstruction/volvulus. There has been persistent tachycardia overnight with need for supplemental oxygen. Creatinine remains elevated 2.0 with increasing BUN. His sister/legal guardian confirms full CODE STATUS. PICC line placed, peripheral nutrition to be changed to TPN. Additional fluids to be given today due to tachycardia and renal impairment. Continue Zosyn for abdominal coverage. SENIOR PARTNER narcotics available in addition to nursing controlled doses morphine and Ativan. Chest x-ray to be obtained in the morning in addition to laboratory data. May require IPPB for lung expansion. Up in chair if possible without risking patient removal of NG. Lovenox and IV Protonix for prophylaxis. 08/11/16 Mr. Johnson underwent attempted decompressive colonoscopy and subsequent laparotomy with sigmoidectomy 08/09 for ischemic bowel due to obstruction/ volvulus. Patient removed NG yesterday evening, no nausea or vomiting. Bowel movements 2 today. Check abdominal films in a.m. Patient is hemodynamically stable with elevated blood pressures up to approximately 200/110, scheduled IV metoprolol initiated this evening. Volume status positive, diuresis initiated. Persistent hypernatremia-discussed with pharmacy, no sodium chloride or magnesium in TPN. SENIOR PARTNER for pain, Ativan for anxiety as needed. Continue Zosyn for abdominal coverage. Blood sugars stable with TPN thus far. Corrective scale insulin available. Lovenox and IV Protonix for prophylaxis. 08/12 Resting in bed, responds to verbal stimuli. Pain controlled-not pushing SENIOR PARTNER often (does have basal rate). Not reporting nausea. Pt has been passing lose stool. NG out; Dr Ariza advancing to clear liquids. Breathing well. Has been ambulating in room with nursing. Continue TPN for nutrition due to decreased oral intake post op. Diet advanced to clear liquids - monitor intake. Will start home Miralax and senna to help bowel motivation. Encourage activities and deep breathing. Continue Zosyn for abdominal coverage. Continue CCU care for close monitoring and support - possible transfer to floor in near future. Monitor lab. Transfer to Sx floor this evening for continuation of care. 4-[address]. Oral drive decreased-not taking much by mouth. Increased loose stools - C diff positive; Zosyn stopped and stared on Oral Vanco and IV metronidazole. Verbal responses limited. Does report discomfort-hard to tell if it is abdominal in nature or just generalized diffuse pain. Continue TPN for nutrition due to decreased oral intake post op. Start Norvasc for BP control. Will change IV metoprolol to Toprol XL 25mg daily. Speech to check swallow function. Sx: Having copious stools, C-diff came back positive, talked with Karen in pharmacy and referred to [facility], agreed to start Vanco 500 PO Q6h and Flagyl 500 IV Q6h. Will continue to monitor and consider Vanco enema if no improvement. Stop Zosyn. Pharmacy adjusting TPN based on lytes. Continue clear liquids. He walked in the room, will encourage ambulation. 08/14/16 Continue TPN for nutrition due to decreased oral intake post op. Increased abdominal distention concerning for possible post-op ileus. Will add scheduled Reglan 10 mg IV every 6 hours May need to consider placing NG tube. Monitor blood pressure and tachycardia. Continues to be tachy at 110. 08/15/16 Will given a 500 ML IV fluid bolus of NS due to decreased oral drive. Heart rate this afternoon continues consistanely over 100. Will increase Toprol XL to 50 milligrams daily Continue with scheduled Reglan gastric emptying. Continue Miralax for bowel motivation Continue with TPN for nutrition, monitor electrolytes and blood sugars carefully Continue with vancomycin and Flagyl for treatment of C. difficile 08/16 Resting in bed. Nursing report he was up in chair and ambulated earlier. Oral drive decreased-will take about one bite, and then refuse further intake. Say no when asked if short of air. Not reporting ab pain. Continue TPN for nutritional support as oral drive very diminished. Continue Vancomycin and metronidazole. Reglan to help bowel motility. Encourage ambulation to help strength and promote bowel function. 08/17/16 Abdominal distension continues slow to improve. Abdomen is soft and appears to be non tender. Continue with Vanco and Flagyl for treatment of C-Diff Continue TPN for nutritional support as oral drive very diminished. Scheduled Reglan to assist with GI motility. Norvasc daily for blood pressure control. Overall, tachycardia has improved. Continue to monitor. Lopressor IV available as needed. 08/18/16- *Patient remains somewhat distended. Surgery following. Continues on Reglan, IV E-mycin for motility. Documented daily BM for now despite known CDiff. *Continues to have low grade fever- suspect tachycardia is due to being off IVF over the last 12 hours or so. Resume IVF until we can get TPN back onboard. Continue beta-blockers. Continue PO Vanco and IV Flagyl for treatment of CDiff. Repeat KUB in AM. *Need to continue TPN for now- may want to place DHT for supplement of PO intake. Hx of MR may make TF tolerance difficult. *Continue Ruiz for urinary retention. Plan back to LTCF when stable. 08/19/16 Leukocytosis - persistent at 12.8. Dr. Ariza considering repeat imaging but clinical exam was not worrisome. Tachycardia - continue Toprol and IVF (IVF started until TPN can be resumed) PICC line was pulled out again today - he's not taking in much orally so will need to continue TPN. C diff - continue oral vanco. SBO - continue e-mycin and reglan. KUB repeated today - moderate colonic gas ( suggests ileus), with some improvement. 08-21 Surgical: Reports are that he ate 100% of lunch when his care facility staff was present, but is refusing food from hospital staff. C-diff returned negative this am. Plans are to transfer him across the l[place] to a "clean" room, and decontaminate is current room now that the C-diff is neg. Plan to DC the reji on Friday. Erythromycin IV DC'd Pharmacy adjusting TPN based on salo. LAXMI GUEVARA DESKTOP SUPPORT MANAGER Aug 21, 2016 14:50
[2016-08-21] MEDS: FAT EMULSION 20% 100 ML IV SCH (15:44)
--- NOTE | 2016-08-21 17:53 | NUR ---
[facility] WAS ABLE TO OFFER PT CHEESEBURGER AND EMIRATI FRIES FOR EVENING MEAL. PT OBVIOUSLY HAD DIFFICULTY EATING HAMBUGER R/T FEW TEETH IN HIS MOUTH. EMIRATI FRIES WERE A LITTLE BETTER. ICE CREAM WAS EASIEST BUT, BY THIS TIME, HE WAS LEERY OF ACCEPTING BITES SINCE HE WAS SPITTING OUT THE HAMBUGER.
--- NOTE | 2016-08-21 18:08 | NUR ---
BS CURRENT VA=552. PT JUST FINISHED EATING THE LITTLE FOOD HE WOULD TAKE. DR. HILL SAYS TO HOLD THIS SS INSULIN.
--- NOTE | 2016-08-21 18:48 | NUR ---
ACTIVITY PT ASKING TO WALK TWICE WITHIN 30 MINUTES, IN AND OUT OF BED AND CHAIR AND BATHROOM WELL DURING THIS TIME. RESTING QUIETLY IN BED NOW.
--- NOTE | 2016-08-21 20:03 | PNPDOC ---
Subjective Date DATE: 08/21/16 TIME: 19:59 Subjective The patient was seen this morning in his room accompanied by his nurse. He seemed irritable and was frequently swinging out his left arm. He was not able to answer any questions for me. Objective Vital Signs Vital signs Vital Signs Date Time Temp Pulse Resp B/P Pulse Ox O2 Delivery O2 Flow Rate FiO2 08/21/16 15:24 96.8 107 16 102/76 98 Room Air GEN-alert, mild distress-patient appears anxious HEENT-sclera anicteric, oropharynx is moist CV-regular rate and rhythm CHEST-clear to auscultation bilaterally ABD-soft, nontender with positive bowel sounds EXT-no edema NEURO-significant for mental retardation, moves all 4 extremities without difficulties SKIN-warm and dry and without rashes Telemetry Rhythm: Sinus Tachycardia Height (Feet): 5 Height (Inches): 10.00 Weight (Kilograms): 65.800 Laboratory Laboratory Laboratory Tests 08/20/16 04:09 08/21/16 05:09 Laboratory Tests 08/20/16 04:09 08/21/16 05:09 Sepsis Diagnostic Criteria Sepsis Confirmed/Suspected Infection: Yes SIRS Criteria: Temp<=96.8 or >=100.4, Pulse >= 90 beats/min, WBC >=12,000 or <= 4,000, BS >120 in non-diabetic Severe Sepsis Lactate >=2.0 mg/dL Assessment & Plan Problems: (1) Sigmoid volvulus Status: Resolved Assessment & Plan: Low anterior sigmoid resection with mobilization of the splenic flexure and coloproctostomy 08/09/16 (2) Ischemic colitis Status: Resolved Assessment & Plan: Due to volvulus/bowel obstruction (3) C. difficile colitis Status: Resolved Assessment & Plan: Not POA (4) Severe sepsis Status: Resolved Assessment & Plan: Manifestations of sepsis include the following- 1. Leukocytosis at 16.7 with left shift. Bandemia 15%. 2. Tachycardia at 105 3. Acute abdominal distention/pain 4. Evidence of organ dysfunction including elevated bilirubin 2.0 and hyperglycemia in the absence of diabetes 5. Elevated Lactate of 3.0. (5) Bowel obstruction Status: Resolved Qualifiers: Intestinal obstruction type: unspecified Qualified Codes: K56.60 - Unspecified intestinal obstruction (6) Hypernatremia Status: Resolved Assessment & Plan: Not POA (7) Hyperglycemia Status: Acute (8) Acute kidney injury Status: Resolved Assessment & Plan: Admission creatinine 1.1 increasing to 2.2 on 08/09 (9) Abdominal distention Status: Acute (10) Mental retardation Status: Chronic (11) Epileptic seizure Status: Chronic (12) Constipation Status: Chronic (13) Osteopenia Status: Chronic (14) Hypermagnesemia Status: Acute (15) Hypertension Status: Acute Qualifiers: Hypertension type: essential hypertension Qualified Codes: I10 - Essential (primary) hypertension Assessment 08/21/2016 - Impression Status post low anterior sigmoid resection for 2016 for sigmoid volvulus with ischemia Prolonged ileus C. difficile colitis-repeat C. difficile today was negative. Malnutrition-on TPN Mental retardation/developmental delay Acute kidney injury-resolved Epilepsy history-no seizures this hospitalization History of gastric ulcer Hypertension-not diagnosed prior to this admission but started on Norvasc and metoprolol during this hospitalization Tachycardia-improved with metoprolol. The patient is not significantly anemic. TSH was normal. Leukocytosis-improved today Mild anemia-continue to monitor Hyperglycemia secondary to LEL-jyza-blgsaebnmd Plan Continue oral Vanco and IV metronidazole for C. difficile colitis Continue Reglan for ileus. Electrolytes are okay. Consult PT and OT and increase activity as tolerated. Tinea to monitor renal function and electrolytes closely. Continue Protonix for history of gastric ulcer Continue Lovenox for DVT prophylaxis Continue metoprolol, Norvasc for hypertension Continue current treatment for now. Diet per Dr. Ariza. DVT Prophylaxis: Lovenox Code Status Full Code Hospital Course Summary Disclaimer The hospital course summary below is not to be considered part of the above Progress Note. Hospital Course Summary 08/07 Admit to inpatient under the care of Dr. Arvizu for abdominal distention. Severe sepsis as evidence by: Acute abdominal pain, Tachycardia at 105, Leukocytosis at 16.7 with left shift, Bilirubin at 2.0, hyperglycemia and Lactate of 3.0. Obtain blood cultures x 2 on admission NS bolus of 500ml wide open, then decrease to 100ml/hr. Zosyn IV every 6 hours for empiric antimicrobial coverage. We will repeat a Lactate at 1830, following sepsis protocol We will consult Dr. Ariza for abdominal distention. Place NG tube to low intermittent suction to help decompress the stomach When necessary behavioral restraints as patient has already pulled out one NG tube on admission. We will keep Vadim NPO for now. Zofran 4mg IV PRN for nausea. Morphine sulfate 2mg IV every 2 hours PRN abdominal pain. Vital signs are: T- 96.5, HR of 105, BP of 180/89, 18 R and 95% RA. Will ask nursing to repeat BP. For DVT prophylaxis we will order SCDs as to not conflict with any surgical intervention that could be needed. We will contact his DPOA for a code status. Recheck CBC and BMP tomorrow morning to follow blood counts, renal function and electrolytes. At time of discharge medical care will return to his primary care provider at [facility] 08/08/16 Continue with NG for decompression to low intermittent suction. Initiate surgical consultation by Dr. Ariza Planning on small bowel series , place patient on cardiac telemetry. Noted to be sinus tachycardia. Will give a one-time dose of IV Lopressor 5 milligrams and continue to monitor. Did review home medications normally on any antihypertensives. Encourage nursing staff to monitor for evidence of pain and treat with when necessary medications. Leukocytosis resolved today down to 8.8. Potassium is found to be elevated at 5.1, however, this is likely secondary to specimen hemolysis. Continue with behavioral restraints for patient safety given that he has pulled his NG tube out 5 times since admission. Will discuss further with attending, Dr. Arvizu 08/09/16 Continue with Zosyn for antimicrobial coverage. Ct abd is obtained this morning revealing high-grade or complete obstruction along with bilateral lower pleural effusions. He is scheduled for Exploratory Lap today at [address] Ariza. Normal saline at 125ml/hr for ongoing hydrations Oxygen needs increased overnight to 10 liters however he is currently down to 2 liters. Chest xray was obtained this morning for further cardiopulmonary eval. Creatine is elevated today, suspect could be due to dehydration or acute obstruction. Repeat BMP pending. Continue Morphine and Zofran for pain control and nausea. SCDs for DVT prophylaxis. Will recheck CBC and BMP to follow blood counts, renal function and electrolytes. Family notified by nursing staff of change in treatment plan 08/10/16 Mr. Johnson underwent attempted decompressive colonoscopy and subsequent laparotomy with sigmoidectomy yesterday. Necrotic bowel was identified due to obstruction/volvulus. There has been persistent tachycardia overnight with need for supplemental oxygen. Creatinine remains elevated 2.0 with increasing BUN. His sister/legal guardian confirms full CODE STATUS. PICC line placed, peripheral nutrition to be changed to TPN. Additional fluids to be given today due to tachycardia and renal impairment. Continue Zosyn for abdominal coverage. CURBER narcotics available in addition to nursing controlled doses morphine and Ativan. Chest x-ray to be obtained in the morning in addition to laboratory data. May require IPPB for lung expansion. Up in chair if possible without risking patient removal of NG. Lovenox and IV Protonix for prophylaxis. 08/11/16 Mr. Johnson underwent attempted decompressive colonoscopy and subsequent laparotomy with sigmoidectomy 08/09 for ischemic bowel due to obstruction/ volvulus. Patient removed NG yesterday evening, no nausea or vomiting. Bowel movements 2 today. Check abdominal films in a.m. Patient is hemodynamically stable with elevated blood pressures up to approximately 200/110, scheduled IV metoprolol initiated this evening. Volume status positive, diuresis initiated. Persistent hypernatremia-discussed with pharmacy, no sodium chloride or magnesium in TPN. CURBER for pain, Ativan for anxiety as needed. Continue Zosyn for abdominal coverage. Blood sugars stable with TPN thus far. Corrective scale insulin available. Lovenox and IV Protonix for prophylaxis. 08/12 Resting in bed, responds to verbal stimuli. Pain controlled-not pushing CURBER often (does have basal rate). Not reporting nausea. Pt has been passing lose stool. NG out; Dr Ariza advancing to clear liquids. Breathing well. Has been ambulating in room with nursing. Continue TPN for nutrition due to decreased oral intake post op. Diet advanced to clear liquids - monitor intake. Will start home Miralax and senna to help bowel motivation. Encourage activities and deep breathing. Continue Zosyn for abdominal coverage. Continue CCU care for close monitoring and support - possible transfer to floor in near future. Monitor lab. Transfer to Sx floor this evening for continuation of care. - Resting in bed. Oral drive decreased-not taking much by mouth. Increased loose stools - C diff positive; Zosyn stopped and stared on Oral Vanco and IV metronidazole. Verbal responses limited. Does report discomfort-hard to tell if it is abdominal in nature or just generalized diffuse pain. Continue TPN for nutrition due to decreased oral intake post op. Start Norvasc for BP control. Will change IV metoprolol to Toprol XL 25mg daily. Speech to check swallow function. Sx: Having copious stools, C-diff came back positive, talked with Karen in pharmacy and referred to Dels, agreed to start Vanco 500 PO Q6h and Flagyl 500 IV Q6h. Will continue to monitor and consider Vanco enema if no improvement. Stop Zosyn. Pharmacy adjusting TPN based on lytes. Continue clear liquids. He walked in the room, will encourage ambulation. 08/14/16 Continue TPN for nutrition due to decreased oral intake post op. Increased abdominal distention concerning for possible post-op ileus. Will add scheduled Reglan 10 mg IV every 6 hours May need to consider placing NG tube. Monitor blood pressure and tachycardia. Continues to be tachy at 110. 08/15/16 Will given a 500 ML IV fluid bolus of NS due to decreased oral drive. Heart rate this afternoon continues consistanely over 100. Will increase Toprol XL to 50 milligrams daily Continue with scheduled Reglan gastric emptying. Continue Miralax for bowel motivation Continue with TPN for nutrition, monitor electrolytes and blood sugars carefully Continue with vancomycin and Flagyl for treatment of C. difficile 08/16 Resting in bed. Nursing report he was up in chair and ambulated earlier. Oral drive decreased-will take about one bite, and then refuse further intake. Say no when asked if short of air. Not reporting ab pain. Continue TPN for nutritional support as oral drive very diminished. Continue Vancomycin and metronidazole. Reglan to help bowel motility. Encourage ambulation to help strength and promote bowel function. 08/17/16 Abdominal distension continues slow to improve. Abdomen is soft and appears to be non tender. Continue with Vanco and Flagyl for treatment of C-Diff Continue TPN for nutritional support as oral drive very diminished. Scheduled Reglan to assist with GI motility. Norvasc daily for blood pressure control. Overall, tachycardia has improved. Continue to monitor. Lopressor IV available as needed. 08/18/16- *Patient remains somewhat distended. Surgery following. Continues on Reglan, IV E-mycin for motility. Documented daily BM for now despite known CDiff. *Continues to have low grade fever- suspect tachycardia is due to being off IVF over the last 12 hours or so. Resume IVF until we can get TPN back onboard. Continue beta-blockers. Continue PO Vanco and IV Flagyl for treatment of CDiff. Repeat KUB in AM. *Need to continue TPN for now- may want to place DHT for supplement of PO intake. Hx of MR may make TF tolerance difficult. *Continue Ruiz for urinary retention. Plan back to LTCF when stable. 08/19/16 Leukocytosis - persistent at 12.8. Dr. Ariza considering repeat imaging but clinical exam was not worrisome. Tachycardia - continue Toprol and IVF (IVF started until TPN can be resumed) PICC line was pulled out again today - he's not taking in much orally so will need to continue TPN. C diff - continue oral vanco. SBO - continue e-mycin and reglan. KUB repeated today - moderate colonic gas ( suggests ileus), with some improvement. 08-21 Surgical: Reports are that he ate 100% of lunch when his care facility staff was present, but is refusing food from hospital staff. C-diff returned negative this am. Plans are to transfer him across the [place] to a "clean" room, and decontaminate is current room now that the C-diff is neg. Plan to DC the reji on Friday. Erythromycin IV DC'd Pharmacy adjusting TPN based on lytes. Impression Status post low anterior sigmoid resection for 2016 for sigmoid volvulus with ischemia Prolonged ileus C. difficile colitis Malnutrition-on TPN Mental retardation/developmental delay Acute kidney injury-resolved Epilepsy history-no seizures this hospitalization History of gastric ulcer Hypertension-not diagnosed prior to this admission but started on Norvasc and metoprolol during this hospitalization Tachycardia-improved with metoprolol. The patient is not significantly anemic. TSH was normal. Leukocytosis-improved today Mild anemia-continue to monitor Hyperglycemia secondary to [id number] Plan Continue oral Vanco and IV metronidazole for C. difficile colitis Continue Reglan for ileus. Electrolytes are okay. Consult PT and OT and increase activity as tolerated. Tinea to monitor renal function and electrolytes closely. Continue Protonix for history of gastric ulcer Continue Lovenox for DVT prophylaxis Continue metoprolol, Norvasc for hypertension Discussed with the patient's nurse, case management, nurses aide, and pharmacist. BENJIE HILL MD Aug 21, 2016 20:02
[2016-08-22] VITALS (7 sets, daily range): BP systolic 122–143; BP diastolic 69–91; PULSE 96–115; RESP 16–20; TEMP 96.6–98; O2SAT 98–100
[2016-08-22] MEDS: METRONIDAZOLE IVPB 500 MG in NORMAL SALINE 100 ML IV SCH ×4 (00:35→17:47)
[2016-08-22] MEDS: METOCLOPRAMIDE 10mg/2ml INJECTION IV SCH ×4 (03:56→21:07)
[2016-08-22] MEDS: LORAZEPAM 2 MG/ML INJECTION IV PRN ×2 (04:20→14:08)
--- NOTE | 2016-08-22 05:14 | NUR ---
SHIFT SUMMARY UNABLE TO DETERMINE PATIENT'S ORIENTATION STATUS THIS SHIFT. VITAL SIGNS ARE STABLE ON ROOM AIR. PATIENT HAS HAD A SITTER ALL SHIFT. PATIENT HAS BEEN INCREASINGLY ANXIOUS AND AGITATED THIS SHIFT. HE HAS BEEN BATTING STAFF AWAY DURING CARES, EXITING THE BED, AND PUSHING AND HITTING STAFF. HE HAS CONTINUED TO REFUSE FOOD AND DRINK THIS SHIFT TAKING ONLY A FEW SIPS OF WATER. HE HAS BEEN TAKEN ON SEVERAL WALKS THIS SHIFT IN AN ATTEMPT TO HELP HIM RELAX, BUT THIS HAS BEEN UNSUCCESSFUL. PATIENT HAS BEEN GIVEN TWO PRN DOSES OF ATIVAN TO RELIEVE THIS ANXIETY. PATIENT IS RESTING QUIETLY AT THIS TIME. WILL CONTINUE TO MONITOR.
[2016-08-22] MEDS: INSULIN ASPART 100 UNIT/ML SQ PRN (06:23)
[2016-08-22] MEDS: POLYETHYL.GLYCOL 3350 PACKET 17gm PO SCH (07:55)
[2016-08-22] MEDS: BISACODYL 10 MG SUPPOSITORY RECTALLY SCH ×2 (07:56→13:55)
--- NOTE | 2016-08-22 08:04 | NUR ---
Nutrition risk f/u Parental:TPN @100ml/hour; Oral: Regular diet; intake: 100% when fed by [place] staff; none-bites when fed by [facility] staff; [place] will send staff for all three meals today to promote oral nutrition. [phone]
[2016-08-22 09:00] LABS: ALBUMIN 3.1 G/DL (3.5-5.0); ALBUMIN/GLOBULIN RATIO 0.8 RATIO (1.1-2.2); ALKALINE PHOSPHATASE 73 U/L (38-126); ALT (SGPT) 53 U/L (21-72); ANION GAP 12 MEQ/L (5-15); AST (SGOT) 34 U/L (17-59); BUN/CREATININE RATIO 14 RATIO (6-26); CALCIUM 8.6 MG/DL (8.4-10.2); CHLORIDE 109 MEQ/L (98-107); CO2 - CARBON DIOXIDE 20 MEQ/L (22-30); CREATININE 0.9 MG/DL (0.8-1.5); GLOMERULAR FILTRATION RATE 84; GLUCOSE 107 MG/DL (75-110); PHOSPHORUS 3.5 MG/DL (2.5-4.5); POTASSIUM 4.2 MEQ/L (3.6-5); SODIUM 141 MEQ/L (134-144); TOTAL PROTEIN 7.1 G/DL (6.3-8.2)
[2016-08-22] MEDS: MULTI TRACE ELEMENTS IV SCH ×8 (09:06)
[2016-08-22] MEDS: [UNRECOGNIZED DRUG - OTHER] IV SCH ×8 (09:06)
[2016-08-22] MEDS: POTASSIUM PHOSPHATE IV SCH ×8 (09:06)
[2016-08-22] MEDS: MULTI VIT INF IV SCH ×8 (09:06)
[2016-08-22] MEDS: ENOXAPARIN 40 MG/0.4 ML INJECTION SQ SCH (09:07)
[2016-08-22] MEDS: PANTOPRAZOLE 40mg INJECTION IV SCH (09:07)
[2016-08-22] MEDS: AMLODIPINE 5 MG TABLET PO SCH (09:08)
[2016-08-22] MEDS: METOPROLOL XL 50 MG TABLET PO SCH (09:08)
[2016-08-22] MEDS: HALOPERIDOL 5 MG/ML INJECTION IV PRN ×2 (09:29→20:01)
--- NOTE | 2016-08-22 09:29 | NUR ---
HALDOL GIVEN PATIENT WAS GIVEN HALDOL AT THIS TIME FOR COMFORT. PATIENT WAS FLAILING ARMS AND SHOVING NURSING STAFF. PATIENT IS ALERT TO PERSON ONLY.
--- NOTE | 2016-08-22 13:46 | WOUNDPN ---
Nurse to Nurse Wound Consult Nurse to Nurse Consult: Patient is agitated and nursing staff is not able to de-escalate patient at this time to eat breakfast. This service writer made no attempt to contact the patient at this time. Yuki CARTAGENA will notify wound care staff if/when the patient is cooperative. No documentation found in nurses notes regarding area of concern for wound care to evaluate and Yuki RN is not aware of wound, ulcer or injury that needs to be addressed at this time. CHARANJIT ZAMORA RN Aug 22, 2016 13:46
[2016-08-22] MEDS ORDERED: ALTEPLASE (Cathflo*) 2mg vial Injection IV ONE (15:00)
--- NOTE | 2016-08-22 15:12 | NUR ---
PICC Unable to flush or aspirate red port on picc. Staff report possible dc home tomorrow. OSIEL Mirza contacts Dr Patel who requests cathflo be given. Cathflo instilled.
--- NOTE | 2016-08-22 17:56 | NUR ---
STATUS PATIENT IS ALERT TO PERSON ONLY. PATIENT VITALS ARE STABLE AND PATIENT IS ON ROOM AIR. PATIENT AMBULATED THE FLOOR NUMEROUS TIMES WITH NURSING STAFF. PATIENT IS UP WITH 1X ASSIST, AND GB. PATIENT REQUIRED PRN IV HALDOL 1X AND ATIVAN 1X. PATIENT INCISION IS OPEN TO AIR AND CHUYITA INTACT. WILL CONTINUE TO MONITOR.
--- NOTE | 2016-08-22 18:52 | PNPDOC ---
Subjective Date DATE: 08/22/16 TIME: 18:42 Subjective The patient was up walking in the halls with his nurse's aide and then walked back to his room. He seems to be getting along fairly well. He denies any pain. He has been eating fairly well. TPN was discontinued this morning. The patient was very agitated earlier this morning and was given Haldol and is now much calmer. Objective Vital Signs Vital signs Vital Signs Date Time Temp Pulse Resp B/P Pulse Ox O2 Delivery O2 Flow Rate FiO2 08/22/16 16:29 102 20 122/75 98 Room Air 08/22/16 12:05 98.0 GEN-alert, currently no acute distress HEENT-sclera anicteric, oropharynx is moist NECK-supple CV-regular rate and rhythm CHEST-clear to auscultation bilaterally ABD-soft, nontender, hypoactive bowel sounds -Glass in place with good urine output EXT-no edema NEURO-no focal deficits, patient has mental retardation/developmental delay SKIN-warm and dry and without rashes Telemetry Rhythm: Sinus Tachycardia Height (Feet): 5 Height (Inches): 10.00 Weight (Kilograms): 68.400 Laboratory Laboratory Laboratory Tests 08/21/16 05:09 08/22/16 08:40 Laboratory Tests 08/21/16 05:09 Sepsis Diagnostic Criteria Sepsis Confirmed/Suspected Infection: Yes SIRS Criteria: Temp<=96.8 or >=100.4, Pulse >= 90 beats/min, WBC >=12,000 or <= 4,000, BS >120 in non-diabetic Severe Sepsis Lactate >=2.0 mg/dL Assessment & Plan Problems: (1) Sigmoid volvulus Status: Resolved Assessment & Plan: Low anterior sigmoid resection with mobilization of the splenic flexure and coloproctostomy 08/09/16 (2) Ischemic colitis Status: Resolved Assessment & Plan: Due to volvulus/bowel obstruction (3) C. difficile colitis Status: Resolved Assessment & Plan: Not POA (4) Severe sepsis Status: Resolved Assessment & Plan: Manifestations of sepsis include the following- 1. Leukocytosis at 16.7 with left shift. Bandemia 15%. 2. Tachycardia at 105 3. Acute abdominal distention/pain 4. Evidence of organ dysfunction including elevated bilirubin 2.0 and hyperglycemia in the absence of diabetes 5. Elevated Lactate of 3.0. (5) Bowel obstruction Status: Resolved Qualifiers: Intestinal obstruction type: unspecified Qualified Codes: K56.60 - Unspecified intestinal obstruction (6) Hypernatremia Status: Resolved Assessment & Plan: Not POA (7) Hyperglycemia Status: Acute (8) Acute kidney injury Status: Resolved Assessment & Plan: Admission creatinine 1.1 increasing to 2.2 on 08/09 (9) Abdominal distention Status: Acute (10) Mental retardation Status: Chronic (11) Epileptic seizure Status: Chronic (12) Constipation Status: Chronic (13) Osteopenia Status: Chronic (14) Hypermagnesemia Status: Acute (15) Hypertension Status: Acute Qualifiers: Hypertension type: essential hypertension Qualified Codes: I10 - Essential (primary) hypertension Assessment 08/22/2016 Impression Status post low anterior sigmoid resection on 08/09/2016 for sigmoid volvulus with ischemia Prolonged ileus-improving C. difficile colitis-C. difficile was negative yesterday. Continue treatment. Switch to oral metronidazole Malnutrition-eating fairly well orally, will discontinued TPN Mental retardation Agitation requiring when necessary Haldol and Ativan Acute kidney injury-I'll History of epilepsy Tachycardia-improved on metoprolol Leukocytosis-resolved DC Accu-Cheks since TPN discontinued dc glass Possible discharge tomorrow if doing well. Discussed patient with Dr. Ariza today. DVT Prophylaxis: Lovenox Code Status Full Code Hospital Course Summary Disclaimer The hospital course summary below is not to be considered part of the above Progress Note. Hospital Course Summary 08/07 Admit to inpatient under the care of Dr. Arvizu for abdominal distention. Severe sepsis as evidence by: Acute abdominal pain, Tachycardia at 105, Leukocytosis at 16.7 with left shift, Bilirubin at 2.0, hyperglycemia and Lactate of 3.0. Obtain blood cultures x 2 on admission NS bolus of 500ml wide open, then decrease to 100ml/hr. Zosyn IV every 6 hours for empiric antimicrobial coverage. We will repeat a Lactate at 1830, following sepsis protocol We will consult Dr. Ariza for abdominal distention. Place NG tube to low intermittent suction to help decompress the stomach When necessary behavioral restraints as patient has already pulled out one NG tube on admission. We will keep Vadim NPO for now. Zofran 4mg IV PRN for nausea. Morphine sulfate 2mg IV every 2 hours PRN abdominal pain. Vital signs are: T- 96.5, HR of 105, BP of 180/89, 18 R and 95% RA. Will ask nursing to repeat BP. For DVT prophylaxis we will order SCDs as to not conflict with any surgical intervention that could be needed. We will contact his DPOA for a code status. Recheck CBC and BMP tomorrow morning to follow blood counts, renal function and electrolytes. At time of discharge medical care will return to his primary care provider at [facility] 08/08/16 Continue with NG for decompression to low intermittent suction. Initiate surgical consultation by Dr. Ariza Planning on small bowel series , place patient on cardiac telemetry. Noted to be sinus tachycardia. Will give a one-time dose of IV Lopressor 5 milligrams and continue to monitor. Did review home medications normally on any antihypertensives. Encourage nursing staff to monitor for evidence of pain and treat with when necessary medications. Leukocytosis resolved today down to 8.8. Potassium is found to be elevated at 5.1, however, this is likely secondary to specimen hemolysis. Continue with behavioral restraints for patient safety given that he has pulled his NG tube out 5 times since admission. Will discuss further with attending, Dr. Arvizu 08/09/16 Continue with Zosyn for antimicrobial coverage. Ct abd is obtained this morning revealing high-grade or complete obstruction along with bilateral lower pleural effusions. He is scheduled for Exploratory Lap today at [address] Ariza. Normal saline at 125ml/hr for ongoing hydrations Oxygen needs increased overnight to 10 liters however he is currently down to 2 liters. Chest xray was obtained this morning for further cardiopulmonary eval. Creatine is elevated today, suspect could be due to dehydration or acute obstruction. Repeat BMP pending. Continue Morphine and Zofran for pain control and nausea. SCDs for DVT prophylaxis. Will recheck CBC and BMP to follow blood counts, renal function and electrolytes. Family notified by nursing staff of change in treatment plan 08/10/16 Mr. Johnson underwent attempted decompressive colonoscopy and subsequent laparotomy with sigmoidectomy yesterday. Necrotic bowel was identified due to obstruction/volvulus. There has been persistent tachycardia overnight with need for supplemental oxygen. Creatinine remains elevated 2.0 with increasing BUN. His sister/legal guardian confirms full CODE STATUS. PICC line placed, peripheral nutrition to be changed to TPN. Additional fluids to be given today due to tachycardia and renal impairment. Continue Zosyn for abdominal coverage. [employer] narcotics available in addition to nursing controlled doses morphine and Ativan. Chest x-ray to be obtained in the morning in addition to laboratory data. May require IPPB for lung expansion. Up in chair if possible without risking patient removal of NG. Lovenox and IV Protonix for prophylaxis. 08/11/16 Mr. Johnson underwent attempted decompressive colonoscopy and subsequent laparotomy with sigmoidectomy 08/09 for ischemic bowel due to obstruction/ volvulus. Patient removed NG yesterday evening, no nausea or vomiting. Bowel movements 2 today. Check abdominal films in a.m. Patient is hemodynamically stable with elevated blood pressures up to approximately 200/110, scheduled IV metoprolol initiated this evening. Volume status positive, diuresis initiated. Persistent hypernatremia-discussed with pharmacy, no sodium chloride or magnesium in TPN. [employer] for pain, Ativan for anxiety as needed. Continue Zosyn for abdominal coverage. Blood sugars stable with TPN thus far. Corrective scale insulin available. Lovenox and IV Protonix for prophylaxis. 08/12 Resting in bed, responds to verbal stimuli. Pain controlled-not pushing [employer] often (does have basal rate). Not reporting nausea. Pt has been passing lose stool. NG out; Dr Ariza advancing to clear liquids. Breathing well. Has been ambulating in room with nursing. Continue TPN for nutrition due to decreased oral intake post op. Diet advanced to clear liquids - monitor intake. Will start home Miralax and senna to help bowel motivation. Encourage activities and deep breathing. Continue Zosyn for abdominal coverage. Continue CCU care for close monitoring and support - possible transfer to floor in near future. Monitor lab. Transfer to Sx floor this evening for continuation of care. -18 Resting in bed. Oral drive decreased-not taking much by mouth. Increased loose stools - C diff positive; Zosyn stopped and stared on Oral Vanco and IV metronidazole. Verbal responses limited. Does report discomfort-hard to tell if it is abdominal in nature or just generalized diffuse pain. Continue TPN for nutrition due to decreased oral intake post op. Start Norvasc for BP control. Will change IV metoprolol to Toprol XL 25mg daily. Speech to check swallow function. Sx: Having copious stools, C-diff came back positive, talked with Karen in pharmacy and referred to [facility], agreed to start Vanco 500 PO Q6h and Flagyl 500 IV Q6h. Will continue to monitor and consider Vanco enema if no improvement. Stop Zosyn. Pharmacy adjusting TPN based on lytes. Continue clear liquids. He walked in the room, will encourage ambulation. 08/14/16 Continue TPN for nutrition due to decreased oral intake post op. Increased abdominal distention concerning for possible post-op ileus. Will add scheduled Reglan 10 mg IV every 6 hours May need to consider placing NG tube. Monitor blood pressure and tachycardia. Continues to be tachy at 110. 08/15/16 Will given a 500 ML IV fluid bolus of NS due to decreased oral drive. Heart rate this afternoon continues consistanely over 100. Will increase Toprol XL to 50 milligrams daily Continue with scheduled Reglan gastric emptying. Continue Miralax for bowel motivation Continue with TPN for nutrition, monitor electrolytes and blood sugars carefully Continue with vancomycin and Flagyl for treatment of C. difficile 08/16 Resting in bed. Nursing report he was up in chair and ambulated earlier. Oral drive decreased-will take about one bite, and then refuse further intake. Say no when asked if short of air. Not reporting ab pain. Continue TPN for nutritional support as oral drive very diminished. Continue Vancomycin and metronidazole. Reglan to help bowel motility. Encourage ambulation to help strength and promote bowel function. 08/17/16 Abdominal distension continues slow to improve. Abdomen is soft and appears to be non tender. Continue with Vanco and Flagyl for treatment of C-Diff Continue TPN for nutritional support as oral drive very diminished. Scheduled Reglan to assist with GI motility. Norvasc daily for blood pressure control. Overall, tachycardia has improved. Continue to monitor. Lopressor IV available as needed. 08/18/16- *Patient remains somewhat distended. Surgery following. Continues on Reglan, IV E-mycin for motility. Documented daily BM for now despite known CDiff. *Continues to have low grade fever- suspect tachycardia is due to being off IVF over the last 12 hours or so. Resume IVF until we can get TPN back onboard. Continue beta-blockers. Continue PO Vanco and IV Flagyl for treatment of CDiff. Repeat KUB in AM. *Need to continue TPN for now- may want to place DHT for supplement of PO intake. Hx of MR may make TF tolerance difficult. *Continue Glass for urinary retention. Plan back to LTCF when stable. 08/19/16 Leukocytosis - persistent at 12.8. Dr. Ariza considering repeat imaging but clinical exam was not worrisome. Tachycardia - continue Toprol and IVF (IVF started until TPN can be resumed) PICC line was pulled out again today - he's not taking in much orally so will need to continue TPN. C diff - continue oral vanco. SBO - continue e-mycin and reglan. KUB repeated today - moderate colonic gas ( suggests ileus), with some improvement. 08-21 Surgical: Reports are that he ate 100% of lunch when his care facility staff was present, but is refusing food from hospital staff. C-diff returned negative this am. Plans are to transfer him across the [place] to a "clean" room, and decontaminate is current room now that the C-diff is neg. Plan to DC the reji on Friday. Erythromycin IV DC'd Pharmacy adjusting TPN based on lytes. Impression Status post low anterior sigmoid resection for 2016 for sigmoid volvulus with ischemia Prolonged ileus C. difficile colitis Malnutrition-on TPN Mental retardation/developmental delay Acute kidney injury-resolved Epilepsy history-no seizures this hospitalization History of gastric ulcer Hypertension-not diagnosed prior to this admission but started on Norvasc and metoprolol during this hospitalization Tachycardia-improved with metoprolol. The patient is not significantly anemic. TSH was normal. Leukocytosis-improved today Mild anemia-continue to monitor Hyperglycemia secondary to [id number] Plan Continue oral Vanco and IV metronidazole for C. difficile colitis Continue Reglan for ileus. Electrolytes are okay. Consult PT and OT and increase activity as tolerated. Tinea to monitor renal function and electrolytes closely. Continue Protonix for history of gastric ulcer Continue Lovenox for DVT prophylaxis Continue metoprolol, Norvasc for hypertension Discussed with the patient's nurse, case management, nurses aide, and pharmacist. 08/21/2016 - Impression Status post low anterior sigmoid resection for 2016 for sigmoid volvulus with ischemia Prolonged ileus C. difficile colitis-repeat C. difficile today was negative. Malnutrition-on TPN Mental retardation/developmental delay Acute kidney injury-resolved Epilepsy history-no seizures this hospitalization History of gastric ulcer Hypertension-not diagnosed prior to this admission but started on Norvasc and metoprolol during this hospitalization Tachycardia-improved with metoprolol. The patient is not significantly anemic. TSH was normal. Leukocytosis-improved today Mild anemia-continue to monitor Hyperglycemia secondary to QPF-voli-ykaqialurg Plan Continue oral Vanco and IV metronidazole for C. difficile colitis Continue Reglan for ileus. Electrolytes are okay. Consult PT and OT and increase activity as tolerated. Tinea to monitor renal function and electrolytes closely. Continue Protonix for history of gastric ulcer Continue Lovenox for DVT prophylaxis Continue metoprolol, Norvasc for hypertension BENJIE HILL MD Aug 22, 2016 18:46
--- NOTE | 2016-08-22 20:15 | NUR ---
AGITATION: PT WAS AGITATED, ADMINISTERED 1 MG HALDOL (SEE EMAR). WILL CONTINUE TO MONITOR.
--- NOTE | 2016-08-22 22:18 | NUR ---
STATUS: THE FIRST 2 HOURS DURING MY SHIFT, THE PT NEEDED TO GO TO THE BATHROOM EVERY 10-15 MINUTES (DIDN'T ALWAYS VOID), THEN SAT DOWN AND THEN WANTED TO WALK. THIS WAS THE PT'S CONSTANT ROUTINE. DURING THE PAST HOUR, THE PT SAT IN HIS CHAIR, GO UP TO GO TO THE BATHROOM 2X (VOIDED ONLY ONCE), THEN WENT TO HIS BED. DID NOT SLEEP AT FIRST, BUT HAS GONE TO SLEEP AND BEEN SLEEPING FOR 20 MINUTES. PT TOOK HIS VANCOCIN IN ORANGE JUICE.
[2016-08-23 00:01] VITALS: BP 108/61; PULSE 62; RESP 20; TEMP 96.9; O2SAT 96
--- NOTE | 2016-08-23 00:05 | NUR ---
Up to bathroom several times; voids or has loose stool each time. Became agitated at one point and hiting at Nursing staff. Ativan 0.5 mg. IV given.
[2016-08-23] MEDS: LORAZEPAM 2 MG/ML INJECTION IV PRN (00:12)
[2016-08-23] MEDS: METRONIDAZOLE IVPB 500 MG in NORMAL SALINE 100 ML IV SCH ×3 (00:12→11:59)
[2016-08-23 03:40] VITALS: BP 108/75; PULSE 107; RESP 16; TEMP 96.4; O2SAT 98
[2016-08-23] MEDS: METOCLOPRAMIDE 10mg/2ml INJECTION IV SCH ×2 (03:45→08:53)
--- NOTE | 2016-08-23 06:17 | NUR ---
END OF SHIFT SUMMARY: Ambulated with Nursing staff frequently at beginning of this shift. He tolerates food and fluid well. Took PO VANCO without hesitation this shift. Knows when he needs to use toilet and states "pee". Mid line abdominal incision with reji present. Some of the reji have become loose and have fallen off incision. PICC line to left arm intact. Patient is not bothering the PICC Line. Does have episodes of agitation and agression towards Nursing Staff. Haldol was given at 2000 and ATIVAN given at 0012. Both medications helped reduce the agitation and aggression, keeping everyone safe, including the patient.
[2016-08-23] MEDS: HALOPERIDOL 5 MG/ML INJECTION IV PRN ×2 (07:22→11:59)
[2016-08-23 07:47] VITALS: BP 114/75; PULSE 113; RESP 16; TEMP 96.4; O2SAT 97
--- NOTE | 2016-08-23 07:49 | PNSURG ---
Subjective DATE: 08/23/16 TIME: 07:45 Interval History Staff indicate patient walked the hospital halls 3 times during the night. Eats full meals when facility staff are present. Stools becoming less frequent and volume has decreased. C-Diff was negative. There is no indication of pain with abdominal palpation. Jose Juan removed today.Wound think he could be dismissed from surgical standpoint. He was calm and cooperative during staple removal. Objective Vital Signs Date Time Temp Pulse Resp B/P Pulse Ox O2 Delivery O2 Flow Rate FiO2 08/23/16 03:40 96.4 107 16 108/75 98 Room Air Height (Feet): 5 Height (Inches): 10.00 Weight (Kilograms): 68.400 BMI 20.7 General Appearance: Alert Cardiac: FOUND: regular rate, regular rhythm Abdominal Brief: FOUND: soft, NOT FOUND: tender Incision: FOUND: Clean, Dry, Intact, open to air, NOT FOUND: jose juan present ( removed this morning) Laboratory Laboratory Tests 08/21/16 05:09 08/22/16 08:40 Laboratory Tests 08/21/16 05:09 Procedure Procedure Date: Aug 09, 2016 Surgeon: To Procedure Decompression colonoscopy followed by exploratory laparotomy with low anterior resection and mobilization of splenic flexure GS Assessment & Plan Problems: (1) C. difficile colitis Status: Resolved (2) Sigmoid volvulus Status: Resolved (3) Mental retardation Status: Chronic Assessment Eating full meals when care staff present. Ambulating without difficulty. Stool frequency has decreased and C-Diff is neg. From surgical standpoint he can be dismissed. No scheduled follow up needed. DVT Prophylaxis: SCD'S, Lovenox GI Prophylaxis: Protonix Code Status Full Code Hospital Course Summary Disclaimer The visit summary below is not to be considered part of the above Progress Note. Hospital Course Summary 08/07 Admit to inpatient under the care of Dr. Arvizu for abdominal distention. Severe sepsis as evidence by: Acute abdominal pain, Tachycardia at 105, Leukocytosis at 16.7 with left shift, Bilirubin at 2.0, hyperglycemia and Lactate of 3.0. Obtain blood cultures x 2 on admission NS bolus of 500ml wide open, then decrease to 100ml/hr. Zosyn IV every 6 hours for empiric antimicrobial coverage. We will repeat a Lactate at 1830, following sepsis protocol We will consult Dr. Ariza for abdominal distention. Place NG tube to low intermittent suction to help decompress the stomach When necessary behavioral restraints as patient has already pulled out one NG tube on admission. We will keep Vadim NPO for now. Zofran 4mg IV PRN for nausea. Morphine sulfate 2mg IV every 2 hours PRN abdominal pain. Vital signs are: T- 96.5, HR of 105, BP of 180/89, 18 R and 95% RA. Will ask nursing to repeat BP. For DVT prophylaxis we will order SCDs as to not conflict with any surgical intervention that could be needed. We will contact his DPOA for a code status. Recheck CBC and BMP tomorrow morning to follow blood counts, renal function and electrolytes. At time of discharge medical care will return to his primary care provider at [facility] 08/08/16 Continue with NG for decompression to low intermittent suction. Initiate surgical consultation by Dr. Ariza Planning on small bowel series , place patient on cardiac telemetry. Noted to be sinus tachycardia. Will give a one-time dose of IV Lopressor 5 milligrams and continue to monitor. Did review home medications normally on any antihypertensives. Encourage nursing staff to monitor for evidence of pain and treat with when necessary medications. Leukocytosis resolved today down to 8.8. Potassium is found to be elevated at 5.1, however, this is likely secondary to specimen hemolysis. Continue with behavioral restraints for patient safety given that he has pulled his NG tube out 5 times since admission. Will discuss further with attending, Dr. Arvizu 08/09/16 Continue with Zosyn for antimicrobial coverage. Ct abd is obtained this morning revealing high-grade or complete obstruction along with bilateral lower pleural effusions. He is scheduled for Exploratory Lap today at [address] Ariza. Normal saline at 125ml/hr for ongoing hydrations Oxygen needs increased overnight to 10 liters however he is currently down to 2 liters. Chest xray was obtained this morning for further cardiopulmonary eval. Creatine is elevated today, suspect could be due to dehydration or acute obstruction. Repeat BMP pending. Continue Morphine and Zofran for pain control and nausea. SCDs for DVT prophylaxis. Will recheck CBC and BMP to follow blood counts, renal function and electrolytes. Family notified by nursing staff of change in treatment plan 08/10/16 Mr. Johnson underwent attempted decompressive colonoscopy and subsequent laparotomy with sigmoidectomy yesterday. Necrotic bowel was identified due to obstruction/volvulus. There has been persistent tachycardia overnight with need for supplemental oxygen. Creatinine remains elevated 2.0 with increasing BUN. His sister/legal guardian confirms full CODE STATUS. PICC line placed, peripheral nutrition to be changed to TPN. Additional fluids to be given today due to tachycardia and renal impairment. Continue Zosyn for abdominal coverage. COLOR CONSULTANT narcotics available in addition to nursing controlled doses morphine and Ativan. Chest x-ray to be obtained in the morning in addition to laboratory data. May require IPPB for lung expansion. Up in chair if possible without risking patient removal of NG. Lovenox and IV Protonix for prophylaxis. 08/11/16 Mr. Johnson underwent attempted decompressive colonoscopy and subsequent laparotomy with sigmoidectomy 08/09 for ischemic bowel due to obstruction/ volvulus. Patient removed NG yesterday evening, no nausea or vomiting. Bowel movements 2 today. Check abdominal films in a.m. Patient is hemodynamically stable with elevated blood pressures up to approximately 200/110, scheduled IV metoprolol initiated this evening. Volume status positive, diuresis initiated. Persistent hypernatremia-discussed with pharmacy, no sodium chloride or magnesium in TPN. COLOR CONSULTANT for pain, Ativan for anxiety as needed. Continue Zosyn for abdominal coverage. Blood sugars stable with TPN thus far. Corrective scale insulin available. Lovenox and IV Protonix for prophylaxis. 08/12 Resting in bed, responds to verbal stimuli. Pain controlled-not pushing COLOR CONSULTANT often (does have basal rate). Not reporting nausea. Pt has been passing lose stool. NG out; Dr Ariza advancing to clear liquids. Breathing well. Has been ambulating in room with nursing. Continue TPN for nutrition due to decreased oral intake post op. Diet advanced to clear liquids - monitor intake. Will start home Miralax and senna to help bowel motivation. Encourage activities and deep breathing. Continue Zosyn for abdominal coverage. Continue CCU care for close monitoring and support - possible transfer to floor in near future. Monitor lab. Transfer to Sx floor this evening for continuation of care. 4-[address] Oral drive decreased-not taking much by mouth. Increased loose stools - C diff positive; Zosyn stopped and stared on Oral Vanco and IV metronidazole. Verbal responses limited. Does report discomfort-hard to tell if it is abdominal in nature or just generalized diffuse pain. Continue TPN for nutrition due to decreased oral intake post op. Start Norvasc for BP control. Will change IV metoprolol to Toprol XL 25mg daily. Speech to check swallow function. Sx: Having copious stools, C-diff came back positive, talked with Karen in pharmacy and referred to [facility], agreed to start Vanco 500 PO Q6h and Flagyl 500 IV Q6h. Will continue to monitor and consider Vanco enema if no improvement. Stop Zosyn. Pharmacy adjusting TPN based on lytes. Continue clear liquids. He walked in the room, will encourage ambulation. 08/14/16 Continue TPN for nutrition due to decreased oral intake post op. Increased abdominal distention concerning for possible post-op ileus. Will add scheduled Reglan 10 mg IV every 6 hours May need to consider placing NG tube. Monitor blood pressure and tachycardia. Continues to be tachy at 110. 08/15/16 Will given a 500 ML IV fluid bolus of NS due to decreased oral drive. Heart rate this afternoon continues consistanely over 100. Will increase Toprol XL to 50 milligrams daily Continue with scheduled Reglan gastric emptying. Continue Miralax for bowel motivation Continue with TPN for nutrition, monitor electrolytes and blood sugars carefully Continue with vancomycin and Flagyl for treatment of C. difficile 08/16 Resting in bed. Nursing report he was up in chair and ambulated earlier. Oral drive decreased-will take about one bite, and then refuse further intake. Say no when asked if short of air. Not reporting ab pain. Continue TPN for nutritional support as oral drive very diminished. Continue Vancomycin and metronidazole. Reglan to help bowel motility. Encourage ambulation to help strength and promote bowel function. 08/17/16 Abdominal distension continues slow to improve. Abdomen is soft and appears to be non tender. Continue with Vanco and Flagyl for treatment of C-Diff Continue TPN for nutritional support as oral drive very diminished. Scheduled Reglan to assist with GI motility. Norvasc daily for blood pressure control. Overall, tachycardia has improved. Continue to monitor. Lopressor IV available as needed. 08/18/16- *Patient remains somewhat distended. Surgery following. Continues on Reglan, IV E-mycin for motility. Documented daily BM for now despite known CDiff. *Continues to have low grade fever- suspect tachycardia is due to being off IVF over the last 12 hours or so. Resume IVF until we can get TPN back onboard. Continue beta-blockers. Continue PO Vanco and IV Flagyl for treatment of CDiff. Repeat KUB in AM. *Need to continue TPN for now- may want to place DHT for supplement of PO intake. Hx of MR may make TF tolerance difficult. *Continue Ruiz for urinary retention. Plan back to LTCF when stable. 08/19/16 Leukocytosis - persistent at 12.8. Dr. Ariza considering repeat imaging but clinical exam was not worrisome. Tachycardia - continue Toprol and IVF (IVF started until TPN can be resumed) PICC line was pulled out again today - he's not taking in much orally so will need to continue TPN. C diff - continue oral vanco. SBO - continue e-mycin and reglan. KUB repeated today - moderate colonic gas ( suggests ileus), with some improvement. 08-21 Surgical: Reports are that he ate 100% of lunch when his care facility staff was present, but is refusing food from hospital staff. C-diff returned negative this am. Plans are to transfer him across the [place] to a "clean" room, and decontaminate is current room now that the C-diff is neg. Plan to DC the jose juan on Friday. Erythromycin IV DC'd Pharmacy adjusting TPN based on lytes. Impression Status post low anterior sigmoid resection for 2016 for sigmoid volvulus with ischemia Prolonged ileus C. difficile colitis Malnutrition-on TPN Mental retardation/developmental delay Acute kidney injury-resolved Epilepsy history-no seizures this hospitalization History of gastric ulcer Hypertension-not diagnosed prior to this admission but started on Norvasc and metoprolol during this hospitalization Tachycardia-improved with metoprolol. The patient is not significantly anemic. TSH was normal. Leukocytosis-improved today Mild anemia-continue to monitor Hyperglycemia secondary to DHW-teij-rwrcrmoqas Plan Continue oral Vanco and IV metronidazole for C. difficile colitis Continue Reglan for ileus. Electrolytes are okay. Consult PT and OT and increase activity as tolerated. Tinea to monitor renal function and electrolytes closely. Continue Protonix for history of gastric ulcer Continue Lovenox for DVT prophylaxis Continue metoprolol, Norvasc for hypertension Discussed with the patient's nurse, case management, nurses aide, and pharmacist. 08/21/2016 - Impression Status post low anterior sigmoid resection for 2016 for sigmoid volvulus with ischemia Prolonged ileus C. difficile colitis-repeat C. difficile today was negative. Malnutrition-on TPN Mental retardation/developmental delay Acute kidney injury-resolved Epilepsy history-no seizures this hospitalization History of gastric ulcer Hypertension-not diagnosed prior to this admission but started on Norvasc and metoprolol during this hospitalization Tachycardia-improved with metoprolol. The patient is not significantly anemic. TSH was normal. Leukocytosis-improved today Mild anemia-continue to monitor Hyperglycemia secondary to FVP-erzo-ccykpyrclm Plan Continue oral Vanco and IV metronidazole for C. difficile colitis Continue Reglan for ileus. Electrolytes are okay. Consult PT and OT and increase activity as tolerated. Tinea to monitor renal function and electrolytes closely. Continue Protonix for history of gastric ulcer Continue Lovenox for DVT prophylaxis Continue metoprolol, Norvasc for hypertension LAXMI GUEVARA APRN Aug 23, 2016 07:48
[2016-08-23 08:00] VITALS: PULSE 113; RESP 16
--- NOTE | 2016-08-23 08:00 | NUR ---
RECEIVED REPORT PATIENT IS AWAKE UP AND ABOUT WITH 1:1 CARE. PATIENT IS UNABLE TO STAY STILL. PATIENT HAS IV ABX ORDERED. HALDOL IS ADMINISTERED PRIOR TO IV ABX ADMINISTRATION.
[2016-08-23] MEDS: AMLODIPINE 5 MG TABLET PO SCH (08:41)
[2016-08-23] MEDS: METOPROLOL XL 50 MG TABLET PO SCH (08:41)
[2016-08-23] MEDS: ENOXAPARIN 40 MG/0.4 ML INJECTION SQ SCH (08:44)
[2016-08-23] MEDS: PANTOPRAZOLE 40mg INJECTION IV SCH (08:52)
[2016-08-23] MEDS: BISACODYL 10 MG SUPPOSITORY RECTALLY SCH (08:57)
[2016-08-23] MEDS: POLYETHYL.GLYCOL 3350 PACKET 17gm PO SCH (08:57)
--- NOTE | 2016-08-23 10:12 | NUR ---
JUANI GLORIA LEFT FOR SUZANNE WITH [facility] TO LET HER KNOW THAT DC IS POSSIBLE TODAY. P#[phone]
--- NOTE | 2016-08-23 10:49 | NUR ---
JUANI GLORIA SPOKE WITH SUZANNE AT [facility]. THEIR STAFF HAD CONCERNS ABOUT POSSIBLE CHOKING YESTERDAY WHEN FEEDING PATIENT. JUANI SPOKE WITH DR. HILL AND GOT ORDER FOR SPEECH TO RE-EVAL SWALLOW PRIOR TO DC.
[2016-08-23 11:29] VITALS: BP 103/65; PULSE 95; RESP 16; TEMP 96.7; O2SAT 99
--- NOTE | 2016-08-23 12:00 | NUR ---
RESTLESSNESS PATIENT SLEEPS A LITTLE AND GETS UP WALKING EVERYWHERE IN THE UNIT. PATIENT IS UP TO BATHROOM TO VOID VERY OFTEN. VOIDS LESS THAN 100CC EACH TIME. HALDOL IS ADMINISTERED AGAIN PRIOR TO ABX ADMINISTRATION.
--- NOTE | 2016-08-23 13:09 | NUR ---
DYSPHAGIA EVALUATION ATTEMPTED PATIENT REFUSED TO CONSUME LIQUIDS AND SOLIDS FOR THIS SPEECH THERAPIST, OR COOPERATE FOR FULL EVALUATION. PATIENT AGREEABLE TO CONSUMING LUNCH WITH SWANQUARTER STAFF. SWANQUARTER STAFF CUT PATIENTS MEAT INTO BITE SIZED PIECES AND FED PATIENT AT A SLOW RATE, ALTERNATING SOLIDS AND LIQUIDS. PATIENT DEMONSTRATED FAIR MASTICATION, FAIR LARYNGEAL ELEVATION, AND NO CLINICAL S/S OF ASPIRATION ON LIQUIDS OR SOLIDS AT THIS TIME. STAFF MEMBER REPORTS THAT HE TYPICALLY FEEDS HIMSELF, AND THAT SHE IS WITH HIM 5 DAYS A WEEK. SHE REPORTS SHE WILL ENCOURAGE PATIENT TO TAKE SMALL SIPS/BITES AND SHE WOULD CUT HIS FOOD UP INTO SMALL BITE-SIZED PIECES, AND FEED PATIENT IF NECESSARY. STAFF ENCOURAGED TO CONTACT DEPARTMENT IF QUESTIONS/CONCERNS ARISE RE: SWALLOW FUNCTION. RECOMMEND: REG/REG DIET TOLERATED. SMALL SIPS/BITES. ALTERNATION OF SOLIDS AND LIQUIDS. ONLY FEED PATIENT WHEN HE IS ALERT AND UPRIGHT. SWALLOW RE-EVAL ORDER MODIFIED TO DYSPHAGIA SCREEN SECONDARY TO LIMITED HANDS-ON WITH PATIENT. DR. HILL AND SUZANNE, CASE MANAGEMENT NOTIFIED OF RECOMMENDATIONS. MARY LOAIZA, [facility], [employer]
--- NOTE | 2016-08-23 13:23 | NUR ---
JUANI GLORIA UPDATED SUZANNE AT [facility] THAT PT PASSED SWALLOW EVAL TODAY. DR. HILL PLANS TO DC TODAY. THEY WILL TRANSPORT AT 1500. BERNABE CARTAGENA MADE AWARE.
--- NOTE | 2016-08-23 13:38 | NUR ---
CM CM SPOKE WITH STEPHANIE BECKMAN, [facility] TO LET HER KNOW THAT DC IS PLANNED FOR TODAY AND THAT [facility] WILL TRANSPORT AT 1500. IM IS COMPLETED.
[2016-08-23] MEDS ORDERED: METR-116 PO (13:40)
[2016-08-23] MEDS ORDERED: VANC500V5 PO (13:40)
[2016-08-23] MEDS ORDERED: HYDR-4072 PO (13:40)
[2016-08-23] MEDS ORDERED: METO50TA9 PO (13:40)
--- NOTE | 2016-08-23 14:12 | DSPDOC ---
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 difficile colitis started on metronidazole and vancomycin on 08/13/2016 Severe sepsis Hyperglycemia Acute kidney injury Mental retardation Constipation Malnutrition requiring TPN Hypertension Tachycardia Procedures Low anterior sigmoid resection with mobilization of the splenic flexure and coloproctostomy on 07/30/[address] Thapa Laboratory Item Value Date Time White Blood Count 10.5 T/MM3 08/21/16 0509 Hemoglobin 11.4 GM/DL L 08/21/16 0509 Hematocrit 34.9 % L 08/21/16 0509 Platelet Count 345 T/MM3 08/21/16 0509 Thyroid Stimulating Hormone (TSH) 1.06 MIU/L 08/07/16 1328 Laboratory Tests Test 08/22/16 06:10 08/22/16 08:40 Glucometer 152mg/dL (75-110) Turbidity < 20 (0-20) Sodium Level 141MEQ/L (134-144) Potassium Level 4.2MEQ/L (3.6-5) Chloride Level 109MEQ/L (98-107) Carbon Dioxide Level 20MEQ/L (22-30) Anion Gap 12MEQ/L (5-15) Blood Urea Nitrogen 13.0MG/DL (9-20) Creatinine 0.9MG/DL (0.8-1.5) Glomerular Filtration Rate Calc 84 BUN/Creatinine Ratio 14RATIO (6-26) Glucose Level 107MG/DL (75-110) Calculated Osmolality 271MOSM/KG (261-280) Calcium Level 8.6MG/DL (8.4-10.2) Phosphorus Level 3.5MG/DL (2.5-4.5) Magnesium Level 2.0MG/DL (1.6-2.3) Total Bilirubin 0.60MG/DL (0.20-1.30) Icterus Index < 2 (0-7) Aspartate Amino Transf (AST/SGOT) 34U/L (17-59) Alanine Aminotransferase (ALT/SGPT) 53U/L (21-72) Alkaline Phosphatase 73U/L (38-126) Total Protein 7.1G/DL (6.3-8.2) Albumin 3.1G/DL (3.5-5.0) Globulin 4.0G/DL (2.4-3.6) Albumin/Globulin Ratio 0.8RATIO (1.1-2.2) Chemistry Specimen Hemolysis < 15 (0-25) Microbiology Item Value Date Time Stool C. difficile Toxin B Gene PCR Negative 08/21/16 0327 Stool C. difficile Toxin B Gene PCR Positive *A 08/18/16 1941 Stool C. difficile Toxin B Gene PCR Positive *A 08/13/16 0600 Blood cultures negative 2 on 08/07/2016 and 08/18/2016 Radiology Patient underwent multiple radiologic testing during this hospitalization for bowel obstruction, sigmoid volvulus and constipation. Please see computerized records for completeness. Last KUB on 08/19/2016 shows moderate colonic gas in the abdomen without evidence of obstruction or free air. Suggest ileus. Some improvement from prior study. Last chest x-ray on 08/11/2016 shows slightly improved atelectasis of the lungs. No new focal pneumonia. Presumably postoperative free intraperitoneal air. History of Present Illness Vadim is a 65 year old man who currently resides at [facility]. He presents today to his primary care provider at [facility], Selin Tay's office for evaluation of abdominal distention. Abdominal KUB X-ray was completed that demonstrated distention of the colon with multiple air fluid levels in both large and small bowel related to adynamic ileus. Due to his clinical and diagnostic findings the hospitalist team was notified for direct admission as an inpatient for further evaluation and treatment... Shouldn't on initial examination. He has severe MR and is not able to communicate very well. [facility] staff member reports that yesterday the patient' s stomach began to swell and that he vomited twice. Vadim also pointed to his stomach yesterday. He also had a low grade fever. [facility] staff reports that his last bowel movement was Friday. He is seen initially on exam laying in bed with a [facility] staff member at his bedside. He does appear to be in distress. His abdomen is very distended. Discussed with [facility] staff his baseline mentation is mostly non-verbal with some aggressive behaviors. [facility] staff reports that he occasionally will point to something that he wants, but otherwise he speaks minimally. Hospital Course The patient was admitted to the hospitalist service on 08/07/2016. He was admitted with a diagnosis of small bowel obstruction. Dr. Thapa was consulted. The patient was septic initially and started on IV antibiotics and admitted to the intensive care unit. Workup did reveal a sigmoid volvulus. The patient underwent a decompressive colonoscopy, exploratory laparotomy, sigmoid resection/low anterior with mobilization of the splenic flexure and coloproctostomy on 08/09/2016. The patient had a slow recovery secondary to ileus. He did require TPN for nutrition. On 08/13/2016 the patient was having diarrhea and stool was positive for C. difficile. The patient was started on oral vancomycin and IV metronidazole. Slowly his diarrhea did improve and on last testing C. difficile was negative. He will need a total of 2 weeks course of oral vancomycin and metronidazole. Over the past several days, the patient's oral intake has improved especially when familiar staff from [facility] come and help with meal time. The patient was evaluated by speech therapy on day of discharge and his swallow was found to be very good as long as he eats small bites. He does not need any specialized diet consistency other than eating small bites and being supervised with eating. The patient was seen and evaluated by Dr. Thapa and his nurse practitioner Rachid over the hospital course. And his reji were removed on the day of discharge. He is not requiring any special wound care and has been okayed for showers or baths. Regarding C. difficile, the patient will need 5 more days of vancomycin and metronidazole. If diarrhea recurs his primary care physician should be notified. During the hospital course the patient did have elevated blood pressure and tachycardia. Norvasc and metoprolol were initiated. He will be discharged on just metoprolol. Blood pressure and pulse should be checked every morning before he receives metoprolol to make sure that pressure and pulse are okay before giving. It's possible that his tachycardia and hypertension are related to pain and/or anxiety and he may no longer need this once he returns to his usual living situation. The patient had a Ruiz catheter that was removed 2 days ago and he has been urinating okay since then. The patient has had some agitation requiring when necessary Haldol and Ativan. I think this is likely related to his mental retardation and being in unfamiliar surroundings with unfamiliar staff. I do not think he should need Haldol when he is back to his usual environment and his usual caretakers. The patient is being discharged in stable condition back to [facility] in [place]. Follow-up one week with Dr. Carrillo. Greater than 30 minutes of time was spent on dismissal day. Problems: (1) Sigmoid volvulus Status: Resolved Assessment & Plan: Low anterior sigmoid resection with mobilization of the splenic flexure and coloproctostomy 08/09/16 (2) Ischemic colitis Status: Resolved Assessment & Plan: Due to volvulus/bowel obstruction (3) C. difficile colitis Status: Resolved Assessment & Plan: Not POA (4) Severe sepsis Status: Resolved Assessment & Plan: Manifestations of sepsis include the following- 1. Leukocytosis at 16.7 with left shift. Bandemia 15%. 2. Tachycardia at 105 3. Acute abdominal distention/pain 4. Evidence of organ dysfunction including elevated bilirubin 2.0 and hyperglycemia in the absence of diabetes 5. Elevated Lactate of 3.0. (5) Bowel obstruction Status: Resolved (6) Hypernatremia Status: Resolved Assessment & Plan: Not POA (7) Hyperglycemia Status: Acute (8) Acute kidney injury Status: Resolved Assessment & Plan: Admission creatinine 1.1 increasing to 2.2 on 08/09 (9) Abdominal distention Status: Acute (10) Mental retardation Status: Chronic (11) Epileptic seizure Status: Chronic (12) Constipation Status: Chronic (13) Osteopenia Status: Chronic (14) Hypermagnesemia Status: Acute (15) Hypertension Status: Acute DVT Prophylaxis: SCD'S, Lovenox GI Prophylaxis: Protonix Code Status Full Code Home Meds Active Scripts Metronidazole (Metronidazole) 500 Mg Tablet, 500 MG PO TID for 5 Days, #15 TAB Prov:KATIE PATEL MD 08/23/16 Hydrocodone/Acetaminophen (Hydrocodon-Acetaminoph 7.5-325) 7.5-325 Tablet, 1 TAB PO Q4H Y for PAIN, #10 TAB Prov:KATIE PATEL MD 08/23/16 Metoprolol Succinate (Toprol Xl) 50 Mg Tab.er.24h, 50 MG PO DAILY, #30 TAB Check blood pressure and pulse prior to giving dose. Hold if heart rate less than 60 or systolic blood pressure less than 110. Prov:KATIE PATEL MD 08/23/16 Vancomycin HCl (Vancomycin HCl) 500 Mg/Vial Inj, 500 MG PO Q6HR for 5 Days Prov:KATIE PATEL MD 08/23/16 Reported Medications Benzocaine (Oral Pain Relief) 9.35 Gm Gel..gram., 1 APPLIC PO PRN 04/30/16 Acetaminophen (Tylenol) 325 Mg Tablet, 650 MG PO Q4HR Y for PAIN/FEVER 04/30/16 Guaifenesin (Robafen) 100 Mg/5 Ml Liquid, 100 MG PO Q4HR Y for COUGH 04/30/16 Calcium Carb/Magnesium Hydrox (Rolaids Chewable Tablet) 1 Each Tab.chew, 1-2 TAB PO Q1H Y for HEARTBURN 04/30/16 Bismuth Subsalicylate (Bismatrol) 262 Mg/15 Ml Oral.susp, 1 DOSE PO PRN 04/30/16 Tolnaftate (Tinactin) 133 Gm Aero.powd, 1 APPLIC TOP BID Y for PRN ORDERS 04/30/16 Diphenhydramine HCl (Diphenhydramine HCl) 25 Mg Capsule, 25 MG PO TID Y for ALLERY SYMPTOMS 04/30/16 Lorazepam (Lorazepam) 1 Mg Tablet, 1 MG PO BID Y for ANXIETY 04/30/16 Dicyclomine HCl (Dicyclomine HCl) 10 Mg Capsule, 10 MG PO QID Y for IRRITABLE BOWEL SYMPTOMS 04/30/16 Na Phos,M-B/Na Phos,Di-Ba (Fleet Enema) 133 Ml Enema, 1 ENEMA RECTALLY O Y for CONSTIPATION 04/30/16 Bisacodyl (Dulcolax) 10 Mg Supp.rect, 10 MG RECTALLY DAILY Y for CONSTIPATION 04/30/16 Epinephrine (Epipen 2-Umberto) 0.3 Mg/0.3 Ml Auto.injct, 0.3 MG IM PRN 04/30/16 Sennosides (Senna) 8.6 Mg Tablet, 8.6 MG PO BID 04/30/16 Polyethylene Glycol 3350 (Glycolax) 119 Gm Powder, 17 GM PO DAILY 04/30/16 Magnesium Hydroxide (Milk Of Magnesia) 400 Mg/5 Ml Oral.susp, 30 ML PO DAILY Y for CONSTIPATION 07/15/11 Diazepam (Diazepam) 5 Mg Tablet, 5 MG PO BID Y for PRN ORDERS 07/15/11 Discontinued Reported Medications Pseudoephedrine HCl (Sudogest) 60 Mg Tablet, 60 MG PO Q4HR Y for CONGESTION 04/30/16 Loperamide HCl (Loperamide) 2 Mg Tablet, 2 MG PO QID Y for DIARRHEA 04/30/16 Acetaminophen (Tylenol Extra Strength) 500 Mg Tablet, 500-1000 MG PO Q6H Y for PAIN/FEVER 04/30/16 Face to Face Encounter I met with patient on the day of dismissal and discussed follow up appointments , medications, and safety plan. Discharge Disposition Dismiss to [facility] with staff in stable condition Copies To 1: IZA THAPA MD, FACS, CWS; BERNABE CARRILLO MD, STEPHANIE L MD Aug 23, 2016 13:48
--- NOTE | 2016-08-23 15:10 | NUR ---
DC PICC Line Picc Line DC'd at this time. 44 cm length removed from left brachial. Pt tolerated well, tip intact, no bleeding/hematoma noted. Triple Antibiotic Ointment applied along with gauze pressure dressing.
--- NOTE | 2016-08-23 15:15 | NUR ---
DISCHARGED PATIENT IS DISCHARGED TO [facility]. [facility] IS HERE AT THIS TIME TO PICK HIM UP. REPORT CALLED TO DAW[facility], [facility] DISPATCHER AT [facility]. ALL QUESTIONS ANSWERED. PICC LINE IS PULLED OUT BY CHARGE NURSE PRIOR TO DISCHARGE.
[2016-08-23] MEDS ORDERED: VANC250C5 PO (18:10)
[2016-08-24] MEDS ORDERED: PANTOPRAZOLE 40 MG TABLET PO SCH (06:30)
[2016-08-24] MEDS ORDERED: METO-277 PO (18:08)
== END 2016-08-23 15:15 | disposition home or self-care (01) | DRG 853 ==
LOC: MED 12:14 → CCU 08-09 17:01 → SRG 08-12 20:05
PROVIDERS: ADMIT Hospitalist; ATTEND Internal Medicine
PROC: 0DTN0ZZ Resection of Sigmoid Colon, Open Approach (ICD-10-PCS; principal; 2016-08-09 14:07)
PROC: 0DBN8ZX Excision of Sigmoid Colon, Via Natural or Artificial Opening Endoscopic, Diagnostic (ICD-10-PCS; 2016-08-09 14:07)
PROC: 3E0336Z Introduction of Nutritional Substance into Peripheral Vein, Percutaneous Approach (ICD-10-PCS; 2016-08-11)
DX: A41.9 Sepsis, unspecified organism (principal); K55.031 Focal (segmental) acute (reversible) ischemia of large intestine; K56.2 Volvulus; A04.7 Enterocolitis due to Clostridium difficile; N17.9 Acute kidney failure, unspecified; F73 Profound intellectual disabilities; E87.0 Hyperosmolality and hypernatremia; E46 Unspecified protein-calorie malnutrition; R65.20 Severe sepsis without septic shock; R73.9 Hyperglycemia, unspecified; E83.41 Hypermagnesemia; I10 Essential (primary) hypertension; G40.909 Epilepsy, unspecified, not intractable, without status epilepticus; M85.80 Other specified disorders of bone density and structure, unspecified site; Z68.20 Body mass index [BMI] 20.0-20.9, adult
CPT/HCPCS: 36415; 36600; 80048; 80053; 80069; 81001; 82040; 82803; 82948; 83605; 83690; 83735; 84100; 84145; 84443; 84478; 85007; 85025; 85027; 87040; 87493; 88305; 88307; 90732

== ENCOUNTER 2016-08-24 17:46 | Emergency (ER) | payer MEDICARE, MEDICAID ==
[~2016-08-24] VITALS: Ht 177.8 cm; Wt 62.0 kg
[~2016-08-24 17:46] MED LIST changes: -ACET-2723 PO; +HYDR-4072 PO; -LOPE2TAB24 PO; +METO50TA9 PO; +METR-116 PO; -PSEU60TA21 PO; +VANC250C5 PO; +VANC500V5 PO
[2016-08-24 17:48] VITALS: Ht 177.8 cm; Wt 62.0 kg
--- OUTSIDE RECORDS SUMMARY | 2016-08-24 17:51 | XMS REPORT | Continuity of Care Document ---
Author Author [facility] Organization [facility] Address Unknown Phone Unavailable Care Team Providers Care Senior Business Process Analyst Name Role Phone OTHER Primary Care Physician [phone] Insurance Providers Guarantor Vadim Johnson Address [address] [place] [address] [address] [place] [address] Email DENIED 1950 Payer [facility] Plan Policy Number [id number] Subscriber's Name Vadim Johnson Relationship 18 Self Effective Date 16 Expiration Date 16 Payer Medicare Policy Number [id number] Subscriber's Name Vadim Johnson Relationship 18 Self Effective Date 88 Advance Directives Directive Response Recorded Date/Time Dr Chow Resuscitation Status Full Code 08/10/16 11:27am Resuscitation Documents on File No 08/07/16 12:35pm DPOA for Healthcare Only Y Winnie guardian 08/07/16 2:41pm Living Will No 08/07/16 12:35pm Problems Active Problems Medical Problem Onset Date Status Abdominal distention Unknown Acute Acute kidney injury Unknown Resolved Anemia Unknown Chronic Bowel obstruction Unknown Resolved C. difficile colitis Unknown Resolved Clavicle fracture Unknown Constipation Unknown Chronic Epileptic seizure Unknown Chronic Hyperglycemia Unknown Acute Hypermagnesemia Unknown Acute Hypernatremia Unknown Resolved Hypertension Unknown Acute Ischemic colitis Unknown Resolved Mental retardation Unknown Chronic Osteopenia Unknown Chronic Severe sepsis Unknown Resolved Sigmoid volvulus Unknown Resolved Past Problems Medical Problem Onset Date HTN (hypertension) Unknown Headache Unknown Medications Current Home Medications Medication Dose Units Route Directions Days Qty Instructions Start Date Acetaminophen (Tylenol) 325 Mg Tablet 650 Mg Oral Every 4 Hours as needed for Pain/Fever 04/30/16 Benzocaine [...] 4 Hours as needed for Cough 04/30/16 Hydrocodone/Acetaminophen (Hydrocodon-Acetaminoph 7.5-325) 7.5-325 Tablet 1 Tab Oral Every 4 Hours as needed for Pain 10 Tablet 08/23/16 Lorazepam 1 Mg Tablet 1 Mg Oral Twice A Day as needed for Anxiety 04/30/16 Magnesium Hydroxide (Milk Of Magnesia) 400 Mg/5 Ml Oral.susp 30 Ml Oral Daily as needed for Constipation 07/15/11 Metoprolol Succinate (Toprol Xl) 50 Mg Tab.er.24h 50 Mg Oral Daily 30 Tablet Check blood pressure and pulse prior to giving dose. Hold if heart rate less than 60 or systolic blood pressure less than 110. 08/23/16 Metronidazole 500 Mg Tablet 500 Mg Oral Three Times A Day 5 Days 15 Tablet 08/23/16 Na Phos,M-B/Na Phos,Di-Ba (Fleet Enema) 133 Ml Enema 1 Enema Rectally Onetime as needed for Constipation 04/30/16 Polyethylene Glycol 3350 (Glycolax) 119 Gm Powder 17 Gm Oral Daily 04/30/16 Sennosides (Senna) 8.6 Mg Tablet 8.6 Mg Oral Twice A Day 04/30/16 Tolnaftate (Tinactin) 133 Gm Aero.powd 1 Applic Topically Twice A Day as needed for Prn Orders 04/30/16 Vancomycin Hcl 500 Mg/Vial Inj 500 Mg Oral Q6h/0300,0900,1500,2100 5 Days 08/23/16 Past Home Medications Medication Directions Ordered Status Acetaminophen (Tylenol Extra Strength) 500 Mg Tablet, 500-1000 Mg Oral Every 6 Hours as needed for Pain/Fever 04/30/16 Discontinued Loperamide Hcl (Loperamide) 2 Mg Tablet, 2 Mg Oral Four Times Daily as needed for Diarrhea 04/30/16 Discontinued Pseudoephedrine Hcl (Sudogest) 60 Mg Tablet, 60 Mg Oral Every 4 Hours as needed for Congestion 04/30/16 Discontinued Social History Social History Problem Response Recorded Date/Time Onset Date Status Reason for Hospitalization sigmoid volvulus, sepsis, abdominal pain 2016 1:44pm Not Applicable Not Applicable Hx Alcohol Use No 04/30/2016 6:16pm Not Applicable Not Applicable Has the pt used tobacco in the last 12 months No 08/07/2016 12:38pm Not Applicable Not Applicable Query Response Start Date Stop Date Smoking Status Never smoker Hospital Discharge Instructions Instructions: Care Instructions: Reason for Hospitalization: sigmoid volvulus, sepsis, abdominal pain I was in the hospital because (patient own words): pt history of , unable to say why he is here Discharge Diet: regular diet, small bites, staff to observe/help patient with eating Discharge Activity: Up with assist Follow Up Appointments: Follow-up in one week with Dr. Carrillo Pending Lab / Results: No Pending Lab Patient Instructions: Eating or drinking the patient needs to be observed. He needs to eat small bites only but can have a regular diet and regular liquids. Wound/Incision Care: No special treatment needed. Pt may shower or bath Pain Management/Treatment: Tylenol or [place] as directed Expected Signs/Symptoms: Mild abdominal pain, occasional loose stools Notify Physician If: Increased abdominal pain, recurrent emesis, frequent diarrhea, fevers, or any other concerning symptoms During Business Hours:: Please call the physician's office at [phone] After Business Hours:: Please call [phone] and have the billet bed operator page the physician. Condition at time of discharge: Good Plan of Care Discharge Date 08/23/16 3:15pm Disposition 01 DISCHARGED HOME, SELF-CARE Instructions/Education Provided Colonoscopy (DC) Bowel Obstruction (DC) Prescriptions See Medication Section Care Plan and Goals See Discharge Instructions Section Functional Status Query Response Date Recorded Mobility Status Ambulatory w/assist August 23, 2016 1:44pm Assistive Devices None August 23, 2016 1:44pm Activity Limitations Weakness August 23, 2016 1:44pm Feeding Ability Dependent August 23, 2016 1:44pm Toileting Ability Dependent August 23, 2016 1:44pm Grooming Ability Dependent August 23, 2016 1:44pm Dressing Ability Dependent August 23, 2016 1:44pm Driving Ability Dependent August 23, 2016 1:44pm Housework Ability Dependent August 23, 2016 1:44pm Meal Preparation Ability Dependent August 23, 2016 1:44pm Stair Climbing Ability Assist August 23, 2016 1:44pm Ability to complete ADL's impeded by Impaired Mobility August 23, 2016 1:44pm Cognitive/Perceptual Impairments Chronic confusion Imp. verbal communication August 23, 2016 1:44pm Allergies, Adverse Reactions, Alerts Allergen Type Severity Reaction Status Last Updated NSAIDS (Non-Steroidal Anti-Inflamma Allergy Unknown Active 08/07/16 Immunizations Immunization Event Date Type Not Given Reason Dose Number Lot Number Linseed Oil Press Tender VIS Given pneumococcal polysaccharide PPV23 08/08/16 Administered 1 [id number] [employer] 08/08/14 Query Response on File Recorded Date/Time Hx Influenza Vaccination Y fall 201508/07/16 12:38pm Hx Pneumococcal Vaccination No 08/07/16 12:38pm Hx Tetanus, Diptheria, Pertussis Yes 12/14/11 10:21pm Hx Influenza Vaccination Y fall 201508/07/16 12:38pm Hx Tetanus, Diptheria, Pertussis Yes 12/14/11 10:21pm Vital Signs Acute Vital Signs Vital Response Date/Time Temperature (Fahrenheit) 96.7 deg F (96.8 - 99.1) 08/23/2016 11:29am Temperature (Calculated Celsius) 35.70709 degrees C (36.0 - 37.3) 08/23/2016 11:29am Temperature Source Axillary 08/09/2016 5:52pm Pulse Rate (adult) 95 bpm (60 - 100) 08/23/2016 11:29am Respiratory Rate 16 breaths/min (10 - 20) 08/23/2016 11:29am O2 Sat by Pulse Oximetry 99 % (90 - 100) 08/23/2016 11:29am Oxygen Delivery Method Nasal Cannula 08/09/2016 10:00pm Oxygen Delivery Method Room Air 08/23/2016 11:29am Oxygen Flow Rate 1.00 L/min 08/10/2016 12:45pm Blood Pressure 103/65 mm Hg 08/23/2016 11:29am Blood Pressure Source Automatic Cuff 08/23/2016 11:29am Height (Feet) 5 feet 08/23/2016 7:49am Height (Inches) 10.00 inches 08/23/2016 7:49am Weight (Kilograms) 64.200 kg 08/23/2016 7:46am Body Mass Index (BMI) 20.7 08/07/2016 12:33pm Results Laboratory Results Test Name Result Units Flags Reference Collection Date/Time Result Date/ Time Comments White Blood Count 10.5 T/MM3 4.5-11.0 08/21/2016 5:09am 08/21/2016 6: 03am Red Blood Count 4.00 M/MM3 L 4.50-5.90 08/21/2016 5:0908/21/2016 6: 03am Hemoglobin 11.4 GM/DL L 13.5-17.5 08/21/2016 5:08/21/2016 6:03am Hematocrit 34.9 % L 41-53 08/21/2016 5:08/21/2016 6:03am Mean Corpuscular Volume 87.3 UM3 80-100 08/21/2016 5:0908/21/2016 6: 03am Mean Corpuscular Hemoglobin 28.5 UUG 26-34 08/21/2016 5:092016 6:03am Mean Corpuscular Hemoglobin Concent 32.7 GM/DL 31-37 08/21/2016 5:0908/21/2016 6:03am RDW Standard Deviation 44.8 FL 36.9-50.2 08/21/2016 5:0908/21/2016 6 :03am Platelet Count 345 T/MM3 130-400 08/21/2016 5:0908/21/2016 6:03am Mean Platelet Volume 10.4 UM3 9.4-12.4 08/21/2016 5:0908/21/2016 6: 03am Neutrophils (%) (Auto) 72.7 % H 33-66 08/13/2016 4:0608/13/2016 5: 12am Lymphocytes (%) (Auto) 9.9 % L 23-45 08/13/2016 4:0608/13/2016 5: 12am Monocytes (%) (Auto) 8.8 % 0-9.0 08/13/2016 4:0608/13/2016 5:12am Eosinophils (%) (Auto) 7.8 % H 0-4 08/13/2016 4:0608/13/2016 5:12am Basophils (%) (Auto) 0.3 % 0-2 08/13/2016 4:08/13/2016 5:12am Immature Granulocyte % (Auto) 0.5 % 0.0-0.5 08/13/2016 4:2016 5:12am Absolute Neutrophils (auto) 5.8 T/MM3 1.8-7.7 08/13/2016 4:062016 5:12am Absolute Lymphocytes (auto) 0.8 T/MM3 L 1-4.8 08/13/2016 4:062016 5:12am Absolute Monocytes (auto) 0.7 T/MM3 0-0.8 08/13/2016 4:08/13/2016 5:12am Absolute Eosinophils (auto) 0.6 T/MM3 H 0-0.5 08/13/2016 4:2016 5:12am Absolute Basophils (auto) 0.0 T/MM3 0-0.2 08/13/2016 4:08/13/2016 5:12am Absolute Immature Granulocyte (auto 0.04 T/MM3 H 0.00-0.03 08/13/2016 4: 08/13/2016 5:12am Neutrophils % (Manual) 88.0 % H 33-66 08/21/2016 5:09am 08/21/2016 6: 18am Band Neutrophils % 1.0 % 0-6 08/21/2016 5:09am 08/21/2016 6:18am Lymphocytes % (Manual) 3.0 % L 23-45 08/21/2016 5:09am 08/21/2016 6: 18am Monocytes % (Manual) 6.0 % 0-9.0 08/21/2016 5:09am 08/21/2016 6:18am Eosinophils % (Manual) 2.0 % 0-4 08/21/2016 5:09am 08/21/2016 6:18am Band Neutrophils # 0.1 T/MM3 08/21/2016 5:09am 08/21/2016 6:18am Absolute Neutrophils (Manual) 9.2 T/MM3 H 1.8-7.7 08/21/2016 5:09am 6:18am Lymphocytes # (Manual) 0.3 T/MM3 L 1-4.8 08/21/2016 5:09am 08/21/2016 6: 18am Monocytes # (Manual) 0.6 T/MM3 0-0.8 08/21/2016 5:09am 08/21/2016 6: 18am Eosinophils # (Manual) 0.2 T/MM3 0-0.5 08/21/2016 5:0908/21/2016 6: 18am Red Cell Morphology Comment NORMAL 08/21/2016 5:0908/21/2016 6: 18am Icterus Index < 2 0-7 08/22/2016 8:40am 08/22/2016 9:00am Chemistry Specimen Hemolysis < 15 0-25 08/22/2016 8:40am 08/22/2016 9 :00am 0-25: Specimen Exhibited No Hemolysis. Turbidity < 20 0-20 08/22/2016 8:40am 08/22/2016 9:00am Sodium Level 141 MEQ/L 134-144 08/22/2016 8:40am 08/22/2016 9:00am Potassium Level 4.2 MEQ/L 3.6-5 08/22/2016 8:40am 08/22/2016 9:00am Chloride Level 109 MEQ/L H 98-107 08/22/2016 8:40am 08/22/2016 9:00am Carbon Dioxide Level 20 MEQ/L L 22-30 08/22/2016 8:40am 08/22/2016 9: 00am Anion Gap 12 MEQ/L 5-15 08/22/2016 8:40am 08/22/2016 9:00am Blood Urea Nitrogen 13.0 MG/DL 9-20 08/22/2016 8:40am 08/22/2016 9: 00am Creatinine 0.9 MG/DL 0.8-1.5 08/22/2016 8:40am 08/22/2016 9:00am BUN/Creatinine Ratio 14 RATIO 6-08/22/2016 8:40am 08/22/2016 9:00am Glomerular Filtration Rate Calc 84 08/22/2016 8:40am 08/22/2016 9: 00am Glucose Level 107 MG/DL 75-110 08/22/2016 8:40am 08/22/2016 9:00am Calculated Osmolality 271 MOSM/KG 261-280 08/22/2016 8:4008/22/2016 9:00am Calcium Level 8.6 MG/DL 8.4-10.2 08/22/2016 8:4008/22/2016 9:00am Phosphorus Level 3.5 MG/DL 2.5-4.5 08/22/2016 8:4008/22/2016 9:00am Total Bilirubin 0.60 MG/DL 0.20-1.30 08/22/2016 8:4008/22/2016 9: 00am Alkaline Phosphatase 73 U/L 38-126 08/22/2016 8:4008/22/2016 9:00am Total Protein 7.1 G/DL 6.3-8.2 08/22/2016 8:4008/22/2016 9:00am Albumin 3.1 G/DL L 3.5-5.0 08/22/2016 8:4008/22/2016 9:00am Globulin 4.0 G/DL H 2.4-3.6 08/22/2016 8:4008/22/2016 9:00am Albumin/Globulin Ratio 0.8 RATIO L 1.1-2.2 08/22/2016 8:4008/22/2016 9:00am Aspartate Amino Transf (AST/SGOT) 34 U/L 17-59 08/22/2016 8:40am 2016 9:00am Alanine Aminotransferase (ALT/SGPT) 53 U/L 21-72 08/22/2016 8:40am 9:00am Triglycerides Level 21 MG/DL L 40-160 08/20/2016 4:09am 08/20/2016 5: 52am Lipase 69 U/L 23-300 08/07/2016 1:28pm 08/07/2016 2:24pm Magnesium Level 2.0 MG/DL 1.6-2.3 08/22/2016 8:40am 08/22/2016 9:00am Plasma Lactate 1.7 MMOL/L 0.6-2.2 08/07/2016 4:52pm 08/07/2016 5:19pm Procalcitonin 0.22 NG/ML 08/07/2016 1:28pm 08/07/2016 2:09pm PCT </= 0.5 ng/mL - sepsis not likely; PCT >0.5 and </=2 ng/mL - sepsis possible; PCT >2 ng/mL - sepsis likely; PCT >/=10 ng/mL - systemic inflammatory response - sepsis or septic shock highly indicated. Thyroid Stimulating Hormone (TSH) 1.06 MIU/L 0.47-4.68 08/07/2016 1: 28pm 08/07/2016 2:56pm Arterial Blood pH 7.360 7.350-7.450 08/08/2016 3:33pm 08/08/2016 3: 33pm Arterial Blood Partial Pressure CO2 42 MMHG 34-45 08/08/2016 3:33pm 3:33pm Arterial Blood pO2 at Patient Temp 86 MMHG 80-100 08/08/2016 3:33pm 3:33pm Arterial Blood HCO3 24 MEQ/L 22-26 08/08/2016 3:33pm 08/08/2016 3:33pm Arterial Blood Total CO2 25.0 MEQ/L 23-27 08/08/2016 3:33pm 08/08/2016 3:33pm Arterial Blood Base Excess -1.7 MMOL/L -2.0-2.0 08/08/2016 3:33pm 08/08 3:33pm Arterial Blood Oxygen Saturation 96.0 % 95.0-98.0 08/08/2016 3:33pm 3:33pm Blood Gas Oxygen Liter Flow 15 08/08/2016 3:33pm 08/08/2016 3:33pm Oxygen Delivery Method (LAB) NRB MASK, % 08/08/2016 3:33pm 2016 3:33pm Stool C. difficile Toxin B Gene PCR NEGATIVE NEGATIVE 08/21/2016 3: 27am 08/21/2016 6:07am If Toxin A is clinically indicated, treat accordingly. Urine Color YELLOW YELLOW 08/07/2016 5:08/07/2016 5:33pm Urine Turbidity CLEAR CLEAR 08/07/2016 5:08/07/2016 5:33pm Urine Specific [place] >=1.030 H 1.015-1.025 08/07/2016 5:2016 5:33pm Urine pH 6.0 5.0-8.0 08/07/2016 5:08/07/2016 5:33pm Urine Leukocyte Esterase NEGATIVE NEGATIVE 08/07/2016 5:2016 5:33pm Urine Nitrite NEGATIVE NEGATIVE 08/07/2016 5:08/07/2016 5:33pm Urine Protein 2+ A NEGATIVE 08/07/2016 5:08/07/2016 5:33pm Urine Glucose (UA) NEGATIVE NEGATIVE 08/07/2016 5:08/07/2016 5: 33pm Urine Ketones NEGATIVE NEGATIVE 08/07/2016 5:08/07/2016 5:33pm Urine Urobilinogen 0.2 EU/DL NORMAL 08/07/2016 5:08/07/2016 5: 33pm Urine Bilirubin 1+ A NEGATIVE 08/07/2016 5:08/07/2016 5:33pm Urine Blood 2+ A NEGATIVE 08/07/2016 5:08/07/2016 5:33pm Urine WBC 0-1 /HPF 0-5 08/07/2016 5:08/07/2016 5:50pm Urine RBC 0-1 /HPF 0-3 08/07/2016 5:08/07/2016 5:50pm Urine Squamous Epithelial Cells 0-5 08/07/2016 5:08/07/2016 5: 50pm Urine Bacteria 1+ H NEGATIVE 08/07/2016 5:08/07/2016 5:50pm Urine Mucus PRESENT 08/07/2016 5:08/07/2016 5:50pm Urine Culture Indicated CULT NOT INDICATED 08/07/2016 5:2016 5:50pm Glucometer 152 mg/dL H 75-110 08/22/2016 6:10am 08/22/2016 8:08pm Microbiology Results Procedure Source Organism/Result Collection Date/Time Result Date/Time Result Status Blood Culture Cath/Port/Line/Picc NO GROWTH AFTER 5 DAYS 08/18/2016 12: 45pm 08/23/2016 12:48pm Final Name: VADIM JOHNSON Unit #: [id number] : 1950 Sex: M DISCHARGE SUMMARY Admit Date: 08/07/16 Report #: [id number] [facility] General Date Date DATE: 08/23/16 TIME: 13:45 Attending Physician Benjie Patel MD Admitting Physician Benjie Patel MD Consulting Physician Iza Thapa MD,Facs,Cws Admitting Diagnosis Bowel obstruction Discharge Diagnosis Bowel obstruction secondary to sigmoid volvulus Ischemic colitis secondary to sigmoid volvulus/bowel obstruction C. difficile colitis started on metronidazole and vancomycin on 08/13/2016 Severe sepsis Hyperglycemia Acute kidney injury Mental retardation Constipation Malnutrition requiring TPN Hypertension Tachycardia Procedures Low anterior sigmoid resection with mobilization of the splenic flexure and coloproctostomy on 07/30/[address] Thapa Laboratory Item Value Date Time White Blood Count 10.5 T/MM3 08/21/16 0509 Hemoglobin 11.4 GM/DL L 08/21/16 0509 Hematocrit 34.9 % L 08/21/16 0509 Platelet Count 345 T/MM3 08/21/16 0509 Thyroid Stimulating Hormone (TSH) 1.06 MIU/L 08/07/16 1328 Laboratory Tests Test 08/22/16 06:10 08/22/16 08:40 Glucometer 152mg/dL (75-110) Turbidity < 20 (0-20) Sodium Level 141MEQ/L (134-144) Potassium Level 4.2MEQ/L (3.6-5) Chloride Level 109MEQ/L (98-107) Carbon Dioxide Level 20MEQ/L (22-30) Anion Gap 12MEQ/L (5-15) Blood Urea Nitrogen 13.0MG/DL (9-20) Creatinine 0.9MG/DL (0.8-1.5) Glomerular Filtration Rate Calc 84 BUN/Creatinine Ratio 14RATIO (6-26) Glucose Level 107MG/DL (75-110) Calculated Osmolality 271MOSM/KG (261-280) Calcium Level 8.6MG/DL (8.4-10.2) Phosphorus Level 3.5MG/DL (2.5-4.5) Magnesium Level 2.0MG/DL (1.6-2.3) Total Bilirubin 0.60MG/DL (0.20-1.30) Icterus Index < 2 (0-7) Aspartate Amino Transf (AST/SGOT) 34U/L (17-59) Alanine Aminotransferase (ALT/SGPT) 53U/L (21-72) Alkaline Phosphatase 73U/L (38-126) Total Protein 7.1G/DL (6.3-8.2) Albumin 3.1G/DL (3.5-5.0) Globulin 4.0G/DL (2.4-3.6) Albumin/Globulin Ratio 0.8RATIO (1.1-2.2) Chemistry Specimen Hemolysis < 15 (0-25) Microbiology Item Value Date Time Stool C. difficile Toxin B Gene PCR Negative 08/21/16 0327 Stool C. difficile Toxin B Gene PCR Positive *A 08/18/16 1941 Stool C. difficile Toxin B Gene PCR Positive *A 08/13/16 0600 Blood cultures negative 2 on 08/07/2016 and 08/18/2016 Radiology Patient underwent multiple radiologic testing during this hospitalization for bowel obstruction, sigmoid volvulus and constipation. Please see computerized records for completeness. Last KUB on 08/19/2016 shows moderate colonic gas in the abdomen without evidence of obstruction or free air. Suggest ileus. Some improvement from prior study. Last chest x-ray on 08/11/2016 shows slightly improved atelectasis of the lungs. No new focal pneumonia. Presumably postoperative free intraperitoneal air. History of Present Illness Vadim is a 65 year old man who currently resides at [facility]. [facility] of abdominal distention. Abdominal KUB X-ray was completed that demonstrated distention of the colon with multiple air fluid levels in both large and small bowel related to adynamic ileus. Due to his clinical and diagnostic findings the hospitalist team was notified for direct admission as an inpatient for further evaluation and treatment... Shouldn't on initial examination. He has severe MR and is not able to communicate very well. [facility] staff member reports that yesterday the patient's stomach began to swell and that he vomited twice. Vadim also pointed to his stomach yesterday. He also had a low grade fever. [facility] staff reports that his last bowel movement was Friday. He is seen initially on exam laying in bed with a [facility] staff member at his bedside. He does appear to be in distress. His abdomen is very distended. Discussed with [facility] staff his baseline mentation is mostly non-verbal with some aggressive behaviors. [facility] staff reports that he occasionally will point to something that he wants, but otherwise he speaks minimally. Hospital Course The patient was admitted to the hospitalist service on 08/07/2016. He was admitted with a diagnosis of small bowel obstruction. Dr. Thapa was consulted. The patient was septic initially and started on IV antibiotics and admitted to the intensive care unit. Workup did reveal a sigmoid volvulus. The patient underwent a decompressive colonoscopy, exploratory laparotomy, sigmoid resection/low anterior with mobilization of the splenic flexure and coloproctostomy on 08/09/2016. The patient had a slow recovery secondary to ileus. He did require TPN for nutrition. On 08/13/2016 the patient was having diarrhea and stool was positive for C. difficile. The patient was started on oral vancomycin and IV metronidazole. Slowly his diarrhea did improve and on last testing C. difficile was negative. He will need a total of 2 weeks course of oral vancomycin and metronidazole. Over the past several days, the patient's oral intake has improved especially when familiar staff from [place] come and help with meal time. The patient was evaluated by speech therapy on day of discharge and his swallow was found to be very good as long as he eats small bites. He does not need any specialized diet consistency other than eating small bites and being supervised with eating. The patient was seen and evaluated by Dr. Thapa and his nurse practitioner Rachid over the hospital course. And his reji were removed on the day of discharge. He is not requiring any special wound care and has been okayed for showers or baths. Regarding C. difficile, the patient will need 5 more days of vancomycin and metronidazole. If diarrhea recurs his primary care physician should be notified. During the hospital course the patient did have elevated blood pressure and tachycardia. Norvasc and metoprolol were initiated. He will be discharged on just metoprolol. Blood pressure and pulse should be checked every morning before he receives metoprolol to make sure that pressure and pulse are okay before giving. It's possible that his tachycardia and hypertension are related to pain and/or anxiety and he may no longer need this once he returns to his usual living situation. The patient had a Ruiz catheter that was removed 2 days ago and he has been urinating okay since then. The patient has had some agitation requiring when necessary Haldol and Ativan. I think this is likely related to his mental retardation and being in unfamiliar surroundings with unfamiliar staff. I do not think he should need Haldol when he is back to his usual environment and his usual caretakers. The patient is being discharged in stable condition back to [facility]. Follow-up one week with Dr. Carrillo. Greater than 30 minutes of time was spent on dismissal day. Problems: (1) Sigmoid volvulus Status: Resolved Assessment & Plan: Low anterior sigmoid resection with mobilization of the splenic flexure and coloproctostomy 08/09/16 (2) Ischemic colitis Status: Resolved Assessment & Plan: Due to volvulus/bowel obstruction (3) C. difficile colitis Status: Resolved Assessment & Plan: Not POA (4) Severe sepsis Status: Resolved Assessment & Plan: Manifestations of sepsis include the following- 1. Leukocytosis at 16.7 with left shift. Bandemia 15%. 2. Tachycardia at 105 3. Acute abdominal distention/pain 4. Evidence of organ dysfunction including elevated bilirubin 2.0 and hyperglycemia in the absence of diabetes 5. Elevated Lactate of 3.0. (5) Bowel obstruction Status: Resolved (6) Hypernatremia Status: Resolved Assessment & Plan: Not POA (7) Hyperglycemia Status: Acute (8) Acute kidney injury Status: Resolved Assessment & Plan: Admission creatinine 1.1 increasing to 2.2 on 08/09 (9) Abdominal distention Status: Acute (10) Mental retardation Status: Chronic (11) Epileptic seizure Status: Chronic (12) Constipation Status: Chronic (13) Osteopenia Status: Chronic (14) Hypermagnesemia Status: Acute (15) Hypertension Status: Acute DVT Prophylaxis: SCD'S, Lovenox GI Prophylaxis: Protonix Code Status Full Code Home Meds Active Scripts Metronidazole (Metronidazole) 500 Mg Tablet, 500 MG PO TID for 5 Days, #15 TAB Prov:BENJIE PATEL MD 08/23/16 Hydrocodone/Acetaminophen (Hydrocodon-Acetaminoph 7.5-325) 7.5-325 Tablet, 1 TAB PO Q4H Y for PAIN, #10 TAB Prov:BENJIE PATEL MD 08/23/16 Metoprolol Succinate (Toprol Xl) 50 Mg Tab.er.24h, 50 MG PO DAILY, #30 TAB Check blood pressure and pulse prior to giving dose. Hold if heart rate less than 60 or systolic blood pressure less than 110. Prov:BENJIE PATEL MD 08/23/16 Vancomycin HCl (Vancomycin HCl) 500 Mg/Vial Inj, 500 MG PO Q6HR for 5 Days Prov:BENJIE PATEL MD 08/23/16 Reported Medications Benzocaine (Oral Pain Relief) 9.35 Gm Gel..gram., 1 APPLIC PO PRN 04/30/16 Acetaminophen (Tylenol) 325 Mg Tablet, 650 MG PO Q4HR Y for PAIN/FEVER 04/30/16 Guaifenesin (Robafen) 100 Mg/5 Ml Liquid, 100 MG PO Q4HR Y for COUGH 04/30/16 Calcium Carb/Magnesium Hydrox (Rolaids Chewable Tablet) 1 Each Tab.chew, 1-2 TAB PO Q1H Y for HEARTBURN 04/30/16 Bismuth Subsalicylate (Bismatrol) 262 Mg/15 Ml Oral.susp, 1 DOSE PO PRN 04/30/16 Tolnaftate (Tinactin) 133 Gm Aero.powd, 1 APPLIC TOP BID Y for PRN ORDERS 04/30/16 Diphenhydramine HCl (Diphenhydramine HCl) 25 Mg Capsule, 25 MG PO TID Y for ALLERY SYMPTOMS 04/30/16 Lorazepam (Lorazepam) 1 Mg Tablet, 1 MG PO BID Y for ANXIETY 04/30/16 Dicyclomine HCl (Dicyclomine HCl) 10 Mg Capsule, 10 MG PO QID Y for IRRITABLE BOWEL SYMPTOMS 04/30/16 Na Phos,M-B/Na Phos,Di-Ba (Fleet Enema) 133 Ml Enema, 1 ENEMA RECTALLY O Y for CONSTIPATION 04/30/16 Bisacodyl (Dulcolax) 10 Mg Supp.rect, 10 MG RECTALLY DAILY Y for CONSTIPATION 04/30/16 Epinephrine (Epipen 2-Umberto) 0.3 Mg/0.3 Ml Auto.injct, 0.3 MG IM PRN 04/30/16 Sennosides (Senna) 8.6 Mg Tablet, 8.6 MG PO BID 04/30/16 Polyethylene Glycol 3350 (Glycolax) 119 Gm Powder, 17 GM PO DAILY 04/30/16 Magnesium Hydroxide (Milk Of Magnesia) 400 Mg/5 Ml Oral.susp, 30 ML PO DAILY Y for CONSTIPATION 07/15/11 Diazepam (Diazepam) 5 Mg Tablet, 5 MG PO BID Y for PRN ORDERS 07/15/11 Discontinued Reported Medications Pseudoephedrine HCl (Sudogest) 60 Mg Tablet, 60 MG PO Q4HR Y for CONGESTION 04/30/16 Loperamide HCl (Loperamide) 2 Mg Tablet, 2 MG PO QID Y for DIARRHEA 04/30/16 Acetaminophen (Tylenol Extra Strength) 500 Mg Tablet, 500-1000 MG PO Q6H Y for PAIN/FEVER 04/30/16 Face to Face Encounter I met with patient on the day of dismissal and discussed follow up appointments , medications, and safety plan. Discharge Disposition Dismiss to [place] with staff in stable condition Copies To 1: IZA THAPA MD, TEO, CWS; BERNABE CARRILLO MD, STEPHANIE L MD Aug 23, 2016 13:48 Procedures Procedure Status Date Provider(s) Colonoscopy with polypectomy and biopsy Completed 08/09/16 IZA THAPA MD, FACS, CWS Exploratory laparotomy Completed 08/09/16 IZA THAPA MD, TEO, CWS Encounters Encounter Location Arrival/Admit Date Discharge/Depart Date Attending Provider Discharged Inpatient [facility] 08/07/16 12:14pm 08/23/16 3:15pm BENJIE PATEL MD
--- OUTSIDE RECORDS SUMMARY | 2016-08-24 17:51 | XMS REPORT | Continuity of Care Document ---
Author Author [facility] Organization [facility] Address Unknown Phone Unavailable Allergies Active Description Code Type Severity Reaction Onset Reported/Identified Relationship to Patient Clinical Status Yes No Known Drug Allergies Drug Allergy 05/12/2012 Yes NSAIDs NKMA N/A [id number] 05/30/2014 Medications Problems Date Dx Coded Attending [...] Procedures Code [place] [id number] DIAGNOSTIC COLONOSCOPY Norma Mera MD 05/12/2012 Results Encounters ACCT No. Visit Date/Time Discharge Status Pt. Type Provider Facility Loc./Unit Complaint [id number] 05/12/2012 09:08:00 2012 23:59:59 CLS Outpatient Norma Mera MD [facility]
--- NOTE | 2016-08-24 18:04 | NUR ---
REPORT TO TYRON CARTAGENA
[2016-08-24] MEDS ORDERED: METO-277 PO (18:08)
--- NOTE | 2016-08-24 18:13 | ERPDOC ---
Departure Disposition Decision Date: Aug 24, 2016 Disposition Decision Time: 19:38 Disposition: 01 DISCHARGED HOME, SELF-CARE Impression Impression Impression: Primary Impression: History of resection of large bowel Additional Impressions: Weakness Fall on same level Encounter type: initial encounter Qualified Codes: W18.30XA - Fall on same level, unspecified, initial encounter Severity: Moderate Condition: Stable Seen By: Physician only Referrals: BERNABE CARRILLO MD Follow-up this week for reevaluation Patient Instructions: Weakness (ED) Problems/Meds/Labs Reviewed?: Yes Medications reviewed and manag: Yes Follow up care ordered?: Yes Mental Status: Alert HPI - General Medical General Chief Complaint: Weakness/Neuro Symptoms Stated Complaint: WEAK Time Seen by Provider: 18:03 Source: patient Exam Limitations: no limitations HPI - General Medical Initial Comments Patient is a 65-year-old gentleman, was discharged yesterday from [facility] after volvulus and large bowel resection. Patient was discharged home yesterday was doing fairly okay, however patient has been noted to be having some increasing weakness and confusion, there is a question as to whether patient fell today he was found lying next to the couch in his room. Patient is essentially nonverbal although will answer yes and no questions. It was decided to bring patient to the ER for reevaluation. Occurred At: home Allergies: Coded Allergies: NSAIDS (Non-Steroidal Anti-Inflamma (Verified Allergy, Unknown, 08/24/16) History of ulcers Past History Patient Surgical History 06-16-2011 Colonoscopy = ischemic colitisMiya Past Medical History GI: constipation Psychological: bipolar Surgical History General: exploratory laparotomy (colon resection secondary to volvulus), other Family History Family PMH: FOUND: other Vaccines Hx Influenza Vaccination: Yes (fall 2015) Hx Pneumococcal Vaccination: No Hx Tetanus, Diptheria, Pertuss: Yes Social History Substance Use Type: does not use Alcohol Intake: none Review of Systems Unable to Obtain Comments Patient essentially aphasic, review of systems is done with the help of staff Constitutional Constitutional: appetite decrease, weakness, DENIES: chills, fever ENMT Sinuses: DENIES: congestion Cardiovascular Cardiac: DENIES: dyspnea on exertion Pulmonary Respiratory: DENIES: cough GI Upper Abdomen: DENIES: vomiting Lower Abdomen: DENIES: constipation, diarrhea General: DENIES: frequency, urgency Integumentary Skin: DENIES: color change, itching, rash Physical Exam General General Nourishment: well nourished, well developed General Body Habitus: well groomed Vitals and Pain First Documented Vital Signs Date Time Temp Pulse Resp B/P Pulse Ox O2 Delivery O2 Flow Rate FiO2 08/24/16 17:48 97.4 97 16 124/73 100 Room Air Weight: Kilograms: 62.000 Height (feet): 5 Height (inches): 10.00 Triage Pain Scale: RN VS reviewed by Provider: Yes Eyes (brief) Eyes Brief: found: EOMI ENMT (brief) ENMT Brief: FOUND: mucosa moist, normal dentition, NOT FOUND: nasal erythema, pharnyx erythema, tonsillar deviation Neck (brief) Neck: NOT FOUND: adenopathy Respiratory (brief) Respiratory: FOUND: clear all negron, equal bilaterally, NOT FOUND: rales, wheezes Cardiovascular (brief) Cardiac: FOUND: regular rate, regular rhythm Capillary Refill: <2 sec Abdomen (brief) Abdominal Brief: FOUND: bowel normo active x4, other (well-healed surgical scar no signs of dehiscence inflammation or infection), soft, NOT FOUND: distended, tender Lymphatic (brief) Lymphatic Brief: NOT FOUND: adenopathy Integumentary (brief) Integumentary Brief: FOUND: dry, pink, warm, NOT FOUND: rash Neurologic (brief) Neurological Brief: FOUND: CN w/o gross def to obs, motor-no gross deficits, sensory-no gross deficits Psychiatric (brief) Psychiatric Brief: FOUND: alert, other (appears to be at baseline) Differential Diagnoses Considering: Intracranial Hemorrhage, Other (fracture, contusion) Progress Results/Orders Orders Procedure Category Date Status Time Ct Head W/O Contrast CT 08/24/16 Taken 18:08 Cbc W/Auto LAB 08/24/16 Complete Diff-Reflex Manual 18:08 Cmp - Comprehensive LAB 08/24/16 Complete Metabolic 18:08 Chest 1 View RAD 08/24/16 Taken 18:08 Pelvis 1-2 View RAD 08/24/16 Taken Dedicated Pelv 18:08 Lab Results Laboratory Tests Test 08/24/16 18:57 White Blood Count 7.2T/MM3 Red Blood Count 4.31M/MM3 Hemoglobin 12.6GM/DL Hematocrit 37.1% Mean Corpuscular Volume 86.1UM3 Mean Corpuscular Hemoglobin 29.2UUG Mean Corpuscular Hemoglobin Concent 34.0GM/DL RDW Standard Deviation 46.3FL Platelet Count 376T/MM3 Mean Platelet Volume 9.8UM3 Immature Granulocyte % (Auto) 0.1% Neutrophils (%) (Auto) 83.3% Lymphocytes (%) (Auto) 9.3% Monocytes (%) (Auto) 4.6% Eosinophils (%) (Auto) 1.7% Basophils (%) (Auto) 1.0% Absolute Immature Granulocyte (auto 0.01T/MM3 Absolute Neutrophils (auto) 6.0T/MM3 Absolute Lymphocytes (auto) 0.7T/MM3 Absolute Monocytes (auto) 0.3T/MM3 Absolute Eosinophils (auto) 0.1T/MM3 Absolute Basophils (auto) 0.1T/MM3 Turbidity < 20 Sodium Level 139MEQ/L Potassium Level 4.8MEQ/L Chloride Level 107MEQ/L Carbon Dioxide Level 19MEQ/L Anion Gap 13MEQ/L Blood Urea Nitrogen 16.0MG/DL Creatinine 1.0MG/DL Glomerular Filtration Rate Calc 75 BUN/Creatinine Ratio 16RATIO Glucose Level 95MG/DL Calculated Osmolality 269MOSM/KG Calcium Level 9.1MG/DL Total Bilirubin 0.80MG/DL Icterus Index < 2 Aspartate Amino Transf (AST/SGOT) 58U/L Alanine Aminotransferase (ALT/SGPT) 59U/L Alkaline Phosphatase 84U/L Total Protein 6.9G/DL Albumin 3.1G/DL Globulin 3.8G/DL Albumin/Globulin Ratio 0.8RATIO Chemistry Specimen Hemolysis 58 Progress Progress Did review briefly with the hospitalist service, Dr. Quiros did round on the patient a week ago has no recent knowledge, however patient appears to be at baseline in comparison to one week ago Laboratories x-rays or CT scans all noncontributory. At this time I find no acute injury, no acute reason for patient to be rehospitalized. We'll discharge patient home, continued monitoring and follow up with his primary medical physician Xray Xray #1: Xray: CXR Portable Interpretation: Normal, Interpreted by Me (no fractures no pneumothorax no acute cardiopulmonary findings) Xray #2: Xray: Pelvis Interpretation: Normal, Interpreted by Me (no fractures or dislocations noted, reji consistent with surgery) CT CT : CT: Head no contrast Interpretation: Normal, Faxed Report YANDEL ARMENTA MD Aug 24, 2016 18:13
--- OUTSIDE RECORDS SUMMARY | 2016-08-24 18:22 | XMS REPORT | Continuity of Care Document ---
Author Author [facility] Organization [facility] Address Unknown Phone Unavailable Allergies Active Description Code Type Severity Reaction Onset Reported/Identified Relationship to Patient Clinical Status Yes No Known Drug Allergies Drug Allergy 05/12/2012 Yes NSAIDs NKMA N/A [id number] 05/30/2014 Medications Problems Date Dx Coded Attending [...] Procedures Code Description [place] [id number] DIAGNOSTIC COLONOSCOPY Norma Mera MD 05/12/2012 Results Encounters ACCT No. Visit Date/Time Discharge Status Pt. Type Provider Facility Loc./Unit Complaint [id number] 05/12/2012 09:08:00 2012 23:59:59 CLS Outpatient Norma Mera MD [facility]
[2016-08-24 19:11] LABS: BASOPHILS # (AUTO) 0.1 T/MM3 (0-0.2); EOSINOPHILS # (AUTO) 0.1 T/MM3 (0-0.5); EOSINOPHILS % (AUTO) 1.7 % (0-4); HCT - HEMATOCRIT 37.1 % (41-53); HGB - HEMOGLOBIN 12.6 GM/DL (13.5-17.5); IMMATURE GRANULOCYTE # (AUTO) 0.01 T/MM3 (0.00-0.03); IMMATURE GRANULOCYTE % (AUTO) 0.1 % (0.0-0.5); LYMPHOCYTES # (AUTO) 0.7 T/MM3 (1-4.8); LYMPHOCYTES % (AUTO) 9.3 % (23-45); MEAN CORPUSCULAR HGB 29.2 UUG (26-34); MEAN CORPUSCULAR VOLUME 86.1 UM3 (80-100); MEAN PLATELET VOLUME 9.8 UM3 (9.4-12.4); MONOCYTES # (AUTO) 0.3 T/MM3 (0-0.8); MONOCYTES % (AUTO) 4.6 % (0-9.0); NEUTROPHILS % (AUTO) 83.3 % (33-66); RED BLOOD COUNT 4.31 M/MM3 (4.50-5.90); WBC - WHITE BLOOD COUNT 7.2 T/MM3 (4.5-11.0)
[2016-08-24 19:32] LABS: ALBUMIN 3.1 G/DL (3.5-5.0); ALBUMIN/GLOBULIN RATIO 0.8 RATIO (1.1-2.2); ALKALINE PHOSPHATASE 84 U/L (38-126); ALT (SGPT) 59 U/L (21-72); ANION GAP 13 MEQ/L (5-15); AST (SGOT) 58 U/L (17-59); BUN/CREATININE RATIO 16 RATIO (6-26); CALCIUM 9.1 MG/DL (8.4-10.2); CHLORIDE 107 MEQ/L (98-107); CO2 - CARBON DIOXIDE 19 MEQ/L (22-30); GLOMERULAR FILTRATION RATE 75; GLUCOSE 95 MG/DL (75-110); POTASSIUM 4.8 MEQ/L (3.6-5); SODIUM 139 MEQ/L (134-144); TOTAL PROTEIN 6.9 G/DL (6.3-8.2)
--- NOTE | 2016-08-24 19:35 | NUR ---
STATUS ASSIST CAREGIVER IN GETTING PT DRESSED FOR HIS DISMISSAL
[2016-08-24 19:54] VITALS: BP 130/78; PULSE 105; RESP 16; TEMP 98.6; O2SAT 100
--- NOTE | 2016-08-25 09:26 | DI ---
Indication: ITS.REASON: lapsed fall patient is aphasic PROCEDURE: CHEST 1 VIEW: Encounter: Initial Comparison: August 11, 2016 Findings: The lungs are stable in appearance without new focal airspace consolidation. There is no pleural effusion or pneumothorax. The heart size, pulmonary vascularity and mediastinal contours are unchanged. Prior free intraperitoneal air has resolved. IMPRESSION: Stable appearance of the chest without acute cardiopulmonary disease. .
--- NOTE | 2016-08-25 09:27 | DI ---
Indication: ITS.REASON: lapsed fall aphasic patient PROCEDURE: PELVIS 1-2 VIEW DEDICATED PELV: Encounter: Initial Comparison: CT abdomen/pelvis dated August 09, 2016 Findings: There is no acute fracture, dislocation or malalignment identified. Osteophyte arising from the left lesser trochanter. Degenerative change in the lower lumbar spine. Impression: No acute osseous abnormality. .
--- NOTE | 2016-08-25 09:28 | DI ---
Indication: ITS.REASON: fell earlier today, patient baseline does not talk PROCEDURE: CT HEAD W/O CONTRAST: Encounter: Initial Comparison: None Technique: Axial CT images through the head were performed without contrast. Iterative Reconstruction dose reducing technique was utilized. FINDINGS: Mild cerebellar atrophy. The ventricles are of normal size, shape, and configuration for the patient's age. There is no evidence of acute intracranial hemorrhage, midline displacement, or mass effect. There are scattered areas of low attenuation in the white matter which most likely represent changes of chronic microvascular ischemia. The CT attenuation of the brain parenchyma is otherwise normal within the cerebellum, brain stem, and cerebral hemispheres. The tympanic cavities and mastoid air cells are free of appreciable disease. There are no definite fractures of the skull base, calvarium, or visualized portion of the midface. Probable bone island within the clivus. IMPRESSION: No CT evidence of acute traumatic intracranial injury. There is a preliminary report by [facility]. .
== END 2016-08-24 19:54 | disposition home or self-care (01) ==
LOC: ED 17:46
DX: R53.1 Weakness (principal); Z98.890 Other specified postprocedural states; W18.30XA Fall on same level, unspecified, initial encounter; Y93.9 Activity, unspecified; Y92.003 Bedroom of unspecified non-institutional (private) residence as the place of occurrence of the external cause; Y99.8 Other external cause status
CPT/HCPCS: 36415; 80053; 85025

== ENCOUNTER 2016-08-26 16:10 | Observation (INO) | payer MEDICARE, MEDICAID ==
[~2016-08-26] VITALS: Ht 177.8 cm; Wt 61.8 kg
[~2016-08-26 16:10] MED LIST changes: +METO-277 PO; -METO50TA9 PO; -VANC500V5 PO
--- NOTE | 2016-08-26 16:10 | NUR ---
ARRIVAL pt arrived to medical unit at 1610, as a direct admit, via wheelchair. vitals and weight were taken and entered. pt is on room air. pt made comfortable. staff from group room present.
[2016-08-26 16:21] VITALS: Ht 177.8 cm; Wt 61.8 kg
--- OUTSIDE RECORDS SUMMARY | 2016-08-26 16:23 | XMS REPORT | Continuity of Care Document ---
Author Author [facility] Organization [facility] Address Unknown Phone Unavailable Allergies Active Description Code Type Severity Reaction Onset Reported/Identified Relationship to Patient Clinical Status Yes No Known Drug Allergies Drug Allergy 05/12/2012 Yes NSAIDs NKMA N/A [id number] 05/30/2014 Medications Problems Date Dx Coded Attending [...] Procedures Code Description [place] [id number] DIAGNOSTIC COLONOSCOPY Norma Mera MD 05/12/2012 Results Encounters ACCT No. Visit Date/Time Discharge Status Pt. Type Provider Facility Loc./Unit Complaint [id number] 05/12/2012 09:08:00 2012 23:59:59 CLS Outpatient Norma Mera MD [facility]
--- OUTSIDE RECORDS SUMMARY | 2016-08-26 16:23 | XMS REPORT | Continuity of Care Document ---
Author Author [facility] Organization [facility] Address Unknown Phone Unavailable Care Team Providers Care Frameman Name Role Phone ANDER NEGRETE MD Primary Care Physician [phone] Insurance Providers Guarantor Vadim Johnson Address [address] [place] [address] [address] [place] [address] Email DENIED 16 Payer [facility] State Plan Policy Number [id number] Subscriber's Name Vadim Johnson Relationship 18 Self Effective Date 16 Expiration Date 16 Payer Medicare Policy Number [id number] Subscriber's Name Vadim Johnson Relationship 18 Self Effective Date 88 Chief Complaint and Reason for Visit Chief Complaint Fall Reason for Visit History of resection of large bowel Weakness Fall on same level Problems Active Problems Medical Problem Onset Date [...] Resolved Past Problems Medical Problem Onset Date Fall on same level Unknown HTN (hypertension) Unknown Headache Unknown Weakness Unknown Medications Current Home Medications Medication Dose [...] as needed for Constipation 07/15/11 Metoprolol Succinate 50 Mg Tab.er.24h 50 Mg Oral Daily 08/24/16 Metronidazole 500 Mg Tablet 500 Mg Oral [...] needed for Prn Orders 04/30/16 Vancomycin Hcl 250 Mg Capsule 500 Mg Oral Every 6 Hours 5 Days Past Home Medications Medication Directions Ordered Status [...] Problem Response Recorded Date/Time Onset Date Status History of resection of large bowel 08/24/2004 7:39pm Unknown Resolved Hx Alcohol Use No 08/24/2016 6:20pm Not Applicable Not Applicable Has the pt used tobacco in the last 12 months No 08/07/2016 12:38pm Not Applicable Not Applicable Query Response Start Date Stop Date Smoking Status Never smoker Hospital Discharge Instructions No hospital discharge instructions. Plan of Care Discharge Date 08/24/16 7:54pm Disposition 01 DISCHARGED HOME, SELF-CARE Condition at Discharge Stable Instructions/Education Provided Weakness (ED) Prescriptions See Medication Section Referrals BERNABE CARRILLO MD Address: [address] [place] [address] [phone] Note: Follow-up this week for reevaluation Care Plan and Goals Physician Care Plan Problem: Weakness, questionable fall Goal: Follow up with primary care provider Instructions: Take medications and follow care plan as discussed/written Functional Status No functional status results. Allergies, Adverse Reactions, Alerts Allergen Type Severity Reaction Status Last Updated NSAIDS (Non-Steroidal Anti-Inflamma Allergy Unknown Active 08/24/16 Immunizations Immunization Event Date Type Not Given Reason Dose Number Lot Number Tax Professional VIS Given pneumococcal polysaccharide [id number] 08/08/16 Administered 1 [id number] [employer] 08/08/14 Query Response on File Recorded Date/Time Hx Influenza Vaccination Y fall 201508/07/16 12:38pm Hx Pneumococcal Vaccination No 08/07/16 12:38pm Hx Tetanus, Diptheria, Pertussis Yes 12/14/11 10:21pm Hx Influenza Vaccination Y fall 201508/07/16 12:38pm Hx Tetanus, Diptheria, Pertussis Yes 12/14/11 10:21pm Influenza Vaccine Hx UNKNOWN 08/24/16 6:37pm Tdap Vaccine Hx UNKNOWN 08/24/16 6:37pm Vital Signs Acute Vital Signs Vital Response Date/Time Temperature (Fahrenheit) 98.6 deg F (96.8 - 99.1) 08/24/2016 7:54pm Temperature (Calculated Celsius) 37.94124 degrees C (36.0 - 37.3) 08/24/2016 7:54pm Temperature Source Axillary 08/09/2016 5:52pm Pulse Rate (adult) 105 bpm (60 - 100) 08/24/2016 7:54pm Respiratory Rate 16 breaths/min (10 - 20) 08/24/2016 7:54pm O2 Sat by Pulse Oximetry 100 % (90 - 100) 08/24/2016 7:54pm Oxygen Delivery Method Nasal Cannula 08/09/2016 10:00pm Oxygen Delivery Method Room Air 08/23/2016 11:29am Oxygen Flow Rate 1.00 L/min 08/10/2016 12:45pm Blood Pressure 130/78 mm Hg 08/24/2016 7:54pm Blood Pressure Source Automatic Cuff 08/23/2016 11:29am Height (Feet) 5 feet 08/24/2016 5:48pm Height (Inches) 10.00 inches 08/24/2016 5:48pm Weight (Kilograms) 62.000 kg 08/24/2016 5:48pm Body Mass Index (BMI) 19.0 08/24/2016 5:48pm Results Laboratory Results Test Name Result Units Flags Reference Collection Date/Time Result Date/ Time Comments Neutrophils % (Manual) 88.0 % H 33-66 [...] Eosinophils # (Manual) 0.2 T/MM3 0-0.5 08/21/2016 5:09am 08/21/2016 6: 18am Red Cell Morphology Comment NORMAL 08/21/2016 5:09am 08/21/2016 6: 18am Phosphorus Level 3.5 MG/DL 2.5-4.5 08/22/2016 8:40am 08/22/2016 9:00am Triglycerides Level 21 MG/DL L 40-160 [...] 3:33pm 3:33pm Arterial Blood HCO3 24 MEQ/L -08/08/2016 3:33pm 08/08/2016 3:33pm Arterial Blood Total CO2 [...] treat accordingly. Urine Color YELLOW YELLOW 08/07/2016 5:21pm 08/07/2016 5:33pm Urine Turbidity CLEAR CLEAR 08/07/2016 5:pm 08/07/2016 5:33pm Urine Specific [place] >=1.030 H 1.015-1.025 08/07/2016 5:21pm 2016 5:33pm Urine pH 6.0 5.0-8.0 08/07/2016 5:pm 08/07/2016 5:33pm Urine Leukocyte Esterase NEGATIVE NEGATIVE 08/07/2016 5:2016 5:33pm Urine Nitrite NEGATIVE NEGATIVE 08/07/2016 5:pm 08/07/2016 5:33pm Urine Protein 2+ A NEGATIVE 08/07/2016 5:pm 08/07/2016 5:33pm Urine Glucose (UA) NEGATIVE NEGATIVE 08/07/2016 5:21pm 08/07/2016 5: 33pm Urine Ketones NEGATIVE NEGATIVE 08/07/2016 5:21pm 08/07/2016 5:33pm Urine Urobilinogen 0.2 EU/DL NORMAL 08/07/2016 5:pm 08/07/2016 5: 33pm Urine Bilirubin 1+ A NEGATIVE [...] mg/dL H 75-110 08/22/2016 6:10am 08/22/2016 8:08pm White Blood Count 7.2 T/MM3 4.5-11.0 08/24/2016 6:5708/24/2016 7: 11pm Red Blood Count 4.31 M/MM3 L 4.50-5.90 08/24/2016 6:5708/24/2016 7: 11pm Hemoglobin 12.6 GM/DL L 13.5-17.5 08/24/2016 6:5708/24/2016 7:11pm Hematocrit 37.1 % L 41-53 08/24/2016 6:5708/24/2016 7:11pm Mean Corpuscular Volume 86.1 UM3 80-100 08/24/2016 6:5708/24/2016 7: 11pm Mean Corpuscular Hemoglobin 29.2 UUG 26-34 08/24/2016 6:57pm 2016 7:11pm Mean Corpuscular Hemoglobin Concent 34.0 GM/DL 31-37 08/24/2016 6:57pm 08/24/2016 7:11pm RDW Standard Deviation 46.3 FL 36.9-50.2 08/24/2016 6:57pm 08/24/2016 7 :11pm Platelet Count 376 T/MM3 130-400 08/24/2016 6:57pm 08/24/2016 7:11pm Mean Platelet Volume 9.8 UM3 9.4-12.4 08/24/2016 6:57pm 08/24/2016 7: 11pm Neutrophils (%) (Auto) 83.3 % H 33-66 08/24/2016 6:57pm 08/24/2016 7: 11pm Lymphocytes (%) (Auto) 9.3 % L 23-45 08/24/2016 6:57pm 08/24/2016 7: 11pm Monocytes (%) (Auto) 4.6 % 0-9.0 08/24/2016 6:57pm 08/24/2016 7:11pm Eosinophils (%) (Auto) 1.7 % 0-4 08/24/2016 6:57pm 08/24/2016 7:11pm Basophils (%) (Auto) 1.0 % 0-2 08/24/2016 6:57pm 08/24/2016 7:11pm Immature Granulocyte % (Auto) 0.1 % 0.0-0.5 08/24/2016 6:57pm 2016 7:11pm Absolute Neutrophils (auto) 6.0 T/MM3 1.8-7.7 08/24/2016 6:57pm 2016 7:11pm Absolute Lymphocytes (auto) 0.7 T/MM3 L 1-4.8 08/24/2016 6:57pm 2016 7:11pm Absolute Monocytes (auto) 0.3 T/MM3 0-0.8 08/24/2016 6:57pm 08/24/2016 7:11pm Absolute Eosinophils (auto) 0.1 T/MM3 0-0.5 08/24/2016 6:57pm 2016 7:11pm Absolute Basophils (auto) 0.1 T/MM3 0-0.2 08/24/2016 6:57pm 08/24/2016 7:11pm Absolute Immature Granulocyte (auto 0.01 T/MM3 0.00-0.03 08/24/2016 6: 57pm 08/24/2016 7:11pm Icterus Index < 2 0-7 08/24/2016 6:57pm 08/24/2016 7:32pm Chemistry Specimen Hemolysis 58 H 0-25 08/24/2016 6:5708/24/2016 7: 32pm 26-70: Specimen Exhibited Slight Hemolysis - can falsely elevate K (Potassium) and Urine Protein. Turbidity < 20 0-20 08/24/2016 6:5708/24/2016 7:32pm Sodium Level 139 MEQ/L 134-144 08/24/2016 6:5708/24/2016 7:32pm Potassium Level 4.8 MEQ/L 3.6-5 08/24/2016 6:5708/24/2016 7:32pm Chloride Level 107 MEQ/L 98-107 08/24/2016 6:08/24/2016 7:32pm Carbon Dioxide Level 19 MEQ/L L 22-30 08/24/2016 6:08/24/2016 7: 32pm Anion Gap 13 MEQ/L 5-15 08/24/2016 6:08/24/2016 7:32pm Blood Urea Nitrogen 16.0 MG/DL 9-20 08/24/2016 6:08/24/2016 7: 32pm Creatinine 1.0 MG/DL 0.8-1.5 08/24/2016 6:08/24/2016 7:32pm BUN/Creatinine Ratio 16 RATIO 6-08/24/2016 6:08/24/2016 7:32pm Glomerular Filtration Rate Calc 75 08/24/2016 6:08/24/2016 7: 32pm Glucose Level 95 MG/DL 75-110 08/24/2016 6:08/24/2016 7:32pm Calculated Osmolality 269 MOSM/KG 261-280 08/24/2016 6:08/24/2016 7:32pm Calcium Level 9.1 MG/DL 8.4-10.2 08/24/2016 6:08/24/2016 7:32pm Total Bilirubin 0.80 MG/DL 0.20-1.30 08/24/2016 6:08/24/2016 7: 32pm Alkaline Phosphatase 84 U/L 38-126 08/24/2016 6:08/24/2016 7:32pm Total Protein 6.9 G/DL 6.3-8.2 08/24/2016 6:08/24/2016 7:32pm Albumin 3.1 G/DL L 3.5-5.0 08/24/2016 6:57pm 08/24/2016 7:32pm Globulin 3.8 G/DL H 2.4-3.6 08/24/2016 6:57pm 08/24/2016 7:32pm Albumin/Globulin Ratio 0.8 RATIO L 1.1-2.2 08/24/2016 6:57pm 08/24/2016 7:32pm Aspartate Amino Transf (AST/SGOT) 58 U/L D 17-59 08/24/2016 6:57pm 2016 7:33pm Alanine Aminotransferase (ALT/SGPT) 59 U/L 21-72 08/24/2016 6:57pm 7:32pm Microbiology Results Procedure Source Organism/Result Collection Date/Time Result Date/Time Result Status Blood Culture Cath/Port/Line/Picc NO GROWTH AFTER 5 DAYS 08/18/2016 12: 45pm 08/23/2016 12:48pm Final Procedures Procedure Status Date Provider(s) Colonoscopy with polypectomy and biopsy Completed 08/09/16 IZA THAPA MD, FACS, CWS Exploratory laparotomy Completed 08/09/16 IZA THAPA MD, FACS, CWS Encounters Encounter Location Arrival/Admit Date Discharge/Depart Date Attending Provider Departed Emergency Room [facility] 08/24/16 5:46pm 08/24/16 7: 54pm YANDEL ARMENTA MD Discharged Inpatient [facility] 08/07/16 12:14pm 08/23/16 3:15pm BENJIE HILL MD Recent Diagnosis
[2016-08-26 16:26] VITALS: BP 109/71; PULSE 89; RESP 16; TEMP 96.7; O2SAT 99
[2016-08-26] MEDS ORDERED: ONDANSETRON 4mg/2ml INJECTION IV PRN (17:00)
[2016-08-26] MEDS ORDERED: ACETAMINOPHEN 325 MG TABLET PO PRN (17:00)
[2016-08-26] MEDS ORDERED: LORAZEPAM 2 MG/ML INJECTION IV PRN (17:00)
--- NOTE | 2016-08-26 17:16 | HPPDOC ---
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 Ariza. This postop course was complicated by C. difficile colitis, and he was started on metronidazole and vancomycin on 08/13/16 with instructions to continue this for a total of 14 days. He also received TPN for malnutrition while he was hospitalized. His blood pressure medications were chested. While he is in the hospital, and he was sent home on metoprolol. He was able to be discharged back to [facility] in [place]. He was seen in the emergency department on 08/24/16 because of reports of weakness and confusion. There is also the question about a possible fall, since he was found lying next to the couch in his room. A CT scan of his head was negative for acute findings. Chest x-rays and pelvis x-rays were unremarkable. He was sent home with instructions to follow-up with Dr. Machuca. aVdim was seen in the clinic on 08/26/16 b/c he had been spitting out his meds and not eating and drinking well. All he had since discharge is about 2 or 3 ensures, and 16-24 ounces of water. He has eaten a few bites here and there. He has had ongoing loose stools, about 9 yesterday, but none today. He has also had a couple of falls since discharge. He has been restless, but staff does not feel like he has been in a great amount of pain. He is nonverbal. Staff deny any fevers or cough. Given his recent prolonged hospital course and concern for dehydration, the hospitalist service was contacted for hospital admission. 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 Clavicle fracture Surgical History Patient's Surgical History: Low anterior sigmoid resection with mobilization of the splenic flexure and coloproctostomy on 07/30/[address] Ariza 06-16-2011 Colonoscopy = ischemic colitis, Miya Current Medications Home Meds Active Scripts Metronidazole (Metronidazole) 500 Mg Tablet, 500 MG PO TID for 5 Days, #15 TAB Prov:BENJIE HILL MD 08/23/16 Hydrocodone/Acetaminophen (Hydrocodon-Acetaminoph 7.5-325) 7.5-325 Tablet, 1 TAB PO Q4H Y for PAIN, #10 TAB Prov:BENJIE HILL MD 08/23/16 Reported Medications Vancomycin HCl (Vancomycin HCl) 250 Mg Capsule, 500 MG PO Q6H for 5 Days 08/24/16 Metoprolol Succinate (Metoprolol Succinate) 50 Mg Tab.er.24h, 50 MG PO DAILY 08/24/16 Benzocaine (Oral Pain Relief) 9.35 Gm Gel..gram., 1 APPLIC PO PRN 04/30/16 Acetaminophen (Tylenol) 325 Mg Tablet, 650 MG PO Q4HR Y for PAIN/FEVER 04/30/16 Guaifenesin (Robafen) 100 Mg/5 Ml Liquid, 100 MG PO Q4HR Y for COUGH 04/30/16 Calcium Carb/Magnesium Hydrox (Rolaids Chewable Tablet) 1 Each Tab.chew, 1-2 TAB PO Q1H Y for HEARTBURN 04/30/16 Bismuth Subsalicylate (Bismatrol) 262 Mg/15 Ml Oral.susp, 1 DOSE PO PRN 04/30/16 Tolnaftate (Tinactin) 133 Gm Aero.powd, 1 APPLIC TOP BID Y for PRN ORDERS 04/30/16 Diphenhydramine HCl (Diphenhydramine HCl) 25 Mg Capsule, 25 MG PO TID Y for ALLERY SYMPTOMS 04/30/16 Lorazepam (Lorazepam) 1 Mg Tablet, 1 MG PO BID Y for ANXIETY 04/30/16 Dicyclomine HCl (Dicyclomine HCl) 10 Mg Capsule, 10 MG PO QID Y for IRRITABLE BOWEL SYMPTOMS 04/30/16 Na Phos,M-B/Na Phos,Di-Ba (Fleet Enema) 133 Ml Enema, 1 ENEMA RECTALLY O Y for CONSTIPATION 04/30/16 Bisacodyl (Dulcolax) 10 Mg Supp.rect, 10 MG RECTALLY DAILY Y for CONSTIPATION 04/30/16 Epinephrine (Epipen 2-Umberto) 0.3 Mg/0.3 Ml Auto.injct, 0.3 MG IM PRN 04/30/16 Sennosides (Senna) 8.6 Mg Tablet, 8.6 MG PO BID 04/30/16 Polyethylene Glycol 3350 (Glycolax) 119 Gm Powder, 17 GM PO DAILY 04/30/16 Magnesium Hydroxide (Milk Of Magnesia) 400 Mg/5 Ml Oral.susp, 30 ML PO DAILY Y for CONSTIPATION 07/15/11 Diazepam (Diazepam) 5 Mg Tablet, 5 MG PO BID Y for PRN ORDERS 07/15/11 Discontinued Reported Medications Pseudoephedrine HCl (Sudogest) 60 Mg Tablet, 60 MG PO Q4HR Y for CONGESTION 04/30/16 Loperamide HCl (Loperamide) 2 Mg Tablet, 2 MG PO QID Y for DIARRHEA 04/30/16 Acetaminophen (Tylenol Extra Strength) 500 Mg Tablet, 500-1000 MG PO Q6H Y for PAIN/FEVER 04/30/16 Allergies: Coded Allergies: NSAIDS (Non-Steroidal Anti-Inflamma (Verified Allergy, Unknown, 08/24/16) History of ulcers Family History Family History: Unable to obtain from patient given chronic mentation Social History Substance Use Type: does not use Alcohol Intake: none Review of Systems Unable to Obtain ROS Due to: other (MR) Physical Exam General General Nourishment: well nourished, well developed, thin Vital Signs Vital Signs Date Time Temp Pulse Resp B/P Pulse Ox O2 Delivery O2 Flow Rate FiO2 08/26/16 16:26 96.7 89 16 109/71 99 Room Air Height (Feet): 5 Height (Inches): 10.00 Eyes Brief: NOT FOUND: scleral icterus ENMT Brief: FOUND: other (lips appear dry but pt refused to open his mouth) Respiratory Brief: FOUND: clear all negron, equal bilaterally Respiratory Auscultation: FOUND: normal, NOT FOUND: rales, rhonchi, wheezes Cardiovascular Auscultation: FOUND: S1, S2, regular Peripheral Pulses: 2+: Dorasalis Pedis (L), Dorsalis Pedis (R), Radial (L), Radial (R) Edema: 0: Anasarca, Arm (L), Arm (R), Face, Leg (L), Leg (R) Abdomen Inspection: FOUND: distention (mild) Palpation: FOUND: soft, NOT FOUND: involuntary guarding, rebound, tender, voluntary guarding Auscultation: FOUND: normo active Musculoskeletal (brief) Musculoskeletal Brief: NOT FOUND: deformity Integumentary (brief) Integumentary Brief: FOUND: dry, warm Integumentary General: FOUND: dry, warm Color: FOUND: pink Neurologic (brief) Neurological Brief: NOT FOUND: facial droop, ptosis Psychiatric (brief) FOUND: alert, oriented Assessment & Plan Problems: (1) Dehydration Status: Acute (2) C. 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 Ariza. Postop course was complicated by C. difficile colitis. Plan/Intensity of Service Admit, observation status. under the hospitalist service. He was scheduled to continue taking metronidazole + vanc thru 8 to complete 14-day course. [facility] records reviewed - no labs done. Will obtain CBC, CMP, UA Start NS at 100 mL/hr. Start IV Flagyl. Zofran PRN nausea. Check full GI panel - never done during previous hospital stay. Would expect to see a positive C. diff. Hold metoprolol d/t dehydration - ensure that he is hemodynamically stable before starting BB. Consider obtaining KUB and/or consulting Dr. Ariza if pt is slow to respond to IV hydration. Could also consider PT/OT consultation and dietary consultation if no improvement by tomorrow. A/P discussed with attending. Anticipate further orders based on lab results. DVT Prophylaxis: SCD'S Code Status Hospital Course Summary Disclaimer The hospital course summary below is not to be considered part of the above Progress Note. Hospital Course Summary 08/26/16 Admit, observation status. under the hospitalist service. He was scheduled to continue taking metronidazole + vanc thru 8 to complete 14-day course. [facility] records reviewed - no labs done. Will obtain CBC, CMP, UA Start NS at 100 mL/hr. Start IV Flagyl. Zofran PRN nausea. Check full GI panel - never done during previous hospital stay. Would expect to see a positive C. diff. Hold metoprolol d/t dehydration - ensure that he is hemodynamically stable before starting BB. Consider obtaining KUB and/or consulting Dr. Ariza if pt is slow to respond to IV hydration. Could also consider PT/OT consultation and dietary consultation if no improvement by tomorrow. DESIRAE GARCIA MD 08/26/16 1753: Past Medical History Current Medications Home Meds Active Scripts Metronidazole (Metronidazole) 500 Mg Tablet, 500 MG PO TID for 5 Days, #15 TAB Prov:BENJIE HILL MD 08/23/16 Hydrocodone/Acetaminophen (Hydrocodon-Acetaminoph 7.5-325) 7.5-325 Tablet, 1 TAB PO Q4H Y for PAIN, #10 TAB Prov:BENJIE HILL MD 08/23/16 Reported Medications Vancomycin HCl (Vancomycin HCl) 250 Mg Capsule, 500 MG PO Q6H for 5 Days 08/24/16 Metoprolol Succinate (Metoprolol Succinate) 50 Mg Tab.er.24h, 50 MG PO DAILY 08/24/16 Benzocaine (Oral Pain Relief) 9.35 Gm Gel..gram., 1 APPLIC PO PRN 04/30/16 Acetaminophen (Tylenol) 325 Mg Tablet, 650 MG PO Q4HR Y for PAIN/FEVER 04/30/16 Guaifenesin (Robafen) 100 Mg/5 Ml Liquid, 100 MG PO Q4HR Y for COUGH 04/30/16 Calcium Carb/Magnesium Hydrox (Rolaids Chewable Tablet) 1 Each Tab.chew, 1-2 TAB PO Q1H Y for HEARTBURN 04/30/16 Bismuth Subsalicylate (Bismatrol) 262 Mg/15 Ml Oral.susp, 1 DOSE PO PRN 04/30/16 Tolnaftate (Tinactin) 133 Gm Aero.powd, 1 APPLIC TOP BID Y for PRN ORDERS 04/30/16 Diphenhydramine HCl (Diphenhydramine HCl) 25 Mg Capsule, 25 MG PO TID Y for ALLERY SYMPTOMS 04/30/16 Lorazepam (Lorazepam) 1 Mg Tablet, 1 MG PO BID Y for ANXIETY 04/30/16 Dicyclomine HCl (Dicyclomine HCl) 10 Mg Capsule, 10 MG PO QID Y for IRRITABLE BOWEL SYMPTOMS 04/30/16 Na Phos,M-B/Na Phos,Di-Ba (Fleet Enema) 133 Ml Enema, 1 ENEMA RECTALLY O Y for CONSTIPATION 04/30/16 Bisacodyl (Dulcolax) 10 Mg Supp.rect, 10 MG RECTALLY DAILY Y for CONSTIPATION 04/30/16 Epinephrine (Epipen 2-Umberto) 0.3 Mg/0.3 Ml Auto.injct, 0.3 MG IM PRN 04/30/16 Sennosides (Senna) 8.6 Mg Tablet, 8.6 MG PO BID 04/30/16 Polyethylene Glycol 3350 (Glycolax) 119 Gm Powder, 17 GM PO DAILY 04/30/16 Magnesium Hydroxide (Milk Of Magnesia) 400 Mg/5 Ml Oral.susp, 30 ML PO DAILY Y for CONSTIPATION 07/15/11 Diazepam (Diazepam) 5 Mg Tablet, 5 MG PO BID Y for PRN ORDERS 07/15/11 Discontinued Reported Medications Pseudoephedrine HCl (Sudogest) 60 Mg Tablet, 60 MG PO Q4HR Y for CONGESTION 04/30/16 Loperamide HCl (Loperamide) 2 Mg Tablet, 2 MG PO QID Y for DIARRHEA 04/30/16 Acetaminophen (Tylenol Extra Strength) 500 Mg Tablet, 500-1000 MG PO Q6H Y for PAIN/FEVER 04/30/16 Allergies: Coded Allergies: NSAIDS (Non-Steroidal Anti-Inflamma (Verified Allergy, Unknown, 08/24/16) History of ulcers Assessment & Plan Assessment Patient is readmitted to the hospital after failed outpatient therapy for C. difficile colitis and subsequent dehydration. We will give antibiotic therapy and IV fluids. Agree with the above history and physical. SHAWN PERSON APRN August 26, 2016 16:49 DESIRAE GARCIA MD August 26, 2016 17:53
[2016-08-26 18:05] LABS: BASOPHILS % (AUTO) 0.6 % (0-2); EOSINOPHILS # (AUTO) 0.2 T/MM3 (0-0.5); EOSINOPHILS % (AUTO) 3.1 % (0-4); HCT - HEMATOCRIT 33.7 % (41-53); HGB - HEMOGLOBIN 11.4 GM/DL (13.5-17.5); IMMATURE GRANULOCYTE # (AUTO) 0.01 T/MM3 (0.00-0.03); IMMATURE GRANULOCYTE % (AUTO) 0.2 % (0.0-0.5); LYMPHOCYTES # (AUTO) 0.8 T/MM3 (1-4.8); MEAN CORPUSCULAR HGB 29.5 UUG (26-34); MEAN CORPUSCULAR HGB CONC(MCHC 33.8 GM/DL (31-37); MEAN CORPUSCULAR VOLUME 87.3 UM3 (80-100); MEAN PLATELET VOLUME 9.9 UM3 (9.4-12.4); MONOCYTES # (AUTO) 0.5 T/MM3 (0-0.8); MONOCYTES % (AUTO) 7.3 % (0-9.0); NEUTROPHILS #(AUTO)-ABSOLUTE 4.9 T/MM3 (1.8-7.7); NEUTROPHILS % (AUTO) 75.8 % (33-66); RED BLOOD COUNT 3.86 M/MM3 (4.50-5.90); WBC - WHITE BLOOD COUNT 6.5 T/MM3 (4.5-11.0)
[2016-08-26 18:11] LABS: ALBUMIN 2.9 G/DL (3.5-5.0); ALBUMIN/GLOBULIN RATIO 0.7 RATIO (1.1-2.2); ALKALINE PHOSPHATASE 71 U/L (38-126); ALT (SGPT) 59 U/L (21-72); ANION GAP 11 MEQ/L (5-15); AST (SGOT) 39 U/L (17-59); BUN/CREATININE RATIO 16 RATIO (6-26); CALCIUM 8.6 MG/DL (8.4-10.2); CHLORIDE 105 MEQ/L (98-107); CO2 - CARBON DIOXIDE 26 MEQ/L (22-30); GLOMERULAR FILTRATION RATE 75; GLUCOSE 102 MG/DL (75-110); POTASSIUM 3.5 MEQ/L (3.6-5); SODIUM 142 MEQ/L (134-144); TOTAL PROTEIN 6.9 G/DL (6.3-8.2)
[2016-08-26] MEDS: METRONIDAZOLE IVPB 500 MG in NORMAL SALINE 100 ML IV SCH (19:42)
[2016-08-26] MEDS: NORMAL SALINE 1,000 ML IV SCH (19:42)
--- NOTE | 2016-08-26 23:15 | NUR ---
IV PT PULLED OUT HIS IV. PRESSURE WAS HELD ON SITE AND THEN BANDAGED. NEW IV SITE STARTED.
[2016-08-26 23:51] VITALS: BP 123/75; PULSE 94; RESP 16; TEMP 96.6; O2SAT 97
[2016-08-27] MEDS: METRONIDAZOLE IVPB 500 MG in NORMAL SALINE 100 ML IV SCH ×2 (01:33→08:54)
--- NOTE | 2016-08-27 03:52 | NUR ---
VSS. ALERT AND ORIENTED TO SELF ONLY. DENIES PAIN. HAS BEEN SEEN SITTING UP AND SPITTING OVER THE EDGE OF THE BED. PT REFUSES TO USE THE TOILET WITH A "HAT" IN IT. HE WILL SIT AND THEN STAND RIGHT BACK UP AND PULL HIS PANTS UP. UNABLE HAVE NOT BEEN ABLE TO OBTAIN A STOOL SAMPLE. PT IS AMBULATORY WITH 1 ASSIST.
[2016-08-27 05:26] LABS: BASOPHILS % (AUTO) 0.7 % (0-2); EOSINOPHILS # (AUTO) 0.3 T/MM3 (0-0.5); EOSINOPHILS % (AUTO) 5.3 % (0-4); HCT - HEMATOCRIT 34.3 % (41-53); HGB - HEMOGLOBIN 11.4 GM/DL (13.5-17.5); IMMATURE GRANULOCYTE # (AUTO) 0.01 T/MM3 (0.00-0.03); IMMATURE GRANULOCYTE % (AUTO) 0.2 % (0.0-0.5); LYMPHOCYTES # (AUTO) 1.1 T/MM3 (1-4.8); LYMPHOCYTES % (AUTO) 20.1 % (23-45); MEAN CORPUSCULAR HGB 29.3 UUG (26-34); MEAN CORPUSCULAR HGB CONC(MCHC 33.2 GM/DL (31-37); MEAN CORPUSCULAR VOLUME 88.2 UM3 (80-100); MEAN PLATELET VOLUME 10.2 UM3 (9.4-12.4); MONOCYTES # (AUTO) 0.4 T/MM3 (0-0.8); MONOCYTES % (AUTO) 6.5 % (0-9.0); NEUTROPHILS #(AUTO)-ABSOLUTE 3.8 T/MM3 (1.8-7.7); NEUTROPHILS % (AUTO) 67.2 % (33-66); RED BLOOD COUNT 3.89 M/MM3 (4.50-5.90); WBC - WHITE BLOOD COUNT 5.7 T/MM3 (4.5-11.0)
[2016-08-27 05:29] LABS: ANION GAP 9 MEQ/L (5-15); BUN/CREATININE RATIO 15 RATIO (6-26); CALCIUM 8.3 MG/DL (8.4-10.2); CHLORIDE 109 MEQ/L (98-107); CO2 - CARBON DIOXIDE 23 MEQ/L (22-30); GLOMERULAR FILTRATION RATE 75; GLUCOSE 97 MG/DL (75-110); MAGNESIUM 1.9 MG/DL (1.6-2.3); POTASSIUM 3.3 MEQ/L (3.6-5); SODIUM 141 MEQ/L (134-144)
[2016-08-27 06:34] LABS: EOSINOPHILS # (MANUAL) 0.3 T/MM3 (0-0.5); LYMPHOCYTES # (MANUAL) 0.4 T/MM3 (1-4.8); MONOCYTES # (MANUAL) 0.2 T/MM3 (0-0.8); NEUTROPHILS #(MANUAL)-ABSOLUTE 4.8 T/MM3 (1.8-7.7); TOTAL CELLS COUNTED 100 %
[2016-08-27] MEDS: NORMAL SALINE 1,000 ML IV SCH ×2 (07:38→12:47)
[2016-08-27 07:43] VITALS: BP 123/78; PULSE 95; RESP 16; TEMP 98.9; O2SAT 99
[2016-08-27 08:00] VITALS: PULSE 95; RESP 16
--- NOTE | 2016-08-27 08:00 | NUR ---
RECEIVED REPORT PATIENT IS STILL ASLEEP THIS MORNING. NS CONTINUES AT 100ML/HR. STOOLS FOR C.DIFF IS COLLECTED.
[2016-08-27] MEDS ORDERED: HALOPERIDOL 5 MG/ML INJECTION IV PRN ×2 (08:30→08:33)
[2016-08-27 08:56] LABS: BLOOD, URINE NEGATIVE (NEGATIVE); COLOR,URINE AMBER (YELLOW); LEUKOCYTE ESTERASE ,URINE NEGATIVE (NEGATIVE); NITRITE,URINE POSITIVE (NEGATIVE); UROBILINOGEN,URINE 0.2 EU/DL (NORMAL)
[2016-08-27 09:13] LABS: BACTERIA,URINE TRACE (NEGATIVE); MUCUS,URINE PRESENT; RBC,URINE 0-1 /HPF (0-3); SQUAMOUS EPITHELIAL CELL,UR NONE SEEN; WBC,URINE 0-1 /HPF (0-5)
--- NOTE | 2016-08-27 09:43 | PNPDOC ---
Subjective Date DATE: 08/27/16 TIME: 09:27 Subjective Patient unable to give any history secondary to mental status. Per nursing staff there has been no diarrhea this morning. He only eats one caretakers are around. He is starting to take his medications again. He ambulates with assistance at this time. Objective Vital Signs Vital signs Vital Signs Date Time Temp Pulse Resp B/P Pulse Ox O2 Delivery O2 Flow Rate FiO2 08/27/16 08:00 95 16 08/27/16 07:43 98.9 123/78 99 Room Air Height (Feet): 5 Height (Inches): 10.00 Weight (Kilograms): 61.800 Laboratory Laboratory Laboratory Tests 08/26/16 17:39 08/27/16 04:31 Laboratory Tests 08/26/16 17:39 08/27/16 04:31 Microbiology Microbiology Microbiology Date/Time Source Procedure Growth Status 08/27/16 09:13 Not Provided Urine Culture - Preliminary CULTURE INITIATED - RESULTS PENDING Resulted Assessment & Plan Problems: (1) Dehydration Status: Resolved (2) C. difficile colitis Status: Resolved Assessment & Plan: Repeat culture pending. We'll discontinue the IV Flagyl and restart oral Flagyl. (3) Hypertension Status: Chronic (4) Mental retardation Status: Chronic (5) Epileptic seizure Status: Chronic (6) Osteopenia Status: Chronic (7) Anemia Status: Chronic Assessment Patient is readmitted to the hospital after failed outpatient therapy for C. difficile colitis and subsequent dehydration. We will give antibiotic therapy and IV fluids. Agree with the above history and physical. Code Status Full Code Hospital Course Summary Disclaimer The hospital course summary below is not to be considered part of the above Progress Note. Hospital Course Summary 08/26/16 Admit, observation status. under the hospitalist service. He was scheduled to continue taking metronidazole + vanc thru 09/02 to complete 14-day course. [facility] records reviewed - no labs done. Will obtain CBC, CMP, UA Start NS at 100 mL/hr. Start IV Flagyl. Zofran PRN nausea. Check full GI panel - never done during previous hospital stay. Would expect to see a positive C. diff. Hold metoprolol d/t dehydration - ensure that he is hemodynamically stable before starting BB. Consider obtaining KUB and/or consulting Dr. Ariza if pt is slow to respond to IV hydration. Could also consider PT/OT consultation and dietary consultation if no improvement by tomorrow. DESIRAE GARCIA MD August 27, 2016 09:43
--- NOTE | 2016-08-27 10:00 | NUR ---
PRECAUTIONS STOOLS RETURN NEGATIVE FOR C.DIFF. CONTACT PRECAUTIONS ARE REMOVED AT THIS TIME. PATIENT CONTINUES TO HAVE LOOSE STOOLS.
--- NOTE | 2016-08-27 11:32 | DSPDOC ---
General Date Date DATE: 08/27/16 TIME: 11:28 Attending Physician Deejay Garcia MD Admitting Physician Deejay Garcia MD Consulting Physician Admitting Diagnosis DEHYDRATION, C. DIFF Discharge Diagnosis Dehydration Laboratory Laboratory Tests Test 08/26/16 17:39 08/27/16 04:31 08/27/16 08:20 White Blood Count 6.5T/MM3 (4.5-11.0) 5.7T/MM3 (4.5-11.0) Red Blood Count 3.86M/MM3 (4.50-5.90) 3.89M/MM3 (4.50-5.90) Hemoglobin 11.4GM/DL (13.5-17.5) 11.4GM/DL (13.5-17.5) Hematocrit 33.7% (41-53) 34.3% (41-53) Mean Corpuscular Volume 87.3UM3 (80-100) 88.2UM3 (80-100) Mean Corpuscular Hemoglobin 29.5UUG (26-34) 29.3UUG (26-34) Mean Corpuscular Hemoglobin Concent 33.8GM/DL (31-37) 33.2GM/DL (31-37) RDW Standard Deviation 47.3FL (36.9-50.2) 48.1FL (36.9-50.2) Platelet Count 340T/MM3 (130-400) 322T/MM3 (130-400) Mean Platelet Volume 9.9UM3 (9.4-12.4) 10.2UM3 (9.4-12.4) Immature Granulocyte % (Auto) 0.2% (0.0-0.5) 0.2% (0.0-0.5) Neutrophils (%) (Auto) 75.8% (33-66) 67.2% (33-66) Lymphocytes (%) (Auto) 13.0% (23-45) 20.1% (23-45) Monocytes (%) (Auto) 7.3% (0-9.0) 6.5% (0-9.0) Eosinophils (%) (Auto) 3.1% (0-4) 5.3% (0-4) Basophils (%) (Auto) 0.6% (0-2) 0.7% (0-2) Absolute Immature Granulocyte (auto 0.01T/MM3 (0.00-0.03) 0.01T/MM3 (0.00-0.03) Absolute Neutrophils (auto) 4.9T/MM3 (1.8-7.7) 3.8T/MM3 (1.8-7.7) Absolute Lymphocytes (auto) 0.8T/MM3 (1-4.8) 1.1T/MM3 (1-4.8) Absolute Monocytes (auto) 0.5T/MM3 (0-0.8) 0.4T/MM3 (0-0.8) Absolute Eosinophils (auto) 0.2T/MM3 (0-0.5) 0.3T/MM3 (0-0.5) Absolute Basophils (auto) 0.0T/MM3 (0-0.2) 0.0T/MM3 (0-0.2) Turbidity < 20 (0-20) < 20 (0-20) Sodium Level 142MEQ/L (134-144) 141MEQ/L (134-144) Potassium Level 3.5MEQ/L (3.6-5) 3.3MEQ/L (3.6-5) Chloride Level 105MEQ/L (98-107) 109MEQ/L (98-107) Carbon Dioxide Level 26MEQ/L (22-30) 23MEQ/L (22-30) Anion Gap 11MEQ/L (5-15) 9MEQ/L (5-15) Blood Urea Nitrogen 16.0MG/DL (9-20) 15.0MG/DL (9-20) Creatinine 1.0MG/DL (0.8-1.5) 1.0MG/DL (0.8-1.5) Glomerular Filtration Rate Calc 75 75 BUN/Creatinine Ratio 16RATIO (6-26) 15RATIO (6-26) Glucose Level 102MG/DL (75-110) 97MG/DL (75-110) Calculated Osmolality 274MOSM/KG (261-280) 272MOSM/KG (261-280) Calcium Level 8.6MG/DL (8.4-10.2) 8.3MG/DL (8.4-10.2) Total Bilirubin 0.50MG/DL (0.20-1.30) Icterus Index < 2 (0-7) < 2 (0-7) Aspartate Amino Transf (AST/SGOT) 39U/L (17-59) Alanine Aminotransferase (ALT/SGPT) 59U/L (21-72) Alkaline Phosphatase 71U/L (38-126) Total Protein 6.9G/DL (6.3-8.2) Albumin 2.9G/DL (3.5-5.0) Globulin 4.0G/DL (2.4-3.6) Albumin/Globulin Ratio 0.7RATIO (1.1-2.2) Chemistry Specimen Hemolysis < 15 (0-25) 23 (0-25) Neutrophils % (Manual) 85.0% (33-66) Lymphocytes % (Manual) 7.0% (23-45) Monocytes % (Manual) 3.0% (0-9.0) Eosinophils % (Manual) 5.0% (0-4) Absolute Neutrophils (Manual) 4.8T/MM3 (1.8-7.7) Lymphocytes # (Manual) 0.4T/MM3 (1-4.8) Monocytes # (Manual) 0.2T/MM3 (0-0.8) Eosinophils # (Manual) 0.3T/MM3 (0-0.5) Red Cell Morphology Comment Normal Magnesium Level 1.9MG/DL (1.6-2.3) Urine Collection Type Urine Color [place] (YELLOW) Urine Turbidity Clear (CLEAR) Urine pH 5.5 (5.0-8.0) Urine Specific [place] >=1.030 (1.015-1.025) Urine Protein 1+ (NEGATIVE) Urine Glucose (UA) Negative (NEGATIVE) Urine Ketones Negative (NEGATIVE) Urine Blood Negative (NEGATIVE) Urine Nitrite Positive (NEGATIVE) Urine Bilirubin Negative (NEGATIVE) Urine Urobilinogen 0.2EU/DL (NORMAL) Urine Leukocyte Esterase Negative (NEGATIVE) Urine RBC 0-1/HPF (0-3) Urine WBC 0-1/HPF (0-5) Urine Squamous Epithelial Cells None seen Urine Bacteria Trace (NEGATIVE) Urine Mucus Present Urine Culture Indicated Cult reflexed &setup Stool Cyclospora species Detection Negative (NEGATIVE) Stool Rotavirus A PCR Negative (NEGATIVE) Stool Adenovirus (PCR) Negative (NEGATIVE) Stool Astrovirus (PCR) Negative (NEGATIVE) Stool Campylobacter PCR Negative (NEGATIVE) Stool C. difficile Toxin (PCR) Negative (NEGATIVE) Stool Cryptosporidium PCR Negative (NEGATIVE) Stool E. coli Shiga Toxins Negative (NEGATIVE) Stool E coli O157 PCR N/a (NA/NEG) Stool Enterotoxigenic Ecoli PCR Negative (NEGATIVE) Stool Enteropathogenic E. coli (PCR Negative (NEGATIVE) Stool Enteroaggregative E. coli PCR Negative (NEGATIVE) Stool Entamoeba (PCR) Negative (NEGATIVE) Stool Giardia Lamblia PCR Negative (NEGATIVE) Stool Salmonella PCR Negative (NEGATIVE) Stool Sapovirus (PCR) Negative (NEGATIVE) Stool Plesiomonas shigelloides PCR Negative (NEGATIVE) Stool Shigella/EIEC (PCR) Negative (NEGATIVE) Stool Yersinia enterocolitica (PCR) Negative (NEGATIVE) Stool Vibrio (PCR) Negative (NEGATIVE) Stool Vibrio cholera (PCR) Negative (NEGATIVE) Stool Norovirus GI/GII PCR Negative (NEGATIVE) Microbiology Microbiology Date/Time Source Procedure Growth Status 08/27/16 09:13 Not Provided Urine Culture - Preliminary CULTURE INITIATED - RESULTS PENDING Resulted History of Present Illness Vadim Johnson is a 65 y/o male recently hospitalized from 08/07/16 through 08/23/16 for 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 Ariza. This postop course was complicated by C. difficile colitis, and he was started on metronidazole and vancomycin on 08/13/16 with instructions to continue this for a total of 14 days. He also received TPN for malnutrition while he was hospitalized. His blood pressure medications were chested. While he is in the hospital, and he was sent home on metoprolol. He was able to be discharged back to [facility]. He was seen in the emergency department on 08/24/16 because of reports of weakness and confusion. There is also the question about a possible fall, since he was found lying next to the couch in his room. A CT scan of his head was negative for acute findings. Chest x-rays and pelvis x-rays were unremarkable. He was sent home with instructions to follow-up with Dr. Machuca. Vadim was seen in the clinic on 08/26/16 b/c he had been spitting out his meds and not eating and drinking well. All he had since discharge is about 2 or 3 ensures, and 16-24 ounces of water. He has eaten a few bites here and there. He has had ongoing loose stools, about 9 yesterday, but none today. He has also had a couple of falls since discharge. He has been restless, but staff does not feel like he has been in a great amount of pain. He is nonverbal. Staff deny any fevers or cough. Given his recent prolonged hospital course and concern for dehydration, the hospitalist service was contacted for hospital admission. Hospital Course Patient was placed in observation status. His diarrhea resolved on its own apparently. Repeat cultures for Clostridium difficile were negative. At this time his Flagyl and vancomycin are being discontinued. He received IV fluids during his hospitalization. Per full stack php developer as he is back to baseline. There is concern that the Flagyl and vancomycin he was dismissed on was causing GI upset and therefore he was not eating. Appetite appears to be back at baseline. With physical therapy and was seen ambulating with minimal assistance. Problems: (1) Dehydration Status: Resolved (2) C. difficile colitis Status: Resolved Assessment & Plan: Repeat culture pending. We'll discontinue the IV Flagyl and restart oral Flagyl. (3) Hypertension Status: Chronic (4) Mental retardation Status: Chronic (5) Epileptic seizure Status: Chronic (6) Osteopenia Status: Chronic (7) Anemia Status: Chronic Code Status Full Code Home Meds Active Scripts Metronidazole (Metronidazole) 500 Mg Tablet, 500 MG PO TID for 5 Days, #15 TAB Prov:BENJIE HILL MD 08/23/16 Hydrocodone/Acetaminophen (Hydrocodon-Acetaminoph 7.5-325) 7.5-325 Tablet, 1 TAB PO Q4H Y for PAIN, #10 TAB Prov:BENJIE HILL MD 08/23/16 Reported Medications Vancomycin HCl (Vancomycin HCl) 250 Mg Capsule, 500 MG PO Q6H for 5 Days 08/24/16 Metoprolol Succinate (Metoprolol Succinate) 50 Mg Tab.er.24h, 50 MG PO DAILY 08/24/16 Benzocaine (Oral Pain Relief) 9.35 Gm Gel..gram., 1 APPLIC PO PRN 04/30/16 Acetaminophen (Tylenol) 325 Mg Tablet, 650 MG PO Q4HR Y for PAIN/FEVER 04/30/16 Guaifenesin (Robafen) 100 Mg/5 Ml Liquid, 100 MG PO Q4HR Y for COUGH 04/30/16 Calcium Carb/Magnesium Hydrox (Rolaids Chewable Tablet) 1 Each Tab.chew, 1-2 TAB PO Q1H Y for HEARTBURN 04/30/16 Bismuth Subsalicylate (Bismatrol) 262 Mg/15 Ml Oral.susp, 1 DOSE PO PRN 04/30/16 Tolnaftate (Tinactin) 133 Gm Aero.powd, 1 APPLIC TOP BID Y for PRN ORDERS 04/30/16 Diphenhydramine HCl (Diphenhydramine HCl) 25 Mg Capsule, 25 MG PO TID Y for ALLERY SYMPTOMS 04/30/16 Lorazepam (Lorazepam) 1 Mg Tablet, 1 MG PO BID Y for ANXIETY 04/30/16 Dicyclomine HCl (Dicyclomine HCl) 10 Mg Capsule, 10 MG PO QID Y for IRRITABLE BOWEL SYMPTOMS 04/30/16 Na Phos,M-B/Na Phos,Di-Ba (Fleet Enema) 133 Ml Enema, 1 ENEMA RECTALLY O Y for CONSTIPATION 04/30/16 Bisacodyl (Dulcolax) 10 Mg Supp.rect, 10 MG RECTALLY DAILY Y for CONSTIPATION 04/30/16 Epinephrine (Epipen 2-Umberto) 0.3 Mg/0.3 Ml Auto.injct, 0.3 MG IM PRN 04/30/16 Sennosides (Senna) 8.6 Mg Tablet, 8.6 MG PO BID 04/30/16 Polyethylene Glycol 3350 (Glycolax) 119 Gm Powder, 17 GM PO DAILY 04/30/16 Magnesium Hydroxide (Milk Of Magnesia) 400 Mg/5 Ml Oral.susp, 30 ML PO DAILY Y for CONSTIPATION 07/15/11 Diazepam (Diazepam) 5 Mg Tablet, 5 MG PO BID Y for PRN ORDERS 07/15/11 Discontinued Reported Medications Pseudoephedrine HCl (Sudogest) 60 Mg Tablet, 60 MG PO Q4HR Y for CONGESTION 04/30/16 Loperamide HCl (Loperamide) 2 Mg Tablet, 2 MG PO QID Y for DIARRHEA 04/30/16 Acetaminophen (Tylenol Extra Strength) 500 Mg Tablet, 500-1000 MG PO Q6H Y for PAIN/FEVER 04/30/16 Face to Face Encounter I met with patient on the day of dismissal and discussed follow up appointments , medications, and safety plan. Discharge Disposition Patient is being discharged back to [facility] DEEJAY GARCIA MD August 27, 2016 11:31
--- NOTE | 2016-08-27 11:33 | NUR ---
CM THIS WORKER SPOKE TO [facility] STAFFSUZANNE. DISCUSSED DISCHARGE PLAN BACK TO [facility]. THIS WORKER ALSO SPOKE TO STEPHANIE ALEMAN, BY PHONE ON THIS DATE. PLAN IS TO RETURN TO [facility] ON THIS DATE. [facility] STAFF WILL PLAN TO TRANSPORT. HOME HEALTH SERVICES REQUESTED TO HELP IN TRANSITION TO HOME. ORDERS RECEIVED. REFERRAL SENT TO [facility] ([facility]) REQUESTED. STEPHANIE ALEMAN, PRESENT AT HOSPITAL. IN AGREEMENT WITH DISCHARGE PLANNING. PHYSICIAN AND NURSE UPDATED.
--- NOTE | 2016-08-27 13:49 | NUR ---
CM THIS WORKER CALLED AND LEFT MESSAGE WITH [facility] STAFF THAT PT IS READY FOR DISCHARGE. UPDATE WITH NURSE.
--- NOTE | 2016-08-27 14:41 | NUR ---
CM THIS WORKER REVIEWED LACE SCORING WITH RE-ADMISSION TO THE HOSPITAL FROM LAST WEEK. ROTP DISCUSSED WITH [facility] STAFF, SUZANNE. IN AGREEMENT WITH ENROLLMENT.
--- NOTE | 2016-08-27 14:57 | NUR ---
DISCHARGED PATIENT IS DISCHARGED TO [facility]. PATIENT AMBULATES TO [facility] TRANSPORTATION [facility]HICLE. REPORT CALLED IN TO SUZANNE, PROGRAMMING SPECIALIST AT [facility]. ALL QUESTIONS ARE ANSWERED. PATIENT FORGOT HIS JACKET HERE. SOMEONE WILL PICK IT UP TOMORROW.
[2016-08-27] MEDS ORDERED: METRONIDAZOLE 500 MG TABLET PO SCH (17:00)
--- NOTE | 2016-08-28 13:31 | PDONTRACK ---
Right on Track Program Date of Discharge August 27, 2016 at 14:57 Scheduled Benzocaine (Oral Pain Relief), 1 APPLIC PO PRN, (Reported) Bismuth Subsalicylate (Bismatrol), 1 DOSE PO PRN, (Reported) Epinephrine (Epipen 2-Umberto), 0.3 MG IM PRN, (Reported) Metoprolol Succinate (Metoprolol Succinate), 50 MG PO DAILY, (Reported) Polyethylene Glycol 3350 (Glycolax), 17 GM PO DAILY, (Reported) Sennosides (Senna), 8.6 MG PO BID, (Reported) Scheduled PRN Acetaminophen (Tylenol), 650 MG PO Q4HR PRN for PAIN/FEVER, (Reported) Bisacodyl (Dulcolax), 10 MG RECTALLY DAILY PRN for CONSTIPATION, (Reported) Calcium Carb/Magnesium Hydrox (Rolaids Chewable Tablet), 1-2 TAB PO Q1H PRN for HEARTBURN, (Reported) Diazepam (Diazepam), 5 MG PO BID PRN for PRN ORDERS, (Reported) Dicyclomine HCl (Dicyclomine HCl), 10 MG PO QID PRN for IRRITABLE BOWEL SYMPTOMS , (Reported) Diphenhydramine HCl (Diphenhydramine HCl), 25 MG PO TID PRN for ALLERY SYMPTOMS, (Reported) Guaifenesin (Robafen), 100 MG PO Q4HR PRN for COUGH, (Reported) Hydrocodone/Acetaminophen (Hydrocodon-Acetaminoph 7.5-325), 1 TAB PO Q4H PRN for PAIN Lorazepam (Lorazepam), 1 MG PO BID PRN for ANXIETY, (Reported) Magnesium Hydroxide (Milk Of Magnesia), 30 ML PO DAILY PRN for CONSTIPATION, ( Reported) Na Phos,M-B/Na Phos,Di-Ba (Fleet Enema), 1 ENEMA RECTALLY O PRN for CONSTIPATION , (Reported) Tolnaftate (Tinactin), 1 APPLIC TOP BID PRN for PRN ORDERS, (Reported) Discontinued Medications Acetaminophen (Tylenol Extra Strength), 500-1,000 MG PO Q6H PRN for PAIN/FEVER, (Reported) Loperamide HCl (Loperamide), 2 MG PO QID PRN for DIARRHEA, (Reported) Metronidazole (Metronidazole), 500 MG PO TID Pseudoephedrine HCl (Sudogest), 60 MG PO Q4HR PRN for CONGESTION, (Reported) Vancomycin HCl (Vancomycin HCl), 500 MG PO Q6H, (Reported) Date: August 28, 2016 Right on Track Program: 24 Hour Follow-Up Discharge Summary Received: Yes Care Plan Received: Yes Follow up: Follow Up Appt. Scheduled (with Dr. Machuca) Education: Diagnosis Ed. Review, Education to [employer] Referrals: Social Work Total LACE Score: 5 Comments I called [facility] and spoke with Franci, the rehabilitation case coordinator looking after Vadim today. She is still very concerned about him - he is still unsteady on his feet and is refusing to eat. Last night when he was handed a glass of water he dumped it out in the toilet. He drank some water and an ensure this morning. Ensure is about the only thing he will take in. He hasn't been acting like he's in pain, and has not had any vomiting. Franci wasn't sure about diarrhea - Vadim self-toilets so they don't know how often he's having stools. They are planning on placing a chart on his bathroom door to try to capture more accurate stool output. He's lost about 6 kg from before he was hospitalized the first time. Franci states that they called Dr. Machuca office this morning to see if they could get an order for Ensure, and for further instructions for care. We reviewed signs of bowel obstruction - bloating, pain, n/v, fever. If symptoms are severe, she should call 911. She stated that she hasn't seen a discharge summary but has no questions on the discharge instructions or medications (Flagyl and vanco were discontinued - hope to see improvements in appetite soon since Flagyl can cause GI upset). Discussed w/pt and caregiver: Yes Recommendations for follow-up 1. F/U with Alyce Tay or Dr. Machuca - [facility] is requesting an order for Ensure 2. Continue with Home Health through [facility] - a nurse was there today to evaluate Vadim 3. 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 [id number] visit scheduled for next week. Problems: (1) Dehydration Status: Resolved (2) C. difficile colitis Status: Resolved Assessment & Plan: Repeat culture negative. (3) Hypertension Status: Chronic (4) Mental retardation Status: Chronic (5) Epileptic seizure Status: Chronic Copies To 1: ALYCE TAY APRN, KAREN D APRN August 28, 2016 13:28
== END 2016-08-27 14:57 | disposition home health service (06) ==
LOC: MED 16:10
PROVIDERS: ADMIT Internal Medicine; ATTEND Internal Medicine
DX: E86.0 Dehydration (principal); A04.7 Enterocolitis due to Clostridium difficile; Z90.49 Acquired absence of other specified parts of digestive tract; I10 Essential (primary) hypertension; F73 Profound intellectual disabilities; G40.909 Epilepsy, unspecified, not intractable, without status epilepticus; M85.88 Other specified disorders of bone density and structure, other site; D64.89 Other specified anemias; Z79.899 Other long term (current) drug therapy
CPT/HCPCS: 36415; 80048; 80053; 81001; 83735; 85025; 85027; 87086; 87507; 96361; 96365; 96366; A6209; G0378; J1630; J2060; J7030; J7050; 85007; 99218

== ENCOUNTER 2016-09-04 15:24 | Emergency (ER) | payer MEDICARE, MEDICAID ==
[~2016-09-04] VITALS: Ht 172.7 cm; Wt 60.6 kg
[~2016-09-04 15:24] MED LIST changes: -METR-116 PO; -VANC250C5 PO
[2016-09-04 15:29] VITALS: Ht 172.7 cm; Wt 60.6 kg
--- NOTE | 2016-09-04 15:29 | NUR ---
[employer] [facility] ATTEMPTED TO HAVE PT CHANGE INTO A GOWN FOR EVALUATION. PT RAISED ARMS TO STRIKE. CARE STAFF ACCOMPANING PT STATES THAT PT HAS BEEN RESISTANT WITH COMING BACK TO HOSPITAL. DID NOT HAVE PT CHANGE INTO GOWN AT THIS TIME.
--- OUTSIDE RECORDS SUMMARY | 2016-09-04 15:29 | XMS REPORT | Continuity of Care Document ---
Author Author [facility] (formerly [facility]3] Organization [facility]3] Address Unknown Phone Unavailable Allergies Active Description Code Type Severity Reaction Onset Reported/Identified Relationship to Patient Clinical Status Yes No Known Drug Allergies Drug Allergy 05/12/2012 Yes NSAIDs NKMA N/A [id number] 05/30/2014 Medications Problems Date Dx Coded Attending [...] Procedures Code [place] [address] DIAGNOSTIC COLONOSCOPY Norma Mera MD 05/12/2012 Results Test Result Range CBC With Platelet No Differential - 09/04/16 12:10 HCT 41.4 % 42.0-52.0 HGB 13.7 g/dL 14.0-18.0 MCH 29.3 pg 27.0-32.0 MCHC 33.1 g/dL 32.0-36.0 MCV 88.5 fL 82.0-99.0 MPV 10.7 fL 8.8-14.8 Platelet Count 245 K/uL 150-400 RBC 4.68 10*6/uL 4.60-6.20 RDW 16.3 % 11.5-14.5 WBC 7.4 K/uL 4.8-10.8 Encounters ACCT No. Visit Date/Time Discharge Status Pt. Type Provider Facility Loc./Unit Complaint [id number] 05/12/2012 09:08:00 2012 23:59:59 CLS Outpatient Norma Mera MD [facility]
--- OUTSIDE RECORDS SUMMARY | 2016-09-04 15:30 | XMS REPORT | Continuity of Care Document ---
Author Author [facility] Organization [facility] Address Unknown Phone Unavailable Care Team Providers Care Healthcare Architect Name Role Phone ANDER NEGRETE MD Primary Care Physician [phone] Insurance Providers Guarantor Vadim Johnson Address [address] [place] [phone] Email DENIED 16 Payer [facility] Plan Policy Number [id number] Subscriber's Name Vadim Johnson Relationship 18 Self Effective Date 16 Expiration Date 16 Payer Medicare Policy Number [id number] Subscriber's Name Vadim Johnson Relationship 18 Self Effective Date 88 Advance Directives Directive Response Recorded Date/Time Ordered Resuscitation Status Full Code 08/26/16 4:50pm Resuscitation Documents on File No 08/26/16 5:21pm DPOA for Healthcare Only Y shahab Zhou 08/26/16 5:21pm Living Will No 08/26/16 5:21pm Problems Active Problems Medical Problem Onset Date Status Abdominal distention Unknown Acute Acute kidney injury Unknown Resolved Anemia Unknown Chronic Bowel obstruction Unknown Resolved C. difficile colitis Unknown Resolved Clavicle fracture Unknown Constipation Unknown Chronic Dehydration Unknown Resolved Epileptic seizure Unknown Chronic Hyperglycemia Unknown Acute Hypermagnesemia Unknown Acute Hypernatremia Unknown Resolved Hypertension Unknown Chronic Ischemic colitis Unknown Resolved Mental retardation Unknown [...] Mg Tab.er.24h 50 Mg Oral Daily 08/24/16 Na Phos,M-B/Na Phos,Di-Ba (Fleet Enema) 133 Ml Enema 1 Enema Rectally Onetime as needed for Constipation 04/30/16 Polyethylene Glycol 3350 (Glycolax) 119 Gm Powder 17 Gm Oral Daily 04/30/16 Sennosides (Senna) 8.6 Mg Tablet 8.6 Mg Oral Twice A Day 04/30/16 Tolnaftate (Tinactin) 133 Gm Aero.powd 1 Applic Topically Twice A Day as needed for Prn Orders 04/30/16 Past Home Medications Medication Directions Ordered Status Acetaminophen (Tylenol Extra Strength) 500 Mg Tablet, 500-1000 Mg Oral Every 6 Hours as needed for Pain/Fever 04/30/16 Discontinued Loperamide Hcl (Loperamide) 2 Mg Tablet, 2 Mg Oral Four Times Daily as needed for Diarrhea 04/30/16 Discontinued Metronidazole 500 Mg Tablet, 500 Mg Oral Three Times A Day 08/23/16 Discontinued Pseudoephedrine Hcl (Sudogest) 60 Mg Tablet, 60 Mg Oral Every 4 Hours as needed for Congestion 04/30/16 Discontinued Vancomycin Hcl 250 Mg Capsule, 500 Mg Oral Every 6 Hours 08/23/16 Discontinued Social History Social History Problem Response Recorded Date/Time Onset Date Status History of resection of large bowel 08/24/2004 7:39pm Unknown Resolved Reason for Hospitalization DEHYDRATION 08/27/2016 1:35pm Not Applicable Not Applicable Hx Alcohol Use No 08/24/2016 6:20pm Not Applicable Not Applicable Has the pt used tobacco in the last 12 months No 08/26/2016 4:23pm Not Applicable Not Applicable Query Response Start Date Stop Date Smoking Status Never smoker Hospital Discharge Instructions Instructions: Care Instructions: I was in the hospital because (patient own words): HX MR, pt can not answer questions Discharge Diet: Regular Discharge Activity: As Tolerated Follow Up Appointments: As already scheduled Pending Lab / Results: No Pending Lab Expected Signs/Symptoms: None Notify Physician If: Symptoms recur During Business Hours:: Please call the physician's office at After Business Hours:: Please call [phone] and have the erector operator page the physician. Pain Management/Treatment: N/A Wound/Incision Care: N/A Condition at time of discharge: Good Plan of Care Discharge Date 08/27/16 2:57pm Disposition 01 DISCHARGED HOME, SELF-CARE Prescriptions See Medication Section Care Plan and Goals See Discharge Instructions Section Functional Status Query Response Date Recorded Mobility Status Ambulatory w/assist August 26, 2016 8:00pm Assistive Devices None August 26, 2016 8:00pm Activity Limitations Weakness August 26, 2016 8:00pm Feeding Ability Independent August 26, 2016 8:00pm Toileting Ability Assist August 26, 2016 8:00pm Grooming Ability Assist August 26, 2016 8:00pm Dressing Ability Assist August 26, 2016 8:00pm Driving Ability Dependent August 26, 2016 8:00pm Housework Ability Assist August 26, 2016 8:00pm Meal Preparation Ability Assist August 26, 2016 8:00pm Stair Climbing Ability Assist August 26, 2016 8:00pm Ability to complete ADL's impeded by No change August 26, 2016 8:00pm Cognitive/Perceptual Impairments Chronic confusion August 26, 2016 8:00pm Preferred Method of Learning Listening August 26, 2016 8:00pm Allergies, Adverse Reactions, Alerts Allergen Type Severity Reaction Status Last Updated NSAIDS (Non-Steroidal Anti-Inflamma Allergy Unknown Active 08/24/16 Immunizations Immunization Event Date Type Not Given Reason Dose Number Lot 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 08/08/14 Query Response on File Recorded Date/Time Hx Influenza Vaccination Y fall 201508/26/16 4:23pm Hx Pneumococcal Vaccination No 08/26/16 4:23pm Hx Tetanus, Diptheria, Pertussis Yes 12/14/11 10:21pm Hx Influenza Vaccination Y fall 201508/26/16 4:23pm Hx Tetanus, Diptheria, Pertussis Yes 12/14/11 10:21pm Influenza Vaccine Hx UNKNOWN 08/24/16 6:37pm Tdap Vaccine Hx UNKNOWN 08/24/16 6:37pm Vital Signs Acute Vital Signs Vital Response Date/Time Temperature (Fahrenheit) 98.9 deg F (96.8 - 99.1) 08/27/2016 7:43am Temperature (Calculated Celsius) 37.20768 degrees C (36.0 - 37.3) 08/27/2016 7:43am Temperature Source Axillary 08/09/2016 5:52pm Pulse Rate (adult) 95 bpm (60 - 100) 08/27/2016 8:00am Respiratory Rate 16 breaths/min (10 - 20) 08/27/2016 8:00am O2 Sat by Pulse Oximetry 99 % (90 - 100) 08/27/2016 7:43am Oxygen Delivery Method Nasal Cannula 08/09/2016 10:00pm Oxygen Delivery Method Room Air 08/27/2016 7:43am Oxygen Flow Rate 1.00 L/min 08/10/2016 12:45pm Blood Pressure 123/78 mm Hg 08/27/2016 7:43am Blood Pressure Source Automatic Cuff 08/27/2016 7:43am Height (Feet) 5 feet 08/26/2016 5:16pm Height (Inches) 10.00 inches 08/26/2016 5:16pm Weight (Kilograms) 61.800 kg 08/27/2016 7:39am Body Mass Index (BMI) 19.6 08/26/2016 4:21pm Results Laboratory Results Test Name Result Units Flags Reference Collection Date/Time Result Date/ Time Comments Band Neutrophils % 1.0 % 0-6 08/21/2016 5:09am 08/21/2016 6:18am Band Neutrophils # 0.1 T/MM3 08/21/2016 5:09am 08/21/2016 6:18am Phosphorus Level 3.5 MG/DL 2.5-4.5 08/22/2016 8:40am 08/22/2016 9:00am Triglycerides Level 21 MG/DL L 40-160 08/20/2016 4:09am 08/20/2016 5: 52am Lipase 69 U/L 23-300 08/07/2016 1:28pm 08/07/2016 2:24pm Plasma Lactate 1.7 MMOL/L 0.6-2.2 08/07/2016 4:52pm [...] 3:33pm 3:33pm Arterial Blood HCO3 24 MEQ/L 22-08/08/2016 3:33pm 08/08/2016 3:33pm Arterial Blood Total CO2 [...] Toxin A is clinically indicated, treat accordingly. Glucometer 152 mg/dL H 75-110 08/22/2016 6:10am 08/22/2016 8:08pm White Blood Count 5.7 T/MM3 4.5-11.0 08/27/2016 4:08/27/2016 5: 26am Red Blood Count 3.89 M/MM3 L 4.50-5.90 08/27/2016 4:08/27/2016 5: 26am Hemoglobin 11.4 GM/DL L 13.5-17.5 08/27/2016 4:08/27/2016 5:26am Hematocrit 34.3 % L 41-53 08/27/2016 4:3108/27/2016 5:26am Mean Corpuscular Volume 88.2 UM3 80-100 08/27/2016 4:08/27/2016 5: 26am Mean Corpuscular Hemoglobin 29.3 UUG 26-34 08/27/2016 4:312016 5:26am Mean Corpuscular Hemoglobin Concent 33.2 GM/DL 31-37 08/27/2016 4:08/27/2016 5:26am RDW Standard Deviation 48.1 FL 36.9-50.2 08/27/2016 4:08/27/2016 5 :26am Platelet Count 322 T/MM3 130-400 08/27/2016 4:08/27/2016 5:26am Mean Platelet Volume 10.2 UM3 9.4-12.4 08/27/2016 4:08/27/2016 5: 26am Neutrophils (%) (Auto) 67.2 % H 33-66 08/27/2016 4:08/27/2016 5: 26am Lymphocytes (%) (Auto) 20.1 % L 23-45 08/27/2016 4:08/27/2016 5: 26am Monocytes (%) (Auto) 6.5 % 0-9.0 08/27/2016 4:08/27/2016 5:26am Eosinophils (%) (Auto) 5.3 % H 0-4 08/27/2016 4:08/27/2016 5:26am Basophils (%) (Auto) 0.7 % 0-2 08/27/2016 4:08/27/2016 5:26am Immature Granulocyte % (Auto) 0.2 % 0.0-0.5 08/27/2016 4:2016 5:26am Absolute Neutrophils (auto) 3.8 T/MM3 1.8-7.7 08/27/2016 4:2016 5:26am Absolute Lymphocytes (auto) 1.1 T/MM3 1-4.8 08/27/2016 4:2016 5:26am Absolute Monocytes (auto) 0.4 T/MM3 0-0.8 08/27/2016 4:08/27/2016 5:26am Absolute Eosinophils (auto) 0.3 T/MM3 0-0.5 08/27/2016 4:2016 5:26am Absolute Basophils (auto) 0.0 T/MM3 0-0.2 08/27/2016 4:08/27/2016 5:26am Absolute Immature Granulocyte (auto 0.01 T/MM3 0.00-0.03 08/27/2016 4: 08/27/2016 5:26am Neutrophils % (Manual) 85.0 % H 33-66 08/27/2016 4:08/27/2016 6: 35am Lymphocytes % (Manual) 7.0 % L 23-45 08/27/2016 4:08/27/2016 6: 35am Monocytes % (Manual) 3.0 % 0-9.0 08/27/2016 4:08/27/2016 6:35am Eosinophils % (Manual) 5.0 % H 0-4 08/27/2016 4:08/27/2016 6:35am Absolute Neutrophils (Manual) 4.8 T/MM3 1.8-7.7 08/27/2016 4:08/27 6:35am Lymphocytes # (Manual) 0.4 T/MM3 L 1-4.8 08/27/2016 4:08/27/2016 6: 35am Monocytes # (Manual) 0.2 T/MM3 0-0.8 08/27/2016 4:08/27/2016 6: 35am Eosinophils # (Manual) 0.3 T/MM3 0-0.5 08/27/2016 4:08/27/2016 6: 35am Red Cell Morphology Comment NORMAL 08/27/2016 4:08/27/2016 6: 35am Icterus Index < 2 0-7 08/27/2016 4:08/27/2016 5:29am Chemistry Specimen Hemolysis 23 0-25 08/27/2016 4:08/27/2016 5: 29am 0-25: Specimen Exhibited No Hemolysis. Turbidity < 20 0-20 08/27/2016 4:08/27/2016 5:29am Sodium Level 141 MEQ/L 134-144 08/27/2016 4:3108/27/2016 5:29am Potassium Level 3.3 MEQ/L L 3.6-5 08/27/2016 4:08/27/2016 5:29am Chloride Level 109 MEQ/L H 98-107 08/27/2016 4:08/27/2016 5:29am Carbon Dioxide Level 23 MEQ/L 22-30 08/27/2016 4:08/27/2016 5: 29am Anion Gap 9 MEQ/L 5-15 08/27/2016 4:08/27/2016 5:29am Blood Urea Nitrogen 15.0 MG/DL 9-20 08/27/2016 4:31am 08/27/2016 5: 29am Creatinine 1.0 MG/DL 0.8-1.5 08/27/2016 4:31am 08/27/2016 5:29am BUN/Creatinine Ratio 15 RATIO 6-26 08/27/2016 4:3108/27/2016 5:29am Glomerular Filtration Rate Calc 75 08/27/2016 4:3108/27/2016 5: 29am Glucose Level 97 MG/DL 75-110 08/27/2016 4:3108/27/2016 5:29am Calculated Osmolality 272 MOSM/KG 261-280 08/27/2016 4:3108/27/2016 5:29am Calcium Level 8.3 MG/DL L 8.4-10.2 08/27/2016 4:31am 08/27/2016 5:29am Total Bilirubin 0.50 MG/DL 0.20-1.30 08/26/2016 5:39pm 08/26/2016 6: 11pm Alkaline Phosphatase 71 U/L 38-126 08/26/2016 5:39pm 08/26/2016 6:11pm Total Protein 6.9 G/DL 6.3-8.2 08/26/2016 5:39pm 08/26/2016 6:11pm Albumin 2.9 G/DL L 3.5-5.0 08/26/2016 5:39pm 08/26/2016 6:11pm Globulin 4.0 G/DL H 2.4-3.6 08/26/2016 5:39pm 08/26/2016 6:11pm Albumin/Globulin Ratio 0.7 RATIO L 1.1-2.2 08/26/2016 5:39pm 08/26/2016 6:11pm Aspartate Amino Transf (AST/SGOT) 39 U/L 17-59 08/26/2016 5:39pm 2016 6:11pm Alanine Aminotransferase (ALT/SGPT) 59 U/L 21-72 08/26/2016 5:39pm 04/2016 6:11pm Magnesium Level 1.9 MG/DL 1.6-2.3 08/27/2016 4:31am 08/27/2016 5:29am Stool Campylobacter PCR NEGATIVE NEGATIVE 08/27/2016 8:20am 2016 9:49am Stool C. difficile Toxin (PCR) NEGATIVE NEGATIVE 08/27/2016 8:20am 9:49am Stool Plesiomonas shigelloides PCR NEGATIVE NEGATIVE 08/27/2016 8: 20am 08/27/2016 9:49am Stool Salmonella PCR NEGATIVE NEGATIVE 08/27/2016 8:20am 08/27/2016 9 :49am Stool Vibrio (PCR) NEGATIVE NEGATIVE 08/27/2016 8:20am 08/27/2016 9: 49am Stool Vibrio cholera (PCR) NEGATIVE NEGATIVE 08/27/2016 8:20am 2016 9:49am Stool Yersinia enterocolitica (PCR) NEGATIVE NEGATIVE 08/27/2016 8: 20am 08/27/2016 9:49am Stool Enteroaggregative E. coli PCR NEGATIVE NEGATIVE 08/27/2016 8: 20am 08/27/2016 9:49am Stool Enteropathogenic E. coli (PCR NEGATIVE NEGATIVE 08/27/2016 8: 20am 08/27/2016 9:49am Stool Enterotoxigenic Ecoli PCR NEGATIVE NEGATIVE 08/27/2016 8:20am 08/27/2016 9:49am Stool E. coli Shiga Toxins NEGATIVE NEGATIVE 08/27/2016 8:20am 2016 9:49am Stool E coli O157 PCR N/A NA/NEG 08/27/2016 8:20am 08/27/2016 9:49am Stool Shigella/EIEC (PCR) NEGATIVE NEGATIVE 08/27/2016 8:20am 2016 9:49am Stool Cryptosporidium PCR NEGATIVE NEGATIVE 08/27/2016 8:20am 2016 9:49am Stool Cyclospora species Detection NEGATIVE NEGATIVE 08/27/2016 8: 20am 08/27/2016 9:49am Stool Entamoeba (PCR) NEGATIVE NEGATIVE 08/27/2016 8:20am 08/27/2016 9:49am Stool Giardia Lamblia PCR NEGATIVE NEGATIVE 08/27/2016 8:20am 2016 9:49am Stool Adenovirus (PCR) NEGATIVE NEGATIVE 08/27/2016 8:20am 2016 9:49am Stool Astrovirus (PCR) NEGATIVE NEGATIVE 08/27/2016 8:20am 2016 9:49am Stool Norovirus GI/GII PCR NEGATIVE NEGATIVE 08/27/2016 8:20am 2016 9:49am Stool Rotavirus A PCR NEGATIVE NEGATIVE 08/27/2016 8:20am 08/27/2016 9:49am Stool Sapovirus (PCR) NEGATIVE NEGATIVE 08/27/2016 8:20am 08/27/2016 9:49am Urine Color [place]IL[place] YELLOW 08/27/2016 8:20am 08/27/2016 8:56am Urine Turbidity CLEAR CLEAR 08/27/2016 8:20am 08/27/2016 8:56am Urine Specific [place] >=1.030 H 1.015-1.025 08/27/2016 8:20am 2016 8:56am Urine pH 5.5 5.0-8.0 08/27/2016 8:20am 08/27/2016 8:56am Urine Leukocyte Esterase NEGATIVE NEGATIVE 08/27/2016 8:20am 2016 8:56am Urine Nitrite POSITIVE A NEGATIVE 08/27/2016 8:2008/27/2016 8:56am Urine Protein 1+ A NEGATIVE 08/27/2016 8:20am 08/27/2016 8:56am Urine Glucose (UA) NEGATIVE NEGATIVE 08/27/2016 8:20am 08/27/2016 8: 56am Urine Ketones NEGATIVE NEGATIVE 08/27/2016 8:20am 08/27/2016 8:56am Urine Urobilinogen 0.2 EU/DL NORMAL 08/27/2016 8:20am 08/27/2016 8: 56am Urine Bilirubin NEGATIVE NEGATIVE 08/27/2016 8:20am 08/27/2016 8: 56am Urine Blood NEGATIVE NEGATIVE 08/27/2016 8:20am 08/27/2016 8:56am Urine WBC 0-1 /HPF 0-5 08/27/2016 8:20am 08/27/2016 9:13am Urine RBC 0-1 /HPF 0-3 08/27/2016 8:20am 08/27/2016 9:13am Urine Squamous Epithelial Cells NONE SEEN 08/27/2016 8:20am 2016 9:13am Urine Bacteria TRACE H NEGATIVE 08/27/2016 8:20am 08/27/2016 9:13am Urine Mucus PRESENT 08/27/2016 8:20am 08/27/2016 9:13am Urine Culture Indicated CULT REFLEXED &SETUP 08/27/2016 8:20am 05/2016 9:13am Microbiology Results Procedure Source Organism/Result Collection Date/Time Result Date/Time Result Status Blood Culture Cath/Port/Line/Picc NO GROWTH AFTER 5 DAYS 08/18/2016 12: 45pm 08/23/2016 12:48pm Final Urine Culture Not Provided CULTURE INITIATED - RESULTS PENDING 08/27/2016 9 :13am 08/27/2016 9:14am Preliminary Name: VADIM JOHNSON Unit #: [id number] : 1950 Sex: M DISCHARGE SUMMARY Admit Date: 08/26/16 Report #: [id number] [facility] General Date Date DATE: 08/27/16 TIME: 11:28 Attending Physician Deejay Garcia MD Admitting Physician Deejay Garcia MD Consulting Physician Admitting Diagnosis DEHYDRATION, C. DIFF Discharge Diagnosis Dehydration Laboratory Laboratory Tests Test 08/26/16 17:39 08/27/16 04:31 08/27/16 08:20 White Blood Count 6.5T/MM3 (4.5-11.0) 5.7T/MM3 (4.5-11.0) Red Blood Count 3.86M/MM3 (4.50-5.90) 3.89M/MM3 (4.50-5.90) Hemoglobin 11.4GM/DL (13.5-17.5) 11.4GM/DL (13.5-17.5) Hematocrit 33.7% (41-53) 34.3% (41-53) Mean Corpuscular Volume 87.3UM3 (80-100) 88.2UM3 (80-100) Mean Corpuscular Hemoglobin 29.5UUG (26-34) 29.3UUG (26-34) Mean Corpuscular Hemoglobin Concent 33.8GM/DL (31-37) 33.2GM/DL (31-37) RDW Standard Deviation 47.3FL (36.9-50.2) 48.1FL (36.9-50.2) Platelet Count 340T/MM3 (130-400) 322T/MM3 (130-400) Mean Platelet Volume 9.9UM3 (9.4-12.4) 10.2UM3 (9.4-12.4) Immature Granulocyte % (Auto) 0.2% (0.0-0.5) 0.2% (0.0-0.5) Neutrophils (%) (Auto) 75.8% (33-66) 67.2% (33-66) Lymphocytes (%) (Auto) 13.0% (23-45) 20.1% (23-45) Monocytes (%) (Auto) 7.3% (0-9.0) 6.5% (0-9.0) Eosinophils (%) (Auto) 3.1% (0-4) 5.3% (0-4) Basophils (%) (Auto) 0.6% (0-2) 0.7% (0-2) Absolute Immature Granulocyte (auto 0.01T/MM3 (0.00-0.03) 0.01T/MM3 (0.00-0.03) Absolute Neutrophils (auto) 4.9T/MM3 (1.8-7.7) 3.8T/MM3 (1.8-7.7) Absolute Lymphocytes (auto) 0.8T/MM3 (1-4.8) 1.1T/MM3 (1-4.8) Absolute Monocytes (auto) 0.5T/MM3 (0-0.8) 0.4T/MM3 (0-0.8) Absolute Eosinophils (auto) 0.2T/MM3 (0-0.5) 0.3T/MM3 (0-0.5) Absolute Basophils (auto) 0.0T/MM3 (0-0.2) 0.0T/MM3 (0-0.2) Turbidity < 20 (0-20) < 20 (0-20) Sodium Level 142MEQ/L (134-144) 141MEQ/L (134-144) Potassium Level 3.5MEQ/L (3.6-5) 3.3MEQ/L (3.6-5) Chloride Level 105MEQ/L (98-107) 109MEQ/L (98-107) Carbon Dioxide Level 26MEQ/L (22-30) 23MEQ/L (22-30) Anion Gap 11MEQ/L (5-15) 9MEQ/L (5-15) Blood Urea Nitrogen 16.0MG/DL (9-20) 15.0MG/DL (9-20) Creatinine 1.0MG/DL (0.8-1.5) 1.0MG/DL (0.8-1.5) Glomerular Filtration Rate Calc 75 75 BUN/Creatinine Ratio 16RATIO (6-26) 15RATIO (6-26) Glucose Level 102MG/DL (75-110) 97MG/DL (75-110) Calculated Osmolality 274MOSM/KG (261-280) 272MOSM/KG (261-280) Calcium Level 8.6MG/DL (8.4-10.2) 8.3MG/DL (8.4-10.2) Total Bilirubin 0.50MG/DL (0.20-1.30) Icterus Index < 2 (0-7) < 2 (0-7) Aspartate Amino Transf (AST/SGOT) 39U/L (17-59) Alanine Aminotransferase (ALT/SGPT) 59U/L (21-72) Alkaline Phosphatase 71U/L (38-126) Total Protein 6.9G/DL (6.3-8.2) Albumin 2.9G/DL (3.5-5.0) Globulin 4.0G/DL (2.4-3.6) Albumin/Globulin Ratio 0.7RATIO (1.1-2.2) Chemistry Specimen Hemolysis < 15 (0-25) 23 (0-25) Neutrophils % (Manual) 85.0% (33-66) Lymphocytes % (Manual) 7.0% (23-45) Monocytes % (Manual) 3.0% (0-9.0) Eosinophils % (Manual) 5.0% (0-4) Absolute Neutrophils (Manual) 4.8T/MM3 (1.8-7.7) Lymphocytes # (Manual) 0.4T/MM3 (1-4.8) Monocytes # (Manual) 0.2T/MM3 (0-0.8) Eosinophils # (Manual) 0.3T/MM3 (0-0.5) Red Cell Morphology Comment Normal Magnesium Level 1.9MG/DL (1.6-2.3) Urine Collection Type Urine Color [place] (YELLOW) Urine Turbidity Clear (CLEAR) Urine pH 5.5 (5.0-8.0) Urine Specific [place] >=1.030 (1.015-1.025) Urine Protein 1+ (NEGATIVE) Urine Glucose (UA) Negative (NEGATIVE) Urine Ketones Negative (NEGATIVE) Urine Blood Negative (NEGATIVE) Urine Nitrite Positive (NEGATIVE) Urine Bilirubin Negative (NEGATIVE) Urine Urobilinogen 0.2EU/DL (NORMAL) Urine Leukocyte Esterase Negative (NEGATIVE) Urine RBC 0-1/HPF (0-3) Urine WBC 0-1/HPF (0-5) Urine Squamous Epithelial Cells None seen Urine Bacteria Trace (NEGATIVE) Urine Mucus Present Urine Culture Indicated Cult reflexed &setup Stool Cyclospora species Detection Negative (NEGATIVE) Stool Rotavirus A PCR Negative (NEGATIVE) Stool Adenovirus (PCR) Negative (NEGATIVE) Stool Astrovirus (PCR) Negative (NEGATIVE) Stool Campylobacter PCR Negative (NEGATIVE) Stool C. difficile Toxin (PCR) Negative (NEGATIVE) Stool Cryptosporidium PCR Negative (NEGATIVE) Stool E. coli Shiga Toxins Negative (NEGATIVE) Stool E coli O157 PCR N/a (NA/NEG) Stool Enterotoxigenic Ecoli PCR Negative (NEGATIVE) Stool Enteropathogenic E. coli (PCR Negative (NEGATIVE) Stool Enteroaggregative E. coli PCR Negative (NEGATIVE) Stool Entamoeba (PCR) Negative (NEGATIVE) Stool Giardia Lamblia PCR Negative (NEGATIVE) Stool Salmonella PCR Negative (NEGATIVE) Stool Sapovirus (PCR) Negative (NEGATIVE) Stool Plesiomonas shigelloides PCR Negative (NEGATIVE) Stool Shigella/EIEC (PCR) Negative (NEGATIVE) Stool Yersinia enterocolitica (PCR) Negative (NEGATIVE) Stool Vibrio (PCR) Negative (NEGATIVE) Stool Vibrio cholera (PCR) Negative (NEGATIVE) Stool Norovirus GI/GII PCR Negative (NEGATIVE) Microbiology Microbiology Date/Time Source Procedure Growth Status 08/27/16 09:13 Not Provided Urine Culture - Preliminary CULTURE INITIATED - RESULTS PENDING Resulted History of Present Illness Vadim Johnson is a 65 y/o male recently hospitalized from 08/07/16 through 08/23/16 for 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 Thapa. This postop course was complicated by C. difficile colitis, and he was started on metronidazole and vancomycin on 08/13/16 with instructions to continue this for a total of 14 days. He also received TPN for malnutrition while he was hospitalized. His blood pressure medications were chested. While he is in the hospital, and he was sent home on metoprolol. He was able to be discharged back to [facility]. He was seen in the emergency department on 08/24/16 because of reports of weakness and confusion. There is also the question about a possible fall, since he was found lying next to the couch in his room. A CT scan of his head was negative for acute findings. Chest x-rays and pelvis x-rays were unremarkable. He was sent home with instructions to follow-up with Dr. Carrillo. Vadim was seen in the clinic on 08/26/16 b/c he had been spitting out his meds and not eating and drinking well. All he had since discharge is about 2 or 3 ensures, and 16-24 ounces of water. He has eaten a few bites here and there. He has had ongoing loose stools, about 9 yesterday, but none today. He has also had a couple of falls since discharge. He has been restless, but staff does not feel like he has been in a great amount of pain. He is nonverbal. Staff deny any fevers or cough. Given his recent prolonged hospital course and concern for dehydration, the hospitalist service was contacted for hospital admission. Hospital Course Patient was placed in observation status. His diarrhea resolved on its own apparently. Repeat cultures for Clostridium difficile were negative. At this time his Flagyl and vancomycin are being discontinued. He received IV fluids during his hospitalization. Per dining car conductor as he is back to baseline. There is concern that the Flagyl and vancomycin he was dismissed on was causing GI upset and therefore he was not eating. Appetite appears to be back at baseline. With physical therapy and was seen ambulating with minimal assistance. Problems: (1) Dehydration Status: Resolved (2) C. difficile colitis Status: Resolved Assessment & Plan: Repeat culture pending. We'll discontinue the IV Flagyl and restart oral Flagyl. (3) Hypertension Status: Chronic (4) Mental retardation Status: Chronic (5) Epileptic seizure Status: Chronic (6) Osteopenia Status: Chronic (7) Anemia Status: Chronic Code Status Full Code Home Meds Active Scripts Metronidazole (Metronidazole) 500 Mg Tablet, 500 MG PO TID for 5 Days, #15 TAB Prov:BENJIE HILL MD 08/23/16 Hydrocodone/Acetaminophen (Hydrocodon-Acetaminoph 7.5-325) 7.5-325 Tablet, 1 TAB PO Q4H Y for PAIN, #10 TAB Prov:BENJIE HILL MD 08/23/16 Reported Medications Vancomycin HCl (Vancomycin HCl) 250 Mg Capsule, 500 MG PO Q6H for 5 Days 08/24/16 Metoprolol Succinate (Metoprolol Succinate) 50 Mg Tab.er.24h, 50 MG PO DAILY 08/24/16 Benzocaine (Oral Pain Relief) 9.35 Gm Gel..gram., [...] , medications, and safety plan. Discharge Disposition Patient is being discharged back to [facility] DEEJAY GARCIA MD August 27, 2016 11:31 Procedures Procedure Status Date Provider(s) Routine venipuncture Completed 08/24/16 Ct head/brain w/o dye Completed 08/24/16 Chest x-ray 1 view frontal Completed 08/24/16 X-ray exam of pelvis Completed 08/24/16 Comprehen metabolic panel Completed 08/24/16 Complete cbc w/auto diff wbc Completed 08/24/16 Emergency dept visit Completed 08/24/16 Colonoscopy with polypectomy and biopsy Completed 08/09/16 IZA THAPA MD, FACS, CWS Exploratory laparotomy Completed 08/09/16 IZA THAPA MD, FACS, CWS Encounters Encounter Location Arrival/Admit Date Discharge/Depart Date Attending Provider Discharged Inpatient (obs) [facility] 08/26/16 4:10pm 08/27/16 2: 57pm DEEJAY GARCIA MD Departed Emergency Room [facility] 08/24/16 5:46pm 08/24/16 7: 54pm YANDEL ARMENTA MD Discharged Inpatient [facility] 08/07/16 12:14pm 08/23/16 3:15pm BENJIE HILL MD
[2016-09-04] MEDS ORDERED: LOPE2CAP PO (15:48)
[2016-09-04] MEDS ORDERED: PSEU60TA21 PO (15:48)
--- OUTSIDE RECORDS SUMMARY | 2016-09-04 15:51 | XMS REPORT | Continuity of Care Document ---
Author Author [facility] Organization [facility] Address Unknown Phone Unavailable Allergies Active Description Code Type Severity Reaction Onset Reported/Identified Relationship to Patient Clinical Status Yes No Known Drug Allergies Drug Allergy 05/12/2012 Yes NSAIDs NKMA N/A [id number] 05/30/2014 Medications Problems Date Dx Coded Attending [...] Procedures Code [place] [id number] DIAGNOSTIC COLONOSCOPY Norma Mera MD 05/12/2012 Results [...] Status Pt. Type Provider Facility Loc./Unit Complaint [id number] 05/12/2012 09:08:00 2012 23:59:59 CLS Outpatient Norma Mera MD [facility] on [facility]
--- NOTE | 2016-09-04 15:54 | ERPDOC ---
Departure Disposition Decision Date: September 04, 2016 Disposition Decision Time: 18:09 Disposition: 01 DISCHARGED HOME, SELF-CARE Impression Impression Impression: Primary Impression: Decrease in appetite Additional Impression: Vomiting Vomiting type: unspecified Vomiting Intractability: non-intractable Nausea presence: unspecified Qualified Codes: R11.10 - Vomiting, unspecified Severity: Moderate Condition: Improved Seen By: Mid-level only Referrals: ANDER NEGRETE MD (PCP) BERNABE CARRILLO MD (Family) Patient Instructions: Acute Nausea and Vomiting (ED) Problems/Meds/Labs Reviewed?: Yes Medications reviewed and manag: Yes Additional Instructions: Patient labs show that he is hydrated and eating. Patient denied pain to provider and when abdomen was palpated patient did not have pain. Patient was able to drink water in ED with out emesis. I spoke with Dr. Ariza and he said that he got similar labs in office today. It may take several months for patient to begin to eat like he did before surgery. Give fluids in small increments. Do not allow patient to rapidly drink fluids ( such as ensure). Follow as needed with PCP or Dr. Ariza. Follow up care ordered?: Yes Mental Status: Alert, Oriented HPI - Abdominal Pain General Chief Complaint: Nausea,Vomiting,Diarrhea Stated Complaint: NOT EATING/DRINKING,VOMITING Time Seen by Provider: 15:53 Source: other HPI - Abdominal Pain Initial Comments 65 YO M brought [facility] ED by staff from [facility] for not eating and abdominal pain. Patient is status post bowel resection on 08-09-16. Patient has minimal language due to "profound mental retardation" per staff. Patient does answer yes and no. Staff says that patient has had increased abdominal circumference by 3 inches over last few day. Patient vomited once this afternoon. When I ask patient if his abdomen hurts he says no. Last BM last night, small loose stool per staff. Pain Scale: Now: 0/10 Location: generalized abdomen Associated Symptoms: DENIES: chest pain, fever/chills, shortness of breath, weakness Allergies: Coded Allergies: NSAIDS (Non-Steroidal Anti-Inflamma (Verified Allergy, Unknown, 09/04/16) History of ulcers Past History Patient Surgical History Low anterior sigmoid resection with mobilization of the splenic flexure and coloproctostomy on 07/30/[address] Ariza 06-16-2011 Colonoscopy = ischemic colitis, Miya Past Medical History Metabolic: DENIES: diabetes Cardiac: DENIES: angina Respiratory: DENIES: asthma GI: constipation, other (bowel obstruction) Male: DENIES: renal insufficiency Neurological: other (mental retardation), seizures Musculoskeletal: DENIES: rheumatoid arthritis Hematologic: DENIES: anemia Psychological: bipolar Surgical History General: exploratory laparotomy, other (sigmoid bowel resection) Family History Family PMH: FOUND: other (contributory) Vaccines Hx Influenza Vaccination: Yes (fall 2015) Hx Pneumococcal Vaccination: No Hx Tetanus, Diptheria, Pertuss: Yes Social History Substance Use Type: does not use Alcohol Intake: none Housing: other ([facility]) Review of Systems Constitutional Constitutional: DENIES: chills, dizziness, fever Eyes General: DENIES: erythema, exudate Lids/Accessories: DENIES: erythema, swelling ENMT Ears: DENIES: pain Sinuses: DENIES: congestion, rhinorrhea Mouth/Throat: DENIES: sore throat Cardiovascular Cardiac: DENIES: chest pain, murmur Rhythm/Rate: DENIES: palpitations Pulmonary Respiratory: DENIES: cough, dyspnea GI Upper Abdomen: pain, vomiting, DENIES: nausea Lower Abdomen: DENIES: diarrhea, pain General: DENIES: dysuria, pain Musculoskeletal General: DENIES: joint pain, pain, tenderness Integumentary Skin: DENIES: color change, itching, rash Neurological General: DENIES: ataxia, change in strength, numbness, paralysis/paresis, weakness Psychiatric Psychiatric: DENIES: anxiety, depression, nervousness Physical Exam General General Nourishment: well nourished, well developed, no acute distress, adult Vitals and Pain Weight: Kilograms: Height (feet): 5 Height (inches): 10.00 Triage Pain Scale: Eyes (brief) Eyes Brief: found: EOMI ENMT (brief) ENMT Brief: NOT FOUND: nasal exudate, nasal swelling Neck (brief) Neck: FOUND: trachea midline Respiratory (brief) Respiratory: FOUND: clear all negron, equal bilaterally, symmetrical Cardiovascular (brief) Cardiac: FOUND: regular rate, regular rhythm Abdomen Inspection: FOUND: distention Palpation: NOT FOUND: involuntary guarding, rebound, soft (firm), tender, voluntary guarding Auscultation: FOUND: normoactive (x4) Musculoskeletal (brief) Musculoskeletal Brief: NOT FOUND: deformity, loss of motion Integumentary (brief) Integumentary Brief: FOUND: dry, warm Neurologic (brief) Neurological Brief: FOUND: motor-no gross deficits, sensory-no gross deficits Psychiatric (brief) Psychiatric Brief: FOUND: alert, oriented Differential Diagnoses Considering: Bowel Obstruction, Food Poisoning, Gastroenteritis, Ischemic Bowel , Viral Syndrome, Sigmoid Volvulus, Cecal Volvulus, Other (ileus,) Progress Results/Orders Orders Procedure Category Date Status Time Iv Lock (Ed Only) EDM 09/04/16 Transmitted 16:00 Nothing By Mouth (Ed EDM 09/04/16 Transmitted Only) 16:00 Cbc W/Auto LAB 09/04/16 Complete Diff-Reflex Manual 16:00 Cmp - Comprehensive LAB 09/04/16 Complete Metabolic 16:00 Lipase LAB 09/04/16 Complete 16:00 Kub W/Upright RAD 09/04/16 Resulted 16:00 Morphine Sulfate PHA 09/04/16 Complete (Morphine) 16:00 Ondansetron Inj PHA 09/04/16 Complete (Zofran) 16:00 Normal Saline (Normal PHA 09/04/16 Complete Saline Iv) 18:00 UA, LAB 09/04/16 Complete Dip&Micro(Complete) & 18:45 Lab Results Laboratory Tests Test 09/04/16 16:50 09/04/16 18:45 White Blood Count 7.1T/MM3 Red Blood Count 4.88M/MM3 Hemoglobin 14.0GM/DL Hematocrit 43.3% Mean Corpuscular Volume 88.7UM3 Mean Corpuscular Hemoglobin 28.7UUG Mean Corpuscular Hemoglobin Concent 32.3GM/DL RDW Standard Deviation 52.7FL Platelet Count 210T/MM3 Mean Platelet Volume 10.1UM3 Immature Granulocyte % (Auto) 0.1% Neutrophils (%) (Auto) 76.1% Lymphocytes (%) (Auto) 14.9% Monocytes (%) (Auto) 7.2% Eosinophils (%) (Auto) 1.3% Basophils (%) (Auto) 0.4% Absolute Immature Granulocyte (auto 0.01T/MM3 Absolute Neutrophils (auto) 5.4T/MM3 Absolute Lymphocytes (auto) 1.1T/MM3 Absolute Monocytes (auto) 0.5T/MM3 Absolute Eosinophils (auto) 0.1T/MM3 Absolute Basophils (auto) 0.0T/MM3 Turbidity < 20 Sodium Level 145MEQ/L Potassium Level 4.9MEQ/L Chloride Level 105MEQ/L Carbon Dioxide Level 25MEQ/L Anion Gap 15MEQ/L Blood Urea Nitrogen 19.0MG/DL Creatinine 0.9MG/DL Glomerular Filtration Rate Calc 84 BUN/Creatinine Ratio 21RATIO Glucose Level 123MG/DL Calculated Osmolality 282MOSM/KG Calcium Level 9.5MG/DL Total Bilirubin 1.00MG/DL Icterus Index < 2 Aspartate Amino Transf (AST/SGOT) 45U/L Alanine Aminotransferase (ALT/SGPT) 55U/L Alkaline Phosphatase 65U/L Total Protein 8.1G/DL Albumin 4.0G/DL Globulin 4.1G/DL Albumin/Globulin Ratio 1.0RATIO Lipase 198U/L Chemistry Specimen Hemolysis 25 Urine Collection Type Voided-not cc-midstr Urine Color Yellow Urine Turbidity Clear Urine pH 6.0 Urine Specific [place] 1.025 Urine Protein 1+ Urine Glucose (UA) Negative Urine Ketones Negative Urine Blood Negative Urine Nitrite Negative Urine Bilirubin 2+ Urine Urobilinogen 0.2EU/DL Urine Leukocyte Esterase Negative Urine RBC None seen/HPF Urine WBC 0-1/HPF Urine Squamous Epithelial Cells 0-5 Urine Calcium Oxalate Crystals Moderate Urine Bacteria Trace Urine Hyaline Casts 0-1/LPF Urine Mucus Present Urine Culture Indicated Cult not indicated Medications Current ED Medications Morphine Sulfate (Morphine) 4 mg O ONCE IV ; Start 09/04/16 at 16:00; Stop 02/11 at 16:44; Status DC Ondansetron HCl 4 mg 4 mg O ONCE IV Last administered on 09/04/16 17:18; Start 09/04/16 at 16:00; Stop 09/04/16 at 16:02; Status DC Sodium Chloride (Normal Saline IV) 1,000 ml @ 0 mls/hr Q0M ONCE IV Last administered on 09/04/16 18:07; Start 09/04/16 at 18:00; Stop 09/04/16 at 18:01 ; Status DC Progress Progress Patient is able to keep water down without emesis. Staff accompanying patient admits that patient did "chug" ensure down and that maybe why he vomited. Patient has no guarding/no grimacing and denies pain with palpation of abdomen. Labs unremarkable. Staff did not mention that patient had been seen by Dr. Ariza who did patient bowel resection and had labs at that time when to provider. I asked staff why they had brought patient to ED after just seeing Dr. Ariza and they said because patient vomited once. I discussed labs, KUB, conversation I had with Dr. Ariza and treatment plan. Staff member verbalized understanding of treatment plan, follow up as needed and return precautions. Consult/PCP Consult/PCP : Physician Contacted: Dr. Ariza Time Called: 18:09 Type of discussion: Phone Consult/PCP Discussion Details I discussed patient's HPI, PMH, labs, VS, KUB and exam findings with Dr. Ariza. Dr. Ariza said that patient had left his office approximately 2 hours ago. Patient had normal labs and no complaint of abdominal pain. 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 He did not order KUB because patient's KUB will always show large amount of air due to swallowing air. Dr. Ariza feels that if patient may go home unless I see something different on exam. Xray Xray : Xray: KUB Upright (continued distended colonic loops, no free air) Interpretation: Reviewed Written Report RADHA RUSH DOWEL MAKER September 04, 2016 15:53
--- NOTE | 2016-09-04 15:59 | NUR ---
ED RUSH APRN AT BEDSIDE.
[2016-09-04] MEDS ORDERED: ONDANSETRON 4mg/2ml INJECTION IV ONE (16:00)
[2016-09-04] MEDS ORDERED: MORPHINE SULFATE 4 MG SYRINGE IV ONE (16:00)
--- NOTE | 2016-09-04 16:39 | DI ---
Indication: ITS.REASON: abdominal pain by report of staff PROCEDURE: KUB W/UPRIGHT: Encounter: Initial Comparison: 08/19/2016 Findings: Flatplate and upright views were obtained. There is again marked distention of what appears to be primarily colonic loops indicating distal large bowel obstruction versus colonic ileus. There is no evidence of free air, organomegaly or abnormal intra-abdominal calcifications. Surgical clips are seen throughout lower mid abdomen. Bony structures show elongated exostoses off the proximal left medial femur. There is elevation of the left hemidiaphragm. Impression: Continued or recurrent distention of colonic loops indicating colonic ileus. No evidence of free air .
--- NOTE | 2016-09-04 16:43 | NUR ---
IV ATTEMPT UNSUCCESSFUL X2 ATTEMPTS.
[2016-09-04 17:04] LABS: BASOPHILS % (AUTO) 0.4 % (0-2); EOSINOPHILS # (AUTO) 0.1 T/MM3 (0-0.5); EOSINOPHILS % (AUTO) 1.3 % (0-4); HCT - HEMATOCRIT 43.3 % (41-53); IMMATURE GRANULOCYTE # (AUTO) 0.01 T/MM3 (0.00-0.03); IMMATURE GRANULOCYTE % (AUTO) 0.1 % (0.0-0.5); LYMPHOCYTES # (AUTO) 1.1 T/MM3 (1-4.8); LYMPHOCYTES % (AUTO) 14.9 % (23-45); MEAN CORPUSCULAR HGB 28.7 UUG (26-34); MEAN CORPUSCULAR HGB CONC(MCHC 32.3 GM/DL (31-37); MEAN CORPUSCULAR VOLUME 88.7 UM3 (80-100); MEAN PLATELET VOLUME 10.1 UM3 (9.4-12.4); MONOCYTES # (AUTO) 0.5 T/MM3 (0-0.8); MONOCYTES % (AUTO) 7.2 % (0-9.0); NEUTROPHILS #(AUTO)-ABSOLUTE 5.4 T/MM3 (1.8-7.7); NEUTROPHILS % (AUTO) 76.1 % (33-66); RED BLOOD COUNT 4.88 M/MM3 (4.50-5.90); WBC - WHITE BLOOD COUNT 7.1 T/MM3 (4.5-11.0)
[2016-09-04 17:15] LABS: ALKALINE PHOSPHATASE 65 U/L (38-126); ALT (SGPT) 55 U/L (21-72); ANION GAP 15 MEQ/L (5-15); AST (SGOT) 45 U/L (17-59); BUN/CREATININE RATIO 21 RATIO (6-26); CALCIUM 9.5 MG/DL (8.4-10.2); CHLORIDE 105 MEQ/L (98-107); CO2 - CARBON DIOXIDE 25 MEQ/L (22-30); CREATININE 0.9 MG/DL (0.8-1.5); GLOMERULAR FILTRATION RATE 84; GLUCOSE 123 MG/DL (75-110); LIPASE 198 U/L (23-300); POTASSIUM 4.9 MEQ/L (3.6-5); SODIUM 145 MEQ/L (134-144); TOTAL PROTEIN 8.1 G/DL (6.3-8.2)
[2016-09-04] MEDS ORDERED: NORMAL SALINE 1,000 ML IV ONE (18:00)
--- NOTE | 2016-09-04 18:45 | NUR ---
VOID PT VOIDED 200ML KJ COLORED URINE. SPECIMEN SENT TO LAB.
[2016-09-04 18:49] LABS: BLOOD, URINE NEGATIVE (NEGATIVE); COLOR,URINE YELLOW (YELLOW); LEUKOCYTE ESTERASE ,URINE NEGATIVE (NEGATIVE); NITRITE,URINE NEGATIVE (NEGATIVE); UROBILINOGEN,URINE 0.2 EU/DL (NORMAL)
[2016-09-04 18:58] LABS: BACTERIA,URINE TRACE (NEGATIVE); CALCIUM OXALATE CRYSTALS,UR MODERATE; HYALINE CASTS, URINE 0-1 /LPF; MUCUS,URINE PRESENT; RBC,URINE NONE SEEN /HPF (0-3); SQUAMOUS EPITHELIAL CELL,UR 0-5; WBC,URINE 0-1 /HPF (0-5)
--- NOTE | 2016-09-04 19:17 | NUR ---
PO PT GIVEN WATER AND APPLE JUICE TO DRINK. PT CHUGGED WATER DESPITE INSTRUCTION TO TAKE SLOWLY. WORKER REMAINS AT BEDSIDE.
--- NOTE | 2016-09-04 19:35 | NUR ---
STATUS PT IS WITHOUT NAUSEA, EMESIS. STATUS REPORTED TO Suzanna RUSH APRN.
[2016-09-04 20:01] VITALS: BP 110/82; PULSE 115; RESP 16; TEMP 97.9; O2SAT 97
--- NOTE | 2016-09-04 20:01 | NUR ---
DEPART PT AMBULATORY TO LOBBY WITH DIRECT CARE STAFF WORKER. GAIT STEADY.
== END 2016-09-04 20:01 | disposition home or self-care (01) ==
LOC: ED 15:24
DX: R11.10 Vomiting, unspecified (principal); R63.0 Anorexia; R10.10 Upper abdominal pain, unspecified
CPT/HCPCS: 36415; 74020; 80053; 81001; 83690; 85025; 96374; 99284; J2405; J7030